=== PATIENT | female | born 1955 ===

== ENCOUNTER → 2020-01-04 13:05 | Outpatient (REF) | payer OTHER, SELFPAY ==
--- NOTE | 2020-01-04 13:08 | CA_ITS ---
Transthoracic Echocardiogram Patient (Last, First, Middle): Lizbeth Bonner A Gender: Female Date of : 1955 Age: 64 Procedure Date: 01/04/2020 Procedure Type: Transthoracic Echocardiogram Location: OP Height: 154.94 cm Weight: 74.84 kg BSA: 1.74 m2 Heart Rate: bpm BP: 126 / 62 mmHg Substance Abuse Nurse: ASHKAN Khoury MD: Elissa Salas MD [place] [facility] [place]: - Normal left ventricular size, thickness, and systolic function. - Diastolic function is indeterminate on the basis of available data. - Normal right ventricular cavity size and systolic function. - No significant valvular or pericardial pathology. Findings Left Ventricle Normal left ventricular size, thickness, and systolic function. The visually estimated ejection fraction is between 60-65%. There is no evidence of regional wall motion abnormalities. Diastolic function is indeterminate on the basis of available data. Spectral Doppler is indicative of an impaired relaxation filling pattern. E/E prime ratio is between 8 and 15 consistent with indeterminate filling pressures. Right Ventricle Normal right ventricular cavity size and systolic function. Atria The left atrium is normal in size. There is no evidence of interatrial shunt by color Doppler. The right atrium is normal in size. Aortic Valve Normal aortic valve structure and function. There is no aortic valve stenosis. There is no aortic valve regurgitation. Mitral Valve Normal mitral valve structure and function. There is no mitral valve regurgitation. There is no mitral valve stenosis. Pulmonic Valve The pulmonic valve was not well visualized. Tricuspid Valve Normal tricuspid valve structure and function. There is trace tricuspid valve regurgitation. Tricuspid regurgitation envelope is inadequate for calculation of right ventricular systolic pressure. Normal right atrial pressure. Great Vessels All visible segments of the aorta are normal in size. The pulmonary artery was not well visualized. Venous The inferior vena cava is normal in size and collapses greater than 50% with inspiration. Pericardium/Pleural There is no evidence of pericardial effusion. Prior Study Comparison No prior study available for comparison. Measurements 2D Linear Measurements RVIDd: 2.80 RVIDd Index: 1.61 IVSd: 0.71 0.6-0.9/0.6-1.0 cm LVIDd: 4.68 3.9-5.3/4.2-5.9 cm LVIDd Index: 2.69 2.4-3.2/2.2-3.1 cm/m2 LVIDs: 3.15 2.0-3.6 cm LVPWd: 0.95 0.7-1.1 cm Ao Root: 3.00 2.1-3.5 cm LA Diam: 2.90 2.7-3.8/3.0-4.0 cm LAIDs Index: 1.67 1.5-2.3 cm/m2 LV Mass: 158.56 67-162/88-224 g LV Mass Index: 91.12 43-95/49-115 g/m2 LVOT Diam: 1.90 3.0+(-)1.3 cm 2D Systolic Function EF 4C: 71.30 >55% EF 2C: 64.50 >55% EF BiP: 68.20 >55% Mitral Valve MV Pk E: 0.76 MV PK A: 0.86 MV Decel Time: 261.00 E/A: 0.90 E'Lateral: 7.07 E'Medial: 6.42 E/E' Med: 11.80 E/E' Lat: 10.70 Aortic Valve AoV Pk Ty: 1.41 AoV Mn Ty: 0.99 AoV VTI: 0.33 AoV Pk Grad: 8.00 Aov Mn Grad: 4.00 ED Cont.VTI: 2.30 LVOT LVOT Pk Ty: 1.24 LVOT Mn Ty: 0.82 LVOT VTI: 0.26 LVOT Pk Grad: 6.00 LVOT Mn Grad: 3.00 LVOT Diam: 1.90 LVOT Area: 2.84 Diastolic Function MV Pk E: 0.76 MV Pk A: 0.86 E/A: 0.90 E'Medial: 6.42 E/E' Med: 11.80 E' Laterial: 7.07 E/E' Lat: 10.70 Tricuspid Valve RA Press: 3.00 Great Vessels Aorta Ao Root-2D: 3.00 2.0-3.7 cm Ao Asc: 3.00 2.1-3.4 cm Ao Arch: 2.60 Updated in Other Vendor System with Status of Final Casey Neal MD electronically signed on 01/05/2020 2:56:02 PM with status of Final
== END ==
LOC: HO.CARD 13:05
PROVIDERS: PCP Internal Medicine; Visit Provider Internal Medicine
DX: R01.1 Cardiac murmur, unspecified (principal)
CPT/HCPCS: 93306

== ENCOUNTER → 2020-01-21 09:29 | Outpatient (BNVA) | payer OTHER, SELFPAY | PROVIDERS: PCP Internal Medicine; Referring Provider Internal Medicine; Visit Provider Obstetrics & Gynecology | DX: Z76.89 Persons encountering health services in other specified circumstances (principal) ==

== ENCOUNTER 2020-01-22 16:25 | Outpatient (REF) | payer OTHER, SELFPAY | END 2020-01-22 16:26 | disposition home or self-care (01) | LOC: HO.LAB 16:25 | PROVIDERS: PCP Internal Medicine; Visit Provider Internal Medicine | DX: Z20.828 Contact with and (suspected) exposure to other viral communicable diseases (principal) | CPT/HCPCS: C9803; U0003 ==

== ENCOUNTER → 2020-02-17 15:35 | Outpatient (BNVA) | payer OTHER, SELFPAY | PROVIDERS: Visit Provider Obstetrics & Gynecology | DX: Z76.89 Persons encountering health services in other specified circumstances (principal) ==

== ENCOUNTER 2020-02-23 10:30 | Outpatient (REF) | payer OTHER, SELFPAY | END 2020-02-23 10:31 | disposition home or self-care (01) | LOC: HO.LAB 10:30 | PROVIDERS: PCP Internal Medicine; Visit Provider Internal Medicine | DX: Z20.828 Contact with and (suspected) exposure to other viral communicable diseases (principal) | CPT/HCPCS: C9803; U0003 ==

== ENCOUNTER 2020-04-08 09:51 | Outpatient (REF) | payer OTHER, SELFPAY | END 2020-04-08 09:52 | disposition home or self-care (01) | LOC: HO.LAB 09:51 | PROVIDERS: Visit Provider Internal Medicine | DX: Z20.822 Contact with and (suspected) exposure to COVID-19 (principal) | CPT/HCPCS: 36415; C9803; U0003 ==

== ENCOUNTER 2020-04-21 07:50 | Outpatient (REF) | payer OTHER, SELFPAY ==
--- NOTE | ~2020-04-21 | MM_ITS ---
EXAMINATION: MM SCREENING DIGITAL BREAST TOMOSYNTHESIS, BILATERAL CLINICAL INFORMATION: Screening. Asymptomatic. The lifetime risk of breast cancer based on the Tyrer-Cuzick Model is 4.2%. COMPARISON: Mammography: 11/07/2018 and studies dating back to 05/21/2012 TECHNIQUE: Digital breast tomosynthesis is performed in both the craniocaudal and mediolateral oblique views along with computer-aided detection (CAD). Synthesized 2D images are generated from the tomosynthesis. FINDINGS: There are scattered areas of fibroglandular density (ACR BI-RADS breast composition Category b). Within the deep superior aspect of the left breast, there is a region of density which appears similar to study of 11/07/2018 but which appears to be more prominent than prior studies. This may be related to superimposition of fibroglandular tissue. Recommend spot compression view in mediolateral oblique projection as well as 90 degree mediolateral view of the left breast. There is a stable parenchymal pattern of the right breast. MM/MM tomosynthesis screening BI IMPRESSION: Region of increased density about the deep superior aspect of the left breast likely related to superimposition of fibroglandular tissue for further evaluation, as described. ASSESSMENT: BI-RADS 0: Incomplete - Need Additional Imaging Evaluation. RECOMMENDATION: 1. Additional views of the left breast 2. Targeted ultrasound if warranted after review of the additional views. 3. Radiology department staff will contact the patient for additional imaging. This patient's information was entered into a reminder system with a target due date for their next mammogram.
--- NOTE | ~2020-04-21 | MM_ITS ---
EXAMINATION: BONE DENSITOMETRY CLINICAL INDICATION: Screening for osteoporosis. COMPARISON: This is the patient's baseline examination. TECHNIQUE: Using a Standing Cloud DXA System (software version: 13.1) manufactured by [employer], dual-energy x-ray absorptiometry was performed of the lumbar spine and left hip. The images are of good technical quality. Summary results are attached. FINDINGS: AP SPINE L1-L3 (excluding L4): The data of L1-L4 has been changed to exclude the L4 vertebral body, because degenerative sclerosis at this level may cause overestimation of lumbar spine density. BMD 0.779 g/cm2, Z-score -1.5, T-score -3.3, osteoporosis. LEFT FEMUR, NECK: BMD 0.831 g/cm2, Z-score 0.1, T-score -1.5, osteopenia. LEFT FEMUR, TOTAL: BMD 0.889 g/cm2, Z-score 0.4, T-score -0.9, normal. IDENTIFIED RISK FACTORS: Menopause, secondary osteoporosis. HISTORY OF FRACTURE: None listed. MEDICATIONS: Calcium, vitamin D. MM/XR DEXA axial skeleton IMPRESSION: 1. DIAGNOSIS: Osteoporosis based on the lowest T-score value of -3.3 in the lumbar spine applying World Health Organization criteria. 2. 10-YEAR FRACTURE RISK PREDICTION, FRAX: Major osteoporotic fracture (clinical spine, forearm, hip or shoulder) 5.0%. Hip fracture 0.5%. 3. Treatment Recommendations: NOF guidelines recommend consideration for treatment in postmenopausal women and men age 50 and older presenting with the following: -A hip or vertebral (clinical or morphometric) fracture. -T-score less than or equal to -2.5 at the femoral neck or spine after appropriate evaluation to exclude secondary causes. -Low bone mass at the hip or spine and a 10-year fracture probability by FRAX of greater than or equal to 3% for hip fracture or greater than or equal to 20% for major osteoporotic fracture based on the [place] adapted WHO algorithm. 4. Other Recommendations: All treatment decisions require clinical judgment and consideration of individual patient factors, including patient preferences, comorbidities, previous drug use, risk factors not captured in the FRAX model (e.g. frailty, falls, vitamin D deficiency, increased bone turnover, interval significant decline in bone density) and possible under or overestimation of fracture risk by FRAX. Additional medical evaluation for secondary cause of low bone mineral density may be appropriate. FUTURE SCAN RECOMMENDATION: People with diagnosed cases of osteoporosis or at high risk for fracture should have regular bone mineral density tests. For patients eligible for Medicare, routine testing is allowed once every 2 years. The testing frequency can be increased to one year for patients who have rapidly progressing disease, those who are receiving or discontinuing medical therapy to restore bone mass, or have additional risk factors.
== END 2020-04-21 07:51 | disposition home or self-care (01) ==
LOC: HO.MAMMO 07:50
PROVIDERS: PCP Internal Medicine; Visit Provider Internal Medicine
DX: Z13.820 Encounter for screening for osteoporosis (principal); Z78.0 Asymptomatic menopausal state; Z79.899 Other long term (current) drug therapy; Z12.31 Encounter for screening mammogram for malignant neoplasm of breast
CPT/HCPCS: 77063; 77067; 77080

== ENCOUNTER → 2020-04-25 11:17 | Outpatient (BNVA) | payer OTHER, SELFPAY | PROVIDERS: PCP Internal Medicine; Visit Provider Obstetrics & Gynecology | DX: Z76.89 Persons encountering health services in other specified circumstances (principal) | CPT/HCPCS: Q3014 ==

== ENCOUNTER 2020-05-05 08:31 | Outpatient (REF) | payer OTHER, SELFPAY ==
--- NOTE | ~2020-05-05 | MM_ITS ---
EXAMINATION: MM DIAGNOSTIC DIGITAL BREAST TOMOSYNTHESIS, LEFT CLINICAL INFORMATION: Recall from screening for question of developing parenchymal asymmetry upper left breast on MLO view. COMPARISON: Mammography: 04/21/2020 and prior exams dating back to 12/08/2009. TECHNIQUE: Digital breast tomosynthesis is performed. 2D images are generated from the tomosynthesis. The following views are obtained: 3-D MLO, 3-D ML, 3-D spot MLO x2. FINDINGS: There are scattered areas of fibroglandular density (ACR BI-RADS breast composition Category b). There are shifting fibroglandular tissue seen on prior studies from year to year. There is no developing parenchymal asymmetry upper left breast on the additional views. No architectural abnormality or mass. No significant changes from prior exams. Results are discussed with the patient at time of visit. MM/MM tomosynthesis added views L IMPRESSION: Additional views show no persistent parenchymal asymmetry or developing density. Findings are similar to previous exams. ASSESSMENT: BI-RADS 1: Negative RECOMMENDATION: Routine annual mammography screening. This patient's information was entered into a reminder system with a target due date for their next mammogram.
== END 2020-05-05 08:32 | disposition home or self-care (01) ==
LOC: HO.MAMMO 08:31
PROVIDERS: Visit Provider Internal Medicine
DX: N64.89 Other specified disorders of breast (principal); T50.901A Poisoning by unspecified drugs, medicaments and biological substances, accidental (unintentional), initial encounter; I12.9 Hypertensive chronic kidney disease with stage 1 through stage 4 chronic kidney disease, or unspecified chronic kidney disease; N18.2 Chronic kidney disease, stage 2 (mild); Z79.82 Long term (current) use of aspirin; Z79.899 Other long term (current) drug therapy; Z79.4 Long term (current) use of insulin
CPT/HCPCS: 77061; 77065; Q3014

== ENCOUNTER 2020-05-05 16:53 | Emergency (ER) | payer OTHER, SELFPAY | END 2020-05-05 19:54 | disposition left against medical advice (07) | PROVIDERS: Emergency Provider Emergency Medicine; PCP Internal Medicine | DX: T50.901A Poisoning by unspecified drugs, medicaments and biological substances, accidental (unintentional), initial encounter (principal) ==

== ENCOUNTER 2020-05-06 13:32 | Emergency (ER) | payer OTHER, SELFPAY ==
[2020-05-06 13:34] VITALS: BP 148/52; PULSE 67; RESP 18; TEMP 36.8; O2SAT 98; BMI 25.9
--- NOTE | 2020-05-06 13:51 | ED.RECABL ---
HPI - Recheck/Abnormal Lab/Rx General Chief Complaint: Recheck/Abnormal Lab/Rx Stated Complaint: MEDICATION CHECK Time Seen by Provider: 05/06/20 13:34 Source: patient, old records reviewed and aerial photograph interpreter Mode of arrival: ambulatory Limitations: no limitations History of Present Illness HPI narrative: seen by OB yesterday who found out she was taking alendronate 70mg daily x 7 days instead of weekly patient c/o body aches and some palpitations, referred to ED for lab testing MD complaint: other (was taking alendronate 70mg 5x/week instead of weekly ) Initial visit (ago): day(s) (1) Initial visit for: other Returns today for: called because of abnormal lab/test Symptoms since prior visit: no new symptoms Context: called for abnormal lab result Associated symptoms: malaise and other (myalgias) Treatments prior to arrival: other (stopped the alendronate) Related Data Home Medications Medication Instructions Recorded Confirmed amlodipine 5 mg tablet 5 mg PO DAILY 01/21/20 05/05/20 aspirin 81 mg tablet,delayed 81 mg PO DAILY 01/21/20 05/05/20 release blood sugar diagnostic #10 ea 01/21/20 05/05/20 citalopram 20 mg tablet 20 mg PO DAILY 01/21/20 05/05/20 hydrochlorothiazide 25 mg tablet 25 mg PO DAILY 01/21/20 05/05/20 losartan 100 mg tablet 100 mg PO DAILY 01/21/20 05/05/20 omeprazole 20 mg capsule,delayed 20 mg PO QAM 01/21/20 05/05/20 release rosuvastatin 10 mg tablet 10 mg PO BEDTIME 01/21/20 05/05/20 Previous Rx's Medication Instructions Recorded insulin glargine 100 unit/mL (3 20 unit SUBCUT QAM 30 Days #6 ml 04/06/20 mL) subcutaneous pen insulin glargine 100 unit/mL (3 55 unit SUBCUT QPM 30 Days #16.5 ml 04/06/20 mL) subcutaneous pen pen needle, diabetic 32 gauge x #100 ea 04/06/20 alendronate 70 mg tablet 70 mg PO QWEEK #12 tab 04/25/20 Allergies Allergy/AdvReac Type Severity Reaction Status Date / Time gabapentin Allergy Unknown pruritus Verified 05/06/20 13:41 metformin Allergy Unknown stomach Verified 05/06/20 13:41 upset metoprolol Allergy Unknown upset Verified 05/06/20 13:41 stomach tizanidine Allergy Unknown leg edema Verified 05/06/20 13:41 Review of Systems Review of Systems: Constitutional : No Weight loss, No Fever, No Chills, No Fatigue, No Malaise ENT/Mouth : No sore throat, No Rhinorrhea Eyes: No Eye Pain, No Swelling, No Redness Cardiovascular : No Chest Pain, No SOB, No Dyspnea on Exertion, No Orthopnea, No Edema, pos Palpitations Respiratory : No Cough, No Sputum, No Wheezing Gastrointestinal : No Nausea, No Vomiting, No Diarrhea, No Constipation, No abdominal Pain, No Hematochezia, No Melena Genitourinary : No Dysuria, No Urinary Frequency, No Hematuria, Musculoskeletal : pos joint pain, pos Myalgias, No Joint Swelling Skin : No Skin Lesions, No rash Neuro : No Weakness, No Numbness, No Dizziness, No Headache Psych : No Anxiety/Panic, No Depression Heme/Lymph: No Bruising, No Bleeding,No Lymphadenopathy Endocrine : No Polyuria, No Polydipsia All other systems reviewed and are negative [facility] Past Medical History Attestation statement: The following information was validated with the patient. Medical History Chronic kidney disease, stage 2 (mild) Depression with anxiety Diabetes mellitus Dyslipidemia Essential hypertension Fibromyalgia GERD (gastroesophageal reflux disease) USP (current) use of insulin Long-term use of aspirin therapy Surgical History History of tubal ligation Family History Family History Father No problems noted. Mother Asthma Hypertension Chronic mental illness Family/Other Chronic mental illness Social History Social History Alcohol intake: never Smoking Status: Never smoker Advance Directives: No Advance Directives Information Provided: No Sexual orientation: Straight/Heterosexual Gender identity: female Physical Exam Vital Signs: Vital Signs: Last Vital Signs Temp 98.2 F 05/06/20 13:34 Pulse 67 05/06/20 13:34 Resp 18 05/06/20 13:34 BP 148/52 H 05/06/20 13:34 Pulse Ox 98 05/06/20 13:34 Body Mass Index 25.9 Appearance: Alert. Oriented X3. No acute distress. Eyes: Pupils equal, round and reactive to light. ENT: Pharynx normal. Neck: Normal inspection. Neck supple. CVS: Normal heart rate and rhythm. Pulses normal. Respiratory: No respiratory distress. Breath sounds normal. Abdomen: Soft and nontender. Skin: Skin warm and dry. Normal skin color. Normal skin turgor. Extremities: No lower extremity edema. No calf ttp Neuro: Oriented X 3. No motor deficit. No sensory deficit. Course Course Course Narrative: labs wnl at this time, EKG normal, can be DC at this time MDM - Recheck/Abnormal Lab/Rx MDM Narrative Medical decision making narrative: 64 yo female with osteoporosis - was prescribed alendronate 70mg has been taking it daily insteady of weekly she notes some increased body aches, joint pain, palpitations - at this time will obtain labs, IVF ordered, EKG, dispo per results and findings, patient has already stopped the medication Lab Data Result diagrams: 05/06/20 14:03 05/06/20 14:02 Labs: Lab Results 05/06/20 05/06/20 05/06/20 Range/Units 14:02 14:02 14:03 WBC 6.4 (4.8-10.8) X10*3/uL RBC 5.12 (4.20-5.50) X10*6/uL Hgb 11.5 L (12.0-16.0) g/dl Hct 37.3 (37-47) % MCV 72.9 L (80-98) fL MCH 22.5 L (27.0-33.0) pg MCHC 30.8 L (31.0-35.0) g/dl RDW 13.8 (11.0-16.0) % Plt Count 249 (160-400) X10*3/uL MPV 10.8 (9.4-12.3) fL Immature Gran % (Auto) 0.2 (0.0-0.4) % Neut % (Auto) 65.0 (45-73) % Lymph % (Auto) 23.4 (20-40) % [place] % (Auto) 8.9 (2-11) % Eos % (Auto) 1.9 (0-4) % Baso % (Auto) 0.6 (0-2) % Lymph # (Auto) 1.5 (1.2-4.9) X10*3/uL [place] # (Auto) 0.6 (0.1-1.2) X10*3/uL Eos # (Auto) 0.1 (0.0-0.4) X10*3/uL Baso # (Auto) 0.0 (0.0-0.2) X10*3/uL Abs Immat Gran (auto) 0.01 (0.00-0.03) X10*3/uL Absolute Neuts (auto) 4.1 (2.0-8.3) X10*3/uL Absolute Nucleated RBC 0.000 (0.0-0.012) X10*3/uL Nucleated RBC % (auto) 0.0 (0.0-0.2) /100WBC Hold Blue Top SEE NOTE Sodium 137 (135-145) mmol/L Potassium 4.1 (3.3-5.1) mmol/L Chloride 103 (96-108) mmol/L Carbon Dioxide 28 (22-29) mmol/L Anion Gap 10 L (12-20) BUN 18 H (9-16) mg/dL Creatinine 0.82 (0.5-1.4) mg/dL Estim Creat Clear Calc 60.3 Estimated GFR > 60 Random Glucose 140 H (60-115) mg/dL Calcium 8.9 (8.4-10.2) mg/dL Phosphorus 2.8 (2.7-4.5) mg/dL Total Bilirubin 0.4 (0.0-1.0) mg/dL Direct Bilirubin 0.2 (0.0-0.5) mg/dL AST 26 (5-31) U/L ALT 32 H (0-31) U/L Alkaline Phosphatase 89 (39-117) U/L Total Creatine Kinase 325 H (26-140) U/L Total Protein 7.6 (6.5-8.0) g/dL Albumin 4.6 (3.5-5.0) g/dL Discharge Plan Discharge Clinical Impression: Overdose Patient Disposition: Home, Self-Care Instructions: Adult Overdose (ED) Additional Instructions: hold alendronate until 06/04/20 repeat calcium, kidney function, phosphorous on Saturday Prescriptions: No Action insulin glargine 100 unit/mL (3 mL) insulin pen 20 unit subcut QAM 30 Days Qty: 6 RF: 6 Lantus Solostar U-100 Insulin 100 unit/mL (3 mL) insulin pen 55 unit subcut QPM 30 Days Qty: 16.5 RF: 6 (DME) pen needle, diabetic 32 gauge x 5/32 needle See Rx Instructions ea subcut .MEDSUPPLY Qty: 100 RF: 11 amlodipine 5 mg tablet 5 mg PO DAILY RF: 0 aspirin 81 mg tablet,delayed release (DR/EC) 81 mg PO DAILY RF: 0 omeprazole 20 mg capsule,delayed release(DR/EC) 20 mg PO QAM RF: 0 (DME) FreeStyle Lite Strips Strip See Rx Instructions ea Not Applicable TID Qty: 10 RF: 0 rosuvastatin 10 mg tablet 10 mg PO BEDTIME RF: 0 hydrochlorothiazide 25 mg tablet 25 mg PO DAILY RF: 0 losartan 100 mg tablet 100 mg PO DAILY RF: 0 citalopram 20 mg tablet 20 mg PO DAILY RF: 0 alendronate [Fosamax] 70 mg tablet 70 mg PO QWEEK Qty: 12 RF: 3 Referrals: Elissa Kolb MD [Primary Care Provider] - 3 days (repeat blood work) Print Language: Mexican
[2020-05-06] MEDS: 0.9 % Sodium Chloride 1,000 ML 999 ML IVCONT (14:07)
[2020-05-06 14:08] LABS: Basophils Percent Auto 0.6 % (0-2); Eosinophils Absolute Auto 0.1 X10*3/uL (0.0-0.4); Eosinophils Percent Auto 1.9 % (0-4); Hematocrit 37.3 % (37-47); Hemoglobin 11.5 g/dl (12.0-16.0); Imm Gran Abs Auto 0.01 X10*3/uL (0.00-0.03); Imm Gran Pct Auto 0.2 % (0.0-0.4); Lymphocytes Absolute Auto 1.5 X10*3/uL (1.2-4.9); Lymphocytes Percent Auto 23.4 % (20-40); MANUAL DIFF FLAG NO; Mean Corpuscular HGB Conc 30.8 g/dl (31.0-35.0); Mean Corpuscular Hemoglobin 22.5 pg (27.0-33.0); Mean Corpuscular Volume 72.9 fL (80-98); Mean Platelet Volume 10.8 fL (9.4-12.3); Monocytes Absolute Auto 0.6 X10*3/uL (0.1-1.2); Monocytes Percent Auto 8.9 % (2-11); Neutrophils Absolute Auto 4.1 X10*3/uL (2.0-8.3); Platelet Count 249 X10*3/uL (160-400); Red Blood Count 5.12 X10*6/uL (4.20-5.50); Red Cell Distribution Width 13.8 % (11.0-16.0); White Blood Count 6.4 X10*3/uL (4.8-10.8)
--- NOTE | 2020-05-06 14:11 | ECG_ITS ---
Test Reason : CHEST PAIN Blood Pressure : / mmHG Vent. Rate : 062 BPM Atrial Rate : 062 BPM P-R Int : 182 ms QRS Dur : 080 ms QT Int : 436 ms P-R-T Axes : 056 -03 008 degrees QTc Int : 442 ms Normal sinus rhythm Nonspecific ST abnormality Abnormal ECG When compared with ECG of 10-NOV-2017 16:05, No significant change was found Referred By: Mariaelena Edwards Electronically Signed By:Casey Neal
[2020-05-06 14:41] LABS: Alanine Aminotransferase 32 U/L (0-31); Albumin Level 4.6 g/dL (3.5-5.0); Alkaline Phosphatase 89 U/L (39-117); Aspartate Amino Transferase 26 U/L (5-31); Bilirubin Direct 0.2 mg/dL (0.0-0.5); Bilirubin Total 0.4 mg/dL (0.0-1.0); Blood Urea Nitrogen 18 mg/dL (9-16); Calcium 8.9 mg/dL (8.4-10.2); Creatinine Clr Calc Pharmacy 60.3; Estimated Glomerular Filt Rate > 60; Glucose Random 140 mg/dL (60-115); Phosphorus 2.8 mg/dL (2.7-4.5); Total Protein 7.6 g/dL (6.5-8.0)
[2020-05-06 14:56] LABS: Anion Gap 10 (12-20); Carbon Dioxide 28 mmol/L (22-29); Chloride 103 mmol/L (96-108); Potassium 4.1 mmol/L (3.3-5.1); Sodium 137 mmol/L (135-145)
[2020-05-06 15:33] LABS: COVID-19 Test Negative (Negative); IDNOW Serial# 9DD0AD1C
== END 2020-05-06 15:52 | disposition home or self-care (01) ==
PROVIDERS: Emergency Provider Emergency Medicine; PCP Internal Medicine
DX: R00.2 Palpitations (principal); T45.8X1A Poisoning by other primarily systemic and hematological agents, accidental (unintentional), initial encounter; R79.89 Other specified abnormal findings of blood chemistry; Y92.009 Unspecified place in unspecified non-institutional (private) residence as the place of occurrence of the external cause; Z79.899 Other long term (current) drug therapy; Z79.82 Long term (current) use of aspirin
CPT/HCPCS: 36415; 80048; 80076; 82550; 84100; 85025; 87635; 93005; 96360; 99283; 99284

== ENCOUNTER → 2020-05-11 08:14 | Outpatient (BNVA) | payer OTHER, SELFPAY | PROVIDERS: PCP Internal Medicine; Visit Provider Nurse Practitioner Gerontology | CPT/HCPCS: Q3014 ==

== ENCOUNTER 2020-05-30 08:38 | Outpatient (REF) | payer OTHER, SELFPAY ==
[2020-05-30 09:38] LABS: Estimated Average Glucose 194 mg/dL; Hemoglobin A1c % 8.4 %
[2020-05-30 09:55] LABS: Alanine Aminotransferase 24 U/L (0-31); Albumin Level 4.4 g/dL (3.5-5.0); Alkaline Phosphatase 85 U/L (39-117); Anion Gap 10 (12-20); Aspartate Amino Transferase 24 U/L (5-31); Bilirubin Total 0.2 mg/dL (0.0-1.0); Blood Urea Nitrogen 21 mg/dL (9-16); Calcium 9.1 mg/dL (8.4-10.2); Carbon Dioxide 34 mmol/L (22-29); Chloride 102 mmol/L (96-108); Cholesterol 99 mg/dL; Estimated Glomerular Filt Rate > 60; Glucose Fasting 81 mg/dL (60-99); HDL Cholesterol 39 mg/dL; LDL Cholesterol Calculated 51 mg/dl; Potassium 3.8 mmol/L (3.3-5.1); Sodium 142 mmol/L (135-145); Total Protein 7.2 g/dL (6.5-8.0); Triglycerides 45 mg/dL
[2020-05-30 10:51] LABS: Creatinine Urine 160.53 mg/dL
== END 2020-05-30 08:39 | disposition home or self-care (01) ==
LOC: HO.LAB 08:38
PROVIDERS: PCP Internal Medicine; Visit Provider Nurse Practitioner Gerontology
DX: E11.65 Type 2 diabetes mellitus with hyperglycemia (principal)
CPT/HCPCS: 36415; 80053; 80061; 82043; 83036

== ENCOUNTER → 2020-06-07 08:10 | Outpatient (BNVA) | payer OTHER, SELFPAY | PROVIDERS: PCP Internal Medicine; Visit Provider Nurse Practitioner Gerontology | DX: E11.65 Type 2 diabetes mellitus with hyperglycemia (principal); Z79.4 Long term (current) use of insulin; E78.5 Hyperlipidemia, unspecified; I10 Essential (primary) hypertension | CPT/HCPCS: 82947; 99212 ==

== ENCOUNTER → 2020-06-22 10:19 | Outpatient (BNVA) | payer OTHER, SELFPAY | PROVIDERS: Visit Provider Nurse Practitioner Gerontology | DX: E11.65 Type 2 diabetes mellitus with hyperglycemia (principal); E78.5 Hyperlipidemia, unspecified; I10 Essential (primary) hypertension; Z79.4 Long term (current) use of insulin; Z71.3 Dietary counseling and surveillance | CPT/HCPCS: Q3014 ==

== ENCOUNTER → 2020-08-09 12:09 | Outpatient (BNVA) | payer OTHER, SELFPAY | PROVIDERS: PCP Internal Medicine; Visit Provider Nurse Practitioner Gerontology | DX: E11.65 Type 2 diabetes mellitus with hyperglycemia (principal); E78.5 Hyperlipidemia, unspecified; I10 Essential (primary) hypertension; Z79.4 Long term (current) use of insulin | CPT/HCPCS: 82947; 99212 ==

== ENCOUNTER → 2020-09-20 11:13 | Outpatient (BNVA) | payer OTHER, SELFPAY | PROVIDERS: PCP Internal Medicine; Visit Provider Surgery Vascular Surgery | DX: I83.11 Varicose veins of right lower extremity with inflammation (principal) | CPT/HCPCS: 99202 ==

== ENCOUNTER 2020-10-13 12:46 | Outpatient (REF) | payer OTHER, SELFPAY ==
--- NOTE | ~2020-10-13 | US_ITS ---
EXAMINATION: BILATERAL LOWER EXTREMITY VENOUS ULTRASOUND (Reflux Exam) CLINICAL INDICATION: This is a 64-year-old female with venous insufficiency. Varicose veins. COMPARISON: None. TECHNIQUE: Color flow triplex imaging and compression Doppler was performed to evaluate both the deep and the superficial systems bilaterally. To evaluate the superficial system, the examination was performed in the upright position. Color-flow Doppler ultrasound and compression ultrasound were utilized. In addition, maneuvers were utilized to demonstrate reflux. FINDINGS: 1. DEEP VENOUS ULTRASOUND OF THE RIGHT LOWER EXTREMITY: Common Femoral Vein: Compressible, normal respiratory variation and augmented flow. Femoral vein: Compressible, normal color flow and augmentation. Popliteal Vein: Compressible, normal augmentation. Deep Reflux: There is no evidence of reflux in the deep system in either the common femoral vein or the popliteal vein. . There is no evidence of a Cortez's cyst. 2. SUPERFICIAL ULTRASOUND WITH DOPPLER OF RIGHT LOWER EXTREMITY GREAT SAPHENOUS VEIN: Saphenofemoral junction: 0.8 cm. There is no reflux at the junction. Mid thigh: 0.2 cm Above knee: 0.2 cm Below knee: 0.2 cm. There is no reflux at this level and above. Mid calf: 0.1 cm. The reflux time is 2000 432 ms. There is no reflux below this level. There is no reflux above this level. Ankle: 0.2 cm. There is no reflux. GSV REFLUX: There is isolated reflux in the mid calf. DUPLICATED GREAT SAPHENOUS VEIN: There is a 0.4 cm medial dedicated right great saphenous vein without evidence of reflux. SMALL SAPHENOUS VEIN: Upper: 0.2 cm Lower: Your 0.1 cm SSV REFLUX: No evidence of reflux. VEIN OF GIACOMINI: None Imaged. 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 VARICOSITIES: There is a 0.4 cm proximal thigh varicose vein without reflux. There is a 0.3 cm posterior calf varicose vein with the reflux time of 2684 ms. 3. DEEP VENOUS ULTRASOUND OF THE LEFT LOWER EXTREMITY: Common Femoral Vein: There is reflux in the left common femoral vein with the reflux time of 848 ms. Femoral vein: Compressible, normal color flow and augmentation. Popliteal Vein: Compressible, normal augmentation. Deep Reflux: There is isolated reflux in the left common femoral vein. 4. SUPERFICIAL ULTRASOUND WITH DOPPLER OF LEFT LOWER EXTREMITY GREAT SAPHENOUS VEIN: Saphenofemoral junction: 0.8 cm Mid thigh: 0.2 cm Above knee: 0.3 cm Below knee: 0.7 cm Mid calf: 0.1 cm Ankle: 0.2 cm GSV REFLUX: No evidence of reflux. DUPLICATED GREAT SAPHENOUS VEIN: There is a 0.4 cm medial duplicated great saphenous vein without evidence of reflux. SMALL SAPHENOUS VEIN: Upper: 0.3 cm Lower: 0.2 cm SSV REFLUX: No evidence of reflux. VEIN OF GIACOMINI: None Imaged. PERFORATORS: There is a 0.2 cm proximal calf functional mental disability teacher with reflux of 524 ms. VARICOSITIES: None Imaged US/US venous duplex LE BI IMPRESSION: 1. There is a patent right great saphenous vein without evidence of reflux at the junction. There is isolated reflux in the mid calf. 2. There is a duplicated medial right great saphenous vein without evidence of reflux. 3. There is a right small saphenous vein without evidence of reflux. 4. There are right-sided varicose veins as described. 5. There is a patent left great saphenous vein without evidence of reflux. 6. There is a patent left medial great duplicated saphenous vein without evidence of reflux. 7. There is a patent left small saphenous vein without evidence of reflux. 8. There is a left proximal calf functional mental disability teacher with reflux as noted. 9. There are right groin lymph nodes. The first node measures 1.1 x 0.9 x 1.2 cm. The second node measures 1.6 x 0.6 x 1.0 cm. Clinical correlation is recommended.
== END 2020-10-13 12:47 | disposition home or self-care (01) ==
LOC: HO.US 12:46
PROVIDERS: Visit Provider Surgery Vascular Surgery
DX: I83.11 Varicose veins of right lower extremity with inflammation (principal); I83.893 Varicose veins of bilateral lower extremities with other complications
CPT/HCPCS: 93970

== ENCOUNTER → 2020-10-20 13:01 | Outpatient (BNVA) | payer MEDICARE, SELFPAY | PROVIDERS: PCP Internal Medicine; Visit Provider Surgery Vascular Surgery | DX: I83.11 Varicose veins of right lower extremity with inflammation (principal) | CPT/HCPCS: 99212 ==

== ENCOUNTER 2020-11-10 12:13 | Outpatient (REF) | payer MEDICARE, SELFPAY ==
[2020-11-10 13:57] LABS: MANUAL DIFF FLAG NO
[2020-11-10 14:00] LABS: Basophils Absolute Auto 0.1 X10*3/uL (0.0-0.2); Basophils Percent Auto 0.6 % (0-2); Eosinophils Absolute Auto 0.2 X10*3/uL (0.0-0.4); Eosinophils Percent Auto 2.3 % (0-4); Hematocrit 39.2 % (37-47); Hemoglobin 12.1 g/dl (12.0-16.0); Imm Gran Abs Auto 0.01 X10*3/uL (0.00-0.03); Imm Gran Pct Auto 0.1 % (0.0-0.4); Lymphocytes Absolute Auto 1.5 X10*3/uL (1.2-4.9); Lymphocytes Percent Auto 18.4 % (20-40); Mean Corpuscular HGB Conc 30.9 g/dl (31.0-35.0); Mean Corpuscular Hemoglobin 22.3 pg (27.0-33.0); Mean Corpuscular Volume 72.2 fL (80-98); Mean Platelet Volume 11.1 fL (9.4-12.3); Monocytes Absolute Auto 0.6 X10*3/uL (0.1-1.2); Monocytes Percent Auto 7.6 % (2-11); Neutrophils Absolute Auto 5.6 X10*3/uL (2.0-8.3); Platelet Count 231 X10*3/uL (160-400); Red Blood Count 5.43 X10*6/uL (4.20-5.50); Red Cell Distribution Width 13.8 % (11.0-16.0); White Blood Count 7.9 X10*3/uL (4.8-10.8)
[2020-11-10 14:21] LABS: Alanine Aminotransferase 28 U/L (0-31); Albumin Level 4.6 g/dL (3.5-5.0); Alkaline Phosphatase 81 U/L (39-117); Anion Gap 13 (12-20); Aspartate Amino Transferase 29 U/L (5-31); Bilirubin Total 0.5 mg/dL (0.0-1.0); Blood Urea Nitrogen 22 mg/dL (9-16); Carbon Dioxide 31 mmol/L (22-29); Chloride 103 mmol/L (96-108); Cholesterol 125 mg/dL; Estimated Glomerular Filt Rate 54; Glucose Fasting 122 mg/dL (60-99); HDL Cholesterol 44 mg/dL; Iron 109 mcg/dL (30-160); LDL Cholesterol Calculated 48 mg/dl; Percent Iron Saturation 30 % (15-50); Potassium 4.4 mmol/L (3.3-5.1); Sodium 143 mmol/L (135-145); Total Iron Binding Capacity 360 mcg/dL (228-428); Total Protein 7.9 g/dL (6.5-8.0); Triglycerides 166 mg/dL; Unsaturated Iron Binding 251 ug/dL
[2020-11-10 14:22] LABS: Alanine Aminotransferase 29 U/L (0-31); Albumin Level 4.6 g/dL (3.5-5.0); Alkaline Phosphatase 80 U/L (39-117); Anion Gap 12 (12-20); Aspartate Amino Transferase 27 U/L (5-31); Bilirubin Total 0.5 mg/dL (0.0-1.0); Blood Urea Nitrogen 22 mg/dL (9-16); Carbon Dioxide 30 mmol/L (22-29); Chloride 104 mmol/L (96-108); Estimated Glomerular Filt Rate 54; Glucose Random 120 mg/dL (60-115); Phosphorus 3.8 mg/dL (2.7-4.5); Potassium 4.3 mmol/L (3.3-5.1); Sodium 142 mmol/L (135-145); Total Protein 7.8 g/dL (6.5-8.0)
[2020-11-10 14:43] LABS: Free T4 (Free Thyroxine) 1.01 ng/dL (0.71-1.85); Vitamin D 25-OH Total 42.8 ng/mL (>30)
[2020-11-10 14:59] LABS: Folate > 20.0 ng/mL (> or = 4.0); Vitamin B12 1014 pg/mL (200-900)
[2020-11-10 15:03] LABS: Creatinine Urine 82.21 mg/dL; Microalbum/Creatinine Ratio Ur 48.6 ug/mg cr
[2020-11-11 19:32] LABS: PTHI 70 pg/mL (14-64)
[2020-11-14 13:36] LABS: Vitamin D 25-OH, D2 <4 ng/mL; Vitamin D 25-OH, D3 35 ng/mL; Vitamin D 25-OH, Total 35 ng/mL (30-100)
[2020-11-15 16:35] LABS: N-Telopeptide 30 (see note); NTXCreaRU 83 mg/dL (20-275)
[2020-11-15 21:31] LABS: Prot Elec - Albumin 4.5 g/dL (3.8-4.8); Prot Elec - Alpha1 0.3 g/dL (0.2-0.3); Prot Elec - Alpha2 0.8 g/dL (0.5-0.9); Prot Elec - Beta 1 0.5 g/dL (0.4-0.6); Prot Elec - Beta 2 0.4 g/dL (0.2-0.5); Prot Elec - Gamma 1.3 g/dL (0.8-1.7); Prot Elec - Total Protein 7.7 g/dL (6.1-8.1)
== END 2020-11-10 12:14 | disposition home or self-care (01) ==
LOC: HO.LAB 12:13
PROVIDERS: PCP Internal Medicine; Visit Provider Internal Medicine
DX: M81.0 Age-related osteoporosis without current pathological fracture (principal); E04.9 Nontoxic goiter, unspecified; E55.9 Vitamin D deficiency, unspecified; E11.65 Type 2 diabetes mellitus with hyperglycemia; D64.9 Anemia, unspecified; E78.5 Hyperlipidemia, unspecified; I10 Essential (primary) hypertension
CPT/HCPCS: 36415; 80053; 80061; 82043; 82306; 82330; 82523; 82607; 82746; 82947; 83036; 83540; 83970; 84100; 84165; 84439; 84443; 85025; 99202

== ENCOUNTER 2020-11-15 09:49 | Outpatient (REF) | payer MEDICARE, SELFPAY ==
[2020-11-15 10:42] LABS: Creatinine, mg/dL 53.44
[2020-11-15 14:52] LABS: Total Volume 24 Hour Urine 1850 mL
[2020-11-17 17:36] LABS: Calcium, 24 Hr Urine 30 mg/24 h; Calcium/Creatinine Ratio 27 mg/g creat (30-275); Creatinine 24Hr Urine 1.09 g/24 h (0.50-2.15)
== END 2020-11-15 09:50 | disposition home or self-care (01) ==
LOC: HO.LNP 09:49
PROVIDERS: Visit Provider Internal Medicine
DX: E11.65 Type 2 diabetes mellitus with hyperglycemia (principal)
CPT/HCPCS: 82340; 82570

== ENCOUNTER 2020-12-14 08:18 | Outpatient (REF) | payer MEDICARE, SELFPAY ==
--- NOTE | ~2020-12-14 | US_ITS ---
EXAMINATION: US THYROID CLINICAL INFORMATION: Vitamin D deficiency, unspecified. COMPARISON: None TECHNIQUE: Linear transducer grayscale and color Doppler examination with attention to the region of the thyroid. FINDINGS: SIZE: Measurements of the thyroid lobes and nodules are given in sagittal, anteroposterior and transverse dimensions respectively. Right Thyroid Lobe: 4.5 x 1.5 x 1.2 cm, volume 4.2 mL. Parenchyma: The gland echotexture is heterogeneous. Thyroid vascularity is normal. Left Thyroid Lobe: 5.0 x 1.2 x 1.2 cm, volume 3.8 mL. Parenchyma: The gland echotexture is heterogeneous. Thyroid vascularity is normal. Isthmus: 0.5 cm in maximum AP dimension. Estimated total number of nodules greater than or equal to 1 cm: 1. Small Equipment Operator nodules are described as follows: 1. Location: Left lower pole. Size: 1.4 x 1.0 x 1.1 cm, volume 0.7 mL. Nodule characteristics: Composition: Mixed cystic and solid (1). Echogenicity: Cannot be determined (1). Shape: Not taller than wide (0). Margins: Smooth (0). Echogenic Foci: None (0). ACR TI-RADS total points: 2 ACR TI-RADS category: 2 2. Location: Right mid pole. Size: 0.7 x 0.5 x 0.4 cm, volume 0.07 mL. Nodule characteristics: Composition: Mixed cystic and solid (1). Echogenicity: Cannot be determined (1). Shape: Taller than wide (3). Margins: Smooth (0). Echogenic Foci: Punctate echogenic foci (3). ACR TI-RADS total points: 8 ACR TI-RADS category: 5 There are multiple additional simple colloid cysts all less than 1 cm. NODES: No lymphadenopathy is seen in the tissue surrounding the thyroid gland. US/US thyroid IMPRESSION: Small slightly heterogeneous thyroid gland. Multiple bilateral small nodules, majority representing simple and colloid cyst. Ultrasound follow-up of the small nodule with calcifications in the mid right lobe every year for 5 years as described below recommended. ACR TI-RADS RECOMMENDATION REFERENCE: Ultrasound-guided fine-needle aspiration, followup ultrasound, no further follow up. * TR1 (0 point) and TR 2 (2 points): No FNA or follow up * TR3 (3 points): FNA if more than or equal to 2.5 cm in maximum dimension, followup ultrasound in 1, 3 and 5 years if 1.5 to 2.4 cm in maximum dimension. * TR4 (4-6 points): FNA if more than or equal to 1.5 cm in maximum dimension, followup ultrasound in 1, 2, 3 and 5 years if 1 to 1.4 cm in maximum dimension. * TR5 (more than or equal to 7 points): FNA if more than or equal to 1 cm in maximum dimension, followup ultrasound every year for 5 years if 0.5 to 0.9 cm in maximum dimension. * TR3, TR4 or TR5 nodules that are below the size threshold for follow up receive no follow up.
== END 2020-12-14 08:19 | disposition home or self-care (01) ==
LOC: HO.US 08:18
PROVIDERS: Visit Provider Internal Medicine
DX: E04.9 Nontoxic goiter, unspecified (principal); E55.9 Vitamin D deficiency, unspecified
CPT/HCPCS: 76536

== ENCOUNTER → 2021-01-09 08:15 | Outpatient (BNVA) | payer MEDICARE, SELFPAY | PROVIDERS: PCP Internal Medicine; Visit Provider Internal Medicine | CPT/HCPCS: Q3014 ==

== ENCOUNTER → 2021-01-23 09:21 | Outpatient (BNVA) | payer MEDICARE, SELFPAY | PROVIDERS: PCP Internal Medicine; Visit Provider Obstetrics & Gynecology ==

== ENCOUNTER 2021-02-13 09:37 | Emergency (ER) | payer MEDICARE, SELFPAY ==
--- NOTE | ~2021-02-13 | XR_ITS ---
EXAMINATION: XR HIP, LEFT CLINICAL INFORMATION: Left hip pain COMPARISON: None TECHNIQUE: Two views of the left hip. AP pelvis FINDINGS: AP PELVIS: There is loss of bilateral hip joint space and SI joint space. No visible fracture or lytic process seen. The soft tissues are normal. AP AND FROG-LEG VIEWS LEFT HIP. There is no visible acute fracture, dislocation or bony abnormality. The soft tissues are normal. XR/XR hip LT w PEL1V IMPRESSION: Unremarkable AP pelvis exam. Unremarkable left hip exam.
[2021-02-13 10:27] VITALS: BP 160/60; PULSE 63; RESP 16; TEMP 36.6; O2SAT 99; BMI 25.2
--- NOTE | 2021-02-13 10:52 | ED_ITS ---
HPI - Extremity Injury (Lower) General Chief Complaint: Extremity Injury, Lower Stated Complaint: lt hip pain Time Seen by Provider: 02/13/21 10:37 Source: patient Mode of arrival: ambulatory Limitations: no limitations History of Present Illness HPI Narrative: 65-year-old female with a history of diabetes on insulin, osteoporosis, varicose veins, anemia, hyperparathyroidism, CKD to, GERD, dyslipidemia presented to the ER with nontraumatic left-sided hip pain for the last 5 days. she states the pain is located in her left lower back and radiates into her left hip and buttock. She denies any falls or trauma. She describes it as and aching and throbbing. It is worse at nighttime. She is able to put weight on her leg and ambulate without any limp. She has not taken any medication for the pain. She denies any numbness, tingling, weakness, incontinence. MD complaint: hip injury and other ( Back pain) Onset (ago): day(s) (5) Injury: Left: hip Type of Injury: unknown Place: home Severity: moderate Severity scale (1-10): 6 Relieving factors: immobilization and rest Exacerbating factors: movement and palpation Associated symptoms: ambulatory Other symptoms: none Related Data Home Medications Medication Instructions Recorded Confirmed citalopram 20 mg tablet 20 mg PO DAILY 01/21/20 01/09/21 amlodipine 5 mg tablet 5 mg PO DAILY 06/22/20 01/09/21 aspirin 81 mg tablet,delayed 81 mg PO DAILY 06/22/20 01/09/21 release alcohol swabs (Alcohol Prep Pads) 1 pad TOPICAL QID ea 11/10/20 01/09/21 Previous Rx's Medication Instructions Recorded losartan 100 mg tablet 100 mg PO DAILY 90 Days #90 tab 06/07/20 omeprazole 20 mg capsule,delayed 20 mg PO QAM 90 Days #90 cap 06/20/20 release insulin glargine 100 unit/mL (3 25 unit (0.25 mL) SUBCUT QPM 30 06/22/20 mL) subcutaneous pen (Lantus #15 ml Solostar U-100 Insulin) pen needle, diabetic 32 gauge x #150 ea 06/22/20 blood sugar diagnostic (OneTouch #125 ea 09/21/20 Verio test strips) blood-glucose meter (OneTouch #1 ea 09/21/20 Verio Flex meter) insulin lispro 100 unit/mL 6 - 12 unit (0.06 - 0.12 mL) 09/21/20 subcutaneous pen (Humalog KwikPen SUBCUT TID 30 Days #15 ml (U-100) Insulin) rosuvastatin 20 mg tablet 20 mg PO DAILY 30 Days #30 tab 11/10/20 lancets 33 gauge (OneTouch Delica #100 ea 11/28/20 Plus Lancet) cyclobenzaprine 10 mg tablet 10 mg PO TID PRN #10 tab 02/13/21 ibuprofen 600 mg tablet 600 mg PO Q8H PRN #14 tab 02/13/21 lidocaine 5 % topical patch 1 patch TOPICAL DAILY #15 ea 02/13/21 Allergies Allergy/AdvReac Type Severity Reaction Status Date / Time gabapentin Allergy Intermediate pruritus Verified 01/23/21 09:26 metformin Allergy Intermediate stomach Verified 01/23/21 09:26 upset metoprolol Allergy Intermediate upset Verified 01/23/21 09:26 stomach tizanidine Allergy Intermediate leg edema Verified 01/23/21 09:26 Review of Systems Review of Systems: Constitutional: No Fever, No Chills Cardiovascular: No Chest Pain, No SOB Gastrointestinal: No Nausea, No Vomiting, , No abdominal Pain Genitourinary: No Dysuria, No Urinary Frequency, No Hematuria Musculoskeletal: + joint pain, + Myalgias Skin: No Skin Lesions, No rash Neuro: No Weakness, No Numbness, No Dizziness, No Headache Heme/Lymph: No Bruising, No Lymphadenopathy PMFSH Past Medical History Medical History Anemia Chronic kidney disease, stage 2 (mild) Depression with anxiety Diabetes mellitus Diabetes type 2, uncontrolled Dyslipidemia Essential hypertension Fibromyalgia GERD (gastroesophageal reflux disease) Goiter Hyperlipidemia LDL goal <100 Hyperparathyroidism senior care (current) use of insulin Long-term use of aspirin therapy Multinodular thyroid Osteoporosis Right hand pain Screening for osteoporosis Vitamin D deficiency Well woman exam Surgical History History of colonoscopy History of tubal ligation Family History Family History Father No problems noted. Mother Asthma Hypertension Chronic mental illness Diabetes Mental health disorder Family/Other Chronic mental illness Mental health disorder Social History Social History Household Members: None Housing: Apartment Alcohol intake: never Patient Tobacco Use Status: Never used Tobacco Advance Directives: No service: No Current occupational status: disabled Sexual orientation: Straight/Heterosexual Gender identity: Female Physical Exam Vital Signs: Vital Signs: Last Vital Signs Temp 97.9 F 02/13/21 10:27 Pulse 63 02/13/21 10:27 Resp 16 02/13/21 10:27 BP 160/60 H 02/13/21 10:27 Pulse Ox 99 02/13/21 10:27 Body Mass Index 25.2 Appearance: Alert. Oriented X3. No acute distress. HEENT: normal inspection CVS: Normal heart rate and rhythm. Pulses normal. Respiratory: No respiratory distress. Skin: Skin warm and dry. Normal skin color. Normal skin turgor. No rashes. Extremities: Atraumatic, normal inspection, normal range of motion. Left hip with normal active and passive range of motion. There is some tenderness to the proximal lateral left hip with tenderness of the SI joint and left low lumbar soft tissue. Neuro: Oriented X 3. No motor deficit. No sensory deficit. Ambulates with steady gait Course Course Course Narrative: 65-year-old female presenting with reports of left hip pain that started when she woke up on . Her history and physical exam were more consistent with left low back pain that radiates to the left hip and buttock. No trauma, no red flag symptoms of low back pain. X-ray of the areas negative. Will treat for musculoskeletal low back pain and have her follow-up with her primary care doctor. Critical Care Time Critical Care Time Critical Care Time: No Discharge Plan Discharge Clinical Impression: Low back pain Qualifiers: Chronicity: acute Back pain laterality: left Sciatica presence: without sciatica Qualified Code(s): M54.50 - Low back pain, unspecified Patient Disposition: Home, Self-Care Instructions: Acute Low Back Pain (ED), Lower Back Exercises (ED) Additional Instructions: Your x-ray today was normal. No bending, lifting or twisting. Use ice several times per day for 20 minutes at a time for the next 48 hours and then change to heat. Take medications as prescribed to help with pain and discomfort. Follow up with your Primary Care Doctor this week. If your pain worsens, if you develop new numbness, tingling, weakness, loss of function or incontinence call 911 or come back to the ER right away for evaluation. Tu radiograf?a de hoy fue normal. Sin agacharse, levantar ni torcer. Use hielo varias veces al d?a bryan 20 minutos a la vez bryan las pr?ximas 48 horas y luego cambie a calor. [place] los medicamentos recetados para aliviar el dolor y la incomodidad. Uri un seguimiento con mayer m?dico de atenci?n primaria esta semana. Si mayer dolor empeora, si presenta entumecimiento, hormigueo, debilidad, p?rdida de funci?n o incontinencia nuevos, llame al 911 o regrese a la emil de emergencias de inmediato para junior evaluaci?n. Prescriptions: New cyclobenzaprine 10 mg tablet 10 mg PO TID PRN (Reason: muscle spasm) Qty: 10 RF: 0 lidocaine 5 % adhesive patch,medicated 1 patch topical DAILY Qty: 15 RF: 0 ibuprofen 600 mg tablet 600 mg PO Q8H PRN (Reason: pain) Qty: 14 RF: 0 No Action losartan 100 mg tablet 100 mg PO DAILY 90 Days Qty: 90 RF: 3 omeprazole 20 mg capsule,delayed release(DR/EC) 20 mg PO QAM 90 Days Qty: 90 RF: 3 (DME) OneTouch Verio test strips Strip See Rx Instructions .ROUTE .MEDSUPPLY Qty: 125 RF: 11 (DME) blood-glucose meter [OneTouch Verio Flex meter] Misc See Rx Instructions .ROUTE .MEDSUPPLY Qty: 1 RF: 0 insulin lispro [Humalog KwikPen Insulin] 100 unit/mL insulin pen 6 - 12 unit subcut TID 30 Days Qty: 15 RF: 2 (DME) lancets [OneTouch Delica Plus Lancet] 33 gauge misc See Rx Instructions .ROUTE .MEDSUPPLY Qty: 100 RF: 6 citalopram 20 mg tablet 20 mg PO DAILY RF: 0 amlodipine 5 mg tablet 5 mg PO DAILY RF: 0 aspirin 81 mg tablet,delayed release (DR/EC) 81 mg PO DAILY RF: 0 alcohol swabs [Alcohol Prep Pads] Pads, Medicated 1 pad topical QID RF: 0 rosuvastatin 20 mg tablet 20 mg PO DAILY 30 Days Qty: 30 RF: 11 Lantus Solostar U-100 Insulin 100 unit/mL (3 mL) insulin pen 25 unit subcut QPM 30 Days Qty: 15 RF: 2 (DME) pen needle, diabetic 32 gauge x 5/32 needle See Rx Instructions ea subcut .MEDSUPPLY Qty: 150 RF: 11 Interventions: ED Discharge Assessment Last Done: 02/13/21 12:22 Discharge Date/Time: 02/13/21 12:24
== END 2021-02-13 12:24 | disposition home or self-care (01) ==
PROVIDERS: Emergency Provider Emergency Medicine; PCP Internal Medicine
DX: M54.50 Low back pain, unspecified (principal); M25.552 Pain in left hip; Z79.899 Other long term (current) drug therapy; Z79.4 Long term (current) use of insulin
CPT/HCPCS: 73502; 99283

== ENCOUNTER 2021-04-24 11:07 | Outpatient (REF) | payer MEDICARE, SELFPAY ==
--- NOTE | ~2021-04-24 | MM_ITS ---
EXAMINATION: MM SCREENING DIGITAL BREAST TOMOSYNTHESIS, BILATERAL CLINICAL INFORMATION: Screening. Asymptomatic. The lifetime risk of breast cancer based on the Tyrer-Cuzick Model is 4%. COMPARISON: Mammography: 05/05/2020, 04/21/2020, 11/07/2018, 01/11/2017 TECHNIQUE: Digital breast tomosynthesis is performed in both the craniocaudal and mediolateral oblique views along with computer-aided detection (CAD). Synthesized 2D images are generated from the tomosynthesis. Additional right MLO view is provided. FINDINGS: There are scattered areas of fibroglandular density (ACR BI-RADS breast composition Category b). There are no significant masses, abnormal calcifications, or other abnormalities. Parenchymal pattern is similar to prior studies. There is no developing density or architectural abnormality. The axilla and skin contours are unremarkable. No significant changes. MM/MM tomosynthesis screening BI IMPRESSION: No mammographic evidence of malignancy. ASSESSMENT: BI-RADS 1: Negative RECOMMENDATION: Routine annual mammography screening. This patient's information was entered into a reminder system with a target due date for their next mammogram.
== END 2021-04-24 11:08 | disposition home or self-care (01) ==
LOC: HO.MAMMO 11:07
PROVIDERS: PCP Internal Medicine; Visit Provider Internal Medicine
DX: Z12.31 Encounter for screening mammogram for malignant neoplasm of breast (principal)
CPT/HCPCS: 77063; 77067

== ENCOUNTER 2021-05-25 07:56 | Outpatient (REF) | payer MEDICARE, SELFPAY ==
--- NOTE | 2021-05-25 08:45 | PM.OP ---
Brief Operative Note Date of Service: 05/25/21 Pre-op diagnosis: Multinodular Thyroid Procedure: This is doctor Lela Cruz. This is an ultrasound-guided fine-needle aspiration report. Date of Examination: Indication: Multinodular Thyroid Porcedure: Procedure was explained to the patient. Alternatives, the risk and benefits were discussed. Written consent was obtained. A time-out was also obtained. After sterile preparation, fine-needle aspiration of a left lower pole 1.4 cm thyroid nodule was performed using direct ultrasound guidance to confirm accurate needle placement. Four aspirations were made using 27 gauge needles. An additional 2 aspirations were made using 25 guage needles. Samples were submitted for cytology. One pass was dedicated for [employer] Gene sequencing insurance special agent testing. The patient tolerated the procedure well. Aftercare instructions were provided. Impression: Uncomplicated fine needle aspiration biopsy of a left lower pole 1.4 cm thyroid nodule under ultrasound guidance. Surgeon: Lela Cruz, DO Was an Aluminum Molding Machine Operator used for this Procedure?: No Estimated blood loss (mL): 0
== END 2021-05-25 07:57 | disposition home or self-care (01) ==
LOC: HO.US 07:56
PROVIDERS: PCP Internal Medicine; Visit Provider Internal Medicine
DX: E04.2 Nontoxic multinodular goiter (principal)
CPT/HCPCS: 10005; 88172; 88173; 88177; 88305

== ENCOUNTER → 2021-06-05 08:13 | Outpatient (BNVA) | payer MEDICARE, SELFPAY | PROVIDERS: PCP Internal Medicine; Visit Provider Internal Medicine | DX: Z13.89 Encounter for screening for other disorder (principal) | CPT/HCPCS: Q3014 ==

== ENCOUNTER 2021-06-12 07:55 | Outpatient (REF) | payer MEDICARE, SELFPAY ==
[2021-06-12 08:28] LABS: MANUAL DIFF FLAG NO
[2021-06-12 08:45] LABS: Basophils Absolute Auto 0.1 X10*3/uL (0.0-0.2); Basophils Percent Auto 0.8 % (0-2); Eosinophils Absolute Auto 0.1 X10*3/uL (0.0-0.4); Eosinophils Percent Auto 1.7 % (0-4); Hematocrit 38.7 % (37.0-47.0); Hemoglobin 11.4 g/dl (12.0-16.0); Imm Gran Abs Auto 0.02 X10*3/uL (0.00-0.03); Imm Gran Pct Auto 0.3 % (0.0-0.4); Lymphocytes Absolute Auto 1.3 X10*3/uL (1.2-4.9); Mean Corpuscular HGB Conc 29.5 g/dl (31.0-35.0); Mean Corpuscular Hemoglobin 22.1 pg (27.0-33.0); Mean Platelet Volume 11.7 fL (9.4-12.3); Monocytes Absolute Auto 0.4 X10*3/uL (0.1-1.2); Monocytes Percent Auto 7.2 % (2-11); Neutrophils Absolute Auto 4.1 x10*3/uL (2.0-8.3); Platelet Count 207 X10*3/uL (160-400); Red Blood Count 5.16 X10*6/uL (4.20-5.50); Red Cell Distribution Width 13.7 % (11.0-16.0)
[2021-06-12 09:22] LABS: Alanine Aminotransferase 27 U/L (0-31); Albumin Level 4.2 g/dL (3.5-5.0); Alkaline Phosphatase 74 U/L (39-117); Anion Gap 13 (12-20); Aspartate Amino Transferase 24 U/L (5-31); Bilirubin Total 0.3 mg/dL (0.0-1.0); Blood Urea Nitrogen 14 mg/dL (9-16); Calcium 9.5 mg/dL (8.4-10.2); Carbon Dioxide 30 mmol/L (22-29); Chloride 102 mmol/L (96-108); Cholesterol 123 mg/dL; Estimated Glomerular Filt Rate > 60; Glucose Fasting 274 mg/dL (60-99); HDL Cholesterol 48 mg/dL; Iron 95 mcg/dL (30-160); LDL Cholesterol Calculated 40 mg/dl; Percent Iron Saturation 30 % (15-50); Phosphorus 3.6 mg/dL (2.7-4.5); Potassium 4.5 mmol/L (3.3-5.1); Sodium 140 mmol/L (135-145); Total Iron Binding Capacity 319 mcg/dL (228-428); Total Protein 7.1 g/dL (6.5-8.0); Triglycerides 176 mg/dL; Unsaturated Iron Binding 224 ug/dL
[2021-06-12 09:32] LABS: Free T4 (Free Thyroxine) 1.04 ng/dL (0.71-1.85); Thyroid Stimulating Hormone 2.84 uIU/mL (0.32-4.0); Vitamin D 25-OH Total 31.2 ng/mL (>30)
[2021-06-12 11:13] LABS: Creatinine Urine 146.98 mg/dL; Microalbum/Creatinine Ratio Ur 72.1 ug/mg cr
[2021-06-13 14:41] LABS: Calcium (PTHI) 9.6 mg/dL (8.6-10.4); PTHI 79 pg/mL (16-77)
[2021-06-14 08:12] LABS: Calcium, Ionized 4.7 mg/dL (4.8-5.6)
== END 2021-06-12 07:56 | disposition home or self-care (01) ==
LOC: HO.LAB 07:55
PROVIDERS: PCP Internal Medicine; Visit Provider Internal Medicine
DX: E04.2 Nontoxic multinodular goiter (principal); E21.3 Hyperparathyroidism, unspecified; E55.9 Vitamin D deficiency, unspecified; E78.5 Hyperlipidemia, unspecified; E11.65 Type 2 diabetes mellitus with hyperglycemia; D64.9 Anemia, unspecified
CPT/HCPCS: 36415; 80053; 80061; 82043; 82306; 82330; 83540; 83970; 84100; 84439; 84443; 85025

== ENCOUNTER → 2021-06-16 09:08 | Outpatient (BNVA) | payer MEDICARE, SELFPAY | PROVIDERS: PCP Internal Medicine; Visit Provider Nurse Practitioner Gerontology | DX: E11.65 Type 2 diabetes mellitus with hyperglycemia (principal); E78.5 Hyperlipidemia, unspecified; I10 Essential (primary) hypertension; Z79.4 Long term (current) use of insulin | CPT/HCPCS: 82947; 83036; 99212 ==

== ENCOUNTER 2021-08-02 08:11 | Outpatient (REF) | payer MEDICARE, SELFPAY ==
[2021-08-02 09:33] LABS: Alanine Aminotransferase 24 U/L (0-31); Albumin Level 4.4 g/dL (3.5-5.0); Alkaline Phosphatase 70 U/L (39-117); Anion Gap 11 (12-20); Aspartate Amino Transferase 23 U/L (5-31); Bilirubin Total 0.5 mg/dL (0.0-1.0); Blood Urea Nitrogen 21 mg/dL (9-16); Calcium 9.9 mg/dL (8.4-10.2); Carbon Dioxide 32 mmol/L (22-29); Chloride 102 mmol/L (96-108); Cholesterol 124 mg/dL; Estimated Glomerular Filt Rate > 60; Glucose Fasting 136 mg/dL (60-99); HDL Cholesterol 46 mg/dL; LDL Cholesterol Calculated 59 mg/dl; Potassium 4.4 mmol/L (3.3-5.1); Sodium 141 mmol/L (135-145); Total Protein 7.4 g/dL (6.5-8.0); Triglycerides 95 mg/dL
[2021-08-02 09:53] LABS: Vitamin D 25-OH Total 32.9 ng/mL (>30)
[2021-08-02 10:48] LABS: Creatinine Urine 109.76 mg/dL; Microalbum/Creatinine Ratio Ur 41.9 ug/mg cr
== END 2021-08-02 08:12 | disposition home or self-care (01) ==
LOC: HO.LAB 08:11
PROVIDERS: PCP Internal Medicine; Visit Provider Internal Medicine
DX: E11.65 Type 2 diabetes mellitus with hyperglycemia (principal); E78.5 Hyperlipidemia, unspecified; E55.9 Vitamin D deficiency, unspecified
CPT/HCPCS: 36415; 80053; 80061; 82043; 82306

== ENCOUNTER → 2021-09-05 09:02 | Outpatient (BNVA) | payer MEDICARE, SELFPAY | PROVIDERS: PCP Internal Medicine; Visit Provider Nurse Practitioner Gerontology | DX: E11.65 Type 2 diabetes mellitus with hyperglycemia (principal); E78.5 Hyperlipidemia, unspecified; I10 Essential (primary) hypertension; Z79.4 Long term (current) use of insulin | CPT/HCPCS: 82947; 99212 ==

== ENCOUNTER 2021-09-21 12:50 | Outpatient (REF) | payer MEDICARE, SELFPAY ==
[2021-09-21 13:41] LABS: IDNOW Serial# 08D9AD1C
[2021-09-21 13:42] LABS: COVID-19 Test Negative (Negative)
== END 2021-09-21 12:51 | disposition home or self-care (01) ==
LOC: HO.LAB 12:50
PROVIDERS: Visit Provider Internal Medicine
DX: Z20.822 Contact with and (suspected) exposure to COVID-19 (principal)
CPT/HCPCS: 87635; C9803

== ENCOUNTER → 2021-12-11 09:37 | Outpatient (BNVA) | payer MEDICARE, SELFPAY | PROVIDERS: PCP Internal Medicine; Visit Provider Internal Medicine | DX: E11.65 Type 2 diabetes mellitus with hyperglycemia (principal); Z79.4 Long term (current) use of insulin | CPT/HCPCS: 82947; 83036; 99212 ==

== ENCOUNTER 2021-12-11 10:33 | Outpatient (REF) | payer MEDICARE, SELFPAY ==
[2021-12-11 13:53] LABS: Alanine Aminotransferase 29 U/L (0-31); Albumin Level 4.5 g/dL (3.5-5.0); Alkaline Phosphatase 84 U/L (39-117); Anion Gap 17 (12-20); Aspartate Amino Transferase 28 U/L (5-31); Bilirubin Total 0.2 mg/dL (0.0-1.0); Blood Urea Nitrogen 20 mg/dL (9-16); Calcium 9.7 mg/dL (8.4-10.2); Carbon Dioxide 28 mmol/L (22-29); Chloride 100 mmol/L (96-108); Estimated Glomerular Filt Rate 57; Glucose Random 241 mg/dL (60-115); Phosphorus 3.4 mg/dL (2.7-4.5); Potassium 4.7 mmol/L (3.3-5.1); Sodium 140 mmol/L (135-145); Total Protein 7.5 g/dL (6.5-8.0)
[2021-12-11 14:14] LABS: Vitamin D 25-OH Total 37.2 ng/mL (>30)
[2021-12-12 11:02] LABS: Calcium (PTHI) 9.6 mg/dL (8.6-10.4); PTHI 76 pg/mL (16-77)
== END 2021-12-11 10:34 | disposition home or self-care (01) ==
LOC: HO.10HDL 10:33
PROVIDERS: Visit Provider Internal Medicine
DX: M81.0 Age-related osteoporosis without current pathological fracture (principal); E55.9 Vitamin D deficiency, unspecified; E11.9 Type 2 diabetes mellitus without complications
CPT/HCPCS: 36415; 80053; 82306; 83970; 84100

== ENCOUNTER 2021-12-15 07:50 | Outpatient (REF) | payer MEDICARE, SELFPAY ==
[2021-12-19 21:37] LABS: N-Telopeptide 37 (see note); NTXCreaRU 51 mg/dL (20-275)
== END 2021-12-15 07:51 | disposition home or self-care (01) ==
LOC: HO.10HDLNP 07:50
PROVIDERS: Visit Provider Internal Medicine
DX: M81.0 Age-related osteoporosis without current pathological fracture (principal)
CPT/HCPCS: 82523

== ENCOUNTER 2021-12-26 09:50 | Outpatient (REF) | payer OTHER, SELFPAY ==
--- NOTE | ~2021-12-26 | XR_ITS ---
EXAMINATION: XR HIP, LEFT CLINICAL INFORMATION: Left hip pain COMPARISON: February 13, 2021 TECHNIQUE: Two views of the left hip. FINDINGS: There is no evidence of acute fracture or dislocation of the left hip. No destructive bony lesions identified. Minimal spurring is present. XR/XR hip LT min 2V IMPRESSION: No significant left hip bony abnormality appreciated.
--- NOTE | 2021-12-26 09:56 | ECG_ITS ---
Test Reason : palpitations Blood Pressure : / mmHG Vent. Rate : 062 BPM Atrial Rate : 062 BPM P-R Int : 180 ms QRS Dur : 088 ms QT Int : 428 ms P-R-T Axes : 059 -06 036 degrees QTc Int : 434 ms Normal sinus rhythm Minimal voltage criteria for LVH, may be normal variant ( R in aVL ) Nonspecific ST and T wave abnormality Abnormal ECG When compared with ECG of 06-MAY-2020 14:27, No significant change was found Referred By: Elissa Salas Electronically Signed By:ANILA BRITO MD
== END 2021-12-26 09:51 | disposition home or self-care (01) ==
LOC: HO.XRAY 09:50
PROVIDERS: PCP Internal Medicine; Visit Provider Internal Medicine
DX: R00.2 Palpitations (principal); M25.552 Pain in left hip
CPT/HCPCS: 73502; 93005

== ENCOUNTER 2021-12-29 07:53 | Outpatient (REF) | payer OTHER, SELFPAY ==
[2021-12-29 08:06] LABS: MANUAL DIFF FLAG NO
[2021-12-29 08:11] LABS: Basophils Absolute Auto 0.1 X10*3/uL (0.0-0.2); Basophils Percent Auto 0.9 % (0-2); Eosinophils Absolute Auto 0.2 X10*3/uL (0.0-0.4); Hematocrit 38.4 % (37.0-47.0); Hemoglobin 11.7 g/dl (12.0-16.0); Imm Gran Abs Auto 0.02 X10*3/uL (0.00-0.03); Imm Gran Pct Auto 0.3 % (0.0-0.4); Lymphocytes Absolute Auto 1.6 X10*3/uL (1.2-4.9); Mean Corpuscular HGB Conc 30.5 g/dl (31.0-35.0); Mean Platelet Volume 10.6 fL (9.4-12.3); Monocytes Absolute Auto 0.7 X10*3/uL (0.1-1.2); Monocytes Percent Auto 9.6 % (2-11); Neutrophils Absolute Auto 4.4 x10*3/uL (2.0-8.3); Neutrophils Percent Auto 63.2 % (45-73); Platelet Count 211 X10*3/uL (160-400); Red Blood Count 5.33 X10*6/uL (4.20-5.50); Red Cell Distribution Width 13.9 % (11.0-16.0)
[2021-12-29 08:58] LABS: Alanine Aminotransferase 29 U/L (0-31); Albumin Level 4.4 g/dL (3.5-5.0); Alkaline Phosphatase 76 U/L (39-117); Anion Gap 15 (12-20); Aspartate Amino Transferase 32 U/L (5-31); Bilirubin Total 0.5 mg/dL (0.0-1.0); Blood Urea Nitrogen 20 mg/dL (9-16); Calcium 9.3 mg/dL (8.4-10.2); Carbon Dioxide 30 mmol/L (22-29); Chloride 102 mmol/L (96-108); Cholesterol 137 mg/dL; Estimated Glomerular Filt Rate > 60; Glucose Fasting 121 mg/dL (60-99); HDL Cholesterol 52 mg/dL; Iron 99 mcg/dL (30-160); LDL Cholesterol Calculated 63 mg/dl; Percent Iron Saturation 29 % (15-50); Potassium 4.2 mmol/L (3.3-5.1); Sodium 143 mmol/L (135-145); Total Iron Binding Capacity 345 mcg/dL (228-428); Total Protein 7.4 g/dL (6.5-8.0); Triglycerides 110 mg/dL; Unsaturated Iron Binding 246 ug/dL
[2021-12-29 09:19] LABS: Vitamin D 25-OH Total 34.9 ng/mL (>30)
[2021-12-29 10:16] LABS: Creatinine Urine 174.04 mg/dL; Microalbum/Creatinine Ratio Ur 111.4 ug/mg cr
== END 2021-12-29 07:54 | disposition home or self-care (01) ==
LOC: HO.LAB 07:53
PROVIDERS: PCP Internal Medicine; Visit Provider Internal Medicine
DX: D64.9 Anemia, unspecified (principal); E78.5 Hyperlipidemia, unspecified; E55.9 Vitamin D deficiency, unspecified; E11.65 Type 2 diabetes mellitus with hyperglycemia; Z79.4 Long term (current) use of insulin
CPT/HCPCS: 36415; 80053; 80061; 82043; 82306; 83540; 85025

== ENCOUNTER 2022-01-05 09:17 | Outpatient (REF) | payer OTHER, SELFPAY ==
[2022-01-05 10:56] LABS: Creatinine, mg/dL 55.48
[2022-01-05 11:09] LABS: Creatinine, 24Hr Urine 0.9 G/Day (1.0-2.0); Total Volume 24 Hour Urine 1600 mL
[2022-01-08 17:51] LABS: Calcium, 24 Hr Urine 110 mg/24 h; Calcium/Creatinine Ratio 123 mg/g creat (30-275)
== END 2022-01-05 09:18 | disposition home or self-care (01) ==
LOC: HO.LNP 09:17
PROVIDERS: Visit Provider Internal Medicine
DX: M81.0 Age-related osteoporosis without current pathological fracture (principal)
CPT/HCPCS: 82340; 82570

== ENCOUNTER 2022-01-22 10:36 | Outpatient (REF) | payer OTHER, SELFPAY ==
--- NOTE | ~2022-01-22 | US_ITS ---
EXAMINATION: US THYROID CLINICAL INFORMATION: Nontoxic multinodular goiter. COMPARISON: Ultrasound thyroid 12/14/2020. US-guided thyroid biopsy 05/25/2021. TECHNIQUE: Linear transducer grayscale and color Doppler examination with attention to the region of the thyroid. FINDINGS: SIZE: Measurements of the thyroid lobes and nodules are given in sagittal, anteroposterior and transverse dimensions respectively. Right Thyroid Lobe: 4.3 x 1.5 x 1.7 cm, volume 5.7 mL. Previously 4.5 x 1.5 x 1.2 cm, volume 4.2 mL. Parenchyma: The gland echotexture is homogeneous. Thyroid vascularity is normal. Left Thyroid Lobe: 4.8 x 1.4 x 1.1 cm, volume 3.9 mL. Previously 5.0 x 1.2 x 1.2 cm, volume 3.8 mL. Parenchyma: The gland echotexture is homogeneous. Thyroid vascularity is normal. Isthmus: 0.4 cm in maximum AP dimension. Previously 0.5 cm. Estimated total number of nodules greater than or equal to 1 cm: 0. Camp Dishwasher nodules are described as follows: 1. Location: Right mid. Size: 0.6 x 0.3 x 0.7 cm, volume 0.08 mL. Previously: 0.7 x 0.5 x 0.4 cm, volume 0.07 mL. Nodule characteristics: Composition: Solid (2). Echogenicity: Hypoechoic (2). Shape: Taller than wide (3). Margins: Smooth (0). Echogenic Foci: Punctate echogenic foci (3). ACR TI-RADS total points: 10 Previous: 8 ACR TI-RADS category: 5 Previous: 5 Significant change in size (>/= 20% in 2 dimensions and minimal increase of 2 mm or 50% or greater increase in volume): No change in volume. Change in features: None Change in ACR TI-RADS risk category: Slight change. However the nodule is subcentimeter. 2. Location: Left inferior. Size: 0.6 x 0.6 x 0.3 cm, volume 0.06 mL. Previously: 1.4 x 1.0 x 1.1 cm, volume 0.7 mL. Nodule characteristics: Composition: Solid (2). Echogenicity: Hypoechoic (2). Shape: Not taller than wide (0). Margins: Smooth (0). Echogenic Foci: None (0). ACR TI-RADS total points: 4 Previous: 2 ACR TI-RADS category: 4 Previous: 2 Significant change in size (>/= 20% in 2 dimensions and minimal increase of 2 mm or 50% or greater increase in volume): Minimal decrease in size. Change in features: None Change in ACR TI-RADS risk category: None 3. Location: Left mid. Size: 0.9 x 0.7 x 0.5 cm, volume 0.60 mL. Previously: Not seen on the previous study. Nodule characteristics: Composition: Solid/almost completely solid (2). Echogenicity: Isoechoic (1). Shape: Not taller than wide (0). Margins: Smooth (0). Echogenic Foci: None (0). ACR TI-RADS total points: 3 ACR TI-RADS category: 3 4. Location: Left mid. Size: 0.5 x 0.4 x 0.3 cm, volume 0.02 mL. Previously: Not seen on the previous study. Nodule characteristics: Composition: Cystic(0). ACR TI-RADS total points: 0 ACR TI-RADS category: 1 5. Location: Right mid. Size: 0.3 x 0.3 x 0.2 cm, volume 0.01 mL. Previously: Not seen on the previous study. Nodule characteristics: Composition: Cystic(0). ACR TI-RADS total points: 0 ACR TI-RADS category: 1 NODES: No lymphadenopathy is seen in the tissue surrounding the thyroid gland. US/US thyroid IMPRESSION: Left lower pole nodule is smaller in size. Minimal increase TI-RAD right midpole and left lower pole nodules but still subcentimeter size. New nodules in the left midpole and right midpole are subcentimeter and nonsuspicious. ACR TI-RADS RECOMMENDATION REFERENCE: Ultrasound-guided fine-needle aspiration, followup ultrasound, no further follow up. * TR1 (0 point) and TR 2 (2 points): No FNA or follow up. * TR3 (3 points): FNA if more than or equal to 2.5 cm in maximum dimension, followup ultrasound in 1, 3 and 5 years if 1.5 to 2.4 cm in maximum dimension. * TR4 (4-6 points): FNA if more than or equal to 1.5 cm in maximum dimension, followup ultrasound in 1, 2, 3 and 5 years if 1 to 1.4 cm in maximum dimension. * TR5 (more than or equal to 7 points): FNA if more than or equal to 1 cm in maximum dimension, followup ultrasound every year for 5 years if 0.5 to 0.9 cm in maximum dimension. * TR3, TR4 or TR5 nodules that are below the size threshold for followup receive no follow up.
== END 2022-01-22 10:37 | disposition home or self-care (01) ==
LOC: HO.US 10:36
PROVIDERS: Visit Provider Internal Medicine
DX: E04.2 Nontoxic multinodular goiter (principal)
CPT/HCPCS: 76536

== ENCOUNTER 2022-03-26 08:10 | Outpatient (REF) | payer OTHER, SELFPAY ==
[2022-03-26 08:21] LABS: MANUAL DIFF FLAG NO
[2022-03-26 08:31] LABS: Basophils Absolute Auto 0.1 X10*3/uL (0.0-0.2); Basophils Percent Auto 1.1 % (0-2); Eosinophils Absolute Auto 0.2 X10*3/uL (0.0-0.4); Eosinophils Percent Auto 2.9 % (0-4); Imm Gran Abs Auto 0.02 X10*3/uL (0.00-0.03); Imm Gran Pct Auto 0.3 % (0.0-0.4); Lymphocytes Absolute Auto 1.8 X10*3/uL (1.2-4.9); Lymphocytes Percent Auto 28.3 % (20-40); Mean Corpuscular Hemoglobin 21.9 pg (27.0-33.0); Mean Corpuscular Volume 73.1 fL (80.0-98.0); Mean Platelet Volume 10.9 fL (9.4-12.3); Monocytes Absolute Auto 0.6 X10*3/uL (0.1-1.2); Monocytes Percent Auto 9.5 % (2-11); Neutrophils Absolute Auto 3.8 x10*3/uL (2.0-8.3); Neutrophils Percent Auto 57.9 % (45-73); Platelet Count 204 X10*3/uL (160-400); Red Blood Count 5.47 X10*6/uL (4.20-5.50); Red Cell Distribution Width 13.9 % (11.0-16.0); White Blood Count 6.5 X10*3/uL (4.8-10.8)
[2022-03-26 09:11] LABS: Anion Gap 13 (12-20); Blood Urea Nitrogen 20 mg/dL (9-16); Calcium 9.7 mg/dL (8.4-10.2); Carbon Dioxide 29 mmol/L (22-29); Chloride 103 mmol/L (96-108); Estimated Glomerular Filt Rate 58; Potassium 4.1 mmol/L (3.3-5.1); Sodium 141 mmol/L (135-145); Uric Acid 6.2 mg/dL (2.4-5.7)
[2022-03-26 09:41] LABS: Appearance Urine Clear; Color Urine Yellow; Glucose Urine UA Negative (Negative); Leukocyte Esterase Urine Negative (Negative); Nitrite Urine Negative (Negative); UMIC TRIGGER UA YES; Urine Blood Negative (Negative); Urine Ketones Negative (Negative); Urine Protein 30 (1+) mg/dL (Neg-Trace)
[2022-03-26 09:46] LABS: Bacteria Urine None Seen (None Seen); Hyaline Casts Urine 0-2 /LPF (0-2); Squamous Epithelial Cell Urine 0-2 /HPF (0-2); WBC Urine 0-5 /HPF (0-5)
[2022-03-26 09:47] LABS: Creatinine Urine 165.59 mg/dL; Protein/Creatinine Ratio, Ur 0.25 (<0.2); Total Protein Urine Random 41 mg/dL (<12)
== END 2022-03-26 08:11 | disposition home or self-care (01) ==
LOC: HO.LAB 08:10
PROVIDERS: PCP Internal Medicine; Visit Provider Physician Assistant
DX: N18.2 Chronic kidney disease, stage 2 (mild) (principal); E55.9 Vitamin D deficiency, unspecified
CPT/HCPCS: 36415; 80051; 81001; 82306; 82310; 82565; 84156; 84520; 84550; 85025

== ENCOUNTER 2022-04-23 08:49 | Outpatient (REF) | payer OTHER, SELFPAY ==
[2022-04-23 09:36] LABS: Estimated Average Glucose 174 mg/dL; Hemoglobin A1c % 7.7 %
[2022-04-23 09:58] LABS: Alanine Aminotransferase 25 U/L (0-31); Albumin Level 4.4 g/dL (3.5-5.0); Alkaline Phosphatase 78 U/L (39-117); Anion Gap 13 (12-20); Aspartate Amino Transferase 27 U/L (5-31); Bilirubin Total 0.5 mg/dL (0.0-1.0); Blood Urea Nitrogen 17 mg/dL (9-16); Calcium 9.9 mg/dL (8.4-10.2); Carbon Dioxide 31 mmol/L (22-29); Chloride 104 mmol/L (96-108); Cholesterol 124 mg/dL; Estimated Glomerular Filt Rate > 60; Glucose Random 92 mg/dL (60-115); HDL Cholesterol 49 mg/dL; LDL Cholesterol Calculated 59 mg/dl; Phosphorus 4.2 mg/dL (2.7-4.5); Potassium 4.2 mmol/L (3.3-5.1); Sodium 144 mmol/L (135-145); Total Protein 7.3 g/dL (6.5-8.0); Triglycerides 84 mg/dL
[2022-04-23 09:58] LABS: Creatinine Urine 220.39 mg/dL; Microalbum/Creatinine Ratio Ur 34.9 ug/mg cr
[2022-04-23 10:23] LABS: Free T4 (Free Thyroxine) 0.99 ng/dL (0.71-1.85); Vitamin D 25-OH Total 35.5 ng/mL (>30)
[2022-04-24 07:14] LABS: LDL Cholesterol Direct 49 mg/dL (<100)
[2022-04-24 15:08] LABS: PTHI 92 pg/mL (16-77)
== END 2022-04-23 08:50 | disposition home or self-care (01) ==
LOC: HO.LAB 08:49
PROVIDERS: PCP Internal Medicine; Visit Provider Internal Medicine
DX: E55.9 Vitamin D deficiency, unspecified (principal); E11.65 Type 2 diabetes mellitus with hyperglycemia; E78.5 Hyperlipidemia, unspecified; E04.2 Nontoxic multinodular goiter; M81.0 Age-related osteoporosis without current pathological fracture; E21.3 Hyperparathyroidism, unspecified; I10 Essential (primary) hypertension; Z79.4 Long term (current) use of insulin
CPT/HCPCS: 36415; 80053; 80061; 82043; 82306; 82947; 83036; 83721; 83970; 84100; 84439; 84443; Q3014

== ENCOUNTER 2022-04-25 11:11 | Outpatient (REF) | payer OTHER, SELFPAY ==
--- NOTE | ~2022-04-25 | MM_ITS ---
EXAMINATION: MM SCREENING DIGITAL BREAST TOMOSYNTHESIS, BILATERAL CLINICAL INFORMATION: Screening. Asymptomatic. The lifetime risk of breast cancer based on the Tyrer-Cuzick Model is 4%. COMPARISON: Mammography: April 24, 2021 and studies dating back to October 21, 2015 TECHNIQUE: Digital breast tomosynthesis is performed in both the craniocaudal and mediolateral oblique views along with computer-aided detection (CAD). Synthesized 2D images are generated from the tomosynthesis. FINDINGS: There are scattered areas of fibroglandular density (ACR BI-RADS breast composition Category b). There are no significant masses, abnormal calcifications, or other abnormalities. MM/MM tomosynthesis screening BI IMPRESSION: No significant changes from prior exam. ASSESSMENT: BI-RADS 1: Negative RECOMMENDATION: Routine annual mammography screening. This patient's information was entered into a reminder system with a target due date for their next mammogram.
== END 2022-04-25 11:12 | disposition home or self-care (01) ==
LOC: HO.MAMMO 11:11
PROVIDERS: PCP Internal Medicine; Visit Provider Internal Medicine
DX: Z12.31 Encounter for screening mammogram for malignant neoplasm of breast (principal)
CPT/HCPCS: 77063; 77067

== ENCOUNTER 2022-05-09 09:42 | Outpatient (REF) | payer OTHER, SELFPAY ==
[2022-05-09 11:55] LABS: Cholesterol 144 mg/dL; HDL Cholesterol 49 mg/dL; LDL Cholesterol Calculated 55 mg/dl; Triglycerides 200 mg/dL
== END 2022-05-09 09:43 | disposition home or self-care (01) ==
LOC: HO.LAB 09:42
PROVIDERS: PCP Internal Medicine; Visit Provider Internal Medicine
DX: E78.5 Hyperlipidemia, unspecified (principal); M81.0 Age-related osteoporosis without current pathological fracture
CPT/HCPCS: 36415; 80061

== ENCOUNTER 2022-05-16 11:18 | Outpatient (REF) | payer OTHER, SELFPAY ==
--- NOTE | ~2022-05-16 | XR_ITS ---
EXAMINATION: XR FOOT, RIGHT CLINICAL INFORMATION: Pain. COMPARISON: None TECHNIQUE: AP, lateral, and oblique views of the right foot. FINDINGS: There is bony demineralization. No fracture, dislocation or right ankle joint effusion is seen. Boehler's angle is normal. There is a trace plantar calcaneal spur. There is no abnormal bony erosive change. There is a small bunion of the first metatarsal head, and there is mild bunionette formation of the fifth metatarsal head. No focal soft tissue swelling, gas or foreign body is seen. XR/XR foot RT 2V IMPRESSION: 1. No fracture, dislocation or right ankle joint effusion is seen. 2. There is mild bunion and bunionette formation. 3. There is bony demineralization.
== END 2022-05-16 11:19 | disposition home or self-care (01) ==
LOC: HO.XRAY 11:18
PROVIDERS: PCP Internal Medicine; Visit Provider Internal Medicine
DX: M79.671 Pain in right foot (principal)
CPT/HCPCS: 73620

== ENCOUNTER 2022-07-27 09:43 | Outpatient (REF) | payer OTHER, SELFPAY ==
[2022-07-27 10:45] LABS: Estimated Average Glucose 166 mg/dL; Hemoglobin A1c % 7.4 %
[2022-07-27 11:03] LABS: Alanine Aminotransferase 23 U/L (0-31); Albumin Level 4.4 g/dL (3.5-5.0); Alkaline Phosphatase 78 U/L (39-117); Anion Gap 11 (12-20); Aspartate Amino Transferase 23 U/L (5-31); Bilirubin Total 0.5 mg/dL (0.0-1.0); Blood Urea Nitrogen 32 mg/dL (9-16); Calcium 9.6 mg/dL (8.4-10.2); Carbon Dioxide 28 mmol/L (22-29); Chloride 103 mmol/L (96-108); Estimated Glomerular Filt Rate 49; Glucose Random 143 mg/dL (60-115); Phosphorus 3.3 mg/dL (2.7-4.5); Potassium 4.7 mmol/L (3.3-5.1); Sodium 137 mmol/L (135-145); Total Protein 7.2 g/dL (6.5-8.0)
[2022-07-27 11:23] LABS: Thyroid Stimulating Hormone 2.22 uIU/mL (0.32-4.0); Vitamin D 25-OH Total 37.5 ng/mL (>30)
[2022-07-30 11:58] LABS: Calcium (PTHI) 9.8 mg/dL (8.6-10.4); PTHI 60 pg/mL (16-77)
== END 2022-07-27 09:44 | disposition home or self-care (01) ==
LOC: HO.LAB 09:43
PROVIDERS: PCP Internal Medicine; Visit Provider Internal Medicine
DX: E04.2 Nontoxic multinodular goiter (principal); E55.9 Vitamin D deficiency, unspecified; E21.3 Hyperparathyroidism, unspecified; E11.65 Type 2 diabetes mellitus with hyperglycemia; Z79.4 Long term (current) use of insulin
CPT/HCPCS: 36415; 80053; 82306; 83036; 83970; 84100; 84439; 84443

== ENCOUNTER → 2022-08-01 12:23 | Outpatient (BNVA) | payer OTHER, SELFPAY | PROVIDERS: PCP Internal Medicine; Visit Provider Internal Medicine | DX: E11.65 Type 2 diabetes mellitus with hyperglycemia (principal); E78.5 Hyperlipidemia, unspecified; E04.2 Nontoxic multinodular goiter; E55.9 Vitamin D deficiency, unspecified; M81.0 Age-related osteoporosis without current pathological fracture; I10 Essential (primary) hypertension; Z79.4 Long term (current) use of insulin | CPT/HCPCS: 82947; 99212 ==

== ENCOUNTER 2022-08-14 12:53 | Outpatient (REF) | payer OTHER, SELFPAY ==
--- NOTE | ~2022-08-14 | MM_ITS ---
EXAMINATION: BONE DENSITOMETRY CLINICAL INDICATION: Age-related osteoporosis without current pathological fracture. COMPARISON: Baseline BD dated 05/11/2020 (lumbar spine and left hip). This is the initial examination of the left forearm radius 33%. TECHNIQUE: Using a [employer] Mail DXA System (software version: 13.1) manufactured by [employer], dual-energy x-ray absorptiometry was performed of the lumbar spine, left hip and left forearm radius 33%. The images are of good technical quality. Summary results are attached. FINDINGS: AP SPINE L1-L4: Current: BMD 0.845 g/cm2, Z-score -1.0, T-score -2.8, osteoporosis, 1.6% increase from baseline (<5% change is not significant). Baseline: BMD 0.832 g/cm2. LEFT FEMUR, NECK: Current: BMD 0.775 g/cm2, Z-score -0.2, T-score -1.9, osteopenia. Baseline: BMD 0.831 g/cm2. LEFT FEMUR, TOTAL: Current: BMD 0.846 g/cm2, Z-score 0.1, T-score -1.3, osteopenia, 4.8% decrease from baseline (<5% change is not significant). Baseline: BMD 0.889 g/cm2. LEFT FOREARM RADIUS 33%: BMD 0.743 g/cm2, Z-score 0.1, T-score -1.5, osteopenia. Prior: Not previously measured. IDENTIFIED RISK FACTORS: Osteoporosis. Secondary osteoporosis (type 1 diabetes). Menopause. HISTORY OF FRACTURE: Leg. MEDICATIONS: Calcium supplement and/or multivitamin. Vitamin D. MM/XR DEXA appendicular skeleton IMPRESSION: 1. DIAGNOSIS: Osteoporosis based on the lowest T-score value of -2.8 in the lumbar spine applying World Health Organization criteria. 2. 10-YEAR FRACTURE RISK PREDICTION, FRAX: According to the guidelines, FRAX calculation should only be performed on patients in the osteopenia bone density category.?Therefore, FRAX was not performed on this patient.? 3. Treatment Recommendations: NOF guidelines recommend consideration for treatment in postmenopausal women and men age 50 and older presenting with the following: -A hip or vertebral (clinical or morphometric) fracture. -T-score less than or equal to -2.5 at the femoral neck or spine after appropriate evaluation to exclude secondary causes. -Low bone mass at the hip or spine and a 10-year fracture probability by FRAX of greater than or equal to 3% for hip fracture or greater than or equal to 20% for major osteoporotic fracture based on the [place] adapted WHO algorithm. 4. Other Recommendations: All treatment decisions require clinical judgment and consideration of individual patient factors, including patient preferences, comorbidities, previous drug use, risk factors not captured in the FRAX model (e.g. frailty, falls, vitamin D deficiency, increased bone turnover, interval significant decline in bone density) and possible under or overestimation of fracture risk by FRAX. Additional medical evaluation for secondary cause of low bone mineral density may be appropriate. FUTURE SCAN RECOMMENDATION: People with diagnosed cases of osteoporosis or at high risk for fracture should have regular bone mineral density tests. For patients eligible for Medicare, routine testing is allowed once every 2 years. The testing frequency can be increased to one year for patients who have rapidly progressing disease, those who are receiving or discontinuing medical therapy to restore bone mass, or have additional risk factors.
== END 2022-08-14 12:54 | disposition home or self-care (01) ==
LOC: HO.MAMMO 12:53
PROVIDERS: Visit Provider Internal Medicine
DX: Z13.820 Encounter for screening for osteoporosis (principal); Z78.0 Asymptomatic menopausal state; M81.0 Age-related osteoporosis without current pathological fracture
CPT/HCPCS: 77081

== ENCOUNTER → 2022-08-30 10:08 | Outpatient (BNVA) | payer OTHER, SELFPAY | PROVIDERS: PCP Internal Medicine; Visit Provider Internal Medicine | DX: M81.0 Age-related osteoporosis without current pathological fracture (principal) | CPT/HCPCS: 96372 ==

== ENCOUNTER 2022-09-13 09:04 | Outpatient (REF) | payer OTHER, SELFPAY ==
[2022-09-13 10:05] LABS: Estimated Glomerular Filt Rate > 60
[2022-09-14 16:24] LABS: Calcium (PTHI) 9.5 mg/dL (8.6-10.4); PTHI 91 pg/mL (16-77)
== END 2022-09-13 09:05 | disposition home or self-care (01) ==
LOC: HO.LAB 09:04
PROVIDERS: PCP Internal Medicine; Visit Provider Internal Medicine
DX: M81.0 Age-related osteoporosis without current pathological fracture (principal)
CPT/HCPCS: 36415; 82565; 83970

== ENCOUNTER 2022-11-23 10:14 | Outpatient (REF) | payer OTHER, SELFPAY ==
[2022-11-23 10:27] LABS: MANUAL DIFF FLAG NO
[2022-11-23 10:49] LABS: Basophils Absolute Auto 0.1 X10*3/uL (0.0-0.2); Basophils Percent Auto 0.7 % (0-2); Eosinophils Absolute Auto 0.2 X10*3/uL (0.0-0.4); Eosinophils Percent Auto 2.6 % (0-4); Hematocrit 38.6 % (37.0-47.0); Imm Gran Abs Auto 0.02 X10*3/uL (0.00-0.03); Imm Gran Pct Auto 0.3 % (0.0-0.4); Lymphocytes Absolute Auto 1.5 X10*3/uL (1.2-4.9); Lymphocytes Percent Auto 22.4 % (20-40); Mean Corpuscular HGB Conc 31.1 g/dl (31.0-35.0); Mean Corpuscular Hemoglobin 22.9 pg (27.0-33.0); Mean Corpuscular Volume 73.5 fL (80.0-98.0); Mean Platelet Volume 11.1 fL (9.4-12.3); Monocytes Absolute Auto 0.7 X10*3/uL (0.1-1.2); Monocytes Percent Auto 9.7 % (2-11); Neutrophils Absolute Auto 4.4 x10*3/uL (2.0-8.3); Neutrophils Percent Auto 64.3 % (45-73); Platelet Count 230 X10*3/uL (160-400); Red Blood Count 5.25 X10*6/uL (4.20-5.50); Red Cell Distribution Width 13.4 % (11.0-16.0); White Blood Count 6.9 X10*3/uL (4.8-10.8)
[2022-11-23 11:29] LABS: Anion Gap 12 (12-20); Blood Urea Nitrogen 26 mg/dL (9-16); Calcium 9.7 mg/dL (8.4-10.2); Carbon Dioxide 30 mmol/L (22-29); Chloride 105 mmol/L (96-108); Estimated Glomerular Filt Rate 46; Potassium 4.6 mmol/L (3.3-5.1); Sodium 142 mmol/L (135-145)
[2022-11-23 11:45] LABS: Vitamin D 25-OH Total 35.6 ng/mL (>30)
[2022-11-23 12:06] LABS: Appearance Urine Clear; Color Urine Yellow; Glucose Urine UA Negative (Negative); Leukocyte Esterase Urine Trace (Negative); Nitrite Urine Negative (Negative); PH 6.5 (5.0-9.0); Specific Gravity - Urine 1.025 (1.005-1.025); UMIC TRIGGER UA YES; Urine Blood Negative (Negative); Urine Ketones Negative (Negative); Urine Protein Negative (Neg-Trace)
[2022-11-23 12:33] LABS: Creatinine Urine 149.68 mg/dL; Protein/Creatinine Ratio, Ur 0.08 (<0.2); Total Protein Urine Random 12 mg/dL (<12)
[2022-11-23 16:03] LABS: Bacteria Urine None Seen (None Seen); Hyaline Casts Urine 0-2 /LPF (0-2); Squamous Epithelial Cell Urine 0-2 /HPF (0-2); WBC Urine 0-5 /HPF (0-5)
== END 2022-11-23 10:15 | disposition home or self-care (01) ==
LOC: HO.LAB 10:14
PROVIDERS: PCP Internal Medicine; Visit Provider Physician Assistant
DX: N18.2 Chronic kidney disease, stage 2 (mild) (principal); E55.9 Vitamin D deficiency, unspecified
CPT/HCPCS: 36415; 80051; 81001; 81003; 82306; 82310; 82565; 82570; 84156; 84520; 84550; 85025

== ENCOUNTER 2022-12-13 10:35 | Outpatient (AMB) | payer MEDICARE, SELFPAY ==
[2022-12-13 10:42] VITALS: BP 146/82; PULSE 55; O2SAT 98; BMI 26.0
--- NOTE | 2022-12-13 10:42 | AM.OFFVISMDC ---
Intake Vital Signs 12/13/22 10:42 Height 5 ft 2 in Weight 142 lb BMI 26.0 BP 146/82 H Blood Pressure Location Lt brachial Position Sitting Pulse 55 Pulse Source Pulse Oximeter Temp Source Skin Pulse Oximetry (%) 98 Oxygen Delivery Method Room Air Intake Visit Reasons: [facility] G0439 Intake Note: Patient is here for an Annual Wellness Visit. Optimization Manager Required: Yes Optimization Manager Language: Serbian Allergies gabapentin Allergy (Intermediate, Verified 12/13/22 11:15) pruritus metformin Allergy (Intermediate, Verified 12/13/22 11:15) stomach upset metoprolol Allergy (Intermediate, Verified 12/13/22 11:15) upset stomach tizanidine Allergy (Intermediate, Verified 12/13/22 11:15) leg edema Medication List - Last Reconciled 12/13/22 by HEIDI Marquez alcohol swabs (Alcohol Prep Pads) 1 pad topical QID 30 days amlodipine 5 mg PO DAILY 90 days aspirin 81 mg PO DAILY 90 days blood sugar diagnostic (The 5th Quarteruch Verio test strips) Use 1 test strip four times a day blood-glucose meter ([employer] Verio Flex Meter) As directed citalopram 20 mg PO DAILY denosumab (Prolia) 60 mg subcut [id number] gabapentin 100 mg PO DAILY insulin glargine (Lantus Solostar U-100 Insulin) 35 units (0.35 mL) subcut QPM 90 days insulin lispro (Humalog KwikPen (U-100) Insulin) 2 - 13 units (0.02 - 0.13 mL) subcut TID 30 days lancets (Huddle[employer]Touch Delica Plus Lancet) As directed lidocaine 5% 1 patch topical DAILY losartan 100 mg PO DAILY 90 days omeprazole 20 mg PO QAM 90 days pen needle, diabetic Use 1 pen needle three times a day rosuvastatin 10 mg PO DAILY HPI SWV G0439 HPI Details Patient is a 67-year-old female who presents today for subsequent wellness visit. Patient of Dr. Dominguez. Patient is up-to-date with her health preventative screenings and immunizations. Colonoscopy up-to-date. Mammogram normal 04/2022. Bone density screen 07/2022 which showed osteoporosis-followed by endocrinology. Fults of care was reviewed with the patient and she was provided with a screening schedule. Patient reports that she has a healthcare proxy in place and she was provided with a MOLST form. 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 [facility] Medical History HLD (hyperlipidemia) HTN (hypertension) T2DM (type 2 diabetes mellitus) Hyperparathyroidism Multinodular thyroid Goiter Vitamin D deficiency Anemia Right hand pain Diabetes type 2, uncontrolled Hyperlipidemia LDL goal <100 Osteoporosis Chronic kidney disease, stage 2 (mild) Long-term use of aspirin therapy GERD (gastroesophageal reflux disease) Dyslipidemia Essential hypertension longterm (current) use of insulin Diabetes mellitus Screening for osteoporosis Well woman exam Depression with anxiety Fibromyalgia Surgical History History of colonoscopy History of tubal ligation Family History Father No problems noted. Mother Asthma Hypertension Chronic mental illness Diabetes Mental health disorder Family/Other Chronic mental illness Mental health disorder Social History Household Members: None Housing: Apartment Alcohol intake: never Patient Tobacco Use Status: Never used Tobacco e-Cigarette/Vaping Use: Never Used Second Hand Smoke Exposure: No service: No Current occupational status: disabled Sexual orientation: Straight/Heterosexual Gender identity: Female Cognitive needs: No Hearing needs: No Vision needs: Yes Female Reproductive History Menstrual Age of Menarche: 12 Questionnaire Medicare Wellness Checkup What is your age?: 65-69 (66) What gender do you identify with?: female During the past 4 weeks, how much have you been bothered by emotional problems such as feeling anxious, depressed, irritable, sad or downhearted, and blue?: quite a bit During the past 4 weeks, has your physical & emotional health limited your social activities with family, friends, neighbors, or groups?: slightly (PT STATES DUE TO LEG PAIN ) During the past 4 weeks, how much bodily pain have you generally had?: moderate pain During the past 4 weeks, was someone available to help you if you needed & wanted help?: no, not at all During the past 4 weeks, what was the hardest physical activity you could do for at least 2 minutes?: light Can you get to places out of walking distance without help? (For eg., can you travel alone on buses, taxis or drive your car?): Yes Can you go shopping for groceries or clothes without someone's help?: Yes Can you prepare your own meals?: Yes Can you do your housework without help?: Yes Because of any health problems, do you need the help of another person with your personal care needs such as eating, bathing, dressing or getting around the house?: No Can you handle your own money without help?: Yes During the past 4 weeks, how would you rate your health in general?: fair (DUE TO LEG PAIN ) During the past 4 weeks how have things been going for you?: pretty bad Are you having difficulties driving your car?: not applicable, I don't use a car Do you always fasten your seat belt when you are in a car?: yes, usually During past 4 weeks, have you been bothered by the following: never: Sexual problems?, Trouble eating well?, Teeth or denture problems?, Problems using the telephone? and Tiredness or fatigue? and seldom: Falling or dizzy when standing up Have you fallen 2 or more times in the past year?: Yes Are you afraid of falling?: No Are you a smoker?: no During the past 4 weeks, how many drinks of wine, beer, or other alcoholic beverages did you have?: no alcohol at all Do you exercise for about 20 minutes 3 or more times a week?: yes, some of the time Have you been given information to help with the following?: yes: Hazards in your house that might hurt you? and yes: Keeping track of your medications? How often do you have trouble taking medicines the way you have been told to take them?: I always take medicine as prescribed How confident are you that you can control & manage most of your health problems?: very confident What is your race?: or origin or descent Mini Mental State Exam (MMSE) Orientation What is the (year) (season) (date) (day) (month)?: year, season, date, day and month Score Score: 5 Activity of Daily Living Bathing - sponge bath, tub bath or shower: receives no assistance (gets in/out by self, if usual bathing means Dressing - getting clothes from closets & drawers, including inner/outer garments & fasteners.: gets clothes & gets completely dressed without help Toileting - going to the 'toilet room' for urine/bowel elimination & cleaning self/arranging clothes: goes to toilet room, cleans self, arranges clothes without help Transfer: moves in & out of bed and chair without help (may use support object) Continence: controls urination/bowel movements completely by self Feeding: feeds self without help Total Score: 0 Information obtained from: patient Using telephone: independent Traveling: dependent Shopping: independent Preparing meals: independent Housework: independent Taking medicine: independent Managing money: independent PHQ-9 Over the last 2 weeks, how often have you been bothered by any of the following problems? 1. Little interest or pleasure in doing things: several days 2. Feeling down, depressed, or hopeless: several days 3. Trouble falling or staying asleep, or sleeping too much: not at all 4. Feeling tired or having little energy: not at all 5. Poor appetite or overeating: not at all 6. Feeling bad about yourself - or that you are a failure or have let yourself or your family down: not at all 7. Trouble concentrating on things, such as reading the newspaper or watching television: not at all 8. Moving or speaking so slowly that other people could have noticed. Or the opposite - being so fidgety or restless that you have been moving around a lot more than usual: not at all 9. Thoughts that you would be better off or of hurting yourself in some way: not at all Total score: 2 Depression Screening Interpretation: Negative [id number] - PHQ-9 Billing: Yes Source: Developed by Drs. Arnulfo Ray, Marjorie Holbrook, Brannon Dallas and colleagues, with an educational lorena from [employer]. Physical Exam Vital Signs: Last Vital Signs Pulse 55 12/13/22 10:42 BP 146/82 H 12/13/22 10:42 Pulse Ox 98 12/13/22 10:42 Oxygen Delivery Method Room Air 12/13/22 10:42 BMI result Body Mass Index 26.0 Const General: cooperative and no acute distress Orientation/consciousness: patient oriented x3 HEENT Other: Whisper test: pass Neuro Other: Balance: Normal Get up and walk: able to Romberg: negative Tandem gait: unable to General: patient oriented x3 Results AMB Hemoglobin A1c AMB Hemoglobin A1c 6.8 % Last Edit by VINCENT Stanton on 12/13/22 11:14 Results Reviewed Results Reviewed: Laboratory Last Values Hgb A1c (Clinic) 6.8 % (4.0-6.0) H 12/13/22 10:44 Assessment & Plan Assessment & Plan (1) Adult general medical exam: Code(s): Z00.00 - Encounter for general adult medical examination without abnormal findings (2) Osteoporosis: Code(s): M81.0 - Age-related osteoporosis without current pathological fracture Plan: Continue to follow-up with endocrinology. On Prolia (3) Diabetes type 2, uncontrolled: Code(s): E11.65 - Type 2 diabetes mellitus with hyperglycemia Qualifiers: Glycemic state: with hyperglycemia Qualified Code(s): E11.65 - Type 2 diabetes mellitus with hyperglycemia Plan: A1c 6.8 today. Continue to follow-up with endocrinology. Continue current treatment. Reinforced low carbohydrate diet. Patient is scheduled for eye exam 12/2022. 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 Continue to follow-up with endocrinology. (5) Essential hypertension: Code(s): I10 - Essential (primary) hypertension Plan: Continue current treatment. Reinforced low-sodium diet. (6) Hyperlipidemia LDL goal <100: Code(s): E78.5 - Hyperlipidemia, unspecified Plan: Continue current treatment. Reinforced low-cholesterol diet. (7) Chronic kidney disease, stage 2 (mild): Code(s): N18.2 - Chronic kidney disease, stage 2 (mild) Plan: Continue to follow-up with nephrology. (8) GERD (gastroesophageal reflux disease): Code(s): K21.9 - Gastro-esophageal reflux disease without esophagitis Qualifiers: Esophagitis presence: esophagitis presence not specified Qualified Code(s): K21.9 - Gastro-esophageal reflux disease without esophagitis Plan: Continue current treatment. Encouraged to avoid GERD trigger foods. (9) Hyperparathyroidism: Code(s): E21.3 - Hyperparathyroidism, unspecified Plan: Continue to follow-up with endocrinology Dr. Crane (10) Multinodular thyroid: Code(s): E04.2 - Nontoxic multinodular goiter Plan: Continue to follow-up with endocrinology Dr. Crane Orders: Orders AMB Hemoglobin A1c Today E11.9 - Type 2 diabetes mellitus without complications Medications: Refilled lidocaine 5% leave on most painful area for up to 12 hrs 1 patch topical DAILY 15 ea 0RF Quality Reporting (2019) Depression/Bipolar (159/160/161/177) PHQ-9: Total score: 2 Coding Level of Care Code Medicare Subsequent (G0439) Diagnoses Adult general medical exam Z00.00 Osteoporosis M81.0 Uncontrolled type 2 diabetes mellitus with hyperglycemia E11.65 Glycemic state: with hyperglycemia longterm (current) use of insulin Z79.4 Essential hypertension I10 Hyperlipidemia LDL goal <100 E78.5 Chronic kidney disease, stage 2 (mild) N18.2 Gastroesophageal reflux disease, unspecified whether esophagitis present K21.9 Esophagitis presence: esophagitis presence not specified Hyperparathyroidism E21.3 Multinodular thyroid E04.2 CPT Codes Advance Care Planning - Time spent: 1-15 minutes, not on file ([id number]) Advance Care Planning Advance Care Planning discussion: Exists, not on file Date of discussion: 12/13/22 Who was present: pt and hospital admissions clerk Forms completed: None Time spent: 1-15 minutes, not on file Actual minutes spent: 3 Did not discuss due to Cultural/Spiritual beliefs: No
== END 2022-12-13 11:41 | disposition home or self-care (01) ==
PROVIDERS: Visit Provider Nurse Practitioner Family
DX: Z00.00 Encounter for general adult medical examination without abnormal findings (principal); I12.9 Hypertensive chronic kidney disease with stage 1 through stage 4 chronic kidney disease, or unspecified chronic kidney disease; E11.65 Type 2 diabetes mellitus with hyperglycemia; N18.2 Chronic kidney disease, stage 2 (mild); Z79.4 Long term (current) use of insulin; M81.0 Age-related osteoporosis without current pathological fracture; E78.5 Hyperlipidemia, unspecified; K21.9 Gastro-esophageal reflux disease without esophagitis; E21.3 Hyperparathyroidism, unspecified; E04.2 Nontoxic multinodular goiter
CPT/HCPCS: 1124F; 83036; G0439

== ENCOUNTER 2022-12-31 10:33 | Outpatient (REF) | payer OTHER, SELFPAY ==
[2022-12-31 12:18] LABS: Appearance Urine Clear; Color Urine Yellow; Glucose Urine UA Negative (Negative); Leukocyte Esterase Urine Small (1+) (Negative); Nitrite Urine Negative (Negative); PH 7.5 (5.0-9.0); Specific Gravity - Urine 1.015 (1.005-1.025); UMIC TRIGGER UACC YES; Urine Blood Negative (Negative); Urine Ketones Negative (Negative); Urine Protein Negative (Neg-Trace)
[2022-12-31 12:21] LABS: Bacteria Urine Trace (None Seen); Hyaline Casts Urine 0-2 /LPF (0-2); Squamous Epithelial Cell Urine 0-2 /HPF (0-2); UACC Culture Trigger YES
== END 2022-12-31 10:34 | disposition home or self-care (01) ==
LOC: HO.LAB 10:33
PROVIDERS: PCP Internal Medicine; Visit Provider Internal Medicine
DX: R39.9 Unspecified symptoms and signs involving the genitourinary system (principal)
CPT/HCPCS: 81001; 87086; 87088; 87186

== ENCOUNTER 2023-03-06 15:07 | Outpatient (AMB) | payer OTHER, SELFPAY ==
[2023-03-06 15:09] VITALS: BP 144/62; PULSE 68; BMI 26.2
--- NOTE | 2023-03-06 15:09 | MHC.OFFVIS ---
Intake Vital Signs 03/06/23 15:09 Height 5 ft 2 in Weight 143 lb 1.28 oz BMI 26.2 BP 144/62 H Blood Pressure Location Lt brachial Position Sitting Pulse 68 Pulse Source Pulse Oximeter Intake Visit Reasons: Osteoporosis and prolia/CONFIRMED Intake Note: Patient present today for Osteoporosis follow up visit and Prolia injection. Child Psychology Teacher Required: Yes Child Psychology Teacher Language: Telephoto Installer Name: [facility] staff Information Interpreted: non-clinical & clinical Accompanied by: Self / Same As Patient Allergies gabapentin Allergy (Intermediate, Verified 03/06/23 15:18) pruritus metformin Allergy (Intermediate, Verified 03/06/23 15:18) stomach upset metoprolol Allergy (Intermediate, Verified 03/06/23 15:18) upset stomach tizanidine Allergy (Intermediate, Verified 03/06/23 15:18) leg edema HPI HPI Comments History of Present Illness Details 67 YO F with PMHx T2DM, Osteoporosis and a MNG who is seen in F/U. Today's visit focus around the osteoporosis 2) Osteoporosis: First diagnosed in 2020. Has never been treated for this. After our initial visit she underwent a full biochemical assessment, which revealed higher than expected Calcium, with PTH mildly elevated to 70.? Labs 11/10/2020 with Calcium 10.0, Albumin 4.6, PTH 70 and Vitamin D 35.? Urinary Calcium was low.? She was on HCTZ at the time. She was asked to stop the HCTZ and repeat labs. Labs are pending at this time. Has 1 servings of dietary calcium per day in the form of milk or yogurt.? Takes Calcium supplement 500 mg daily in divided doses.? Takes 2000 IU of Vitamin D daily. Denies ever using an anticoagulant, antiepileptic or glucocorticoid medication.? She does use a PPI daily. 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 .? She did not breastfeed.? Menopause was age 55.? She did not use HRT after. Denies history of Kidney stones: Denies family history of Osteoporosis or hip fracture. UTD on dental cleanings and sees dentist every 6 months.? No planned upcoming dental work or extractions. 3) Multinodular thyroid: She underwent an US of the thyroid that revealed multiple thyroid nodules.? She underwent FNA biopsy of her LLP 1.4 cm thyroid nodule 05/25/2021, but unfortunately cytology was nondiagnostic.? She refused repeat FNA biopsy. DXA dated 04/21/2020: FINDINGS: AP SPINE L1-L3 (excluding L4): The data of L1-L4 has been changed to exclude the L4 vertebral body, because degenerative sclerosis at this level may cause overestimation of lumbar spine density. BMD 0.779 g/cm2, Z-score -1.5, T-score -3.3, osteoporosis. LEFT FEMUR, NECK: BMD 0.831 g/cm2, Z-score 0.1, T-score -1.5, osteopenia. LEFT FEMUR, TOTAL: BMD 0.889 g/cm2, Z-score 0.4, T-score -0.9, normal. Laboratory Tests 04/23/22 04/23/22 07/27/22 09:00 09:01 10:04 Sodium 137 Potassium 4.7 Creatinine 1.11 Estimated GFR 49 Hemoglobin A1c % LDL Cholesterol Di rect 49 TSH 2.22 Free T4 1.00 PTH Intact Calcium (PTH Intac t) Microalb/Creat Rat io 34.9 07/27/22 07/27/22 10:04 10:04 Sodium Potassium Creatinine Estimated GFR Hemoglobin A1c % 7.4 LDL Cholesterol Di rect TSH Free T4 PTH Intact 60 Calcium (PTH Intac t) 9.8 Microalb/Creat Rat io She was started on Prolia received 1 injection 08/30/2022 . 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 Mother Asthma Hypertension Chronic mental illness Diabetes Mental health disorder Family/Other Chronic mental illness Mental health disorder Social History Household Members: None Housing: Apartment Alcohol intake: never Patient Tobacco Use Status: Never used Tobacco e-Cigarette/Vaping Use: Never Used Second Hand Smoke Exposure: No service: No Current occupational status: disabled Sexual orientation: Straight/Heterosexual Gender identity: Female Cognitive needs: No Hearing needs: No Vision needs: Yes Female Reproductive History Menstrual Age of Menarche: 12 Physical Exam Vital Signs: Last Vital Signs Pulse 68 03/06/23 15:09 BP 144/62 H 03/06/23 15:09 BMI result Body Mass Index 26.2 Assessment & Plan Assessment & Plan (1) Osteoporosis: Code(s): M81.0 - Age-related osteoporosis without current pathological fracture Plan: This 67-year-old female with a history of osteoporosis in the setting of CKD stage IIIB with negative secondary workup except for slightly elevated PTH. She is due for Prolia injection. Recent DEXA shows improvement in the lumbar spine Plan is to check a basic metabolic panel, calcium albumin as well as 25 hydroxy vitamin-D, PTH. Assuming her kidney function is stable and calcium is stable will continue Prolia injections Orders: Orders Parathyroid Hormone Intact Today M81.0 - Age-related osteoporosis without current pathological fracture Albumin Level Today M81.0 - Age-related osteoporosis without current pathological fracture Calcium Today M81.0 - Age-related osteoporosis without current pathological fracture Vitamin D 25-OH Total Today M81.0 - Age-related osteoporosis without current pathological fracture Basic Metabolic Panel Today M81.0 - Age-related osteoporosis without current pathological fracture Coding Level of Care Code Est Pt Level 3 (80710) Diagnoses Osteoporosis M81.0
== END 2023-03-06 16:04 | disposition home or self-care (01) ==
PROVIDERS: PCP Internal Medicine; Visit Provider Internal Medicine Endocrinology, Diabetes & Metabolism
DX: M81.0 Age-related osteoporosis without current pathological fracture (principal)
CPT/HCPCS: 99213

== ENCOUNTER 2023-03-06 15:07 | Outpatient (REF) | payer OTHER, SELFPAY ==
[2023-03-06 18:07] LABS: Albumin Level 4.5 g/dL (3.5-5.0); Anion Gap 13 (12-20); Blood Urea Nitrogen 21 mg/dL (9-16); Carbon Dioxide 30 mmol/L (22-29); Chloride 103 mmol/L (96-108); Estimated Glomerular Filt Rate 58; Glucose Random 139 mg/dL (60-115); Potassium 4.3 mmol/L (3.3-5.1); Sodium 142 mmol/L (135-145)
[2023-03-06 18:23] LABS: Vitamin D 25-OH Total 43.4 ng/mL (>30)
[2023-03-07 07:26] LABS: Parathyroid Hormone Intact 105.1 pg/mL (8.7-77.1)
== END 2023-03-06 15:08 | disposition home or self-care (01) ==
LOC: HO.LAB 15:07
PROVIDERS: PCP Internal Medicine; Visit Provider Internal Medicine Endocrinology, Diabetes & Metabolism
DX: M81.0 Age-related osteoporosis without current pathological fracture (principal); Z79.620 Long term (current) use of immunosuppressive biologic
CPT/HCPCS: 36415; 80048; 82040; 82306; 83970; 99212

== ENCOUNTER 2023-03-13 12:34 | Outpatient (AMB) | payer OTHER, SELFPAY ==
--- OUTSIDE RECORDS SUMMARY | 2023-03-13 12:38 | XMS_ITS | Patient Health Record ---
Author Name Unknown [facility] Nik tsai Von [place] Address [address] [place] [address] Care Team Providers Care Case Specialist Name Role Phone Deena KEVIN, Elissa Primary Care Provider Unavail able Deanna Orourke Unavailable [phone] ALLERGIES Allergen (clinical drug ingredient) Drug/Non Drug Allergy documented on EMR Reaction Allergy Type Onset Date Status metformin Metformin stomach upset Drug Allergy Act rama metoprolol Metoprolol leg edema Drug Allergy Activ e tizanidine Tizanidine stomach upset Drug Allergy A ctive REASON FOR REFERRAL Diagnosis 1 Pain in unspecified foot (M79.673) Referring Provider First Name Elissa Referring Provider Last Name Deena [facility]erred [facility] Referred Provider Deanna Orourke Referred Address [address] [facility],[place], [place],[address], Referred Provider Specialty Podiatry Referral Priority Routine MEDICATIONS Medication SIG (Take, Route, Frequency, Duration) Notes Start Date End Date Status Lidocaine 5 % 1 patch remove after 12 hours Externally Once a day 10/17/2022 Not-Taking Diflorasone Diacetate 0.05 % APPLY 1-2 GRAMS TO BOTH FEET TWICE DAILY AFTER COMPOUND for 30 Active Ibuprofen 600 MG 1 tablet with food o r milk as needed Orally Three times a day 10/17/2022 Not-Taking Gabapentin 100 MG 1 capsule Orally Onc e a day Active Insulin Glargine Solostar 100 UNIT/ML ADMINISTER 35 UNITS UNDER THE SKIN EVERY EVENING Subcutaneous for 24 Days Active Insulin Lispro (1 Unit Dial) 100 UNIT/ML Subcutaneous for 33 Days Active Lancets 33G - as directed 10/17/2022 Act rama Extra Depth Orthopedic Shoes (1 Pair) with Customized Heat Molded Multidensity Innersoles (3 Pair) as directed Dx: IDDM/Polyneuropathy (E10.42), Hammertoe Foot Deformity (M20.41,M20.42), Preulcerative Skin Lesion(s) (L85.1) Active amLODIPine Besylate 5 MG Oral for 90 Days Active Losartan Potassium 100 MG TAKE 1 TABLET BY MOUTH DAILY Oral for 90 Days Active Aspirin Low Dose 81 MG TAKE 1 TABLET BY MOUTH EVERY DAY Oral for 90 Days Active Omeprazole 20 MG Oral for 90 Days Active Alcohol Swabs 70 % as directed 10/17/2022 Active Pen [place] Active Blood Glucose Meter 10/17/2022 Active Rosuvastatin Calcium 10 MG TAKE 1 TABLET BY MOUTH DAILY Oral for 90 Days Active Physical Therapy . . . 2-3x/week for 3- 4 weeks 12/14/2022 Active Citalopram Hydrobromide 20 MG TAKE 1 TABLET BY MOUTH DAILY Oral for 90 Days Active Cyclobenzaprine HCl 10 MG 1 tablet at be dtime as needed Orally Once a day for 30 day(s) 10/17/2022 Active SOCIAL HISTORY Tobacco Use: Social History Observation Description Date Details (start date - stop date) Never Smoker NA - NA Sex Assigned At : Social History Observation Description Sex Assigned At Unknown Tobacco Use/Smoking Question Answer Notes Are you a: nonsmoker Additional Findings: Tobacco Non-User Current no n-smoker Alcohol Screen Question Answer Notes Did you have a drink containing alcohol in the p ast year? No Points 0 Interpretation Negative Tobacco use other than smoking: Question Answer Notes Are you an other tobacco user? No PROBLEMS Problem Type ICD Code Onset Dates Problem Status W/U Status Risk SNOMED Code Notes Problem Other hammer toe(s) (acquired), right foot (M20.41) Active confirmed Acquired hammer toe of right foot (13245904894 ) Problem Other hammer toe(s) (acquired), left foot (M20.42) Active confirmed Acquired hammer toe of left foot (86385823861 ) Problem 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) Active confirmed [id number] VITAL SIGNS Blood pressure diastolic 50 mm Hg 12/14/2022 Height 5ft 2in in 12/14/2022 Blood pressure systolic 118 mm Hg 12/14/2022 Weight 142 lbs 12/14/2022 BMI 25.97 kg/m2 12/14/2022 Encounters Encounter Location Date Provider Diagnosis [address] [address] 10/17/2022 Deanna Orourke [address] [address] 11/07/2022 Deanna Oorurke Plantar fasciitis of right foot M72.2 ; Other hammer toe(s) (acquired), right foot M20.41 ; Other hammer toe(s) (acquired), left foot M20.42 and Type 1 DM with polyneuropathy E10.[address] [address] 11/07/2022 Deanna Orourke [address] [address] 11/07/2022 Deanna Orourke [address] [address] 11/08/2022 Deanna Orourke [address] [address] 11/12/2022 Deanna Crowea [address] [address] 12/14/2022 Deanna Orourke Other hammer toe(s) (acquired), right foot M20.41 ; Plantar fasciitis of right foot M72.2 ; Other hammer toe(s) (acquired), left foot M20.42 and Type 1 DM with polyneuropathy E10.[address] [address] 12/18/2022 Deanna Crowea [address] [address] 02/01/2023 Deanna Orourke ASSESSMENTS Encounter Date Diagnosis Assessment Notes Treatment Notes Treatment Clinical Notes 11/07/2022 Other hammer toe(s) (acquired), right foot (ICD-10 - M20.41) Patient Educated with: DIABETIC FOOT CARE INSTRUCTIONS.pdf (DIABETIC FOOT CARE INSTRUCTIONS.pdf ) 11/07/2022 Plantar fasciitis of right foot (ICD-10 - M72.2) Patient Educated with: HEEL CORD STRETCHES.pdf (HEEL CORD STRETCHES.pdf) Patient Educated with: RICE THERAPY.pdf (RICE THERAPY.pdf) 12/14/2022 Other hammer toe(s) (acquired), right foot (ICD-10 - M20.41) Patient Educated with: DIABETIC FOOT CARE INSTRUCTIONS.pdf (DIABETIC FOOT CARE INSTRUCTIONS.pdf ) Patient Educated with: DIABETIC FOOT CARE INSTRUCTIONS.pdf (DIABETIC FOOT CARE INSTRUCTIONS.pdf ) 12/14/2022 Plantar fasciitis of right foot (ICD-10 - M72.2) Patient Educated with: HEEL CORD STRETCHES.pdf (HEEL CORD STRETCHES.pdf) Patient Educated with: RICE THERAPY.pdf (RICE THERAPY.pdf) Patient Educated with: HEEL CORD STRETCHES.pdf (HEEL CORD STRETCHES.pdf) Patient Educated with: RICE THERAPY.pdf (RICE THERAPY.pdf) 11/07/2022 Other hammer toe(s) (acquired), left foot (ICD-10 - M20.42) 11/07/2022 Type 1 DM with polyneuropathy (ICD-10 - E10.42) 12/14/2022 Other hammer toe(s) (acquired), left foot (ICD-10 - M20.42) 12/14/2022 Type 1 DM with polyneuropathy (ICD-10 - E10.42) PLAN OF TREATMENT Pending Test Test Name Order Date X ray : Foot, right 3V 11/07/2022 Insurance Providers Payer Name Payer Address Payer Phone Subscriber Number Group Number Insured Name Patient Relationship to Insured Coverage Start Date Coverage End Date [facility] [address] [place]AR[place] Mckeon [phone] [id number] Lizbeth Bonner Self - patient is the insured MEDICAL (GENERAL) HISTORY Medical History History ICD Code Arthritis Back,Hip,and Knee pain covid-19 Diabetic High blood pressure Kidney disease Poor circulation ulcer Mumps Chicken pox
--- NOTE | 2023-03-13 13:01 | AM.OFFVISNUR ---
Intake Intake Visit Reasons: Prolia Allergies gabapentin Allergy (Intermediate, Verified 03/06/23 15:18) pruritus metformin Allergy (Intermediate, Verified 03/06/23 15:18) stomach upset metoprolol Allergy (Intermediate, Verified 03/06/23 15:18) upset stomach tizanidine Allergy (Intermediate, Verified 03/06/23 15:18) leg edema Office Meds Prolia 60 mg/mL subcutaneous syringe Performing Provider: Arnulfo Crane MD Performing Location: [facility] [place] Endocrinology Administered by: Karuna Hodge LPN on 03/13/23 13:01 Dose Route Admin Location Dispensed Lot Number Expiration Date NDC Research Quality Assurance Analyst 60 mg subcut Left upper arm 1 mL [id number] 08/15/25 AMGEN Coding Assessment & Plan Assessment & Plan Orders: Orders AMB Denosumab Injection Patient Supplied Today M81.0 - Age-related osteoporosis without current pathological fracture
== END 2023-03-13 12:59 | disposition home or self-care (01) ==
LOC: HO.ENCR 12:34
PROVIDERS: PCP Internal Medicine; Visit Provider Internal Medicine Endocrinology, Diabetes & Metabolism
DX: M81.0 Age-related osteoporosis without current pathological fracture (principal)

== ENCOUNTER → 2023-03-13 12:34 | Outpatient (BNVA) | payer OTHER, SELFPAY | PROVIDERS: PCP Internal Medicine; Visit Provider Internal Medicine Endocrinology, Diabetes & Metabolism | DX: M81.0 Age-related osteoporosis without current pathological fracture (principal) | CPT/HCPCS: 96372; J0897 ==

== ENCOUNTER 2023-04-03 09:33 | Outpatient (REF) | payer OTHER, SELFPAY ==
[2023-04-03 11:18] LABS: Albumin Level 4.4 g/dL (3.5-5.0); Calcium 9.9 mg/dL (8.4-10.2)
[2023-04-03 11:39] LABS: Parathyroid Hormone Intact 105.3 pg/mL (8.7-77.1)
[2023-04-03 11:47] LABS: Vitamin D 25-OH Total 37.3 ng/mL (>30)
== END 2023-04-03 09:34 | disposition home or self-care (01) ==
LOC: HO.LAB 09:33
PROVIDERS: PCP Internal Medicine; Visit Provider Internal Medicine Endocrinology, Diabetes & Metabolism
DX: M81.0 Age-related osteoporosis without current pathological fracture (principal)
CPT/HCPCS: 36415; 82040; 82306; 82310; 83970

== ENCOUNTER 2023-04-04 10:36 | Outpatient (REF) | payer OTHER, SELFPAY ==
[2023-04-04 11:32] LABS: Creatinine, mg/dL 46.13
[2023-04-04 11:45] LABS: Creatinine, 24Hr Urine 0.8 G/Day (1.0-2.0); Total Volume 24 Hour Urine 1725 mL
[2023-04-05 16:57] LABS: Calcium, 24 Hr Urine 36 mg/24 h; Calcium/Creatinine Ratio 45 mg/g creat (30-275); Creatinine 24Hr Urine 0.81 g/24 h (0.50-2.15)
== END 2023-04-04 10:37 | disposition home or self-care (01) ==
LOC: HO.LNP 10:36
PROVIDERS: Visit Provider Internal Medicine Endocrinology, Diabetes & Metabolism
DX: M81.0 Age-related osteoporosis without current pathological fracture (principal)
CPT/HCPCS: 82340; 82570

== ENCOUNTER 2023-04-10 09:40 | Outpatient (AMB) | payer OTHER, SELFPAY ==
--- NOTE | 2023-04-10 09:41 | MHC.OFFVIS ---
Intake Vital Signs 04/10/23 09:45 Height 5 ft 2 in Weight 142 lb 6.698 oz BMI 26.0 BP 138/78 Blood Pressure Location Lt brachial Position Sitting Pulse 68 Pulse Source Pulse Oximeter Intake Visit Reasons: F/U [id number] Intake Note: Patient presents today to follow up on D2MT. Last Diabetic Eye exam: 04/2022 Last Podiatry Visit: 05/2022 Random Glucose: 75 mg/dl HgA1C:7.0% Blueprint Blocker Required: Yes Blueprint Blocker Language: Venture Capital Analyst Name: Elaine Lockwood [id number] Information Interpreted: non-clinical & clinical Accompanied by: Self / Same As Patient Allergies gabapentin Allergy (Intermediate, Verified 04/10/23 09:54) pruritus metformin Allergy (Intermediate, Verified 04/10/23 09:54) stomach upset metoprolol Allergy (Intermediate, Verified 04/10/23 09:54) upset stomach tizanidine Allergy (Intermediate, Verified 04/10/23 09:54) leg edema Medication List - Last Reconciled 04/10/23 by Arnulfo Crane MD alcohol swabs (Alcohol Prep Pads) 1 pad topical QID 30 days amlodipine 5 mg PO DAILY 90 days aspirin 81 mg PO DAILY 90 days blood sugar diagnostic (Amartusuch Verio test strips) Use 1 test strip four times a day blood-glucose meter (ROCKITouch Verio Flex Meter) As directed calcium citrate 500 mg (2 x 250 mg calcium) PO BID citalopram 20 mg PO DAILY denosumab (Prolia) 60 mg subcut [id number] gabapentin 100 mg PO DAILY insulin glargine (Lantus Solostar U-100 Insulin) 35 units (0.35 mL) subcut QPM 90 days insulin lispro (Humalog KwikPen (U-100) Insulin) 2 - 13 units (0.02 - 0.13 mL) subcut TID 30 days lancets (Amartusuch Delica Plus Lancet) As directed lidocaine 5% 1 patch topical DAILY losartan 100 mg PO DAILY 90 days nitrofurantoin macrocrystal 100 mg PO BID 5 days omeprazole 20 mg PO QAM 90 days pen needle, diabetic Use 1 pen needle three times a day rosuvastatin 10 mg PO DAILY HPI HPI Comments History of Present Illness Details 67 YO F with PMHx T2DM, Osteoporosis and a MNG who is seen in F/U. . 1. Current regimen Lantus 36 units daily with Humalog 10 units with a small meal, 11 units with a medium meal and 12 units with a large meal. 2 units with a snack. She is intolerant to trulicity and metformin due to GI distress. She is intolerant to SGLT-2 due to vaginal discomfort. Checks sugars x daily.: Glucometer download shows she is checking her point of cares 4 times a day. Average glucose is 144. 76% in target with 20% hyperglycemia and 4% hypoglycemia. Pattern shows 2 episodes of hypoglycemia occurring after breakfast and after lunch Average sugar Range - Reports low sugars never. Treats lows with juice. Checks sugar after to ensure it is rising. Treats according to rule of 15's. Most recent A1C: Has eyes checked yearly, last eye exam 04/18/2022, denies retinopathy.Needs to make appt Denies neuropathy, last foot exam 06/16/2021. Has nephropathy, on Losartan 100 mg PO daily. UAC 34.9 as measured on 04/23/2022. Has HLD, on Rosuvastatin 10 mg PO daily. Last LDL 49 04/23/2022. Diet: Does not follow a particular diet Weight: Stable Has not had diabetes education. 2) Osteoporosis: 2) Osteoporosis: First diagnosed in 2020. Has never been treated for this. After our initial visit she underwent a full biochemical assessment, which revealed higher than expected Calcium, with PTH mildly elevated to 70.? Labs 11/10/2020 with Calcium 10.0, Albumin 4.6, PTH 70 and Vitamin D 35.? Urinary Calcium was low.? She was on HCTZ at the time. She was asked to stop the HCTZ and repeat labs. Labs are pending at this time. Has 1 servings of dietary calcium per day in the form of milk or yogurt.? Takes Calcium supplement 500 mg daily in divided doses.? Takes 2000 IU of Vitamin D daily. Denies ever using an anticoagulant, antiepileptic or glucocorticoid medication.? She does use a PPI daily. 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 .? She did not breastfeed.? Menopause was age 55.? She did not use HRT after. Denies history of Kidney stones: Denies family history of Osteoporosis or hip fracture. UTD on dental cleanings and sees dentist every 6 months.? No planned upcoming dental work or extractions. 3) Multinodular thyroid: She underwent an US of the thyroid that revealed multiple thyroid nodules.? She underwent FNA biopsy of her LLP 1.4 cm thyroid nodule 05/25/2021, but unfortunately cytology was nondiagnostic.? She refused repeat FNA biopsy. DXA dated 04/21/2020: FINDINGS: AP SPINE L1-L3 (excluding L4): The data of L1-L4 has been changed to exclude the L4 vertebral body, because degenerative sclerosis at this level may cause overestimation of lumbar spine density. BMD 0.779 g/cm2, Z-score -1.5, T-score -3.3, osteoporosis. LEFT FEMUR, NECK: BMD 0.831 g/cm2, Z-score 0.1, T-score -1.5, osteopenia. LEFT FEMUR, TOTAL: BMD 0.889 g/cm2, Z-score 0.4, T-score -0.9, normal. Laboratory Tests 04/23/22 04/23/22 07/27/22 09:00 09:01 10:04 Sodium 137 Potassium 4.7 Creatinine 1.11 Estimated GFR 49 Hemoglobin A1c % LDL Cholesterol Di rect 49 TSH 2.22 Free T4 1.00 PTH Intact Calcium (PTH Intac t) Microalb/Creat Rat io 34.9 07/27/22 07/27/22 10:04 10:04 Sodium Potassium Creatinine Estimated GFR Hemoglobin A1c % 7.4 LDL Cholesterol Di rect TSH Free T4 PTH Intact 60 Calcium (PTH Intac t) 9.8 Microalb/Creat Rat io She was started on Prolia received 2 injection 08/30/2022 in 02/2023 . Her PTH remains persistently elevated in the setting of normal calcium but low 24 hour urinary calcium . 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 Mother Asthma Hypertension Chronic mental illness Diabetes Mental health disorder Family/Other Chronic mental illness Mental health disorder Social History Household Members: None Housing: Apartment Alcohol intake: never Patient Tobacco Use Status: Never used Tobacco e-Cigarette/Vaping Use: Never Used Second Hand Smoke Exposure: No service: No Current occupational status: disabled Sexual orientation: Straight/Heterosexual Gender identity: Female Cognitive needs: No Hearing needs: No Vision needs: Yes Female Reproductive History Menstrual Age of Menarche: 12 Physical Exam Vital Signs: Last Vital Signs Pulse 68 04/10/23 09:45 BP 138/78 04/10/23 09:45 BMI result Body Mass Index 26.0 Absence of Cushingoid features. Absence of acromegalic features. Neck exam reveals nl size thyroid about 15 gms. No thyroid nodules palpable. No carotid bruits present. Lungs CTA. Heart S1 S2, Reg R/R. No M/R/ G. Skin exam reveals absence of vitiligo or acanthosis nigricans. Abdominal exam reveals Soft NT/ND with NA BS. No organomegaly present. Neck Other: . Extrem Other: Visual exam of foot performed. No ulcerations or open lesions. No onchomycosis, no callouses.Pulses 2 + distally Sensation intact to monofilament exam. Vibratory sensation sensed is intact with 128 Hz tuning fork Results Reviewed Results Reviewed: Laboratory Last Values Glucose (Clinic) 75 mg/dL (60-115) 04/10/23 09:51 Assessment & Plan Assessment & Plan (1) Diabetes type 2, uncontrolled: Code(s): E11.65 - Type 2 diabetes mellitus with hyperglycemia Qualifiers: Glycemic state: with hyperglycemia Qualified Code(s): E11.65 - Type 2 diabetes mellitus with hyperglycemia Plan: This is a 67-year-old female with a history of type 2 diabetes being treated with basal-bolus insulin with excellent glycemic control and known microvascular complication namely nephropathy for Plan is to continue the current treatment. At this point, patient returned to the care of her primary care provider regarding her diabetes returned back to endocrinology if her HbA1c deteriorate (2) Osteoporosis: Code(s): M81.0 - Age-related osteoporosis without current pathological fracture Plan: Currently on Prolia. He is had persistently elevated PTH levels with normal 25 hydroxy vitamin-D and calcium. Suspect that calcium intake is insufficient. The other possibility is the patient has normocalcemic primary hyperparathyroidism Would increase calcium citrate supplementation to 600 mg b.i.d. and vitamin D3 to 2000 IU per day. Will recheck 25 hydroxy vitamin-D, calcium, albumin, PTH, 24 hour urine for calcium and creatinine in 3 months' time. (3) Hyperparathyroidism: Code(s): E21.3 - Hyperparathyroidism, unspecified Plan: See above plan Orders: Orders Vitamin D 25-OH Total 4 Months E21.3 - Hyperparathyroidism, unspecified Calcium, 24 Hr Ur 4 Months E21.3 - Hyperparathyroidism, unspecified Creatinine, 24 Hr Group 4 Months E21.3 - Hyperparathyroidism, unspecified Calcium 4 Months E21.3 - Hyperparathyroidism, unspecified Parathyroid Hormone Intact 4 Months E21.3 - Hyperparathyroidism, unspecified Albumin Level 4 Months E21.3 - Hyperparathyroidism, unspecified Medications: New calcium citrate 500 mg (2 x 250 mg calcium) PO BID 120 tabs 5RF cholecalciferol (vitamin D3) 50 mcg PO DAILY 30 caps 4RF Coding Level of Care Code Est Pt Level 4 (30358) Diagnoses Uncontrolled type 2 diabetes mellitus with hyperglycemia E11.65 Glycemic state: with hyperglycemia Osteoporosis M81.0 Hyperparathyroidism E21.3
[2023-04-10 09:45] VITALS: BP 138/78; PULSE 68; BMI 26.0
[2023-04-10 09:56] LABS: Glucose, Whole Blood 75 mg/dL (60-115)
== END 2023-04-10 10:33 | disposition home or self-care (01) ==
PROVIDERS: PCP Internal Medicine; Visit Provider Internal Medicine Endocrinology, Diabetes & Metabolism
DX: E11.65 Type 2 diabetes mellitus with hyperglycemia (principal); M81.0 Age-related osteoporosis without current pathological fracture; E21.3 Hyperparathyroidism, unspecified; E11.9 Type 2 diabetes mellitus without complications
CPT/HCPCS: 99214

== ENCOUNTER → 2023-04-10 09:40 | Outpatient (BNVA) | payer OTHER, SELFPAY | PROVIDERS: PCP Internal Medicine; Visit Provider Internal Medicine Endocrinology, Diabetes & Metabolism | DX: E11.65 Type 2 diabetes mellitus with hyperglycemia (principal); M81.0 Age-related osteoporosis without current pathological fracture; E21.3 Hyperparathyroidism, unspecified | CPT/HCPCS: 82947; 83036; 99212 ==

== ENCOUNTER 2023-05-02 10:58 | Outpatient (REF) | payer OTHER, SELFPAY | END 2023-05-02 10:59 | disposition home or self-care (01) | LOC: HO.MAMMO 10:58 | PROVIDERS: PCP Internal Medicine; Visit Provider Internal Medicine | DX: Z12.31 Encounter for screening mammogram for malignant neoplasm of breast (principal) | CPT/HCPCS: 77063; 77067 ==

== ENCOUNTER → 2023-05-02 11:15 | Outpatient (BNV) | payer OTHER, SELFPAY | PROVIDERS: PCP Internal Medicine; Visit Provider Radiology Diagnostic Radiology | DX: Z12.31 Encounter for screening mammogram for malignant neoplasm of breast (principal) | CPT/HCPCS: 77063; 77067 ==

== ENCOUNTER 2023-06-11 09:26 | Outpatient (AMB) | payer OTHER, SELFPAY ==
[2023-06-11 09:30] VITALS: BP 122/64; BMI 25.6
--- NOTE | 2023-06-11 09:30 | MHC.PC.OV ---
Vital Signs 06/11/23 09:30 Height 5 ft 2 in Weight 140 lb BMI 25.6 BP 122/64 Blood Pressure Location Lt brachial Position Sitting Intake Visit Reasons: 6 Months F/U Intake Note: Patient here for a 6 month follow up Financial Institution Vice President Required: No Accompanied by: Self / Same As Patient Allergies gabapentin Allergy (Intermediate, Verified 06/11/23 09:53) pruritus metformin Allergy (Intermediate, Verified 06/11/23 09:53) stomach upset metoprolol Allergy (Intermediate, Verified 06/11/23 09:53) upset stomach tizanidine Allergy (Intermediate, Verified 06/11/23 09:53) leg edema Medication List - Last Reconciled 06/11/23 by Elissa Salas MD alcohol swabs (Alcohol Prep Pads) 1 pad topical QID 30 days amlodipine 5 mg PO DAILY 90 days aspirin 81 mg PO DAILY 90 days blood sugar diagnostic (Spotieuch Verio test strips) Use 1 test strip four times a day blood-glucose meter (PR SlidesTouch Verio Flex Meter) As directed calcium citrate 500 mg (2 x 250 mg calcium) PO BID cholecalciferol (vitamin D3) 50 mcg PO DAILY citalopram 20 mg PO DAILY denosumab (Prolia) 60 mg subcut [id number] insulin glargine (Lantus Solostar U-100 Insulin) 35 units (0.35 mL) subcut QPM 90 days insulin lispro (Humalog KwikPen (U-100) Insulin) 2 - 13 units (0.02 - 0.13 mL) subcut TID 30 days lancets (PR SlidesTouch Delica Plus Lancet) As directed lidocaine 5% 1 patch topical DAILY losartan 100 mg PO DAILY 90 days omeprazole 20 mg PO QAM 90 days pen needle, diabetic Use 1 pen needle three times a day rosuvastatin 10 mg PO DAILY Tobacco use date assessed: 06/11/23 Fall risk assessment: No Falls in past year Last assessed Fall Risk: 06/11/23 Dental Screening Dental Screen Date: 06/11/23 Did you have a dental visit in the last 12 months?: Yes Did you have a dental problem in the last 6 months where you did not have access to dental care?: No Was dental information given to patient?: Patient has dentist HPI HPI Comments History of Present Illness Details This is a 67-year-old female with diabetes mellitus type 2 on long-term current use of insulin, hypertension, dyslipidemia, GERD and osteoporosis that comes today for follow-up on her conditions. Last A1c was close to goal. Blood pressure stable. Lipid panel will be order and her LDL goal should be less than 70. GERD stable with PPIs as needed. Last bone density showed osteoporosis and is currently on Prolia follow by Endocrinology. She denies any chest pain or shortness of breath. Compliant with medications. [facility] Medical History HLD (hyperlipidemia) HTN (hypertension) T2DM (type 2 diabetes mellitus) Hyperparathyroidism Multinodular thyroid Goiter Vitamin D deficiency Anemia Right hand pain Diabetes type 2, uncontrolled Hyperlipidemia LDL goal <100 Osteoporosis Chronic kidney disease, stage 2 (mild) Long-term use of aspirin therapy GERD (gastroesophageal reflux disease) Dyslipidemia Essential hypertension roasterman (current) use of insulin Diabetes mellitus Screening for osteoporosis Well woman exam Depression with anxiety Fibromyalgia Surgical History History of colonoscopy History of tubal ligation Family History Father No problems noted. Mother Asthma Hypertension Chronic mental illness Diabetes Mental health disorder Family/Other Chronic mental illness Mental health disorder Social History Household Members: None Housing: Apartment Alcohol intake: never Patient Tobacco Use Status: Never used Tobacco e-Cigarette/Vaping Use: Never Used Second Hand Smoke Exposure: No service: No Current occupational status: disabled Sexual orientation: Straight/Heterosexual Gender identity: Female Cognitive needs: No Hearing needs: No Vision needs: Yes Female Reproductive History Menstrual Age of Menarche: 12 Questionnaire PHQ-9 Over the last 2 weeks, how often have you been bothered by any of the following problems? 1. Little interest or pleasure in doing things: not at all 2. Feeling down, depressed, or hopeless: several days 3. Trouble falling or staying asleep, or sleeping too much: not at all 4. Feeling tired or having little energy: several days 5. Poor appetite or overeating: not at all 6. Feeling bad about yourself - or that you are a failure or have let yourself or your family down: not at all 7. Trouble concentrating on things, such as reading the newspaper or watching television: not at all 8. Moving or speaking so slowly that other people could have noticed. Or the opposite - being so fidgety or restless that you have been moving around a lot more than usual: not at all 9. Thoughts that you would be better off or of hurting yourself in some way: not at all Total score: 2 Depression Screening Interpretation: Negative Depression Screening Done: Yes 29056 - PHQ-9 Billing: Yes Source: Developed by Drs. Arnulfo Ray, Marjorie Holbrook, Brannon Dallas and colleagues, with an educational lorena from [employer]. Thrive Questionnaire Date Thrive assessed: 06/11/23 I am a: Patient What is your living situation today?: I have a steady place to live Within the past 12 months, did the food you bought not last and you didn't have the money to get more?: Never true Within the past 12 months, did you worry whether your food would run out before you got money to buy more?: Never true Do you have trouble paying for medicines?: No Do you have trouble getting transportation to medical appointments?: No Do you have trouble paying your heating and electricity bill?: No Do you have trouble taking care of your child, family member or friend?: No Do you have trouble with day-to-day activities such as bathing, preparing meals, shopping, managing finances, etc.?: No Are you currently unemployed and looking for a job?: No Are you interested in more education?: No Please select the resources that you would like help with: None Currently or been in a relationship where the following occur: no concerns reported THRIVE Score: 0 AUDIT C Alcohol Use Questionnaire (AUDIT-C) 1. How often do you have a drink containing alcohol?: Never Total Score: 0 Score Reviewed/Action Taken: No TENISHA-7 AMB Questionnaire TENISHA-7 Date TENISHA - 7 assessed: 06/11/23 Feeling nervous, anxious, or on edge: 1 = Several days Not being able to stop or control worryin = Not at all Worrying too much about different things: 1 = Several days Trouble relaxin = Not at all Being so restless that it is hard to sit still: 0 = Not at all Becoming easily annoyed or irritable: 1 = Several days Feeling afraid as if something awful might happen: 0 = Not at all Total TENISHA-7 score (0-4 normal; 5-9 mild; 10-14 moderate; 15-21 severe): 3 Source: Developed by Drs. Arnulfo Ray, Marjorie Holbrook, Brannon Dallas and colleagues, with an educational lorena from [employer]. TENISHA-7 Assessment Billing TENISHA-7 Assessment Tool: TENISHA-7 Assessment 21162 Review of Systems Const All systems reviewed & are unremarkable except as noted in HPI and below Eyes Reports no additional complaints, Denies change in vision and Denies other visual disturbances Card Denies chest pain at rest, Denies chest pain with activity, Denies edema, Denies irregular heart rhythm, Denies claudication, Denies dyspnea, Denies dyspnea on exertion, Denies orthopnea, Denies paroxysmal nocturnal dyspnea and Denies slow heart rate Resp Denies cough, Denies dyspnea and Denies dyspnea on exertion GI Denies abdominal pain, Denies change in bowel habits, Denies excessive flatus, Denies nausea and Denies vomiting Denies urinary incontinence, Denies urinary hesitancy and Denies urinary urgency Musc Denies abnormal gait, Denies atrophy, Denies deformity and Denies limited range of motion Skin/Breast Denies bleeding lesions, Denies changing lesions and Denies rash Neuro Denies abnormal gait and Denies lack of coordination Physical exam (Primary Care) Vital Signs: Last Vital Signs BP 122/64 06/11/23 09:30 BMI result Body Mass Index 25.6 Tobacco/Smoking Status: Tobacco use Status Tobacco use date assessed 06/11/23 06/11/23 09:36 Patient Tobacco Use Status Never used Tobacco 06/11/23 09:36 e-Cigarette/Vaping Use Never Used 06/11/23 09:36 PHQ-9: PHQ-9 Score PHQ-9: Total score 2 06/11/23 09:56 Depression Screening Interpretation: Negative Thrive Assessment: Date of Thrive Assessment Date Thrive assessed 06/11/23 06/11/23 09:36 Currently or been in a relationship where the following occur: no concerns reported Resp Auscultation: clear to auscultation bilaterally Cardio Jugular venous distension: no JVD Rate: regular rate Rhythm: regular rhythm Heart sounds: S1 normal heart sound present and S2 normal heart sound present Extrem General: Yes full ROM Assessment and Plan Assessment & Plan (1) T2DM (type 2 diabetes mellitus): Code(s): E11.9 - Type 2 diabetes mellitus without complications Qualifiers: Diabetes mellitus detention insulin use: with intermodal customer service use Diabetes mellitus complication status: with hyperglycemia Qualified Code(s): E11.65 - Type 2 diabetes mellitus with hyperglycemia; Z79.4 - intermediate (current) use of insulin Plan: Continue insulin. A1c goal is equal or less than 7%. (2) Essential hypertension: Code(s): I10 - Essential (primary) hypertension Plan: Continue losartan. Blood pressure goal is equal or less than 130/80. Also continue amlodipine. (3) GERD (gastroesophageal reflux disease): Code(s): K21.9 - Gastro-esophageal reflux disease without esophagitis Qualifiers: Esophagitis presence: esophagitis presence not specified Qualified Code(s): K21.9 - Gastro-esophageal reflux disease without esophagitis Plan: Continue PPIs as needed (4) Dyslipidemia: Code(s): E78.5 - Hyperlipidemia, unspecified Plan: Continue statins. LDL goal is less than 70. (5) Osteoporosis: Code(s): M81.0 - Age-related osteoporosis without current pathological fracture Plan: Continue Prolia. Follow-up with endocrinology. Orders: Orders Microalbumin, Random (w Creat) Today E11.9 - Type 2 diabetes mellitus without complications Lipid Panel Today E78.5 - Hyperlipidemia, unspecified Vitamin D 25-OH Total Today E55.9 - Vitamin D deficiency, unspecified Comprehensive [place]. Panel Fast Today E11.9 - Type 2 diabetes mellitus without complications Coding Level of Care Code Est Pt Level 4 (85227) Diagnoses Type 2 diabetes mellitus with hyperglycemia, with long-term current use of insulin E11.65; Z79.4 Diabetes mellitus intermodal customer service insulin use: with intermodal customer service use Diabetes mellitus complication status: with hyperglycemia Essential hypertension I10 Gastroesophageal reflux disease, unspecified whether esophagitis present K21.9 Esophagitis presence: esophagitis presence not specified Dyslipidemia E78.5 Osteoporosis M81.0 Additional Codes TENISHA-7 Assessment Billing - TENISHA-7 Assessment Tool: TENISHA-7 Assessment 07949 ([id number]) Time Spent (min) 24
== END 2023-06-11 10:00 | disposition home or self-care (01) ==
PROVIDERS: PCP Internal Medicine; Visit Provider Internal Medicine
DX: E11.65 Type 2 diabetes mellitus with hyperglycemia (principal); Z79.4 Long term (current) use of insulin; I10 Essential (primary) hypertension; K21.9 Gastro-esophageal reflux disease without esophagitis; E78.5 Hyperlipidemia, unspecified; M81.0 Age-related osteoporosis without current pathological fracture
CPT/HCPCS: 99214

== ENCOUNTER 2023-06-14 09:06 | Outpatient (REF) | payer OTHER, SELFPAY ==
[2023-06-14 11:33] LABS: Alanine Aminotransferase 27 U/L (0-31); Albumin Level 4.3 g/dL (3.5-5.0); Alkaline Phosphatase 51 U/L (39-117); Anion Gap 14 (12-20); Aspartate Amino Transferase 32 U/L (5-31); Bilirubin Total 0.4 mg/dL (0.0-1.0); Blood Urea Nitrogen 21 mg/dL (9-16); Calcium 9.5 mg/dL (8.4-10.2); Carbon Dioxide 26 mmol/L (22-29); Chloride 105 mmol/L (96-108); Cholesterol 133 mg/dL (<200); Estimated Glomerular Filt Rate > 60; Glucose Fasting 156 mg/dL (60-99); HDL Cholesterol 53 mg/dL (>40); LDL Cholesterol Calculated 62 mg/dL (<100); Sodium 141 mmol/L (135-145); Total Protein 7.7 g/dL (6.5-8.0); Triglycerides 91 mg/dL (<150)
[2023-06-14 11:38] LABS: Vitamin D 25-OH Total 49.8 ng/mL (>30)
[2023-06-14 12:51] LABS: Creatinine Urine 162.19 mg/dL; Microalbum/Creatinine Ratio Ur 59.1 ug/mg cr (<30)
== END 2023-06-14 09:07 | disposition home or self-care (01) ==
LOC: HO.LAB 09:06
PROVIDERS: PCP Internal Medicine; Visit Provider Internal Medicine
DX: E11.9 Type 2 diabetes mellitus without complications (principal); E55.9 Vitamin D deficiency, unspecified; E78.5 Hyperlipidemia, unspecified
CPT/HCPCS: 36415; 80053; 80061; 82043; 82306; 82570

== ENCOUNTER 2023-08-01 08:48 | Outpatient (REF) | payer OTHER, SELFPAY ==
[2023-08-01 10:05] LABS: Albumin Level 4.2 g/dL (3.5-5.0); Calcium 9.2 mg/dL (8.4-10.2)
[2023-08-01 10:06] LABS: Parathyroid Hormone Intact 94.3 pg/mL (8.7-77.1)
[2023-08-01 10:22] LABS: Vitamin D 25-OH Total 46.9 ng/mL (>30)
== END 2023-08-01 08:49 | disposition home or self-care (01) ==
LOC: HO.LAB 08:48
PROVIDERS: PCP Internal Medicine; Visit Provider Internal Medicine Endocrinology, Diabetes & Metabolism
DX: E21.3 Hyperparathyroidism, unspecified (principal)
CPT/HCPCS: 36415; 82040; 82306; 82310; 83970

== ENCOUNTER 2023-08-03 12:48 | Outpatient (REF) | payer OTHER, SELFPAY ==
[2023-08-03 13:19] LABS: Creatinine, mg/dL 63.96
[2023-08-03 17:11] LABS: Creatinine, 24Hr Urine 1.3 G/Day (1.0-2.0); Total Volume 24 Hour Urine 1975 mL
[2023-08-06 16:58] LABS: Calcium, 24 Hr Urine 51 mg/24 h; Calcium/Creatinine Ratio 41 mg/g creat (30-275); Creatinine 24Hr Urine 1.26 g/24 h (0.50-2.15)
== END 2023-08-03 12:49 | disposition home or self-care (01) ==
LOC: HO.LNP 12:48
PROVIDERS: Visit Provider Internal Medicine Endocrinology, Diabetes & Metabolism
DX: E21.3 Hyperparathyroidism, unspecified (principal)
CPT/HCPCS: 82340; 82570

== ENCOUNTER 2023-08-09 09:47 | Outpatient (AMB) | payer OTHER, SELFPAY ==
--- NOTE | 2023-08-09 09:48 | A.OFFVIS_ITS ---
Vital Signs 08/09/23 09:54 Height 5 ft 2 in Weight 139 lb 5.314 oz BMI 25.5 BP 138/60 Blood Pressure Location Rt brachial Position Sitting Pulse 57 Pulse Source Pulse Oximeter Intake Visit Reasons: Type 2 DM-confirmed Intake Note: Patient present today to follow up on Type 2 Diabetes Mellitus. Last Diabetic Eye exam: 06/25/23 [facility] Last Podiatry Visit: Patient reports [facility]eeper had placed a referral. Random Glucose: 124 mg/dl HgA1C: 7.1% Assistant Professor Of Forestry Required: Yes Assistant Professor Of Forestry Language: Vehicle Window Tinter Name: Halle, Medical Staff Information Interpreted: non-clinical & clinical Accompanied by: Self / Same As Patient Allergies gabapentin Allergy (Intermediate, Verified 08/09/23 09:56) pruritus metformin Allergy (Intermediate, Verified 08/09/23 09:56) stomach upset metoprolol Allergy (Intermediate, Verified 08/09/23 09:56) upset stomach tizanidine Allergy (Intermediate, Verified 08/09/23 09:56) leg edema Medication List - Last Reconciled 08/09/23 by Dina Scott PA-C alcohol swabs (Alcohol Prep Pads) 1 pad topical QID 30 days amlodipine 5 mg PO DAILY 90 days aspirin 81 mg PO DAILY 90 days blood sugar diagnostic (OneTouch Verio test strips) Use 1 test strip four times a day blood-glucose meter (OneTouch Verio Flex Meter) As directed calcium citrate 500 mg (2 x 250 mg calcium) PO BID cholecalciferol (vitamin D3) 50 mcg PO DAILY citalopram 20 mg PO DAILY denosumab (Prolia) 60 mg subcut [id number] gabapentin 100 mg PO DAILY hydrochlorothiazide 25 mg PO DAILY insulin glargine (Lantus Solostar U-100 Insulin) 35 units (0.35 mL) subcut QPM 90 days insulin lispro (Humalog KwikPen (U-100) Insulin) 2 - 13 units (0.02 - 0.13 mL) subcut TID 30 days lancets (Sonexis TechnologyTouch Delica Plus Lancet) As directed lidocaine 5% 1 patch topical DAILY losartan 100 mg PO DAILY 90 days omeprazole 20 mg PO QAM 90 days pen needle, diabetic Use 1 pen needle three times a day rosuvastatin 10 mg PO DAILY HPI HPI Type 2 DM-confirmed: Details: Patient is a 67-year-old female with a significant past medical history of hypertension, hyperlipidemia, osteoporosis, type 2 diabetes, insulin-dependent, hyperparathyroidism, multinodular thyroid angered presenting today for a diabetic follow-up. Dm 2: Last A1c was 7.1. She is on Lantus 35 units nightly, Humalog 2-13 units 3 times a day. She is intolerant of metformin and Trulicity due to GI distress. Feels overall well with this regimen but would like a CGM. Hypoglycemia:reports no events Hyperglycemia: 222 she reports as her high Eye exam: reports UTD Foot exam: [place] 08/09/23 -on an Arb Endo: follows with Dr. Crane for her multinodular thyroid, osteoporosis, and hyperparathyroidism. CV: Blood pressure today in the office is 138/60. No chest pain, shortness of breath or palpitations. She is currently on amlodipine 5 mg, hydrochlorothiazide 25 mg, losartan 100 mg daily. Cholesterol is managed with Crestor 10 mg. Last LDL at goal. [facility] Medical History HLD (hyperlipidemia) HTN (hypertension) T2DM (type 2 diabetes mellitus) Hyperparathyroidism Multinodular thyroid Goiter Vitamin D deficiency Anemia Right hand pain Diabetes type 2, uncontrolled Hyperlipidemia LDL goal <100 Osteoporosis Chronic kidney disease, stage 2 (mild) Long-term use of aspirin therapy GERD (gastroesophageal reflux disease) Dyslipidemia Essential hypertension USP (current) use of insulin Diabetes mellitus Screening for osteoporosis Well woman exam Depression with anxiety Fibromyalgia Surgical History History of colonoscopy History of tubal ligation Family History Father No problems noted. Mother Asthma Hypertension Chronic mental illness Diabetes Mental health disorder Family/Other Chronic mental illness Mental health disorder Social History Household Members: None Housing: Apartment Alcohol intake: never Patient Tobacco Use Status: Never used Tobacco e-Cigarette/Vaping Use: Never Used Second Hand Smoke Exposure: No service: No Current occupational status: disabled Sexual orientation: Straight/Heterosexual Gender identity: Female Cognitive needs: No Hearing needs: No Vision needs: Yes Female Reproductive History Menstrual Age of Menarche: 12 Physical Exam Vital Signs: BMI result Body Mass Index 25.5 Const Orientation/consciousness: patient oriented x3 HEENT Ears: hearing grossly normal bilaterally Neck Thyroid: Thyroid normal Lymphatic: no lymphadenopathy noted Resp Auscultation: clear to auscultation bilaterally Cardio Rate: regular rate Rhythm: regular rhythm Heart sounds: S1 normal heart sound present and S2 normal heart sound present Skin General skin exam: no rashes or lesions noted Neuro General: patient oriented x3, gait normal and no focal motor deficits Extrem Other: DP pulses 2+ bilaterally. Vibratory and from sensory sensation intact. Skin intact. Results AMB Hemoglobin A1c AMB Hemoglobin A1c 7.1 % Last Edit by VINCENT Schulz on 08/09/23 10:15 Results Reviewed Results Reviewed: Laboratory Tests 06/14/23 06/14/23 09:22 09:26 Sodium 141 Potassium 4.0 Chloride 105 Carbon Dioxide 26 Anion Gap 14 BUN 21 H Creatinine 0.89 Estimated GFR > 60 Fasting Glucose 156 H Calcium 9.5 AST 32 H ALT 27 Alkaline Phosphatase 51 Triglycerides 91 Cholesterol 133 LDL Cholesterol, Calc 62 HDL Cholesterol 53 25-OH Vitamin D Total 49.8 Urine Creatinine 162.19 Urine Microalbumin 96.0 Microalb/Creat Ratio 59.1 H Assessment & Plan Assessment & Plan (1) Diabetes type 2, uncontrolled: Code(s): E11.65 - Type 2 diabetes mellitus with hyperglycemia Category: Medical Qualifiers: Glycemic state: with hyperglycemia Qualified Code(s): E11.65 - Type 2 diabetes mellitus with hyperglycemia Plan: We did discuss that her A1c is close to goal but not quite at goal. [employer]style Pau 3 ordered. She will follow-up with diabetic Education in 1-2 weeks with her sensor and reader. I will follow up with her in 3 months. Labs prior to appointment. Ordered today. (2) supervisor intermediates (current) use of insulin: Code(s): Z79.4 - supervisor intermediates (current) use of insulin Category: Medical Plan: As above (3) Chronic kidney disease, stage 2 (mild): Code(s): N18.2 - Chronic kidney disease, stage 2 (mild) Category: Medical Plan: Stable. Avoid NSAIDs. On an Arb. Will continue to monitor. Plan Patient understands and agrees the plan. Orders: Orders Hemoglobin A1c Today E11.65 - Type 2 diabetes mellitus with hyperglycemia, N18.2 - Chronic kidney disease, stage 2 (mild), Z79.4 - supervisor intermediates (current) use of insulin AMB Hemoglobin A1c Today E11.65 - Type 2 diabetes mellitus with hyperglycemia, Z79.4 - USP (current) use of insulin Comprehensive [place]. Panel Fast Today E11.65 - Type 2 diabetes mellitus with hyperglycemia, N18.2 - Chronic kidney disease, stage 2 (mild), Z79.4 - supervisor intermediates (current) use of insulin Referrals Diabetes Education Referral E11.65 - Type 2 diabetes mellitus with hyperglycemia, Z79.4 - USP (current) use of insulin Medications: New blood-glucose sensor (FreeStyle Pau 3 Sensor device) Apply every 14 days As directed to monitor blood glucose 2 ea 11RF E11.9 - Type 2 diabetes mellitus without complications, Z79.4 - supervisor intermediates (current) use of insulin blood-glucose meter,continuous (FreeStyle Pau 3 [place]) As directed 1 ea 0RF E11.65 - Type 2 diabetes mellitus with hyperglycemia, N18.2 - Chronic kidney disease, stage 2 (mild), Z79.4 - supervisor intermediates (current) use of insulin Coding Level of Care Code Est Pt Level 4 (53451) Complex EM visit Add On G2211 Diagnoses Uncontrolled type 2 diabetes mellitus with hyperglycemia E11.65 Glycemic state: with hyperglycemia USP (current) use of insulin Z79.4 Chronic kidney disease, stage 2 (mild) N18.2
[2023-08-09 09:54] VITALS: BP 138/60; PULSE 57; BMI 25.5
[2023-08-09 10:06] LABS: Glucose, Whole Blood 124 mg/dL (60-115)
== END 2023-08-09 10:23 | disposition home or self-care (01) ==
PROVIDERS: PCP Internal Medicine; Visit Provider Physician Assistant
DX: E11.65 Type 2 diabetes mellitus with hyperglycemia (principal); Z79.4 Long term (current) use of insulin; N18.2 Chronic kidney disease, stage 2 (mild)
CPT/HCPCS: 99214; G2211

== ENCOUNTER → 2023-08-09 09:47 | Outpatient (BNVA) | payer OTHER, SELFPAY | PROVIDERS: PCP Internal Medicine; Visit Provider Physician Assistant | DX: E11.65 Type 2 diabetes mellitus with hyperglycemia (principal); E11.22 Type 2 diabetes mellitus with diabetic chronic kidney disease; N18.2 Chronic kidney disease, stage 2 (mild); Z79.4 Long term (current) use of insulin | CPT/HCPCS: 82947; 83036; 99212 ==

== ENCOUNTER 2023-08-13 10:34 | Outpatient (AMB) | payer OTHER, SELFPAY ==
[2023-08-13 10:41] VITALS: BP 136/64; PULSE 62; BMI 25.4
--- NOTE | 2023-08-13 10:41 | A.OFFVIS_ITS ---
Vital Signs 08/13/23 10:41 Height 5 ft 2 in Weight 139 lb 1.787 oz BMI 25.4 BP 136/64 Blood Pressure Location Lt brachial Position Sitting Pulse 62 Pulse Source Pulse Oximeter Intake Visit Reasons: f/u osteoporosis/secondary hyperparathyroidism Intake Note: Patient presents today for Osteoporosis and secondary Hyperparathyroidism follow up. Spring Assembler Supervisor Required: Yes Spring Assembler Supervisor Language: Refinery Process Engineer Name: Priya Information Interpreted: non-clinical & clinical Accompanied by: Self / Same As Patient Allergies gabapentin Allergy (Intermediate, Verified 08/13/23 10:45) pruritus metformin Allergy (Intermediate, Verified 08/13/23 10:45) stomach upset metoprolol Allergy (Intermediate, Verified 08/13/23 10:45) upset stomach tizanidine Allergy (Intermediate, Verified 08/13/23 10:45) leg edema HPI Comments Details: 67 YO F with PMHx T2DM, Osteoporosis and a MNG who is seen in F/U. . Osteoporosis: Osteoporosis: First diagnosed in 2020. Has never been treated for this. After our initial visit she underwent a full biochemical assessment, which revealed higher than expected Calcium, with PTH mildly elevated to 70.? Labs 11/10/2020 with Calcium 10.0, Albumin 4.6, PTH 70 and Vitamin D 35.? Urinary Calcium was low.? She was on HCTZ at the time. She was asked to stop the HCTZ and repeat labs. Labs are pending at this time. Has 1 servings of dietary calcium per day in the form of milk or yogurt.? Takes Calcium supplement 500 mg daily in divided doses.? Takes 2000 IU of Vitamin D daily. Denies ever using an anticoagulant, antiepileptic or glucocorticoid medication.? She does use a PPI daily. 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 .? She did not breastfeed.? Menopause was age 55.? She did not use HRT after. Denies history of Kidney stones: Denies family history of Osteoporosis or hip fracture. UTD on dental cleanings and sees dentist every 6 months.? No planned upcoming dental work or extractions. 3) Multinodular thyroid: She underwent an US of the thyroid that revealed multiple thyroid nodules.? She underwent FNA biopsy of her LLP 1.4 cm thyroid nodule 05/25/2021, but unfortunately cytology was nondiagnostic.? She refused repeat FNA biopsy. DXA dated 04/21/2020: FINDINGS: AP SPINE L1-L3 (excluding L4): The data of L1-L4 has been changed to exclude the L4 vertebral body, because degenerative sclerosis at this level may cause overestimation of lumbar spine density. BMD 0.779 g/cm2, Z-score -1.5, T-score -3.3, osteoporosis. LEFT FEMUR, NECK: BMD 0.831 g/cm2, Z-score 0.1, T-score -1.5, osteopenia. LEFT FEMUR, TOTAL: BMD 0.889 g/cm2, Z-score 0.4, T-score -0.9, normal. Laboratory Tests 04/23/22 04/23/22 07/27/22 09:00 09:01 10:04 Sodium 137 Potassium 4.7 Creatinine 1.11 Estimated GFR 49 Hemoglobin A1c % LDL Cholesterol Direct 49 TSH 2.22 Free T4 1.00 PTH Intact Calcium (PTH Intact) Microalb/Creat Ratio 34.9 07/27/22 07/27/22 10:04 10:04 Sodium Potassium Creatinine Estimated GFR Hemoglobin A1c % 7.4 LDL Cholesterol Direct TSH Free T4 PTH Intact 60 Calcium (PTH Intact) 9.8 Microalb/Creat Ratio She was started on Prolia received 2 injection 08/30/2022 in 02/2023 . Her PTH remains persistently elevated in the setting of normal calcium but low 24 hour urinary calcium . 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 Mother Asthma Hypertension Chronic mental illness Diabetes Mental health disorder Family/Other Chronic mental illness Mental health disorder Social History Household Members: None Housing: Apartment Alcohol intake: never Patient Tobacco Use Status: Never used Tobacco e-Cigarette/Vaping Use: Never Used Second Hand Smoke Exposure: No service: No Current occupational status: disabled Sexual orientation: Straight/Heterosexual Gender identity: Female Cognitive needs: No Hearing needs: No Vision needs: Yes Female Reproductive History Menstrual Age of Menarche: 12 Physical Exam Vital Signs: Last Vital Signs Pulse 62 08/13/23 10:41 BP 136/64 08/13/23 10:41 BMI result Body Mass Index 25.4 Assessment & Plan Assessment & Plan (1) Osteoporosis: Code(s): M81.0 - Age-related osteoporosis without current pathological fracture Category: Medical Plan: Currently on Prolia. He is had persistently elevated PTH levels with normal 25 hydroxy vitamin-D and calcium. Suspect that calcium intake is insufficient. The other possibility is the patient has normocalcemic primary hyperparathyroidism Would increase calcium citrate supplementation to 1000 mg b.i.d. . Will recheck 25 hydroxy vitamin-D, calcium, albumin, PTH, 24 hour urine for calcium and creatinine in 3 months' time. We will give next dose of Prolia next month and check labs prior (2) Hyperparathyroidism: Code(s): E21.3 - Hyperparathyroidism, unspecified Category: Medical Plan: See above plan Orders: Orders Albumin Level 3 Months E21.3 - Hyperparathyroidism, unspecified Parathyroid Hormone Intact 3 Months E21.3 - Hyperparathyroidism, unspecified Calcium, 24 Hr Ur 3 Months E21.3 - Hyperparathyroidism, unspecified Creatinine, 24 Hr Group 3 Months E21.3 - Hyperparathyroidism, unspecified Basic Metabolic Panel 3 Weeks E21.3 - Hyperparathyroidism, unspecified, M81.0 - Age-related osteoporosis without current pathological fracture Calcium 3 Weeks E21.3 - Hyperparathyroidism, unspecified, M81.0 - Age-related osteoporosis without current pathological fracture Albumin Level 3 Weeks E21.3 - Hyperparathyroidism, unspecified, M81.0 - Age- related osteoporosis without current pathological fracture Calcium 3 Months E21.3 - Hyperparathyroidism, unspecified Vitamin D 25-OH Total 3 Months E21.3 - Hyperparathyroidism, unspecified Medications: Changed From calcium citrate 500 mg (2 x 250 mg calcium) PO BID 120 tabs 5RF To calcium citrate 1,000 mg (4 x 250 mg calcium) PO BID 120 tabs 5RF From calcium citrate 1,000 mg (4 x 250 mg calcium) PO BID 120 tabs 5RF To calcium citrate 500 mg (2 x 250 mg calcium) PO BID 120 tabs 5RF Refilled cholecalciferol (vitamin D3) 50 mcg PO DAILY 30 caps 4RF Coding Level of Care Code Est Pt Level 3 (56628) Diagnoses Osteoporosis M81.0 Hyperparathyroidism E21.3
== END 2023-08-13 11:22 | disposition home or self-care (01) ==
PROVIDERS: PCP Internal Medicine; Visit Provider Internal Medicine Endocrinology, Diabetes & Metabolism
DX: M81.0 Age-related osteoporosis without current pathological fracture (principal); E21.3 Hyperparathyroidism, unspecified
CPT/HCPCS: 99213

== ENCOUNTER → 2023-08-13 10:34 | Outpatient (BNVA) | payer OTHER, SELFPAY | PROVIDERS: PCP Internal Medicine; Visit Provider Internal Medicine Endocrinology, Diabetes & Metabolism | DX: M81.0 Age-related osteoporosis without current pathological fracture (principal); E21.3 Hyperparathyroidism, unspecified | CPT/HCPCS: 99212 ==

== ENCOUNTER 2023-09-04 10:05 | Outpatient (REF) | payer OTHER, SELFPAY ==
[2023-09-04 12:02] LABS: Albumin Level 4.2 g/dL (3.5-5.0); Anion Gap 13 (12-20); Blood Urea Nitrogen 23 mg/dL (9-16); Calcium 9.2 mg/dL (8.4-10.2); Carbon Dioxide 30 mmol/L (22-29); Chloride 102 mmol/L (96-108); Estimated Glomerular Filt Rate 59; Glucose Random 132 mg/dL (60-115); Potassium 3.9 mmol/L (3.3-5.1); Sodium 141 mmol/L (135-145)
== END 2023-09-04 10:06 | disposition home or self-care (01) ==
LOC: HO.LAB 10:05
PROVIDERS: PCP Internal Medicine; Visit Provider Internal Medicine Endocrinology, Diabetes & Metabolism
DX: E21.3 Hyperparathyroidism, unspecified (principal); M81.0 Age-related osteoporosis without current pathological fracture
CPT/HCPCS: 36415; 80048; 82040

== ENCOUNTER 2023-09-09 11:06 | Emergency (ER) | payer OTHER, SELFPAY ==
[2023-09-09 11:47] VITALS: BP 142/63; PULSE 68; RESP 18; TEMP 36.7; O2SAT 98; BMI 24.6
--- NOTE | 2023-09-09 11:49 | ED.URI ---
HPI - URI/Sore Throat General Chief Complaint: Upper Respiratory Symptoms Stated Complaint: Sore throat Time Seen by Provider: 09/09/23 13:10 Source: patient Mode of arrival: ambulatory Limitations: language barrier History of Present Illness HPI Narrative: 67-year-old female with a past medical history of hypertension and diabetes presents to the emergency department with complaints of sore throat and cough for the past week. She reports she has been using [id number] medications with no relief in symptoms. She denies any fevers, chills, shortness of breath, or chest pain Pertinent positives and negatives discussed in HPI Related Data Home Medications ?Medication ?Instructions ?Recorded ?Confirmed citalopram 20 mg tablet 20 mg PO DAILY 01/21/20 08/09/23 rosuvastatin 10 mg tablet 10 mg PO DAILY 12/11/21 08/09/23 gabapentin 100 mg capsule 100 mg PO DAILY 08/09/23 08/09/23 hydrochlorothiazide 25 mg tablet 25 mg PO DAILY 08/09/23 08/09/23 Previous Rx's ?Medication ?Instructions ?Recorded alcohol swabs (Alcohol Prep Pads) 1 pad topical QID 30 days #200 ea 09/05/21 blood sugar diagnostic (OneTouch #125 ea 09/03/22 Verio test strips) lancets 33 gauge (OneTouch Delica #100 ea 11/20/22 Plus Lancet) pen needle, diabetic 32 gauge x #100 ea 11/20/22 lidocaine 5 % topical patch 1 patch topical DAILY #15 ea 12/13/22 omeprazole 20 mg capsule,delayed 20 mg PO QAM 90 days #90 caps 12/27/22 release aspirin 81 mg tablet,delayed 81 mg PO DAILY 90 days #90 tabs 03/13/23 release losartan 100 mg tablet 100 mg PO DAILY 90 days #90 tabs 03/16/23 insulin glargine 100 unit/mL (3 35 unit (0.35 mL) subcut QPM 90 03/20/23 mL) subcutaneous pen (Lantus days #31.5 mL Solostar U-100 Insulin) insulin lispro 100 unit/mL 2 - 13 unit (0.02 - 0.13 mL) 04/07/23 subcutaneous pen (Humalog KwikPen subcut TID 30 days #15 mL (U-100) Insulin) amlodipine 5 mg tablet 5 mg PO DAILY 90 days #90 tabs 05/24/23 blood-glucose meter (OneTouch #1 ea 07/02/23 Verio Flex Meter) blood-glucose meter,continuous #1 ea 08/09/23 (FreeStyle Pau 3 [place]) blood-glucose sensor (FreeStyle #2 ea 08/09/23 Pau 3 Sensor device) calcium citrate 500 mg (2 x 250 mg calcium) PO BID 08/13/23 #120 tabs cholecalciferol (vitamin D3) 50 50 mcg PO DAILY #30 caps 08/13/23 mcg (2,000 unit) capsule denosumab 60 mg/mL subcutaneous 60 mg subcut [id number] #1 mL 08/20/23 syringe (Prolia) penicillin V potassium 500 mg 500 mg PO BID 10 days #20 tabs 09/09/23 tablet Allergies Allergy/AdvReac Type Severity Reaction Status Date / Time gabapentin Allergy Intermediate pruritus Verified 09/09/23 11:51 metformin Allergy Intermediate stomach Verified 09/09/23 11:51 upset metoprolol Allergy Intermediate upset Verified 09/09/23 11:51 stomach tizanidine Allergy Intermediate leg edema Verified 09/09/23 11:51 Review of Systems Review of Systems: Yes all other systems are reviewed and are negative [facility] Past Medical History Medical History HLD (hyperlipidemia) HTN (hypertension) T2DM (type 2 diabetes mellitus) Hyperparathyroidism Multinodular thyroid Goiter Vitamin D deficiency Anemia Right hand pain Diabetes type 2, uncontrolled Hyperlipidemia LDL goal <100 Osteoporosis Chronic kidney disease, stage 2 (mild) Long-term use of aspirin therapy GERD (gastroesophageal reflux disease) Dyslipidemia Essential hypertension residential (current) use of insulin Diabetes mellitus Screening for osteoporosis Well woman exam Depression with anxiety Fibromyalgia Surgical History History of colonoscopy History of tubal ligation Family History Family History Father No problems noted. Mother Asthma Hypertension Chronic mental illness Diabetes Mental health disorder Family/Other Chronic mental illness Mental health disorder Social History Social History Household Members: None Housing: Apartment Alcohol intake: never Patient Tobacco Use Status: Never used Tobacco e-Cigarette/Vaping Use: Never Used Second Hand Smoke Exposure: No Advance Directives: No Advance Directives Information Provided: Yes Do you have a plan to hurt others: No Plan service: No Current occupational status: disabled Sexual orientation: Straight/Heterosexual Gender identity: Female Cognitive needs: No Hearing needs: No Vision needs: Yes Physical Exam Vital Signs: Vital Signs: Last Vital Signs Temp 99.1 F 09/09/23 13:15 Pulse 59 09/09/23 13:15 Resp 17 09/09/23 13:15 BP 144/60 H 09/09/23 13:15 Pulse Ox 98 09/09/23 13:15 O2 Del Method Room Air 09/09/23 13:15 BMI result Body Mass Index 24.6 Nursing notes and vital signs reviewed. GENERAL APPEARANCE: A&0 x 4, generally well appearing, no acute distress HENMT: Normal to inspection, atraumatic, face symmetrical. Normal external ears, nose, and oropharynx clear. EYE: PERRLA, EOM intact, structures appear normal NECK: Supple without stiffness or restricted ROM. HEART: Normal rate and regular rhythm, normal S1/S2, no M/R/G LUNGS: LS CTA, moving air well. Able to speak in complete sentences. No crackles, wheezes, or rhonchi auscultated BACK: No CVAT, no obvious deformity EXTREMITIES: Moving all extremities without difficulty. Normal capillary refill. NEUROLOGICAL: Alert and oriented, moving all 4 extremities with equal strength. CN not formally tested but appearing grossly intact. Observed to ambulate with normal gait. Cognition normal SKIN: Warm and dry without any lesions, rash, or visible sores Course Course Course Narrative: This is a Rapid Medical Exam performed in triage by Christina Lucas PA-C. Full HPI, ROS and PE to be performed by primary ED provider. 67 year-old F w/ PMHx HTN, HLD, DM presenting to the ED c/o sore throat & swollen tonsils x last week. reports fever last week PE: +mild posterior oropharyngeal erythema, uvula midline Plan: viral testing, rapid strep Medical Decision Making Medical Decision Making MDM Narrative: Old records reviewed for previous imaging, lab studies, ECGs, and notes. Patient was assessed the emergency department with no acute distress or toxicity noted. Throat swab positive for strep pharyngitis and 10 day course of pen VK since patient preferred pharmacy for further management. Patient educated to increase fluids, eat soft/cool foods, and use sbqh-isp-sacbytk lozenges for sore throat as needed. Patient is safe for discharge at this time with plan for [id number] Tylenol and/or NSAID such as ibuprofen or naproxen for fever/discomfort with dosing as per packaging. HPI, PE, diagnostics, and plan discussed with patient and family with no unanswered questions at this time. Strict return precautions given to return to the emergency department with new, worsening, or concerning emergent symptoms. Recommended to follow-up with there primary care provider in 24-48 hours for further treatment and management. 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 Labs: Lab Results 09/09/23 Range/Units 13:17 S. pyogenes GrpA KAREN Positive A (Negative) Tests considered The following testing was considered but not selected: Chest x-ray Discharge Plan Discharge Clinical Impression: Strep pharyngitis Patient Disposition: Home, Self-Care Instructions: Pharyngitis (ED), Strep Throat (ED) Additional Instructions: Your seen in the emergency department for concerns of sore throat. Your throat swab was positive for strep and antibiotics were sent over to your pharmacy. Please use 4 courses directed. You are safe for discharge at this time with plan for management of fever or discomfort with [id number] Tylenol and/or NSAID such as ibuprofen or naproxen with dosing as per packaging. Please return to the emergency department with new, worsening, or concerning emergent symptoms. Recommended to follow-up with your primary care provider in 24-48 hours for further treatment and management. Thank you for choosing [facility]. Prescriptions: New penicillin V potassium 500 mg tablet 500 mg PO BID 10 Days Qty: 20 0RF No Action (DME) OneTouch Verio test strips Strip See Rx Instructions .ROUTE .MEDSUPPLY Qty: 125 11RF Rx Instructions: Use 1 test strip four times a day (DME) lancets [OneTouch Delica Plus Lancet] 33 gauge misc See Rx Instructions .ROUTE .MEDSUPPLY Qty: 100 6RF Rx Instructions: As directed (DME) pen needle, diabetic 32 gauge x 5/32 needle See Rx Instructions subcut .MEDSUPPLY Qty: 100 11RF Rx Instructions: Use 1 pen needle three times a day omeprazole 20 mg capsule,delayed release(DR/EC) 20 mg PO QAM 90 Days Qty: 90 3RF aspirin 81 mg tablet,delayed release (DR/EC) 81 mg PO DAILY 90 Days Qty: 90 1RF losartan 100 mg tablet 100 mg PO DAILY 90 Days Qty: 90 3RF insulin glargine [Lantus Solostar U-100 Insulin] 100 unit/mL (3 mL) insulin pen 35 unit subcut QPM 90 Days Qty: 31.5 2RF insulin lispro [Humalog KwikPen Insulin] 100 unit/mL insulin pen 2 - 13 unit subcut TID 30 Days Qty: 15 6RF Rx Instructions: 6u small meals, 10 units for medium meals and 13 units for large meals amlodipine 5 mg tablet 5 mg PO DAILY 90 Days Qty: 90 1RF (DME) blood-glucose meter [OneTouch Verio Flex meter] [facility] See Rx Instructions .ROUTE .MEDSUPPLY Qty: 1 0RF Rx Instructions: As directed Prolia 60 mg/mL syringe 60 mg subcut [id number] Qty: 1 2RF lidocaine 5 % adhesive patch,medicated 1 patch topical DAILY Qty: 15 0RF Rx Instructions: leave on most painful area for up to 12 hrs citalopram 20 mg tablet 20 mg PO DAILY rosuvastatin 10 mg tablet 10 mg PO DAILY alcohol swabs [Alcohol Prep Pads] Pads, Medicated 1 pad topical QID 30 Days Qty: 200 11RF gabapentin 100 mg capsule 100 mg PO DAILY hydrochlorothiazide 25 mg tablet 25 mg PO DAILY (DME) FreeStyle Pau 3 [place] Misc See Rx Instructions .ROUTE .MEDSUPPLY Qty: 1 0RF Rx Instructions: As directed (DME) FreeStyle Pau 3 Sensor Device See Rx Instructions .ROUTE .MEDSUPPLY Qty: 2 11RF Rx Instructions: Apply every 14 days As directed to monitor blood glucose calcium citrate 250 mg calcium tablet 500 mg PO BID Qty: 120 5RF cholecalciferol (vitamin D3) 50 mcg (2,000 unit) capsule 50 mcg PO DAILY Qty: 30 4RF Referrals: Elissa Kolb MD [Primary Care Provider] - Stand Alone Forms: Work/School Release Print Language: Bahraini
[2023-09-09 13:15] VITALS: BP 144/60; PULSE 59; RESP 17; TEMP 37.3; O2SAT 98
[2023-09-09 13:30] LABS: IDNOW Serial# 08D9AD1C; Strep A Nucleic Acid Positive (Negative)
[2023-09-09 14:35] VITALS: BP 155/64; PULSE 63; RESP 17; TEMP 36.9; O2SAT 99
[2023-09-09 14:48] LABS: Influenza A PCR NEGATIVE (Negative); Influenza B PCR NEGATIVE (Negative); Resp Syncy Virus RNA Qual PCR NEGATIVE (Negative); SARS COV2 PCR INHOUSE NEGATIVE (Negative)
--- OUTSIDE RECORDS SUMMARY | 2023-09-12 07:50 | XMS_ITS | Patient Health Record ---
[facility] [place] Address [address] [place] [address] Care Team Providers Care Slot Shift Manager Name Role Phone Deena KEVIN, Elissa Primary Care Provider Unavail able Deanna Orourke Unavailable [phone] ALLERGIES Allergen (clinical drug ingredient) Drug/Non Drug Allergy documented on EMR Reaction Allergy Type Onset Date Status metformin Metformin stomach upset Drug Allergy Act rama metoprolol Metoprolol leg edema Drug Allergy Activ e tizanidine Tizanidine stomach upset Drug Allergy A ctive REASON FOR REFERRAL Diagnosis 1 Pain in unspecified foot (M79.673) Referring Provider First Name Elissa Referring Provider Last Name Deena Referred Organization [facility] Referred Provider Deanna Orourke Referred Address [address],[place], [place],[address], Referred Provider Specialty Podiatry Referral Priority Routine [...] 70 % as directed 10/17/2022 Active Pen [place] Active Blood Glucose Meter 10/17/2022 Active Rosuvastatin [...] confirmed Acquired hammer toe of right foot (31839181465 ) Problem Other hammer toe(s) (acquired), left foot (M20.42) Active confirmed Acquired hammer toe of left foot ([id number] ) Problem 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) Active confirmed [id number] VITAL SIGNS Blood pressure diastolic 50 mm Hg 12/14/2022 Height 5ft 2in in 12/14/2022 Blood pressure systolic 118 mm Hg 12/14/2022 Weight 142 lbs 12/14/2022 BMI 25.97 kg/m2 12/14/2022 Encounters Encounter Location Date Provider Diagnosis [address] [address] 10/17/2022 Deanna Orourke [address] [address] 11/07/2022 Deanna Orourke Plantar fasciitis of right foot M72.2 ; Other hammer toe(s) (acquired), right foot M20.41 ; Other hammer toe(s) (acquired), left foot M20.42 and Type 1 DM with polyneuropathy E10.[address] [address] 11/07/2022 Deanna Orourke [address] [address] 11/07/2022 Deanna Orourke [address] [address] 11/08/2022 Deanna Orourke [address] [address] 11/12/2022 Deanna Crowea [address] [address] 12/14/2022 Deanna Orourke Other hammer toe(s) (acquired), right foot M20.41 ; Plantar fasciitis of right foot M72.2 ; Other hammer toe(s) (acquired), left foot M20.42 and Type 1 DM with polyneuropathy E10.[address] [address] 12/18/2022 Deanna Crowea [address] [address] 02/01/2023 Deanna Orourke ASSESSMENTS Encounter Date Diagnosis [...] Insured Coverage Start Date Coverage End Date [facility] [address] SHARIF Mckeon [phone] [id number] Lizbeth Bonner Self - patient is the insured MEDICAL (GENERAL) HISTORY Medical History History ICD Code Arthritis Back,Hip,and Knee pain covid-19 Diabetic High blood pressure Kidney disease Poor circulation ulcer Mumps Chicken pox
== END 2023-09-09 15:00 | disposition home or self-care (01) ==
PROVIDERS: Emergency Provider Emergency Medicine; PCP Internal Medicine
DX: J02.0 Streptococcal pharyngitis (principal); Z03.818 Encounter for observation for suspected exposure to other biological agents ruled out; Z79.899 Other long term (current) drug therapy
CPT/HCPCS: 0241U; 87651; 99283

== ENCOUNTER 2023-09-12 13:35 | Outpatient (AMB) | payer OTHER, SELFPAY ==
--- NOTE | 2023-09-12 14:17 | A.OFFVIS_ITS ---
Intake Intake Visit Reasons: T2DM/LVM Bait Man Required: Yes Bait Man Language: Luxembourgish Accompanied by: Self / Same As Patient Allergies gabapentin Allergy (Intermediate, Verified 09/09/23 11:51) pruritus metformin Allergy (Intermediate, Verified 09/09/23 11:51) stomach upset metoprolol Allergy (Intermediate, Verified 09/09/23 11:51) upset stomach tizanidine Allergy (Intermediate, Verified 09/09/23 11:51) leg edema HPI Comprehensive Diabetes Asmnt Most Recent Diabetes Results: Microalb/Creat Ratio 59.1 ug/mg cr (<30) H 06/14/23 Cholesterol 133 mg/dL (<200) 06/14/23 HDL Cholesterol 53 mg/dL (>40) 06/14/23 Triglycerides 91 mg/dL (<150) 06/14/23 Creatinine 0.94 mg/dL (0.5-1.4) 09/04/23 Blood Urea Nitrogen 23 mg/dL (9-16) H 09/04/23 Sodium 141 mmol/L (135-145) 09/04/23 Potassium 3.9 mmol/L (3.3-5.1) 09/04/23 Chloride 102 mmol/L (96-108) 09/04/23 Carbon Dioxide 30 mmol/L (22-29) H 09/04/23 Calcium 9.2 mg/dL (8.4-10.2) 09/04/23 AST 32 U/L (5-31) H 06/14/23 ALT 27 U/L (0-31) 06/14/23 Total Protein 7.7 g/dL (6.5-8.0) 06/14/23 Albumin 4.2 g/dL (3.5-5.0) 09/04/23 [facility] Medical History HLD (hyperlipidemia) HTN (hypertension) T2DM (type 2 diabetes mellitus) Hyperparathyroidism Multinodular thyroid Goiter Vitamin D deficiency Anemia Right hand pain Diabetes type 2, uncontrolled Hyperlipidemia LDL goal <100 Osteoporosis Chronic kidney disease, stage 2 (mild) Long-term use of aspirin therapy GERD (gastroesophageal reflux disease) Dyslipidemia Essential hypertension 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 Mother Asthma Hypertension Chronic mental illness Diabetes Mental health disorder Family/Other Chronic mental illness Mental health disorder Social History Household Members: None Housing: Apartment Alcohol intake: never Patient Tobacco Use Status: Never used Tobacco e-Cigarette/Vaping Use: Never Used Second Hand Smoke Exposure: No service: No Current occupational status: disabled Sexual orientation: Straight/Heterosexual Gender identity: Female Cognitive needs: No Hearing needs: No Vision needs: Yes Female Reproductive History Menstrual Age of Menarche: 12 Assessment & Plan Assessment & Plan (1) T2DM (type 2 diabetes mellitus): Code(s): E11.9 - Type 2 diabetes mellitus without complications Qualifiers: Diabetes mellitus long term care pharmacist insulin use: with retirement use Diabetes mellitus complication status: with hyperglycemia Qualified Code(s): E11.65 - Type 2 diabetes mellitus with hyperglycemia; Z79.4 - senior living (current) use of insulin Plan: CGM Info Instructed Pt on what CGM can and can't do CGM Can: Give Pt minute by minute reading of glucose levels Displays glucose trend arrows that represents the direction glucose levels are fluctuating Give insight on decisions about how to dose insulin CGM cannot: Improve glucose control on its own Completely eliminate the need for all finger sticks Make dosing decision for you CGM is the reading of glucose in the interstitial fluid not actual blood glucose, finger sticks are still necessary when Pt's symptom?s do not match sensor reading and if sensors prompts Pt to do a fingerstick Patient?is waiting for PA to be approved for Pau 3 Reviewed Medicare guidelines for obtaining CGM Reviewed delay of CGM from fingersticks Reminded pt that if symptoms do not match sensor still needs to check fingersticks. Portions of this note were created using voice recognition software, please excuse any words or phrases that may have been misinterpreted. Patient Instructions: Instrucciones para el paciente: CGM proporciona informaci?n sobre el control de la glucosa en lenin a lo danyelle del d?a, incluidas la hiperglucemia y la hipoglucemia. Contin?e controlando la glucosa en lenin seg?n las instrucciones. Siga las pautas de nutrici?n proporcionadas. Informe cualquier molestia de inmediato al proveedor de atenci?n m?dica. Mantente wilton hidratado. Puede ba?arse, ducharse, nadar y hacer ejercicio mientras usa el sensor de glucosa. No sumerja el sensor de glucosa en agua bryan m?s de 30 minutos. Retire el sensor para junior resonancia magn?mauro o junior tomograf?a computarizada. Evite la m?quina de jaymie X en los aeropuertos: retire el sensor o solicite la varita Coding Level of Care Code Est Pt Level 1 (15278) Diagnoses Type 2 diabetes mellitus with hyperglycemia, with long-term current use of insulin E11.65; Z79.4 Diabetes mellitus long term care pharmacist insulin use: with retirement use Diabetes mellitus complication status: with hyperglycemia
== END 2023-09-12 14:19 | disposition home or self-care (01) ==
LOC: HO.ENCR 13:35
PROVIDERS: PCP Internal Medicine; Visit Provider Registered Nurse Diabetes Educator
DX: E11.65 Type 2 diabetes mellitus with hyperglycemia (principal); Z79.4 Long term (current) use of insulin

== ENCOUNTER → 2023-09-12 13:35 | Outpatient (BNVA) | payer OTHER, SELFPAY | PROVIDERS: PCP Internal Medicine; Visit Provider Registered Nurse Diabetes Educator | DX: E11.65 Type 2 diabetes mellitus with hyperglycemia (principal); M81.0 Age-related osteoporosis without current pathological fracture; Z79.4 Long term (current) use of insulin | CPT/HCPCS: 96372; 99211; J0897 ==

== ENCOUNTER 2023-09-12 14:33 | Outpatient (AMB) | payer OTHER, SELFPAY ==
--- NOTE | 2023-09-12 14:36 | AM.OFFVISNUR ---
Intake Intake Visit Reasons: Prolia Injection Allergies gabapentin Allergy (Intermediate, Verified 09/09/23 11:51) pruritus metformin Allergy (Intermediate, Verified 09/09/23 11:51) stomach upset metoprolol Allergy (Intermediate, Verified 09/09/23 11:51) upset stomach tizanidine Allergy (Intermediate, Verified 09/09/23 11:51) leg edema Office Meds Prolia 60 mg/mL subcutaneous syringe Performing Provider: Arnulfo Crane MD Performing Location: [facility] Administered by: Karuna Hodge LPN on 09/12/23 14:36 Dose Route Admin Location Dispensed Lot Number Expiration Date [facility] [employer] 60 mg subcut Upper left arm 1 mL [id number] 01/15/26 [facility] Coding Assessment & Plan Assessment & Plan Orders: Orders AMB Denosumab Injection Patient Supplied Today M81.0 - Age-related osteoporosis without current pathological fracture Medications: New Prolia (denosumab) 60 mg subcut ONCE 1 mL 0RF NS M81.0 - Age-related osteoporosis without current pathological fracture Refilled cholecalciferol (vitamin D3) 50 mcg PO DAILY 30 caps 4RF
== END 2023-09-12 14:37 | disposition home or self-care (01) ==
LOC: HO.ENCR 14:33
PROVIDERS: PCP Internal Medicine; Visit Provider Internal Medicine Endocrinology, Diabetes & Metabolism
DX: M81.0 Age-related osteoporosis without current pathological fracture (principal)

== ENCOUNTER 2023-10-07 16:29 | Outpatient (AMB) | payer OTHER, SELFPAY ==
--- NOTE | 2023-10-07 16:46 | A.OFFVIS_ITS ---
Intake Intake Visit Reasons: CGM set up/CONFIRMED Quality Assurance Project Manager Required: Yes Quality Assurance Project Manager Language: [place]ese Accompanied by: Other Relationship Allergies gabapentin Allergy (Intermediate, Verified 09/09/23 11:51) pruritus metformin Allergy (Intermediate, Verified 09/09/23 11:51) stomach upset metoprolol Allergy (Intermediate, Verified 09/09/23 11:51) upset stomach tizanidine Allergy (Intermediate, Verified 09/09/23 11:51) leg edema HPI Comprehensive Diabetes Asmnt Most Recent Diabetes Results: Microalb/Creat Ratio 59.1 ug/mg cr (<30) H 06/14/23 Cholesterol 133 mg/dL (<200) 06/14/23 HDL Cholesterol 53 mg/dL (>40) 06/14/23 Triglycerides 91 mg/dL (<150) 06/14/23 Creatinine 0.94 mg/dL (0.5-1.4) 09/04/23 Blood Urea Nitrogen 23 mg/dL (9-16) H 09/04/23 Sodium 141 mmol/L (135-145) 09/04/23 Potassium 3.9 mmol/L (3.3-5.1) 09/04/23 Chloride 102 mmol/L (96-108) 09/04/23 Carbon Dioxide 30 mmol/L (22-29) H 09/04/23 Calcium 9.2 mg/dL (8.4-10.2) 09/04/23 AST 32 U/L (5-31) H 06/14/23 ALT 27 U/L (0-31) 06/14/23 Total Protein 7.7 g/dL (6.5-8.0) 06/14/23 Albumin 4.2 g/dL (3.5-5.0) 09/04/23 [facility] Medical History HLD (hyperlipidemia) HTN (hypertension) T2DM (type 2 diabetes mellitus) Hyperparathyroidism Multinodular thyroid Goiter Vitamin D deficiency Anemia Right hand pain Diabetes type 2, uncontrolled Hyperlipidemia LDL goal <100 Osteoporosis Chronic kidney disease, stage 2 (mild) Long-term use of aspirin therapy GERD (gastroesophageal reflux disease) Dyslipidemia Essential hypertension 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 Mother Asthma Hypertension Chronic mental illness Diabetes Mental health disorder Family/Other Chronic mental illness Mental health disorder Social History Household Members: None Housing: Apartment Alcohol intake: never Patient Tobacco Use Status: Never used Tobacco e-Cigarette/Vaping Use: Never Used Second Hand Smoke Exposure: No service: No Current occupational status: disabled Sexual orientation: Straight/Heterosexual Gender identity: Female Cognitive needs: No Hearing needs: No Vision needs: Yes Female Reproductive History Menstrual Age of Menarche: 12 Assessment & Plan Assessment & Plan (1) T2DM (type 2 diabetes mellitus): Code(s): E11.9 - Type 2 diabetes mellitus without complications Qualifiers: Diabetes mellitus intermediate teacher insulin use: with fci use Diabetes mellitus complication status: with hyperglycemia Qualified Code(s): E11.65 - Type 2 diabetes mellitus with hyperglycemia; Z79.4 - 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 Discussed lag time between finger stick and sensor data.? Instructed patient she should always keep blood glucometer for backup testing if needed Reviewed delay of CGM from fingersticks Reminded pt that if symptoms do not match sensor still needs to check fingersticks. Portions of this note were created using voice recognition software, please excuse any words or phrases that may have been misinterpreted. Patient Instructions: Instrucciones para el paciente: CGM proporciona informaci?n sobre el control de la glucosa en lenin a lo danyelle del d?a, incluidas la hiperglucemia y la hipoglucemia. Contin?e controlando la glucosa en lenin seg?n las instrucciones. Siga las pautas de nutrici?n proporcionadas. Informe cualquier molestia de inmediato al proveedor de atenci?n m?dica. Mantente wilton hidratado. Puede ba?arse, ducharse, nadar y hacer ejercicio mientras usa el sensor de glucosa. No sumerja el sensor de glucosa en agua bryan m?s de 30 minutos. Retire el sensor para junior resonancia magn?mauro o junior tomograf?a computarizada. Evite la m?quina de jaymie X en los aeropuertos: retire el sensor o solicite la varita Coding Level of Care Code Est Pt Level 1 (48783) Diagnoses Type 2 diabetes mellitus with hyperglycemia, with long-term current use of insulin E11.65; Z79.4 Diabetes mellitus fci insulin use: with fci use Diabetes mellitus complication status: with hyperglycemia
== END 2023-10-07 16:49 | disposition home or self-care (01) ==
PROVIDERS: PCP Internal Medicine; Visit Provider Registered Nurse Diabetes Educator
DX: E11.65 Type 2 diabetes mellitus with hyperglycemia (principal); Z79.4 Long term (current) use of insulin

== ENCOUNTER → 2023-10-07 16:29 | Outpatient (BNVA) | payer OTHER, SELFPAY | PROVIDERS: PCP Internal Medicine; Visit Provider Registered Nurse Diabetes Educator | DX: E11.65 Type 2 diabetes mellitus with hyperglycemia (principal); Z79.4 Long term (current) use of insulin | CPT/HCPCS: 99211 ==

== ENCOUNTER 2023-10-22 10:43 | Outpatient (AMB) | payer OTHER, SELFPAY ==
[2023-10-22 10:54] VITALS: BP 124/62; BMI 24.9
--- NOTE | 2023-10-22 10:54 | MHC.PC.OV ---
Vital Signs 10/22/23 10:54 Height 5 ft 2 in Weight 136 lb BMI 24.9 BP 124/62 Blood Pressure Location Lt brachial Position Sitting Intake Visit Reasons: dm Intake Note: Patient here for a follow up DM Continuous Loft Operator Required: No Accompanied by: Self / Same As Patient Allergies gabapentin Allergy (Intermediate, Verified 10/22/23 11:16) pruritus metformin Allergy (Intermediate, Verified 10/22/23 11:16) stomach upset metoprolol Allergy (Intermediate, Verified 10/22/23 11:16) upset stomach tizanidine Allergy (Intermediate, Verified 10/22/23 11:16) leg edema Medication List - Last Reconciled 10/22/23 by Elissa Salas MD alcohol swabs (Alcohol Prep Pads) 1 pad topical QID 30 days amlodipine 5 mg PO DAILY 90 days aspirin 81 mg PO DAILY 90 days blood sugar diagnostic (AlphaBeta Labsuch Verio test strips) Use 1 test strip four times a day blood-glucose meter (Cramster Verio Flex Meter) As directed blood-glucose meter,continuous (FreeStyle Pau 3 [place]) As directed blood-glucose sensor (FreeStyle Pau 3 Sensor device) Apply every 14 days As directed to monitor blood glucose calcium citrate 500 mg (2 x 250 mg calcium) PO BID cholecalciferol (vitamin D3) 50 mcg PO DAILY citalopram 20 mg PO DAILY denosumab (Prolia) 60 mg subcut [id number] gabapentin 100 mg PO DAILY hydrochlorothiazide 25 mg PO DAILY insulin glargine (Lantus Solostar U-100 Insulin) 35 units (0.35 mL) subcut QPM 90 days insulin lispro (Humalog KwikPen (U-100) Insulin) 2 - 13 units (0.02 - 0.13 mL) subcut TID 30 days lancets ([place] [employer] TravelTouch Delica Plus Lancet) As directed lidocaine 5% 1 patch topical DAILY losartan 100 mg PO DAILY 90 days omeprazole 20 mg PO QAM 90 days pen needle, diabetic Use 1 pen needle three times a day rosuvastatin 10 mg PO DAILY Tobacco use date assessed: 06/11/23 Fall risk assessment: No Falls in past year Last assessed Fall Risk: 10/22/23 Dental Screening Dental Screen Date: 06/11/23 HPI HPI Comments History of Present Illness Details This is a 68-year-old female with diabetes mellitus type 2, hypertension, hyperlipidemia and GERD that comes today for follow-up on her conditions. Last A1c was very close to goal. Blood pressure stable. Lipid panel will be order and her LDL goal should be less than 70. GERD stable with PPIs. Denies any chest pain or shortness on breath. 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 Mother Asthma Hypertension Chronic mental illness Diabetes Mental health disorder Family/Other Chronic mental illness Mental health disorder Social History Household Members: None Housing: Apartment Alcohol intake: never Patient Tobacco Use Status: Never used Tobacco e-Cigarette/Vaping Use: Never Used Second Hand Smoke Exposure: No service: No Current occupational status: disabled Sexual orientation: Straight/Heterosexual Gender identity: Female Cognitive needs: No Hearing needs: No Vision needs: Yes Female Reproductive History Menstrual Age of Menarche: 12 Questionnaire Thrive Questionnaire Date Thrive assessed: 06/11/23 TENIHSA-7 AMB Questionnaire TENISHA-7 Date TENISHA - 7 assessed: 06/11/23 Source: Developed by Drs. Arnulfo Ray, Marjorie Holbrook, Brannon Dallas and colleagues, with an educational lorena from [employer]. Review of Systems Const All systems reviewed & are unremarkable except as noted in HPI and below Card Denies chest pain at rest, Denies chest pain with activity, Denies edema, Denies irregular heart rhythm, Denies claudication, Denies dyspnea, Denies dyspnea on exertion, Denies orthopnea, Denies paroxysmal nocturnal dyspnea and Denies slow heart rate Resp Denies cough, Denies dyspnea and Denies dyspnea on exertion Physical exam (Primary Care) Vital Signs: Last Vital Signs BP 124/62 10/22/23 10:54 BMI result Body Mass Index 24.9 Tobacco/Smoking Status: Tobacco use Status Tobacco use date assessed 06/11/23 10/22/23 10:56 Patient Tobacco Use Status Never used Tobacco 10/22/23 10:56 e-Cigarette/Vaping Use Never Used 10/22/23 10:56 Thrive Assessment: Date of Thrive Assessment Date Thrive assessed 06/11/23 10/22/23 10:56 Resp Effort & Inspection: normal respiratory effort Auscultation: clear to auscultation bilaterally Cardio Jugular venous distension: no JVD Rate: regular rate Rhythm: regular rhythm Heart sounds: S1 normal heart sound present and S2 normal heart sound present Extrem General: Yes full ROM Assessment and Plan Assessment & Plan (1) T2DM (type 2 diabetes mellitus): Code(s): E11.9 - Type 2 diabetes mellitus without complications Qualifiers: Diabetes mellitus [facility] insulin use: with radio sportscaster use Diabetes mellitus complication status: with hyperglycemia Qualified Code(s): E11.65 - Type 2 diabetes mellitus with hyperglycemia; Z79.4 - ceo and president (current) use of insulin Plan: Continue insulin. A1c goal is equal or less than 7%. (2) HTN (hypertension): Code(s): I10 - Essential (primary) hypertension Qualifiers: Hypertension type: primary hypertension Qualified Code(s): I10 - Essential (primary) hypertension Plan: Continue amlodipine, losartan and hydrochlorothiazide. Blood pressure goal is equal or less than 130/80. (3) HLD (hyperlipidemia): Code(s): E78.5 - Hyperlipidemia, unspecified Qualifiers: Hyperlipidemia type: pure hypercholesterolemia Qualified Code(s): E78.00 - Pure hypercholesterolemia, unspecified Plan: Continue statins. LDL goal is less than 70. (4) GERD (gastroesophageal reflux disease): Code(s): K21.9 - Gastro-esophageal reflux disease without esophagitis Qualifiers: Esophagitis presence: esophagitis presence not specified Qualified Code(s): K21.9 - Gastro-esophageal reflux disease without esophagitis Plan: Continue PPIs. Orders: Orders Microalbumin, Random (w Creat) Today E11.9 - Type 2 diabetes mellitus without complications Vitamin D 25-OH Total Today E55.9 - Vitamin D deficiency, unspecified Comprehensive [place]. Panel Fast Today E11.65 - Type 2 diabetes mellitus with hyperglycemia, Z79.4 - ceo and president (current) use of insulin Lipid Panel Today E78.5 - Hyperlipidemia, unspecified Coding Level of Care Code Est Pt Level 4 (96687) Complex EM visit Add On G2211 Diagnoses Type 2 diabetes mellitus with hyperglycemia, with long-term current use of insulin E11.65; Z79.4 Diabetes mellitus [facility] insulin use: with [facility] use Diabetes mellitus complication status: with hyperglycemia Primary hypertension I10 Hypertension type: primary hypertension Pure hypercholesterolemia E78.00 Hyperlipidemia type: pure hypercholesterolemia Gastroesophageal reflux disease, unspecified whether esophagitis present K21.9 Esophagitis presence: esophagitis presence not specified Time Spent (min) 21
== END 2023-10-22 11:24 | disposition home or self-care (01) ==
PROVIDERS: PCP Internal Medicine; Visit Provider Internal Medicine
DX: E11.65 Type 2 diabetes mellitus with hyperglycemia (principal); Z79.4 Long term (current) use of insulin; I10 Essential (primary) hypertension; E78.00 Pure hypercholesterolemia, unspecified; K21.9 Gastro-esophageal reflux disease without esophagitis
CPT/HCPCS: 99214; G2211

== ENCOUNTER 2023-10-24 08:30 | Outpatient (AMB) | payer OTHER, SELFPAY ==
--- NOTE | 2023-10-24 09:33 | MHC.AMDMED ---
Intake Intake Visit Reasons: 60 MIN Allergies gabapentin Allergy (Intermediate, Verified 10/22/23 11:16) pruritus metformin Allergy (Intermediate, Verified 10/22/23 11:16) stomach upset metoprolol Allergy (Intermediate, Verified 10/22/23 11:16) upset stomach tizanidine Allergy (Intermediate, Verified 10/22/23 11:16) leg edema HPI Comprehensive Diabetes Asmnt Most Recent Diabetes Results: Creatinine 0.94 mg/dL (0.5-1.4) 09/04/23 Blood Urea Nitrogen 23 mg/dL (9-16) H 09/04/23 Sodium 141 mmol/L (135-145) 09/04/23 Potassium 3.9 mmol/L (3.3-5.1) 09/04/23 Chloride 102 mmol/L (96-108) 09/04/23 Carbon Dioxide 30 mmol/L (22-29) H 09/04/23 Calcium 9.2 mg/dL (8.4-10.2) 09/04/23 Albumin 4.2 g/dL (3.5-5.0) 09/04/23 [facility] Medical History HLD (hyperlipidemia) HTN (hypertension) T2DM (type 2 diabetes mellitus) Hyperparathyroidism Multinodular thyroid Goiter Vitamin D deficiency Anemia Right hand pain Diabetes type 2, uncontrolled Hyperlipidemia LDL goal <100 Osteoporosis Chronic kidney disease, stage 2 (mild) Long-term use of aspirin therapy GERD (gastroesophageal reflux disease) Dyslipidemia Essential hypertension longterm (current) use of insulin Diabetes mellitus Screening for osteoporosis Well woman exam Depression with anxiety Fibromyalgia Surgical History History of colonoscopy History of tubal ligation Family History Father No problems noted. Mother Asthma Hypertension Chronic mental illness Diabetes Mental health disorder Family/Other Chronic mental illness Mental health disorder Social History Household Members: None Housing: Apartment Alcohol intake: never Patient Tobacco Use Status: Never used Tobacco e-Cigarette/Vaping Use: Never Used Second Hand Smoke Exposure: No service: No Current occupational status: disabled Sexual orientation: Straight/Heterosexual Gender identity: Female Cognitive needs: No Hearing needs: No Vision needs: Yes Female Reproductive History Menstrual Age of Menarche: 12 Assessment & Plan Assessment & Plan (1) T2DM (type 2 diabetes mellitus): Code(s): E11.9 - Type 2 diabetes mellitus without complications Qualifiers: Diabetes mellitus terminal gauger insulin use: with terminal gauger use Diabetes mellitus complication status: with hyperglycemia Qualified Code(s): E11.65 - Type 2 diabetes mellitus with hyperglycemia; Z79.4 - longterm (current) use of insulin Plan: Personal Continuous Glucose Monitor: Patients CGM information reviewed Reviewed patient's sensor data: Hypoglycemia: ? 0% Hyperglycemia:? 22% Time in Range:? 78% Average glucose for 6 [id number] mg/dL Patient has several episodes of significant hypoglycemia on blood glucose meter. In the past 7 days patient has woken up with glucose with 4 days under 70 mg/dL, previous week she had several low post meal blood sugars Patient is currently taking Lantus 35 units daily Humalog 10 units before breakfast, 11 units before lunch, and 12 units for her dinner. Reviewed with patient how to treat hypoglycemia with rule of 15s, instructed patient if glucose is less than 50 mg/dL she needs to treat with 30 g of fast acting carbohydrate Instructed patient that she should carry hypoglycemic treatment with her at all times Patient reports she treats hypoglycemia with fruit juice at home Also discussed with patient if she is not eating meals with low carbohydrate to take half her dose of Humalog, patient did have a glucose of 23 mg/dL post meal in which she reported that she had just had chicken with vegetables Reviewed with patient foods that contain carbohydrates, healthy plate handout and [place] food handout given to patient Reviewed how to interpret trend arrows Reminded patient that to check finger sticks if symptoms do not match sensor reading. Discussed lag time between finger stick and sensor data.? Patient able to insert sensor independently at home without issue.? Portions of this note were created using voice recognition software, please excuse any words or phrases that may have been misinterpreted. Patient Instructions: Use rule of 15 to treat any episode of hypoglycemia, rule of 15 handout given in Citizen Of [place] Follow up with Diabetes Education nurse in 1 month Coding Level of Care Code Est Pt Level 1 (93314) Diagnoses Type 2 diabetes mellitus with hyperglycemia, with long-term current use of insulin E11.65; Z79.4 Diabetes mellitus terminal gauger insulin use: with half-way use Diabetes mellitus complication status: with hyperglycemia
== END 2023-10-24 09:36 | disposition home or self-care (01) ==
PROVIDERS: PCP Internal Medicine; Visit Provider Registered Nurse Diabetes Educator
DX: E11.65 Type 2 diabetes mellitus with hyperglycemia (principal); Z79.4 Long term (current) use of insulin

== ENCOUNTER → 2023-10-24 08:30 | Outpatient (BNVA) | payer OTHER, SELFPAY | PROVIDERS: PCP Internal Medicine; Visit Provider Registered Nurse Diabetes Educator | DX: E11.65 Type 2 diabetes mellitus with hyperglycemia (principal); E11.22 Type 2 diabetes mellitus with diabetic chronic kidney disease; I12.9 Hypertensive chronic kidney disease with stage 1 through stage 4 chronic kidney disease, or unspecified chronic kidney disease; N18.2 Chronic kidney disease, stage 2 (mild); Z79.4 Long term (current) use of insulin | CPT/HCPCS: 99211 ==

== ENCOUNTER 2023-11-04 08:49 | Outpatient (REF) | payer OTHER, SELFPAY ==
[2023-11-04 10:12] LABS: Albumin Level 4.3 g/dL (3.5-5.0); Calcium 9.8 mg/dL (8.4-10.2)
[2023-11-04 10:27] LABS: Parathyroid Hormone Intact 75.3 pg/mL (8.7-77.1)
[2023-11-04 10:38] LABS: Vitamin D 25-OH Total 59.2 ng/mL (>30)
== END 2023-11-04 08:50 | disposition home or self-care (01) ==
LOC: HO.LAB 08:49
PROVIDERS: PCP Internal Medicine; Visit Provider Internal Medicine Endocrinology, Diabetes & Metabolism
DX: E21.3 Hyperparathyroidism, unspecified (principal)
CPT/HCPCS: 36415; 82040; 82306; 82310; 83970

== ENCOUNTER 2023-11-06 09:22 | Outpatient (REF) | payer OTHER, SELFPAY ==
[2023-11-06 13:49] LABS: Total Volume 24 Hour Urine 2200 mL
[2023-11-07 15:42] LABS: Calcium, 24 Hr Urine 29 mg/24 h; Calcium/Creatinine Ratio 27 mg/g creat (30-275); Creatinine 24Hr Urine 1.08 g/24 h (0.50-2.15)
== END 2023-11-06 09:23 | disposition home or self-care (01) ==
LOC: HO.LNP 09:22
PROVIDERS: Visit Provider Internal Medicine Endocrinology, Diabetes & Metabolism
DX: E21.3 Hyperparathyroidism, unspecified (principal)
CPT/HCPCS: 82340; 82570

== ENCOUNTER 2023-11-08 09:15 | Outpatient (AMB) | payer OTHER, SELFPAY ==
[2023-11-08 09:42] VITALS: BP 124/62; PULSE 64; BMI 25.4
--- NOTE | 2023-11-08 09:42 | MHC.OFFVIS ---
Vital Signs 11/08/23 09:42 Height 5 ft 2 in Weight 139 lb 1.787 oz BMI 25.4 BP 124/62 Blood Pressure Location Lt brachial Position Sitting Pulse 64 Pulse Source Pulse Oximeter Intake Visit Reasons: T2DM Intake Note: Patient presents today for D2MT follow up visit. Last Diabetic Eye exam: 04/2023 Last Podiatry Visit: Doesn't have one Random Glucose: 79 mg/dl HgA1c: 8.2% Chip Bin Conveyor Tender Required: Yes Chip Bin Conveyor Tender Language: Wax Ball Molder Services: Chip Bin Conveyor Tender Present Chip Bin Conveyor Tender Name: Yaa [id number] Information Interpreted: non-clinical & clinical Accompanied by: Self / Same As Patient Allergies gabapentin Allergy (Intermediate, Verified 11/08/23 09:48) pruritus metformin Allergy (Intermediate, Verified 11/08/23 09:48) stomach upset metoprolol Allergy (Intermediate, Verified 11/08/23 09:48) upset stomach tizanidine Allergy (Intermediate, Verified 11/08/23 09:48) leg edema Medication List - Last Reconciled 11/08/23 by Dina Scott PA-C alcohol swabs (Alcohol Prep Pads) 1 pad topical QID 30 days amlodipine 5 mg PO DAILY 90 days aspirin 81 mg PO DAILY 90 days blood sugar diagnostic (CanestaTouch Verio test strips) Use 1 test strip four times a day blood-glucose meter (CanestaTouch Verio Flex Meter) As directed blood-glucose meter,continuous (FreeStyle Pau 3 [place]) As directed blood-glucose sensor (FreeStyle Pau 3 Sensor device) Apply every 14 days As directed to monitor blood glucose calcium citrate 500 mg (2 x 250 mg calcium) PO BID cholecalciferol (vitamin D3) 50 mcg PO DAILY citalopram 20 mg PO DAILY denosumab (Prolia) 60 mg subcut [id number] gabapentin 100 mg PO DAILY hydrochlorothiazide 25 mg PO DAILY insulin glargine (Lantus Solostar U-100 Insulin) 30 units subcut QPM insulin lispro (Humalog KwikPen (U-100) Insulin) 5 units subcut TID lancets (CanestaTouch Delica Plus Lancet) As directed lidocaine 5% 1 patch topical DAILY losartan 100 mg PO DAILY 90 days omeprazole 20 mg PO QAM 90 days pen needle, diabetic Use 1 pen needle three times a day rosuvastatin 10 mg PO DAILY HPI HPI T2DM: Details: Patient is a 68-year-old female with a significant past medical history of hyperparathyroidism, multinodular thyroid, hypertension, hyperlipidemia, type 2 diabetes, chronic kidney disease, long-term use of insulin presenting today for a diabetic follow-up. Chip Bin Conveyor Tender Carmen xiao Endo: Last followed with Dr. Crane in March for diabetes. Her last A1c was 7.1 in July. Today is 8.2. She is currently on Lantus 30 units nightly, Humalog 9 units with breakfast, 10 units with lunch, 11 with dinner. -her regimen was just adjusted a couple weeks ago when she was following with the development educator due to having lows. She is still getting some hypoglycemic events in the morning and lunch time. She states it is happening around breakfast and lunch. She states her blood sugars will drop down to 70 and she will have to eat something sweet. -she was initially treated with metformin but discontinued due to GI distress. Intolerant of SGLT2 due to vaginal irritation. She states she tried ozempic but did not tolerate this (cannot remember exact reaction). GMI 7.4%, variability 30. Very hyperglycemic 8%, hyperglycemic 30%, in range of 62%, no hypoglycemia CGM-NextGreatPlaceyle Pau 3 download shows usage 94%, average glucose 169, Hypoglycemia- she states she will feel sweaty. corrects with oj and apple juice Hyperglycemia- sometimes will notice thirst CV: Blood pressure today in the office is 124/62. She is currently on amlodipine 5 mg, HCTZ 25 mg and losartan 100 mg daily. Cholesterol is controlled with Crestor 20 mg. No myalgias. Last LFTs and lipids WNL. Nephro. Follows with [facility] transplant last note in system from 2020 [facility] Medical History HLD (hyperlipidemia) HTN (hypertension) T2DM (type 2 diabetes mellitus) Hyperparathyroidism Multinodular thyroid Goiter Vitamin D deficiency Anemia Right hand pain Diabetes type 2, uncontrolled Hyperlipidemia LDL goal <100 Osteoporosis Chronic kidney disease, stage 2 (mild) Long-term use of aspirin therapy GERD (gastroesophageal reflux disease) Dyslipidemia Essential hypertension long term care administrator (current) use of insulin Diabetes mellitus Screening for osteoporosis Well woman exam Depression with anxiety Fibromyalgia Surgical History History of colonoscopy History of tubal ligation Family History Father No problems noted. Mother Asthma Hypertension Chronic mental illness Diabetes Mental health disorder Family/Other Chronic mental illness Mental health disorder Social History Household Members: None Housing: Apartment Alcohol intake: never Patient Tobacco Use Status: Never used Tobacco e-Cigarette/Vaping Use: Never Used Second Hand Smoke Exposure: No service: No Current occupational status: disabled Sexual orientation: Straight/Heterosexual Gender identity: Female Cognitive needs: No Hearing needs: No Vision needs: Yes Female Reproductive History Menstrual Age of Menarche: 12 Physical Exam Vital Signs: Last Vital Signs Pulse 64 11/08/23 09:42 BP 124/62 11/08/23 09:42 BMI result Body Mass Index 25.4 Const Orientation/consciousness: patient oriented x3 Neck Neck: Yes no lymphadenopathy Thyroid: Thyroid normal Carotids: no bruits Resp Auscultation: clear to auscultation bilaterally Cardio Rate: regular rate Rhythm: regular rhythm Heart sounds: S1 normal heart sound present and S2 normal heart sound present Peripheral pulses: dorsalis pedis present Neuro General: patient oriented x3, gait normal and no focal motor deficits Extrem Other: Monofilament sensation intact bilaterally. Vibratory sensation intact bilaterally. Skin intact. General: Yes normal to inspection Results AMB Hemoglobin A1c AMB Hemoglobin A1c 8.2 % Last Edit by VINCENT Ernst on 11/08/23 10:02 Results Reviewed Results Reviewed: Laboratory Last Values Glucose (Clinic) 79 mg/dL (60-115) 11/08/23 09:50 Laboratory Tests 06/14/23 08/09/23 09/04/23 09:26 10:14 10:16 Sodium 141 Potassium 3.9 Chloride 102 Carbon Dioxide 30 H Anion Gap 13 BUN 23 H Creatinine 0.94 Estimated GFR 59 Random Glucose 132 H Hgb A1c (Clinic) 7.1 H Triglycerides 91 Cholesterol 133 LDL Cholesterol, Calc 62 HDL Cholesterol 53 Assessment & Plan Assessment & Plan (1) Type 2 diabetes mellitus with diabetic nephropathy, with long-term current use of insulin: Code(s): E11.21 - Type 2 diabetes mellitus with diabetic nephropathy; Z79.4 - long term care administrator (current) use of insulin Category: Medical Plan: Will reduce Humalog to 5 units 3 times a day. Will continue with Lantus 30 units. Start Trulicity. Discussed risks and benefits and adverse effects of medication including nausea, vomiting, increased risk of pancreatitis, diarrhea constipation. Will follow up sooner in 1 month to be reassessed. Sooner if she is developing hypoglycemia still. I have ordered glucose tabs. We had reviewed the rule of 15 again. (2) Hyperlipidemia LDL goal <100: Code(s): E78.5 - Hyperlipidemia, unspecified Category: Medical Plan: Last lipids reviewed. Continue Crestor. (3) Essential hypertension: Code(s): I10 - Essential (primary) hypertension Category: Medical Plan: BP WNL today. Continue current regimen (4) Chronic kidney disease, stage 2 (mild): Code(s): N18.2 - Chronic kidney disease, stage 2 (mild) Category: Medical Plan: Stable and unchanged. Has followed with [facility] and transplant. Orders: Orders AMB Hemoglobin A1c Today E11.21 - Type 2 diabetes mellitus with diabetic nephropathy, Z13.9 - Encounter for screening, unspecified, Z79.4 - long term care administrator (current) use of insulin Medications: New insulin lispro (Humalog KwikPen (U-100) Insulin) 5 units (0.05 mL) subcut TID 15 mL 1RF E11.65 - Type 2 diabetes mellitus with hyperglycemia insulin glargine (Lantus Solostar U-100 Insulin) 30 units (0.3 mL) subcut QPM 15 mL 5RF E11.65 - Type 2 diabetes mellitus with hyperglycemia dulaglutide (Trulicity) 0.75 mg (0.5 mL) subcut QWEEK 2 mL 3RF glucose (Dex4 Glucose) until symptoms of low blood sugar are controlled 16 grams (4 x 4 gram) PO Q15M 30 days PRN 100 tabs 2RF hypoglycemia Coding Level of Care Code Est Pt Level 4 (88751) Complex EM visit Add On G2211 Diagnoses Type 2 diabetes mellitus with diabetic nephropathy, with long-term current use of insulin E11.21; Z79.4 Hyperlipidemia LDL goal <100 E78.5 Essential hypertension I10 Chronic kidney disease, stage 2 (mild) N18.2
[2023-11-08 09:54] LABS: Glucose, Whole Blood 79 mg/dL (60-115)
== END 2023-11-08 10:14 | disposition home or self-care (01) ==
PROVIDERS: PCP Internal Medicine; Visit Provider Physician Assistant
DX: E11.21 Type 2 diabetes mellitus with diabetic nephropathy (principal); Z79.4 Long term (current) use of insulin; E78.5 Hyperlipidemia, unspecified; I12.9 Hypertensive chronic kidney disease with stage 1 through stage 4 chronic kidney disease, or unspecified chronic kidney disease; N18.2 Chronic kidney disease, stage 2 (mild); Z13.9 Encounter for screening, unspecified
CPT/HCPCS: 99214; G2211

== ENCOUNTER → 2023-11-08 09:15 | Outpatient (BNVA) | payer OTHER, SELFPAY | PROVIDERS: PCP Internal Medicine; Visit Provider Physician Assistant | DX: I12.9 Hypertensive chronic kidney disease with stage 1 through stage 4 chronic kidney disease, or unspecified chronic kidney disease (principal); E11.22 Type 2 diabetes mellitus with diabetic chronic kidney disease; N18.2 Chronic kidney disease, stage 2 (mild); E78.5 Hyperlipidemia, unspecified; E11.21 Type 2 diabetes mellitus with diabetic nephropathy | CPT/HCPCS: 82947; 83036; 99212 ==

== ENCOUNTER 2023-12-05 08:45 | Outpatient (REF) | payer OTHER, SELFPAY ==
[2023-12-05 10:14] LABS: Estimated Average Glucose 163 mg/dL; Hemoglobin A1c % 7.3 % (<6.0)
[2023-12-05 10:19] LABS: Alanine Aminotransferase 24 U/L (0-31); Albumin Level 4.5 g/dL (3.5-5.0); Alkaline Phosphatase 49 U/L (39-117); Anion Gap 10 (12-20); Aspartate Amino Transferase 25 U/L (5-31); Bilirubin Total 0.3 mg/dL (0.0-1.0); Blood Urea Nitrogen 22 mg/dL (9-16); Calcium 9.5 mg/dL (8.4-10.2); Carbon Dioxide 33 mmol/L (22-29); Chloride 105 mmol/L (96-108); Cholesterol 122 mg/dL (<200); Estimated Glomerular Filt Rate > 60; Glucose Fasting 134 mg/dL (60-99); HDL Cholesterol 47 mg/dL (>40); LDL Cholesterol Calculated 57 mg/dL (<100); Potassium 4.4 mmol/L (3.3-5.1); Sodium 144 mmol/L (135-145); Total Protein 7.7 g/dL (6.5-8.0); Triglycerides 94 mg/dL (<150)
== END 2023-12-05 08:46 | disposition home or self-care (01) ==
LOC: HO.LAB 08:45
PROVIDERS: PCP Internal Medicine; Referring Provider Internal Medicine; Visit Provider Physician Assistant
DX: E11.65 Type 2 diabetes mellitus with hyperglycemia (principal); Z79.4 Long term (current) use of insulin; N18.2 Chronic kidney disease, stage 2 (mild); E78.5 Hyperlipidemia, unspecified; E55.9 Vitamin D deficiency, unspecified
CPT/HCPCS: 36415; 80053; 80061; 82306; 83036

== ENCOUNTER 2023-12-09 08:51 | Outpatient (AMB) | payer OTHER, SELFPAY ==
[2023-12-09 08:54] VITALS: BP 148/60; PULSE 48; BMI 25.1
--- NOTE | 2023-12-09 08:54 | A.OFFVIS_ITS ---
Vital Signs 12/09/23 08:54 Height 5 ft 2 in Weight 137 lb 2.04 oz BMI 25.1 BP 148/60 H Blood Pressure Location Rt brachial Position Sitting Pulse 48 L Pulse Source Pulse Oximeter Intake Visit Reasons: dm/LVM Intake Note: Patient presents today for D2MT follow up visit. Last Diabetic Eye exam: 04/2023 Last Podiatry Visit: Doesn't have one Random Glucose: 259 mg/dl HgA1c: 8.2% 11/08/23 Pole Maker Required: Yes Pole Maker Language: Simulation Developer Services: Pole Maker Present Information Interpreted: non-clinical & clinical Accompanied by: Self / Same As Patient Allergies gabapentin Allergy (Intermediate, Verified 12/09/23 09:04) pruritus metformin Allergy (Intermediate, Verified 12/09/23 09:04) stomach upset metoprolol Allergy (Intermediate, Verified 12/09/23 09:04) upset stomach tizanidine Allergy (Intermediate, Verified 12/09/23 09:04) leg edema Medication List - Last Reconciled 12/09/23 by Dina Scott PA-C alcohol swabs (Alcohol Prep Pads) 1 pad topical QID 30 days amlodipine 5 mg PO DAILY 90 days aspirin 81 mg PO DAILY 90 days blood sugar diagnostic (Konjektuch Verio test strips) Use 1 test strip four times a day blood-glucose meter (Konjektuch Verio Flex Meter) As directed blood-glucose meter,continuous (FreeStyle Pau 3 [place]) As directed blood-glucose sensor (FreeStyle Pau 3 Sensor device) Apply every 14 days As directed to monitor blood glucose calcium citrate 500 mg (2 x 250 mg calcium) PO BID cholecalciferol (vitamin D3) 50 mcg PO DAILY citalopram 20 mg PO DAILY denosumab (Prolia) 60 mg subcut [id number] gabapentin 100 mg PO DAILY glucose (Dex4 Glucose) 16 grams (4 x 4 gram) PO Q15M PRN 30 days hydrochlorothiazide 25 mg PO DAILY insulin glargine (Lantus Solostar U-100 Insulin) 30 units (0.3 mL) subcut QPM insulin lispro (Humalog KwikPen (U-100) Insulin) 5 units (0.05 mL) subcut TID lancets (Konjektuch Delica Plus Lancet) As directed lidocaine 5% 1 patch topical DAILY losartan 100 mg PO DAILY 90 days omeprazole 20 mg PO QAM 90 days pen needle, diabetic Use 1 pen needle three times a day rosuvastatin 10 mg PO DAILY HPI HPI dm/LVM: Details: Patient is a 68-year-old female with a significant past medical history of hyperparathyroidism, multinodular thyroid, hypertension, hyperlipidemia, type 2 diabetes, chronic kidney disease, long-term use of insulin presenting today for a diabetic follow-up. Pole Maker: #[id number] Zen Richardson: Her last A1c was 8.2. Today it is 7.3. She is currently on Lantus 30 units nightly, Humalog 5 units TID and Trulicity 0.75 mg weekly. -she stopped the Trulicity a couple of weeks ago because it was causing nausea, vomiting and heartburn. -She states she is getting some lows while awake around the morning and evening. She states she is trying to eat very carefully with increased protein and vegetables. She corrects lows with juice/sweets. States that nothing lower than 65. -she was initially treated with metformin but discontinued due to GI distress. Intolerant of SGLT2 due to vaginal irritation. She states she tried ozempic but did not tolerate this (cannot remember exact reaction but believes it was GI distress). CGM-Integrated Media Measurement (IMMI) Pau 3 download shows usage 24%, average glucose 162, very hyperglycemic 9%, hyperglycemic 25%, in range 66% -She is getting low blood sugars around the morning time. Hypoglycemia- she states she will feel sweaty. corrects with oj and apple juice Hyperglycemia- sometimes will notice thirst CV: Blood pressure today in the office is 148/60.. She is currently on amlodipine 5 mg, HCTZ 25 mg and losartan 100 mg daily. Cholesterol is controlled with Crestor 10 mg. No myalgias. Last LFTs and lipids WNL. Nephro. 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 Mother Asthma Hypertension Chronic mental illness Diabetes Mental health disorder Family/Other Chronic mental illness Mental health disorder Social History Household Members: None Housing: Apartment Alcohol intake: never Patient Tobacco Use Status: Never used Tobacco e-Cigarette/Vaping Use: Never Used Second Hand Smoke Exposure: No service: No Current occupational status: disabled Sexual orientation: Straight/Heterosexual Gender identity: Female Cognitive needs: No Hearing needs: No Vision needs: Yes Female Reproductive History Menstrual Age of Menarche: 12 Physical Exam Vital Signs: Last Vital Signs Pulse 48 L 12/09/23 08:54 BP 148/60 H 12/09/23 08:54 BMI result Body Mass Index 25.1 Const Orientation/consciousness: patient oriented x3 Neck Neck: Yes no lymphadenopathy Thyroid: Thyroid normal Carotids: no bruits Resp Auscultation: clear to auscultation bilaterally Cardio Rate: regular rate Rhythm: regular rhythm Heart sounds: S1 normal heart sound present and S2 normal heart sound present Peripheral pulses: dorsalis pedis present Neuro General: patient oriented x3, gait normal and no focal motor deficits Extrem Other: Monofilament sensation intact bilaterally. Vibratory sensation intact bilaterally. Skin intact. General: Yes normal to inspection Results Reviewed Results Reviewed: Laboratory Last Values Glucose (Clinic) 259 mg/dL (60-115) H 12/09/23 09:07 Laboratory Tests 12/05/23 12/09/23 08:57 09:07 Creatinine 0.89 Estimated GFR > 60 Glucose (Clinic) 259 H Estimat Average Glucose 163 Hemoglobin A1c % 7.3 H AST 25 ALT 24 Triglycerides 94 Cholesterol 122 LDL Cholesterol, Calc 57 HDL Cholesterol 47 Assessment & Plan Assessment & Plan (1) Type 2 diabetes mellitus with diabetic nephropathy, with long-term current use of insulin: Code(s): E11.21 - Type 2 diabetes mellitus with diabetic nephropathy; Z79.4 - penitentiary (current) use of insulin Category: Medical Plan: will decrease lantus to 25 units, decrease humalog to 3 units. will start mounjaro 2.5 mg. discussed risks and benefits and adverse effects at length. glucose tabs ordered to use as needed. f/u in 3 months or sooner prn. (2) Essential hypertension: Code(s): I10 - Essential (primary) hypertension Category: Medical Plan: a little elevated above goal. states it has been normal otherwise. (3) Hyperlipidemia LDL goal <100: Code(s): E78.5 - Hyperlipidemia, unspecified Category: Medical Plan: Well-controlled. Continue current regimen Orders: Orders B Type Natriuretic Peptide 3 Months E11.21 - Type 2 diabetes mellitus with diabetic nephropathy, E78.5 - Hyperlipidemia, unspecified, I10 - Essential (primary) hypertension, Z79.4 - penitentiary (current) use of insulin Comprehensive [place]. Panel Fast 3 Months E11.21 - Type 2 diabetes mellitus with diabetic nephropathy, E78.5 - Hyperlipidemia, unspecified, I10 - Essential (primary) hypertension, Z79.4 - penitentiary (current) use of insulin Hemoglobin A1c 3 Months E11. - Type 2 diabetes mellitus with diabetic nephropathy, E78.5 - Hyperlipidemia, unspecified, I10 - Essential (primary) hypertension, Z79.4 - penitentiary (current) use of insulin Medications: New tirzepatide (Mounjaro) for 4 weeks 2.5 mg (0.5 mL) subcut QWEEK 2 mL 3RF glucose (Dex4 Glucose) until symptoms of low blood sugar are controlled 16 grams (4 x 4 gram) PO Q15M PRN 100 tabs 2RF hypoglycemia Changed From insulin lispro (Humalog KwikPen (U-100) Insulin) 5 units (0.05 mL) subcut TID 15 mL 1RF E11.65 - Type 2 diabetes mellitus with hyperglycemia To insulin lispro (Humalog KwikPen (U-100) Insulin) 3 units (0.03 mL) subcut TID 15 mL 1RF E11.65 - Type 2 diabetes mellitus with hyperglycemia Discontinued dulaglutide (Trulicity) Discontinued Reason: Doctor's Order 0.75 mg (0.5 mL) subcut QWEEK 2 mL 3RF Coding Level of Care Code Est Pt Level 4 (92399) Complex EM visit Add On G2211 Diagnoses Type 2 diabetes mellitus with diabetic nephropathy, with long-term current use of insulin .; Z79.4 Essential hypertension I10 Hyperlipidemia LDL goal <100 E78.5
[2023-12-09 09:10] LABS: Glucose, Whole Blood 259 mg/dL (60-115)
== END 2023-12-09 09:57 | disposition home or self-care (01) ==
PROVIDERS: PCP Internal Medicine; Visit Provider Physician Assistant
DX: E11.21 Type 2 diabetes mellitus with diabetic nephropathy (principal); Z79.4 Long term (current) use of insulin; I10 Essential (primary) hypertension; E78.5 Hyperlipidemia, unspecified

== ENCOUNTER → 2023-12-09 08:51 | Outpatient (BNVA) | payer OTHER, SELFPAY | PROVIDERS: PCP Internal Medicine; Visit Provider Physician Assistant | DX: E11.21 Type 2 diabetes mellitus with diabetic nephropathy (principal); E78.5 Hyperlipidemia, unspecified; I10 Essential (primary) hypertension; Z79.4 Long term (current) use of insulin | CPT/HCPCS: 82947; 99212 ==

== ENCOUNTER 2023-12-17 13:31 | Outpatient (AMB) | payer OTHER, SELFPAY ==
--- NOTE | 2023-12-17 13:45 | A.OFFVIS_ITS ---
Intake Intake Visit Reasons: 60 min-conf Principal Bioinformatics Specialist Required: Yes Principal Bioinformatics Specialist Language: Bulk Intake Worker Name: Cecy [id number] Accompanied by: Self / Same As Patient Allergies gabapentin Allergy (Intermediate, Verified 12/09/23 09:04) pruritus metformin Allergy (Intermediate, Verified 12/09/23 09:04) stomach upset metoprolol Allergy (Intermediate, Verified 12/09/23 09:04) upset stomach tizanidine Allergy (Intermediate, Verified 12/09/23 09:04) leg edema HPI Comprehensive Diabetes Asmnt Most Recent Diabetes Results: Hemoglobin A1c 8.3 % 04/25/18 Microalb/Creat Ratio 59.1 ug/mg cr (<30) H 06/14/23 Cholesterol 122 mg/dL (<200) 12/05/23 HDL Cholesterol 47 mg/dL (>40) 12/05/23 Triglycerides 94 mg/dL (<150) 12/05/23 Creatinine 0.89 mg/dL (0.5-1.4) 12/05/23 Blood Urea Nitrogen 22 mg/dL (9-16) H 12/05/23 Sodium 144 mmol/L (135-145) 12/05/23 Potassium 4.4 mmol/L (3.3-5.1) 12/05/23 Chloride 105 mmol/L (96-108) 12/05/23 Carbon Dioxide 33 mmol/L (22-29) H 12/05/23 Calcium 9.5 mg/dL (8.4-10.2) 12/05/23 AST 25 U/L (5-31) 12/05/23 ALT 24 U/L (0-31) 12/05/23 Total Protein 7.7 g/dL (6.5-8.0) 12/05/23 Albumin 4.5 g/dL (3.5-5.0) 12/05/23 [facility] Medical History (Updated 12/09/23 @ 09:30 by Dina Scott PA-C) T2DM (type 2 diabetes mellitus) Hyperparathyroidism Multinodular thyroid Goiter Vitamin D deficiency Anemia Right hand pain Diabetes type 2, uncontrolled Hyperlipidemia LDL goal <100 Osteoporosis Chronic kidney disease, stage 2 (mild) Long-term use of aspirin therapy GERD (gastroesophageal reflux disease) Dyslipidemia Essential hypertension long-term (current) use of insulin Screening for osteoporosis Well woman exam Depression with anxiety Fibromyalgia Surgical History History of colonoscopy History of tubal ligation Family History Father No problems noted. Mother Asthma Hypertension Chronic mental illness Diabetes Mental health disorder Family/Other Chronic mental illness Mental health disorder Social History Household Members: None Housing: Apartment Alcohol intake: never Patient Tobacco Use Status: Never used Tobacco e-Cigarette/Vaping Use: Never Used Second Hand Smoke Exposure: No service: No Current occupational status: disabled Sexual orientation: Straight/Heterosexual Gender identity: Female Cognitive needs: No Hearing needs: No Vision needs: Yes Female Reproductive History Menstrual Age of Menarche: 12 Assessment & Plan Assessment & Plan (1) Type 2 diabetes mellitus with diabetic nephropathy, with long-term current use of insulin: Code(s): E11.21 - Type 2 diabetes mellitus with diabetic nephropathy; Z79.4 - ad terminal makeup operator (current) use of insulin Plan: Learning objectives: The patient was provided with verbal and written education on the following topics as outlined below. The patient met all learning objectives and was able to verbalize understanding and provide teach back of education topics discussed . The patient was provided with the opportunity to ask questions and all questions were answered. Patient Assessment Assess patient education level/literacy/barriers Patient questions/concerns, patient's last A1c 7.3% hi 11/08 Patient ask for clarification on Lantus and Humalog doses, gave recommendations based on PA visit in November 2023 Patient reports since reducing Lantus dose from 30 units to 25 units hypoglycemia in the a.m. has resolved Patient reports she is not going to start Mounjaro 2.5 mg due to cost of co-pay Patient uses freestyle Pau 3 Patient's average glucose for the past 2 weeks 157 mg/dL Patient above target 30% At target 70% Below target 0% Exercise Medical clearance Effect of exercise on blood sugar Start slowly and gradually increase pace/duration over time Goal amount of exercise Checking blood glucose/have a source of carbs with you Medications (If applicable) * Name of medication * Dosing/administration instructions * Mechanism of action * Potential side effects * Potential adverse reaction and appropriate treatment * Review onset, peak, duration Assess for concerns re: insurance coverage, cost, barriers to compliance Insulin/Injectables (If applicable) * Storage/care of insulin * Injection sites * Site rotation * Onset, peak, duration * Drawing up insulin * Injecting insulin/other injectables * Sharps disposal Continuous blood glucose monitoring (if applicable) Hypoglycemia and Hyperglycemia * Signs and symptoms * Causes * Treatment * Preventing hypoglycemia * When to seek medical attention Medical alert bracelet Lifestyle * Work * Travel * Stress management * Problem solving Know your goals * A1C * Blood sugar targets * Blood pressure * Cholesterol/LDL Urine microalbumin Smart Goal: Patient will take insulin as prescribed, 25 units of Lantus daily, Humalog 3 units before meals Educational Materials: The patient was provided with the following written educational materials: ADCES 7 Healthy Behaviors Reducing Risks handout Patient Response to instructions: Comprehension of Instructions: Good Readiness to make changes: action How confident they feel about making changes: positvce Portions of this note were created using voice recognition software, please excuse any words or phrases that may have been misinterpreted. Patient Instructions: Incluir actividad diaria regular. ADA recomienda 30 minutos de ejercicio 5 d?as a la semana. P?rdida de peso, hable con el PCP o el cardi?logo antes de comenzar un nuevo plan. Mida el nivel de az?car en la lenin seg?n las indicaciones; Ayuno y comida m?s flakito de 2hpp. Observe las tendencias en los resultados. Utilice los resultados y eval?e c?mo los alimentos, la actividad f?birgit y los medicamentos afectan los resultados de az?car en la lenin. Lleve el gluc?metro o CGM a la pr?xima visita. Conocer los medicamentos para la diabetes, mayer acci?n, los efectos secundarios, la eficacia, la toxicidad, la dosis prescrita, el momento y la frecuencia de administraci?n apropiados, el efecto de las dosis olvidadas y retrasadas y las instrucciones de almacenamiento, viaje y seguridad. T?cnicas de resoluci?n de problemas para el seguimiento de episodios de hipo/hiperglucemia y tratamientos. Reducir los comportamientos de reducci?n de riesgos, dejar de fumar, ex?menes regulares de ojos, pies y dentales. Coding Level of Care Code Est Pt Level 1 (23588) Diagnoses Type 2 diabetes mellitus with diabetic nephropathy, with long-term current use of insulin E11.21; Z79.4
== END 2023-12-17 14:24 | disposition home or self-care (01) ==
PROVIDERS: PCP Internal Medicine; Visit Provider Registered Nurse Diabetes Educator
DX: E11.21 Type 2 diabetes mellitus with diabetic nephropathy (principal); Z79.4 Long term (current) use of insulin

== ENCOUNTER → 2023-12-17 13:31 | Outpatient (BNVA) | payer OTHER, SELFPAY | PROVIDERS: PCP Internal Medicine; Visit Provider Registered Nurse Diabetes Educator | DX: E11.21 Type 2 diabetes mellitus with diabetic nephropathy (principal); Z79.4 Long term (current) use of insulin | CPT/HCPCS: 99211 ==

== ENCOUNTER 2023-12-23 10:36 | Outpatient (AMB) | payer OTHER, SELFPAY ==
[2023-12-23 10:42] VITALS: BP 128/66; PULSE 59; BMI 25.2
--- NOTE | 2023-12-23 10:42 | A.OFFVIS_ITS ---
Vital Signs 12/23/23 10:42 Height 5 ft 2 in Weight 137 lb 9.095 oz BMI 25.2 BP 128/66 Blood Pressure Location Rt brachial Position Sitting Pulse 59 Pulse Source Pulse Oximeter Intake Visit Reasons: f/u osteoporosis/secondary hyperparathyroidism Intake Note: Patient present today for osteoporosis/secondary hyperparathyroidism follow up visit. Bicycle Racer Required: Yes Bicycle Racer Language: Milk Bottler Services: Bicycle Racer Present Bicycle Racer Name: Aroldo Information Interpreted: non-clinical & clinical Accompanied by: Self / Same As Patient Allergies gabapentin Allergy (Intermediate, Verified 12/23/23 10:47) pruritus metformin Allergy (Intermediate, Verified 12/23/23 10:47) stomach upset metoprolol Allergy (Intermediate, Verified 12/23/23 10:47) upset stomach tizanidine Allergy (Intermediate, Verified 12/23/23 10:47) leg edema HPI Comments Details: 67 YO F with PMHx T2DM, Osteoporosis and a MNG who is seen in F/U. . Osteoporosis: Osteoporosis: First diagnosed in 2020. Has never been treated for this. After our initial visit she underwent a full biochemical assessment, which revealed higher than expected Calcium, with PTH mildly elevated to 70.? Labs 11/10/2020 with Calcium 10.0, Albumin 4.6, PTH 70 and Vitamin D 35.? Urinary Calcium was low.? She was on HCTZ at the time. She was asked to stop the HCTZ and repeat labs. Labs are pending at this time. Has 1 servings of dietary calcium per day in the form of milk or yogurt.? Takes Calcium supplement 500 mg daily in divided doses.? Takes 2000 IU of Vitamin D daily. Denies ever using an anticoagulant, antiepileptic or glucocorticoid medication.? She does use a PPI daily. 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 .? She did not breastfeed.? Menopause was age 55.? She did not use HRT after. Denies history of Kidney stones: Denies family history of Osteoporosis or hip fracture. UTD on dental cleanings and sees dentist every 6 months.? No planned upcoming dental work or extractions. 3) Multinodular thyroid: She underwent an US of the thyroid that revealed multiple thyroid nodules.? She underwent FNA biopsy of her LLP 1.4 cm thyroid nodule 05/25/2021, but unfortunately cytology was nondiagnostic.? She refused repeat FNA biopsy. DXA dated 04/21/2020: FINDINGS: AP SPINE L1-L3 (excluding L4): The data of L1-L4 has been changed to exclude the L4 vertebral body, because degenerative sclerosis at this level may cause overestimation of lumbar spine density. BMD 0.779 g/cm2, Z-score -1.5, T-score -3.3, osteoporosis. LEFT FEMUR, NECK: BMD 0.831 g/cm2, Z-score 0.1, T-score -1.5, osteopenia. LEFT FEMUR, TOTAL: BMD 0.889 g/cm2, Z-score 0.4, T-score -0.9, normal. Laboratory Tests 04/23/22 04/23/22 07/27/22 09:00 09:01 10:04 Sodium 137 Potassium 4.7 Creatinine 1.11 Estimated GFR 49 Hemoglobin A1c % LDL Cholesterol Direct 49 TSH 2.22 Free T4 1.00 PTH Intact Calcium (PTH Intact) Microalb/Creat Ratio 34.9 07/27/22 07/27/22 10:04 10:04 Sodium Potassium Creatinine Estimated GFR Hemoglobin A1c % 7.4 LDL Cholesterol Direct TSH Free T4 PTH Intact 60 Calcium (PTH Intact) 9.8 Microalb/Creat Ratio She was started on Prolia received 2 injection 08/30/2022 in 02/2023 . Her PTH normalized. On calcium 1000 mg b.i.d. and vitamin-D replacement . 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 Mother Asthma Hypertension Chronic mental illness Diabetes Mental health disorder Family/Other Chronic mental illness Mental health disorder Social History Household Members: None Housing: Apartment Alcohol intake: never Patient Tobacco Use Status: Never used Tobacco e-Cigarette/Vaping Use: Never Used Second Hand Smoke Exposure: No service: No Current occupational status: disabled Sexual orientation: Straight/Heterosexual Gender identity: Female Cognitive needs: No Hearing needs: No Vision needs: Yes Female Reproductive History Menstrual Age of Menarche: 12 Physical Exam Vital Signs: Last Vital Signs Pulse 59 12/23/23 10:42 BP 128/66 12/23/23 10:42 BMI result Body Mass Index 25.2 Neck Other: . Extrem Other: Visual exam of foot performed. No ulcerations or open lesions. No onchomycosis, no callouses.Pulses 2 + distally Sensation intact to monofilament exam. Vibratory sensation sensed is intact with 128 Hz tuning fork Assessment & Plan Assessment & Plan (1) Osteoporosis: Code(s): M81.0 - Age-related osteoporosis without current pathological fracture Category: Medical Plan: Currently on Prolia. PTH normalized on calcium and vitamin-D repletion. Last Prolia injection was Would continue Prolia next injection 02/2024. Will recheck DEXA 07/2024 and consider transitioning from Prolia if bone density improved (2) Hyperparathyroidism: Code(s): E21.3 - Hyperparathyroidism, unspecified Category: Medical Plan: See above Orders: Orders XR DEXA axial skeleton 7 Months M81.0 - Age-related osteoporosis without current pathological fracture Coding Level of Care Code Est Pt Level 3 (33324) Diagnoses Osteoporosis M81.0 Hyperparathyroidism E21.3
== END 2023-12-23 11:09 | disposition home or self-care (01) ==
PROVIDERS: PCP Internal Medicine; Visit Provider Internal Medicine Endocrinology, Diabetes & Metabolism
DX: M81.0 Age-related osteoporosis without current pathological fracture (principal); E21.3 Hyperparathyroidism, unspecified
CPT/HCPCS: 99213

== ENCOUNTER → 2023-12-23 10:36 | Outpatient (BNVA) | payer OTHER, SELFPAY | PROVIDERS: PCP Internal Medicine; Visit Provider Internal Medicine Endocrinology, Diabetes & Metabolism | DX: M81.0 Age-related osteoporosis without current pathological fracture (principal); E21.3 Hyperparathyroidism, unspecified; E04.2 Nontoxic multinodular goiter | CPT/HCPCS: 99212 ==

== ENCOUNTER 2024-02-28 07:58 | Outpatient (REF) | payer OTHER, SELFPAY ==
--- OUTSIDE RECORDS SUMMARY | 2024-02-28 08:02 | XMS_ITS ---
[facility] Organization [facility] Address [address] [place] [address] Care Team Providers Care Automatic Typewriter Inspector Name Role Phone Elissa Shaffer MD Primary Care Provider Unavail able Deanna Orourke Unavailable [phone] Allergies Allergen (clinical drug ingredient) Drug/Non Drug Allergy documented on EMR Reaction Allergy Type Onset Date Status metformin Metformin stomach upset Drug Allergy Act rama metoprolol Metoprolol leg edema Drug Allergy Activ e tizanidine Tizanidine stomach upset Drug Allergy A ctive REASON FOR VISIT PCP - 06/2022, Heel pain, Toe Irritation Medications Medication SIG (Take, Route, Frequency, Duration) Notes Start Date End Date Status Lancets 33G - as directed 10/17/2022 Act rama Losartan Potassium 100 MG TAKE 1 TABLET BY MOUTH DAILY Oral for 90 Days Active Omeprazole 20 MG Oral for 90 Days Active Pen Grapeview Active Rosuvastatin Calcium 10 MG TAKE 1 TABLET BY MOUTH DAILY Oral for 90 Days Active Cyclobenzaprine HCl 10 MG 1 tablet at be dtime as needed Orally Once a day for 30 day(s) 10/17/2022 Active Diflorasone Diacetate 0.05 % APPLY 1-2 GRAMS TO BOTH FEET TWICE DAILY AFTER COMPOUND for 30 Active Gabapentin 100 MG 1 capsule Orally Onc e a day Active Insulin Glargine Solostar 100 UNIT/ML ADMINISTER 35 UNITS UNDER THE SKIN EVERY EVENING Subcutaneous for 24 Days Active Insulin Lispro (1 Unit Dial) 100 UNIT/ML Subcutaneous for 33 Days Active amLODIPine Besylate 5 MG Oral for 90 Days Active Aspirin Low Dose 81 MG TAKE 1 TABLET BY MOUTH EVERY DAY Oral for 90 Days Active Alcohol Swabs 70 % as directed 10/17/2022 Active Blood Glucose Meter 10/17/2022 Active Citalopram Hydrobromide 20 MG TAKE 1 TABLET BY MOUTH DAILY Oral for 90 Days Active Lidocaine 5 % 1 patch remove after 12 hours Externally Once a day 10/17/2022 Not-Taking Ibuprofen 600 MG 1 tablet with food o r milk as needed Orally Three times a day 10/17/2022 Not-Taking Extra Depth Orthopedic Shoes (1 Pair) with Customized Heat Molded Multidensity Innersoles (3 Pair) as directed Dx: IDDM/Polyneuropathy (E10.42), Hammertoe Foot Deformity (M20.41,M20.42), Preulcerative Skin Lesion(s) (L85.1) Active Physical Therapy . . . 2-3x/week for 3- 4 weeks 12/14/2022 Active Social History Tobacco Use: Social History Observation Description Date Details (start date - stop date) Never Smoker NA - NA Tobacco Use/Smoking Question Answer Notes Are you a: nonsmoker Additional Findings: Tobacco Non-User Current no n-smoker Alcohol Screen Question Answer Notes Did you have a drink containing alcohol in the p ast year? No Points 0 Interpretation Negative Tobacco use other than smoking: Question Answer Notes Are you an other tobacco user? No Vital Signs Height 5ft 2in in 12/14/2022 Weight 142 lbs 12/14/2022 BMI 25.97 kg/m2 12/14/2022 Blood pressure systolic 118 mm Hg 12/15/19 23 Blood pressure diastolic 50 mm Hg 023 Encounters Encounter Location Date Provider Diagnosis [facility] [place] [address] [place] [address] 12/14/2022 Deanna Orourke Other hammer toe(s) (acquired), right foot M20.41 ; Plantar fasciitis of right foot M72.2 ; Other hammer toe(s) (acquired), left foot M20.42 and Type 1 DM with polyneuropathy E10.42 Assessments Encounter Date Diagnosis (ICD Code) Assessment Notes Treatment Notes Treatment Clinical Notes Section Notes 12/14/2022 Other hammer toe(s) (acquired), right foot (ICD-10 - M20.41) Patient Educated with: DIABETIC FOOT CARE INSTRUCTIONS. pdf (DIABETIC FOOT CARE INSTRUCTIONS. pdf) Patient Educated with: DIABETIC FOOT CARE INSTRUCTIONS. pdf (DIABETIC FOOT CARE INSTRUCTIONS. pdf) 12/14/2022 Plantar fasciitis of right foot (ICD-10 - M72.2) Patient Educated with: HEEL CORD STRETCHES.pdf (HEEL CORD STRETCHES.pdf ) Patient Educated with: RICE THERAPY.pdf (RICE THERAPY.pdf) Patient Educated with: HEEL CORD STRETCHES.pdf (HEEL CORD STRETCHES.pdf ) Patient Educated with: RICE THERAPY.pdf (RICE THERAPY.pdf) 12/14/2022 Other hammer toe(s) (acquired), left foot (ICD-10 - M20.42) 12/14/2022 Type 1 DM with polyneuropathy (ICD-10 - E10.42) Plan Of Treatment Medication Medication Name Sig Start Date Stop Date Notes Extra Depth Orthopedic Shoes (1 Pair) with Customized Heat Molded Multidensity Innersoles (3 Pair) as directed Dx: IDDM/Polyneuropathy (E10.42), Hammertoe Foot Deformity (M20.41,M20.42), Preulcerative Skin Lesion(s) (L85.1) Physical Therapy . . . 2-3x/week for 3-4 weeks 12/14/2022 Treatment Notes Assessment Notes Other hammer toe(s) (acquired), right fo ot Patient Educated with: DIABETIC FOOT CARE INSTRUCTIONS.pdf (DIABETIC FOOT CARE INSTRUCTIONS.pdf) Patient Educated with: DIABETIC FOOT CARE INSTRUCTIONS.pdf (DIABETIC FOOT CARE INSTRUCTIONS.pdf) Plantar fasciitis of right foot Patient Educated with: HEEL CORD STRETCHES.pdf (HEEL CORD STRETCHES.pdf) Patient Educated with: RICE THERAPY.pdf (RICE THERAPY.pdf) Patient Educated with: HEEL CORD STRETCHES.pdf (HEEL CORD STRETCHES.pdf) Patient Educated with: RICE THERAPY.pdf (RICE THERAPY.pdf) Next Appt Details Follow Up: 6 Weeks, Reason: Progress Notes * Lizbeth BONNERDOB:1955 (67 yo F)Acc No.[id number]:12/14/2022 Progress Notes Patient:?Lizbeth Bonner Provider:?Deanna Orourke DPM :1955???Age:67 Y???Sex:Female D ate:12/14/2022 Address:[address] [place] [address], [facility] Pcp:Elissa Shaffer MD Subjective: * Chief Complaints: * ???PCP - 06/2022Heel painToe Irritation * HPI: ???Heel pain:?Location:?Proximal plantar aspect of Heel, RIGHT.?Duration:?a year or more.?Onset/Cause:?unknown , denies trauma.?Course:?worse.?Aggrevated:?standing, walking, walking first thing in the morning/after rest.?Treatments:?rest , corticosteriod injection x 3 by another residential therapist relates no improvement with injections, , change in shoes , stretching , Custom compounded topical anti-inflammatory cream.?Misc:?Pt has perforator operator present.?Toe pain:?Location:?B/L feet.?Duration:?several years.?Course:?worse.?Aggrevated by:?shoes, any pressure.?Treatments:?Pt has not gone to get shoes and inserts yet.? * ROS:?General/Constitutional:?Nausea?denies, denies.?Vomiting?denies, denies.?Hunger Thirst?denies, denies.?Loss appetite?denies, denies.?Chills?denies, denies.?Fatigue?denies, denies.?Fever?denies, denies.?Night Sweats denies, denies.?Unexplained weight loss?denies, denies.?Unexplained weight gain?admits, admits.?HEENTM:?Dentures?denies, denies.?Dizziness?denies, denies.?Glasses/contacts?admits, admits.?Retinopathy?denies, denies.?Blurred/double vision?denies, denies.?TMJ?denies, denies.?Discharge/drainage?denies, denies.?Implants?denies, denies.?Sore throat?denies, denies.?Dental implants?denies, denies.?Hard of hearing ?denies, denies.?Difficulty chewing/swallowing/speaking?denies, denies.?Nose bleeds?denies, denies.?Sore mouth?denies, denies.?Respiratory:?On Oxygen?denies, denies.?Pneumonia/pleurisy?denies, denies.?Bronchitis?denies, denies.?Emphysema?denies, denies.?Coughing?denies, denies.?Cough blood?denies, denies.?Shortness of breath?denies, denies.?Wheezing?denies, denies.?Cardiovascular:?Pacemaker?denies, denies.?MVP?denies, denies.?WPW?denies, denies.?CHF?denies, denies.?Heart attack?denies, denies.?Septal defect?denies, denies.?Rapid beat?denies, denies.?Chest pain ?denies, denies.?Atrial Fib.?denies, denies.?Murmur/Palpitations?denies, denies.?Gastrointestinal:?Hemorrhoids?denies, denies.?Stomach/Abdominal pain?denies, denies.?Dark blood stool?denies, denies.?Irritable bowel ?denies, denies.?Constipation?denies, denies.?Diarrhea?denies, denies.?Hematology:?Swelling?denies, denies.?Clots?denies, denies.?Varicose Veins?denies, denies.?Bruising?denies, denies.?Bleeding problem?denies, denies.?Genitourinary:?Blood urine?denies, denies.?Frequent/Painfu/urination/bladder control?denies, denies.?Kidney stones?denies, denies.?Infection (UTI)?denies, denies.?Nephropathy?denies, denies.?sex trans dis (STD)?denies, denies.?Prostate?denies, denies.?Musculoskeletal:?Hammertoes?denies, denies.?Bunions?denies, denies.?Back Pain?denies, denies.?Muscle Cramps/ Resting?denies, denies.?Muscle cramps / walking?admits, admits.?Generalized aches and pains?admits, admits.?Weakness?admits, admits.?Integ.:?Steiner?admits, admits.?Scars?denies, denies.?Corns/calluses?denies, denies.?Ingrown nails?denies, denies.?Painful nails?denies, denies.?Open Sores?denies, denies.?Rashes?denies, denies.?Neurologic:?Difficulty sleeping?denies, denies.?Brain disorder?denies, denies.?Numbness?denies, denies.?Balance trouble?denies, denies.?Confusion?denies, denies.?Fainting/blackouts?denies, denies.?Tingling?denies, denies.?Tremors?denies, denies.? * Medical History:? * Surgical History:?No Surgica l History documented. * Hospitalization/Major Diagno stic Procedure:?Denies Past Hospitalization * Family History:?Mother: dece ased, diagnosed with Diabetic - NIDDM, Unspecified essential hypertension.?Father: .?Siblings: kidney/liver disease.?Maternal Grand Mother: diagnosed with Other malignant neoplasm of unspecified site.? * Social History:?Tobacco Use:?Tobacco Use/Smoking?Are you a:?nonsmoker ?Additional Findings: Tobacco Non-User?Current non-smoker ?Tobacco use other than smoking?Are you an other tobacco user??No ???Drugs/Alcohol:?Drugs?Have you used drugs other than those for medical reasons in the past 12 months??No ?Alcohol Screen?Did you have a drink containing alcohol in the past year??No ?Points?0 ?Interpretation?Negative ???Miscellaneous:?Caffeine: yes, frequency: , 1-decaf. ?Children: yes, 3. ?no Exercise. ?Marital status: single. ?Occupation: weeks/months/years, unemployed,employed. * Medications:?TakingamLODIPin e Besylate 5 MG Tablet Oral Aspirin Low Dose 81 MG Tablet Delayed Release TAKE 1 TABLET BY MOUTH EVERY DAY Oral Alcohol Swabs 70 % Pad as directed Blood Glucose Meter Citalopram Hydrobromide 20 MG Tablet TAKE 1 TABLET BY MOUTH DAILY Oral Cyclobenzaprine HCl 10 MG Tablet 1 tablet at bedtime as needed Orally Once a dayDiflorasone Diacetate 0.05 % Cream APPLY 1-2 GRAMS TO BOTH FEET TWICE DAILY AFTER COMPOUND Gabapentin 100 MG Capsule 1 capsule Orally Once a dayInsulin Glargine Solostar 100 UNIT/ML Solution Pen-injector ADMINISTER 35 UNITS UNDER THE SKIN EVERY EVENING Subcutaneous Insulin Lispro (1 Unit Dial) 100 UNIT/ML Solution Pen-injector Subcutaneous Lancets 33G - Miscellaneous as directed Losartan Potassium 100 MG Tablet TAKE 1 TABLET BY MOUTH DAILY Oral Omeprazole 20 MG Capsule Delayed Release Oral Pen Grapeview Rosuvastatin Calcium 10 MG Tablet TAKE 1 TABLET BY MOUTH DAILY Oral Extra Depth Orthopedic Shoes (1 Pair) with Customized Heat Molded Multidensity Innersoles (3 Pair) as directed Dx: IDDM/Polyneuropathy (E10.42), Hammertoe Foot Deformity (M20.41,M20.42), Preulcerative Skin Lesion(s) (L85.1)Taking amLODIPine Besylate 5 MG Tablet Oral Taking Aspirin Low Dose 81 MG Tablet Delayed Release TAKE 1 TABLET BY MOUTH EVERY DAY Oral Taking Alcohol Swabs 70 % Pad as directed Taking Blood Glucose Meter Taking Citalopram Hydrobromide 20 MG Tablet TAKE 1 TABLET BY MOUTH DAILY Oral Taking Cyclobenzaprine HCl 10 MG Tablet 1 tablet at bedtime as needed Orally Once a dayTaking Diflorasone Diacetate 0.05 % Cream APPLY 1-2 GRAMS TO BOTH FEET TWICE DAILY AFTER COMPOUND Taking Gabapentin 100 MG Capsule 1 capsule Orally Once a dayTaking Insulin Glargine Solostar 100 UNIT/ML Solution Pen-injector ADMINISTER 35 UNITS UNDER THE SKIN EVERY EVENING Subcutaneous Taking Insulin Lispro (1 Unit Dial) 100 UNIT/ML Solution Pen-injector Subcutaneous Taking Lancets 33G - Miscellaneous as directed Taking Losartan Potassium 100 MG Tablet TAKE 1 TABLET BY MOUTH DAILY Oral Taking Omeprazole 20 MG Capsule Delayed Release Oral Taking Pen Grapeview Taking Rosuvastatin Calcium 10 MG Tablet TAKE 1 TABLET BY MOUTH DAILY Oral Taking Extra Depth Orthopedic Shoes (1 Pair) with Customized Heat Molded Multidensity Innersoles (3 Pair) as directed Dx: IDDM/Polyneuropathy (E10.42), Hammertoe Foot Deformity (M20.41,M20.42), Preulcerative Skin Lesion(s) (L85.1)Not-Taking/PRNLidocaine 5 % Patch 1 patch remove after 12 hours Externally Once a dayIbuprofen 600 MG Tablet 1 tablet with food or milk as needed Orally Three times a dayMedication List reviewed and reconciled with the patientNot- Taking/PRN Lidocaine 5 % Patch 1 patch remove after 12 hours Externally Once a dayNot- Taking/PRN Ibuprofen 600 MG Tablet 1 tablet with food or milk as needed Orally Three times a dayMedication List reviewed and reconciled with the patient * Allergies:?Metformin: stomac h upsetTizanidine: stomach upsetMetoprolol: leg edema Objective: * Vitals:?Ht: 5ft 2in, Wt:142, BMI:25.97, Shoe size: 7, BP:118/50 mm Hg, BS: 106, Ht-cm: 157.48 cm, Wt-k.41 kg. * Examination: ???Ophthalmology Referral: ?DIABETES EYE EXAM?Heel Pain: ?INSPECTION:?CONT, Pain on Palpation to Plantar Fascia med. and central bands, intrinsic musc., infra-calcaneal bursa, and med calc tubercle , RIGHT foot, No pain: posterior/superior heel, achilles bursa/tendon, sinus tarsi, peroneals, or with lateral heel compression; no limited STJ ROM, calor, or ecchymosis.?Orthopedic: ?MUSCLE STRENGTH:?5/5 all groups in a symmetrical fashion, B/L.?DIGITAL DEFORMITIES:?Digital contracture, PIPJ, 2-5 B/L, incompl-reducible to push-up test, no over, nor underlapping, Reveals swelling/redness/enlargement of PIPJs, with evidence of shoe producing skin irritation.?FOOTWEAR:?worn, non-supportive, shoe gear properties exacerbate patient's foot/toe deformity .?Neurological: ?SENSORY:?in a stocking fashion, Neurological exam demonstrates , reduced light touch sensation , reduced sharp/dull pin prick discrimination , reduced vibration sensation , reduced proprioception sensation , 5.07 monofilament test performed at plantar aspects of 5 varied sites per foot shows sensation , reduced , B/L.?TINEL'S COMPRESSION:?Negative tarsal tunnel, govind pedis, and medial calcaneal nerves.?General Examination: ?GENERAL APPEARANCE:?Reveals a pleasant, alert, well nourished, well- developed, well hydrated individual, who demonstrates proper attention to hygiene/body habitus, and is in no acute distress, Pt serves as own historian for office visit today.?FOOT EXAM:?Footwear Evaluation? Assessment: * Assessment: 1.?Other hammer toe(s) (acqu ired), right foot - M20.41, Chronic problem, Worse (4),Rx Management (4)?2.?Plantar fasciitis of right foot - M72.2 (Primary), Acute problem, Complicated w/ Multiple Tx Options(4)?3.?Other hammer toe(s) (acquired), left foot - M20.42, Chronic problem, Worse (4),Rx Management (4)?4.?Type 1 DM with polyneuropathy - E10.42? Plan: * Treatment: 2.?Other hammer toe(s) (acqu ired), right foot? Start Extra Depth Orthopedic Shoes (1 Pair) with Customized Heat Molded Multidensity Innersoles (3 Pair), as directed, Dx: IDDM/Polyneuropathy (E10.42), Hammertoe Foot Deformity (M20.41,M20.42), Preulcerative Skin Lesion(s) (L85.1), 1, Refills 0.?? Notes: Patient Educated with: DIABETIC FOOT CARE INSTRUCTIONS.pdf (DIABETIC FOOT CARE INSTRUCTIONS.pdf) Patient Educated with: DIABETIC FOOT CARE INSTRUCTIONS.pdf (DIABETIC FOOT CARE INSTRUCTIONS.pdf)?? * Procedure Codes:? * Preventive Medicine:? ??Counseling:?Discussion:?-14: Office or other outpatient visit for the evaluation and management of an established patient, which required a medically appropriate history and/or examination and MODERATE level of DECISION MAKING for: 1 OR MORE CHRONIC PROBLEM(S) THATS WORSENING, 2 STABLE CHRONIC PROBLEMS, A NEWLY DIAGNOSED PROBLEM WITH UNCERTAIN PROGNOSIS, AN ACUTE COMPLICATED INJURY WITH MULTIPLE TREATMENT OPTIONS, OR AN ACUTE PROBLEM WITH ACCOMPANYING SYSTEMIC SYMPTOMS, THAT POSE(S) A MODERATE RISK OF MORBIDITY. THIS CONDITION MAY ALSO INCLUDE RX DRUG MANAGEMENT, OR A DECISON FOR MINOR SURGERY. The visit on the day of the encounter encompassed interpreting the data and educating the patient as to the nature of their condition, treatment options available according to their individual PMH, meds, allergies, and overall health/living conditions, as well as any potential risks or complications that may occur from a failure to adhere to, and participate in, the recommended course of therapy. The discussion included a complete verbal, and/or written explanation of the examination results, any x-rays taken, the proposed diagnosis, and outline of the treatment plan. A schedule for future care needs was also explained. The patient verbalized an understanding of the instructions at this time and agreed to be an active participant in their treatment. If the patient should think of any questions or concerns after the visit, I have encouraged the patient to call the office.?Digital Treatment:?HT- I explained to the patient the possible etiologies of Hammertoes, including genetics/foot type/shoegear/activity level/exercise routine and the risks/benefits of all the different treatment options for their pain including: No treatment at all, Rest, Ice, New/supportive/wider/deeper Shoegear, Digital Padding/Strapping/Taping/Bracing/Gel protective sleeves, Foot/Ankle AFO Bracing, Stretching exercises, Deep Tissue Massage, Arch support/shoe inserts with splay metatarsal padding, and Custom orthoses. I insisted that any digital devices be removed daily and not worn overnight for safety. The patient is to carefully examine the toes daily for any skin irritation while using any splinting or padding device. The advantages and disadvantages of each option were discussed and the patients questions re: shoegear, padding, custom vs prefabricated inserts, activity level, and consistency in home treatment regimens for optimal success were answered to their verbally confirmed satisfaction.?Heel pain:?FASCIITIS: I explained to the patient the possible etiologies of Plantar Fasciitis including foot type/shoegear/activity level/exercise routine and the risks/benefits of all the different treatment options for heel pain including: No treatment at all, Rest, Ice, NSAIDs(only if well tolerated after meals), New/supportive Shoegear, Strappings and Tapings, Stretching exercises, Deep Tissue Massage, Heel cups/cushions, Arch support/shoe inserts, Custom orthoses, Topical analgesics including Aspercream/Voltaren gel, Night splint AFO for am stiffness, Cortisone injection therapy, Cast boot with crutches/cane/or walker for assisted ambulation, Physical Therapy, EPAT/ESWT, Interfil injection therapy, as well as surgical Lolita/Endoscopic Fasciitomy surgical procedures if needed. Recommendations were made to limit barefoot walking, eliminate wearing nonsupportive shoegear (i.e. flip-flops or sandals, or a shoe with an easily bendable, foldable, or twistable sole) and wear shoegear with a good solid sole, a supportive arch, and plenty of room for an insert/orthotic if necessary. If wearing sandals was required by the patient, we recommended orthopedic sandals such as Orthoheel or Birkenstock even while in the home. If the patient wore heels in the past, we recommended they continue, but eliminate the use of flats. The advantages and disadvantages of each option were discussed and the patients questions re: types of shoegear, custom vs prefabricated inserts, activity level, PO vs Topical medications (and their respective potential complications/drug interactions/side effects), and consistency in home treatment regimens for optimal success were answered to their satisfaction. Literature detailing plantar fasciitis and the various treatment options were dispensed and reviewed.?P.R.I.C.E.:?The patient was counseled on the use of P.R.I.C.E. and NSAIDS (if well tolerated) to aid in the recovery from their painful condition.?Physical Therapy:?Discussed the potential short and joint terminal attack controller benefits of physical therapy including pain relief, improved function for activity of daily life, return to exercise, increased quality of life. We discussed the usual/customary PT treatment schedule of 2-3 times per week for 4 weeks to as much as 12 weeks depending on insurance approval/coverage. We discussed various PT treatment modalities including, but not limited to, gate training, muscular stabilization, stretching, deep tissue therapeutic massage, ultrasound, TENS, iontophoresis, fluidotherapy, laser therapy, hydrotherapy, contrast ice/heat bath, and passive as well as active ROM exercises. Questions re: PT including visit amounts, rates of success, and goals were answered to the patient's satisfaction. The patient verbally confirmed the medical necessity and use of PT therapy treatment for their MSK condition.?Shoe Gear Counseling:?The patient and I reviewed the types of shoes they should be wearing. My recommendation included obtaining a well-fitted shoe with a good supportive, non-foldable nor twistable sole, plenty of toe/room for the forefoot, and proper arch support. Based on todays examination, I recommended the patient look for new shoes, by having their feet professionally measured. We discussed that generally the best time of the day for a shoe fitting is the afternoon. Different shoes types and brands to best match the patients occupation and vocation were discussed. Specific brand selection will be up to the patient, their individual foot condition/deformities, and fit. The patient and I reviewed the standard new shoe break in period by wearing them for a few hours a day while checking for redness or sores as wear time is increased. The patient verbally confirmed to understanding the information discussed, SHOE Rx - The patient was counseled in great detail on their muscoloskeletal foot and toe deformities which coincided with the dermatological presentations visualized on exam. We discussed how their deformities put the integrity of their feet at risk for potential pedal complications which makes the accomidative diabetic shoes and cutomizable inserts medically necessary. We discussed the different shoe and insert treatment types and options, as well as the important advantages for adhering to regularly wearing these accomidative devices daily. The patient was made aware of the fact that a failure to abide by these recommedations may be deleterious to their foot health as they are able to prevent many pedal complications such as skin irritation, skin ulceration, infection, and even loss of toe/foot/leg/or life. Time was also spent with the patient dispensing and discussing proper diabetic footcare techniques including daily skin moisturization, daily foot inspection for any interruption in skin integrity including open lesions, or sign of infection such as redness/malodor/drainage/swelling. Also discussed and recommended were procedures regarding daily shoe inspection for the presence of internal foreign bodies as well as any visualized irregular shoe or insert wear. Patient questions re: shoes, inserts, and self foot inspections were answered to their satisfaction as the patient verbally confirmed a full understanding of the above information. A Rx for Extra Depth Orthopedic Shoes with 3 pair of custom heat-molded inserts was dispensed.?Steriod Injection:?Discussed the potential harm with more cortisone injections, and since pt had no relief I would not advise another injection at this time.?Stretching Exercises:?Stretching and deep tissue massage exercises for the patients injury/diagnosis were discussed and demonstrated, handouts were dispensed.? * Follow Up:?6 Weeks * Images: * Sign off status: Completed true * Provider:?Deanna Orourke DPM Date:? Generated for Tyrese nelson/Taylor/Sharmin on:?02/28/2024 08:02 AM EST History and Physical Notes * HPI (History of Present Illness) Category Sub-Category Detail Notes Category Not es Heel pain Duration: a year or more Location: Proximal plantar asp ect of Heel, RIGHT Onset/Cause: unknown , denies tra josi Aggravated: standing, walking, w alking first thing in the morning/after rest Course: worse Treatments: rest , corticosterio d injection x 3 by another residential therapist relates no improvement with injections, , change in shoes , stretching , Custom compounded topical anti-inflammatory cream Misc: Pt has perforator operator pr esent Toe pain Location: B/L feet Duration: several years Course: worse Aggravated by: shoes, any pressure Treatments: Pt has not gone to g et shoes and inserts yet Examination Category Sub-Category Detail Notes Category Not es Neurological SENSORY: in a stocking fa shion, Neurological exam demonstrates , reduced light touch sensation , reduced sharp/dull pin prick discrimination , reduced vibration sensation , reduced proprioception sensation , 5.07 monofilament test performed at plantar aspects of 5 varied sites per foot shows sensation , reduced , B/L TINEL'S COMPRESSION: Negative tarsal marion leodan, govind pedis, and medial calcaneal nerves Orthopedic FOOTWEAR: worn, non-suppor tive, shoe gear properties exacerbate patient's foot/toe deformity DIGITAL DEFORMITIES: Digital contracture , PIPJ, 2-5 B/L, incompl-reducible to push-up test, no over, nor underlapping, Reveals swelling/redness/enlargement of PIPJs, with evidence of shoe producing skin irritation MUSCLE STRENGTH: 5/5 all groups in a symmetrical fashion, B/L General Examination GENERAL APPEARANCE: Reveals a pleasant, alert, well nourished, well-developed, well hydrated individual, who demonstrates proper attention to hygiene/body habitus, and is in no acute distress, Pt serves as own historian for office visit today FOOT EXAM: Lower Extremity Neurological Exa m performed:: Yes Footwear Evaluation Footwear Evaluation performe d:: Yes Ophthalmology Referral DIABETES EYE EXAM Diabetic Retinopa thy Screening:: Yes Findings of Diabetic Eye Exam:: no retin opathy Heel Pain INSPECTION: CONT, Pain on Pa lpation to Plantar Fascia med. and central bands, intrinsic musc., infra-calcaneal bursa, and med calc tubercle , RIGHT foot, No pain: posterior/superior heel, achilles bursa/tendon, sinus tarsi, peroneals, or with lateral heel compression; no limited STJ ROM, calor, or ecchymosis
--- OUTSIDE RECORDS SUMMARY | 2024-02-28 08:02 | XMS_ITS ---
Author Organization [facility] Address [address] [place] [address] Care Team Providers Care Telephone Sterilizer Name Role Phone Elissa Shaffer MD Primary Care Provider Unavail able Deanna Orourke Unavailable [phone] Encounters Encounter Location Date Provider Diagnosis [address] [address] 02/01/2023 Deanna Orourke Plan Of Treatment No Information Progress Notes * Lizbeth BONNERDOB:1955 (68 yo F)Acc No.[id number]:02/01/2023 Progress Notes Patient:?Lizbeth BONNER Provider:?Deanna Orourke DPM :1955???Age:67 Y???Sex:Female D ate:02/01/2023 Address:[address] [place] [address], [place] [facility] Pcp:Elissa Shaffer MD Subjective: * Chief Complaints: * ??? * Medical History:? Objective: * Vitals:? Assessment: Plan: * Treatment: * Images: * The named appointment provid er may or may not be the originator of this progress note, and it is not deemed complete until electronically signed by the appointment provider. Sign off status: Pending * Provider:?Deanna Orourke DPM Date:? Generated for Nuviai leslie/Taylor/eTransmitting on:?02/28/2024 08:01 AM EST
--- OUTSIDE RECORDS SUMMARY | 2024-02-28 08:02 | XMS_ITS | Continuity of Care Document ---
Author Organization [facility] Address [address] [address] Phone Care Team Providers Care Alumni Coordinator Name Role Phone Ron Banks DO Unavailable Unavailable Advance Directives Directive Yes / No Effective Date File Name No Information Encounters Encounter Description Practice Location Reason(s) For Visit Diagnoses Date Provider Providers Copied on Encounter [facility], [address], [id number], [place] tel:[phone] [place] No Information 6 Darren Velasquez. [address] [place] [address], [id number] , [place]. tel:[phone] Family History Family Member Type Diagnosis Age At Onset No Information Payers Payer name Insurance type Covered republican ID Authoriza tion(s) No Information Social History Type Description Quantity Date Captured Comments Sex Female Smoking Status No Information Chief Complaint And Reason For Visit No Information Reason For Referral Reason For Referral No Information History Of Present Illness Encounter Date Complaint History Of Prese nt Illness No Information Functional Status Date Functional Assessmen t No Information Instructions Date Instruction Additional Infor mation No Information Assessments Type Assessment Date No Information Patient Care Teams Name Effective Dates (start - stop) Status Members No Information
--- OUTSIDE RECORDS SUMMARY | 2024-02-28 08:02 | XMS_ITS ---
Author Organization [facility] Address [address] [place] [address] Care Team Providers Care Contact Manager Name Role Phone Elissa Shaffer MD Primary Care Provider Unavail able Deanna Orourke Unavailable [phone] REASON FOR VISIT Interpretor Encounters Encounter Location Date Provider Diagnosis [facility] [address] [place] [address] 12/18/2022 Deanna Orourke Plan Of Treatment No Information Progress Notes * Lizbeth BONNERDOB:1955 (67 yo F)Acc No.[id number]:12/18/2022 Patient:?Lizbeth Bonner :1955???Age:67 Y???Sex:Female Address:[address] [place] [address] [address], [place], [address] * true * Date:? Generated for Nuviai leslie/Taylor/eTransmitting on:?02/28/2024 08:02 AM EST
--- OUTSIDE RECORDS SUMMARY | 2024-02-28 08:02 | XMS_ITS | Patient Health Record ---
Author Organization [facility] Address [address] [facility] [place] [address] Care Team Providers Care Automobile Tire Builder Name Role Phone Deena KEVIN, Elissa Primary Care Provider Unavail able Deanna Orourke Unavailable [phone] Allergies Allergen (clinical drug ingredient) Drug/Non Drug Allergy documented on EMR Reaction Allergy Type Onset Date Status metformin Metformin stomach upset Drug Allergy Act rama metoprolol Metoprolol leg edema Drug Allergy Activ e tizanidine Tizanidine stomach upset Drug Allergy A ctive Reason For Referral No Information Medications Medication SIG (Take, Route, Frequency, Duration) [...] 70 % as directed 10/17/2022 Active Pen [place] Active Blood Glucose Meter 10/17/2022 Active Rosuvastatin [...] a day for 30 day(s) 10/17/2022 Active Social History Tobacco Use: Social History [...] Are you an other tobacco user? 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
[2024-02-28 08:44] LABS: Estimated Average Glucose 166 mg/dL; Hemoglobin A1C 171.7635 umol/L; Hemoglobin A1c % 7.4 % (<6.0); Total Hemoglobin (HGBA1C) 2997.2431 umol/L
[2024-02-28 08:59] LABS: Alanine Aminotransferase 31 U/L (0-31); Albumin Level 4.3 g/dL (3.5-5.0); Alkaline Phosphatase 52 U/L (39-117); Anion Gap 10 (12-20); Aspartate Amino Transferase 30 U/L (5-31); Bilirubin Total 0.3 mg/dL (0.0-1.0); Blood Urea Nitrogen 26 mg/dL (9-16); Calcium 9.4 mg/dL (8.4-10.2); Carbon Dioxide 31 mmol/L (22-29); Chloride 105 mmol/L (96-108); Estimated Glomerular Filt Rate > 60; Glucose Fasting 151 mg/dL (60-99); Glucose Random 151 mg/dL (60-115); Sodium 142 mmol/L (135-145); Total Protein 7.3 g/dL (6.5-8.0)
[2024-02-28 09:25] LABS: B Type Natriuretic Peptide 44 pg/mL (<100)
[2024-02-28 09:53] LABS: Creatinine Urine 134.29 mg/dL; Microalbum/Creatinine Ratio Ur 88.6 ug/mg cr (<30)
== END 2024-02-28 07:59 | disposition home or self-care (01) ==
LOC: HO.LAB 07:58
PROVIDERS: Internal Medicine Endocrinology, Diabetes & Metabolism; PCP Internal Medicine; Visit Provider Physician Assistant
DX: M81.0 Age-related osteoporosis without current pathological fracture (principal); E11.21 Type 2 diabetes mellitus with diabetic nephropathy; Z79.4 Long term (current) use of insulin; I10 Essential (primary) hypertension; E78.5 Hyperlipidemia, unspecified; E11.9 Type 2 diabetes mellitus without complications
CPT/HCPCS: 36415; 80048; 80053; 82043; 82570; 83036; 83880

== ENCOUNTER 2024-03-13 08:01 | Outpatient (AMB) | payer OTHER, SELFPAY ==
--- OUTSIDE RECORDS SUMMARY | 2024-03-13 08:17 | XMS_ITS | Patient Health Record ---
Author Organization [facility] Address [address] [place] [address] Care Team Providers Care Carpet Tile Layer Name Role Phone Deena KEVIN, Elissa Primary Care Provider Unavail able Deanna Orourke Unavailable [phone] Allergies Allergen (clinical drug ingredient) Drug/Non Drug [...] 70 % as directed 10/17/2022 Active Pen [place] Active Blood Glucose Meter 10/17/2022 Active Rosuvastatin [...] Problem Acquired hammer toe of right foot (396667257006 9105) Other hammer toe(s) (acquired), right foot (M20.41) Active confirmed Problem Acquired hammer toe of left foot (663240515176 9103) Other hammer toe(s) (acquired), left foot (M20.42) Active confirmed Problem 52448038 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 Plan [address] [place] [phone] [id number] Lizbeth Bonner Self - patient is the insured Medical (General) History Medical History History ICD Code Arthritis Back,Hip,and Knee pain covid-19 Diabetic High blood pressure Kidney disease Poor circulation ulcer Mumps Chicken pox
--- OUTSIDE RECORDS SUMMARY | 2024-03-13 08:17 | XMS_ITS ---
Author Organization [facility] Address [address] [place] [address] Care Team Providers Care Teasel Gig Operator Name Role Phone Elissa Shaffer MD Primary Care Provider Unavail able Deanna Orourke Unavailable [phone] REASON FOR VISIT Interpretor Encounters Encounter Location Date Provider Diagnosis [facility] [address] [place] [address] 12/18/2022 Deanna Orourke Plan Of Treatment No Information Progress Notes * Lizbeth BONNERDOB:1955 (67 yo F)Acc No.[id number]:12/18/2022 Patient:?Lizbeth Bonner :1955???Age:67 Y???Sex:Female Address:[address] [place] [address] [address], [place], [address] * true * Date:? Generated for Printi leslie/Taylor/eTransmitting on:?03/13/2024 08:16 AM EST
--- OUTSIDE RECORDS SUMMARY | 2024-03-13 08:17 | XMS_ITS ---
Author Organization [facility] Address [address] [place] [address] Care Team Providers Care Water Aerobics Instructor Name Role Phone Elissa Shaffer MD Primary Care Provider Unavail able Deanna Orourke Unavailable [phone] Encounters Encounter Location Date Provider Diagnosis [address] [address] 02/01/2023 Deanna Orourke Plan Of Treatment No Information Progress Notes * Lizbeth BONNERDOB:1955 (68 yo F)Acc No.[id number]:02/01/2023 Progress Notes Patient:?Lizbeth BONNER Provider:?Deanna Orourke DPM :1955???Age:67 Y???Sex:Female D ate:02/01/2023 Address:[address] [place] [address], [place] [facility] Pcp:Elissa Shaffer MD Subjective: * Chief Complaints: [...] Orourke DPM Date:? Generated for Nuviai leslie/Taylor/eTransmitting on:?03/13/2024 08:16 AM EST
--- OUTSIDE RECORDS SUMMARY | 2024-03-13 08:17 | XMS_ITS | Continuity of Care Document ---
Author Organization [facility] Address [address] [address] Phone Care Team Providers Care Automatic Thread Winder Name Role Phone Ron Banks DO Unavailable Unavailable Advance Directives Directive Yes / No Effective Date File Name No Information Encounters Encounter Description Practice Location Reason(s) For Visit Diagnoses Date Provider Providers Copied on Encounter [facility], [address], [id number], [place] tel:[phone] [place] No Information 6 Darren Velasquez. [address] [place] [address], [id number] , [place]. tel:[phone] Family History Family Member Type Diagnosis Age [...]
--- OUTSIDE RECORDS SUMMARY | 2024-03-13 08:17 | XMS_ITS ---
[facility] Address [address] [facility] [address] Care Team Providers Care Business Services Clerk Name Role Phone Elissa Shaffer MD Primary Care Provider Unavail able Deanna Orourke Unavailable [phone] Allergies Allergen (clinical drug ingredient) Drug/Non Drug [...] MG Oral for 90 Days Active Pen [place] Active Rosuvastatin Calcium 10 MG TAKE 1 [...] 023 Encounters Encounter Location Date Provider Diagnosis [facility] [address] [place] [address] 12/14/2022 Deanna Orourke Other hammer toe(s) (acquired), [...] Notes * Lizbeth BONNERDOB:1955 (67 yo F)Acc No.[id number]:12/14/2022 Progress Notes Patient:?Lizbeth Bonner Provider:?Deanna Orourke DPM :1955???Age:67 Y???Sex:Female D ate:12/14/2022 Address:[address] [place] [address], [facility] Pcp:Elissa Shaffer MD Subjective: * Chief Complaints: * ???PCP - 06/2022Heel painToe Irritation * HPI: ???Heel pain:?Location:?Proximal plantar aspect of Heel, RIGHT.?Duration:?a year or more.?Onset/Cause:?unknown , denies trauma.?Course:?worse.?Aggrevated:?standing, walking, walking first thing in the morning/after rest.?Treatments:?rest , corticosteriod injection x 3 by another flight simulator teacher relates no improvement with injections, , change in shoes , stretching , Custom compounded topical anti-inflammatory cream.?Misc:?Pt has adobe cq developer present.?Toe pain:?Location:?B/L feet.?Duration:?several years.?Course:?worse.?Aggrevated by:?shoes, any pressure.?Treatments:?Pt [...] 20 MG Capsule Delayed Release Oral Pen [place] Rosuvastatin Calcium 10 MG Tablet TAKE 1 [...] MG Capsule Delayed Release Oral Taking Pen [place] Taking Rosuvastatin Calcium 10 MG Tablet TAKE [...] Interfil injection therapy, as well as surgical [place]/Endoscopic Fasciitomy surgical procedures if needed. Recommendations were [...] painful condition.?Physical Therapy:?Discussed the potential short and termite exterminator benefits of physical therapy including pain relief, [...] Orourke DPM Date:? Generated for Tyrese nelson/Taylor/Sharmin on:?03/13/2024 08:16 AM EST History and Physical Notes * HPI (History of Present Illness) Category Sub-Category Detail Notes Category Not es Heel pain Duration: a year or more Location: Proximal plantar asp ect of Heel, RIGHT Onset/Cause: unknown , denies tra josi Aggravated: standing, walking, w alking first thing in the morning/after rest Course: worse Treatments: rest , corticosterio d injection x 3 by another flight simulator teacher relates no improvement with injections, , change in shoes , stretching , Custom compounded topical anti-inflammatory cream Misc: Pt has adobe cq developer pr esent Toe pain Location: B/L feet [...]
--- NOTE | 2024-03-13 08:20 | A.OFFVIS_ITS ---
Vital Signs 03/13/24 08:26 Height 5 ft 2 in Weight 136 lb 10.986 oz BMI 25.0 BP 122/68 Blood Pressure Location Rt brachial Position Sitting Pulse 68 Pulse Source Pulse Oximeter Intake Visit Reasons: DM Intake Note: Patient presents today for a follow-up on Type 2 Diabetes Mellitus: Last Diabetic eye exam was on: 04/18/2023 Last Podiatry exam was on: Does not see a Rabies Inspector Most recent HbA1c: 7.4%, 02/28/2024 Random Glucose- 108 mg/dL, Today Miner Assistant Required: Yes Miner Assistant Language: Pattern And Chain Maker Services: Miner Assistant Present Miner Assistant Name: VINCENT Kenyon/RADHA RODRIGUEZ Accompanied by: Self / Same As Patient Allergies gabapentin Allergy (Intermediate, Verified 03/13/24 08:22) pruritus metformin Allergy (Intermediate, Verified 03/13/24 08:22) stomach upset metoprolol Allergy (Intermediate, Verified 03/13/24 08:22) upset stomach tizanidine Allergy (Intermediate, Verified 03/13/24 08:22) leg edema HPI HPI DM: Details: Patient is a 68-year-old female with a significant past medical history of hyperparathyroidism, multinodular thyroid, hypertension, hyperlipidemia, type 2 diabetes, chronic kidney disease, long-term use of insulin presenting today for a diabetic follow-up. Miner Assistant: Mery Richardson: Her last A1c was 7.4. She is currently on Lantus 25 units nightly, Humalog 11 units TID (dosage was previously lower) and ozempic 0.25 mg. -d/c'd ozempic due to GI distress. She had n/v/d. -She states she is getting some lows around 2-3 AM. She states she is trying to eat very carefully with increased protein and vegetables. She corrects lows with juice/sweets. States that nothing lower than 65. She states that she is high around the whole afternoon. -she was initially treated with metformin but discontinued due to GI distress. Intolerant of SGLT2 due to vaginal irritation. She states she tried trulicity and ozempic but did not tolerate these (cannot remember exact reaction but believes it was GI distress). CGM-freestyle Pau 3 download shows hyperglycemic 40%, in range 59%, hypoglycemia 1% Hypoglycemia- she states she will feel sweaty. corrects with oj and apple juice Hyperglycemia- sometimes will notice thirst CV: Blood pressure today in the office is 122/68. She is currently on amlodipine 5 mg, HCTZ 25 mg and losartan 100 mg daily. Cholesterol is controlled with Crestor 10 mg. No myalgias. Last LFTs and lipids WNL. Nephro. Follows with [facility] last note in system from 2020 [facility] Medical History T2DM (type 2 diabetes mellitus) Hyperparathyroidism Multinodular thyroid Goiter Vitamin D deficiency Anemia Right hand pain Diabetes type 2, uncontrolled Hyperlipidemia LDL goal <100 Osteoporosis Chronic kidney disease, stage 2 (mild) Long-term use of aspirin therapy GERD (gastroesophageal reflux disease) Dyslipidemia Essential hypertension manager terminal (current) use of insulin Screening for osteoporosis Well woman exam Depression with anxiety Fibromyalgia Surgical History History of colonoscopy History of tubal ligation Family History Father No problems noted. Mother Asthma Hypertension Chronic mental illness Diabetes Mental health disorder Family/Other Chronic mental illness Mental health disorder Social History Household Members: None Housing: Apartment Alcohol intake: never Patient Tobacco Use Status: Never used Tobacco e-Cigarette/Vaping Use: Never Used Second Hand Smoke Exposure: No service: No Current occupational status: disabled Sexual orientation: Straight/Heterosexual Gender identity: Female Cognitive needs: No Hearing needs: No Vision needs: Yes Female Reproductive History Menstrual Age of Menarche: 12 Physical Exam Vital Signs: Last Vital Signs Pulse 68 03/13/24 08:26 BP 122/68 03/13/24 08:26 BMI result Body Mass Index 25.0 Const Orientation/consciousness: patient oriented x3 HEENT Ears: hearing grossly normal bilaterally Neck Thyroid: Thyroid normal Lymphatic: no lymphadenopathy noted Resp Auscultation: clear to auscultation bilaterally Cardio Rate: regular rate Rhythm: regular rhythm Heart sounds: S1 normal heart sound present and S2 normal heart sound present Skin General skin exam: no rashes or lesions noted Neuro General: patient oriented x3, gait normal and no focal motor deficits Results Reviewed Results Reviewed: Laboratory Tests 12/05/23 02/28/24 02/28/24 08:57 08:11 08:15 Sodium 142 Potassium 4.0 Chloride 105 Carbon Dioxide 31 H Anion Gap 10 L BUN 26 H Creatinine 0.87 Estimated GFR > 60 Hemoglobin A1c % 7.4 H AST 30 ALT 31 Triglycerides 94 Cholesterol 122 LDL Cholesterol, Calc 57 HDL Cholesterol 47 Urine Microalbumin 119.0 Microalb/Creat Ratio 88.6 H Assessment & Plan Assessment & Plan (1) Type 2 diabetes mellitus with diabetic nephropathy, with long-term current use of insulin: Code(s): E11.21 - Type 2 diabetes mellitus with diabetic nephropathy; Z79.4 - manager terminal (current) use of insulin Category: Medical Plan: I will increase Lantus to 30 units. We will decrease Humalog to 8 units. We will trial Mounjaro. Discussed risks and benefits and adverse effects of this medication. I will have her do a short term follow up in 2-3 weeks to be reassessed. Sooner if needed. Patient understands and agrees with this plan. (2) Essential hypertension: Code(s): I10 - Essential (primary) hypertension Category: Medical Plan: WNL. Continue current regimen (3) Hyperlipidemia LDL goal <100: Code(s): E78.5 - Hyperlipidemia, unspecified Category: Medical Plan: WNL. Continue current regimen Medications: New tirzepatide (Mounjaro) 2.5 mg (0.5 mL) subcut QWEEK 2 mL 2RF Changed From insulin lispro (Humalog KwikPen (U-100) Insulin) 3 units (0.03 mL) subcut TID 15 mL 1RF E11.65 - Type 2 diabetes mellitus with hyperglycemia To insulin lispro (Humalog KwikPen (U-100) Insulin) 8 units (0.08 mL) subcut TID 15 mL 1RF E11.65 - Type 2 diabetes mellitus with hyperglycemia Coding Level of Care Code Est Pt Level 4 (99068) Complex EM visit Add On G2211 Diagnoses Type 2 diabetes mellitus with diabetic nephropathy, with long-term current use of insulin E11.21; Z79.4 Essential hypertension I10 Hyperlipidemia LDL goal <100 E78.5
[2024-03-13 08:26] VITALS: BP 122/68; PULSE 68; BMI 25.0
[2024-03-13 08:30] LABS: Glucose, Whole Blood 108 mg/dL (60-115)
== END 2024-03-13 08:44 | disposition home or self-care (01) ==
PROVIDERS: PCP Internal Medicine; Visit Provider Physician Assistant
DX: E11.21 Type 2 diabetes mellitus with diabetic nephropathy (principal); Z79.4 Long term (current) use of insulin; I10 Essential (primary) hypertension; E78.5 Hyperlipidemia, unspecified

== ENCOUNTER → 2024-03-13 08:01 | Outpatient (BNVA) | payer OTHER, SELFPAY | PROVIDERS: PCP Internal Medicine; Visit Provider Physician Assistant | DX: E11.21 Type 2 diabetes mellitus with diabetic nephropathy (principal); E11.65 Type 2 diabetes mellitus with hyperglycemia; I10 Essential (primary) hypertension; E78.5 Hyperlipidemia, unspecified; Z79.4 Long term (current) use of insulin | CPT/HCPCS: 82947; 99212 ==

== ENCOUNTER 2024-03-16 10:26 | Outpatient (AMB) | payer OTHER, SELFPAY ==
--- OUTSIDE RECORDS SUMMARY | 2024-03-16 10:31 | XMS_ITS ---
Author Organization [facility] Address [address] [place] [address] Care Team Providers Care Building Trades Instructor Name Role Phone Elissa Shaffer MD Primary Care Provider Unavail able Deanna Orourke Unavailable [phone] REASON FOR VISIT Interpretor Encounters Encounter Location Date Provider Diagnosis [facility] [address] [place] [address] 12/18/2022 Deanna Orourke Plan Of Treatment No Information Progress Notes * Lizbeth BONNERDOB:1955 (67 yo F)Acc No.[id number]:12/18/2022 Patient:?Lizbeth Bonner :1955???Age:67 Y???Sex:Female Address:[address] [place] [address] [address], [place], [address] * true * Date:? Generated for Printi ng/Taylor/eTransmitting on:?03/16/2024 10:30 AM EST
--- OUTSIDE RECORDS SUMMARY | 2024-03-16 10:31 | XMS_ITS ---
Author Organization [facility] Address [address] [place] [address] Care Team Providers Care Perl Programmer Name Role Phone Elissa Shaffer MD Primary Care Provider Unavail able Deanna Orourke Unavailable [phone] Encounters Encounter Location Date Provider Diagnosis [address] [address] 02/01/2023 Deanna Orourke Plan Of Treatment No Information Progress Notes * Lizbeth BONNERDOB:1955 (68 yo F)Acc No.[id number]:02/01/2023 Progress Notes Patient:?Lizbeth BONNER Provider:?Deanna Orourke DPM :1955???Age:67 Y???Sex:Female D ate:02/01/2023 Address:[address] [place] [address], [place] [facility] Pcp:Elissa Shaffer MD Subjective: * Chief Complaints: * ??? * Medical History:? Objective: * Vitals:? Assessment: Plan: * Treatment: * Images: * The named appointment provid er may or may not be the originator of this progress note, and it is not deemed complete until electronically signed by the appointment provider. Sign off status: Pending * Provider:?Deanna Orourke DPM Date:? Generated for Nuviai leslie/Fashay/eTransmitting on:?03/16/2024 10:30 AM EST
--- OUTSIDE RECORDS SUMMARY | 2024-03-16 10:31 | XMS_ITS | Continuity of Care Document ---
Author Organization [facility] Address [address] [address] Phone Care Team Providers Care Fence Setter Name Role Phone Ron Banks DO Unavailable Unavailable Advance Directives Directive Yes / No Effective Date File Name No Information Encounters Encounter Description Practice Location Reason(s) For Visit Diagnoses Date Provider Providers Copied on Encounter [facility], [address], [id number], [place] tel:[phone] [place] No Information 6 Darren Velasquez. [address] [place] [address], [id number] , [place]. tel:[phone] Family History Family Member Type Diagnosis Age [...]
--- OUTSIDE RECORDS SUMMARY | 2024-03-16 10:31 | XMS_ITS ---
Author Organization [facility] Address [address] [place] [address] Care Team Providers Care Marble Machine Tender Name Role Phone Elissa Shaffer MD Primary Care Provider Unavail able Deanna Orourke Unavailable [phone] Allergies Allergen (clinical drug ingredient) Drug/Non Drug [...] MG Oral for 90 Days Active Pen Dona Ana Active Rosuvastatin Calcium 10 MG TAKE 1 [...] 023 Encounters Encounter Location Date Provider Diagnosis [facility] [address] [place] [address] 12/14/2022 Deanna Orourke Other hammer toe(s) (acquired), [...] Notes * Lizbeth BONNERDOB:1955 (67 yo F)Acc No.[id number]:12/14/2022 Progress Notes Patient:?Lizbeth Bonner Provider:?Deanna Orourke DPM :1955???Age:67 Y???Sex:Female D ate:12/14/2022 Address:[address] [place] [address], [facility] Pcp:Elissa Shaffer MD Subjective: * Chief Complaints: * ???PCP - 06/2022Heel painToe Irritation * HPI: ???Heel pain:?Location:?Proximal plantar aspect of Heel, RIGHT.?Duration:?a year or more.?Onset/Cause:?unknown , denies trauma.?Course:?worse.?Aggrevated:?standing, walking, walking first thing in the morning/after rest.?Treatments:?rest , corticosteriod injection x 3 by another custom feed mill operator relates no improvement with injections, , change in shoes , stretching , Custom compounded topical anti-inflammatory cream.?Misc:?Pt has comb machine operator present.?Toe pain:?Location:?B/L feet.?Duration:?several years.?Course:?worse.?Aggrevated by:?shoes, any [...] 20 MG Capsule Delayed Release Oral Pen Dona Ana Rosuvastatin Calcium 10 MG Tablet TAKE 1 [...] MG Capsule Delayed Release Oral Taking Pen Dona Ana Taking Rosuvastatin Calcium 10 MG Tablet TAKE [...] Interfil injection therapy, as well as surgical [place]/Endoscopic Fasciitomy surgical procedures if needed. Recommendations were [...] painful condition.?Physical Therapy:?Discussed the potential short and drafter commercial benefits of physical therapy including pain relief, [...] Orourke DPM Date:? Generated for Tyrese nelson/Taylor/Sharmin on:?03/16/2024 10:31 AM EST History and Physical Notes * HPI (History of Present Illness) Category Sub-Category Detail Notes Category Not es Heel pain Duration: a year or more Location: Proximal plantar asp ect of Heel, RIGHT Onset/Cause: unknown , denies tra josi Aggravated: standing, walking, w alking first thing in the morning/after rest Course: worse Treatments: rest , corticosterio d injection x 3 by another custom feed mill operator relates no improvement with injections, , change in shoes , stretching , Custom compounded topical anti-inflammatory cream Misc: Pt has comb machine operator pr esent Toe pain Location: B/L [...]
--- OUTSIDE RECORDS SUMMARY | 2024-03-16 10:31 | XMS_ITS | Patient Health Record ---
Author Organization [facility] Address [address] [place] [address] Care Team Providers Care Flight Crew Scheduler Name Role Phone Deena KEVIN, Elissa Primary Care Provider Unavail able Deanna Orourke Unavailable [phone] Allergies Allergen (clinical drug ingredient) Drug/Non Drug [...] 70 % as directed 10/17/2022 Active Pen Driscoll Active Blood Glucose Meter 10/17/2022 Active Rosuvastatin [...] Problem Acquired hammer toe of right foot (596686863913 9105) Other hammer toe(s) (acquired), right foot (M20.41) Active confirmed Problem Acquired hammer toe of left foot (023269894185 9103) Other hammer toe(s) (acquired), left foot (M20.42) Active confirmed Problem [id number] 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) Active confirmed Plan Of Treatment Pending Test Test Name Order Date X ray : Foot, right 3V 11/07/2022 Insurance Providers Payer Name Payer Address Payer Phone Subscriber Number Group Number Insured Name Patient Relationship to Insured Coverage Start Date Coverage End Date [facility] Plan [address] [place]ke[place] [phone] [id number] Lizbeth Bonner Self - patient is the insured Medical (General) History Medical History History ICD Code Arthritis Back,Hip,and Knee pain covid-19 Diabetic High blood pressure Kidney disease Poor circulation ulcer Mumps Chicken pox
--- NOTE | 2024-03-16 10:59 | AM.OFFVISNUR ---
Intake Visit Reasons: Prolia Injection Allergies gabapentin Allergy (Intermediate, Verified 03/13/24 08:22) pruritus metformin Allergy (Intermediate, Verified 03/13/24 08:22) stomach upset metoprolol Allergy (Intermediate, Verified 03/13/24 08:22) upset stomach tizanidine Allergy (Intermediate, Verified 03/13/24 08:22) leg edema Office Meds Prolia 60 mg/mL subcutaneous syringe Performing Provider: Arnulfo Crane MD Performing Location: [facility] Endocrinology Administered by: Cielo Ross RN on 03/16/24 10:59 Dose Route Admin Location Dispensed Lot Number Expiration Date NDC Roll Forming Machine Set Up Mechanic 60 mg subcut left upper arm 1 mL [id number] 08/15/25 67824-146-44 AMGEN Comments: Consent form signed by patient. Pt tolerated injection well. Pt reporting slight headache after injection that resolves. No further adverse reactions. Assessment & Plan Assessment & Plan Orders: Orders AMB Denosumab Injection Patient Supplied Today M81.0 - Age-related osteoporosis without current pathological fracture Medications: New Prolia (denosumab) 60 mg subcut ONCE 1 mL 0RF NS M81.0 - Age-related osteoporosis without current pathological fracture
== END 2024-03-16 10:58 | disposition home or self-care (01) ==
PROVIDERS: PCP Internal Medicine
DX: M81.0 Age-related osteoporosis without current pathological fracture (principal)

== ENCOUNTER → 2024-03-16 10:26 | Outpatient (BNVA) | payer OTHER, SELFPAY | PROVIDERS: PCP Internal Medicine | DX: M81.0 Age-related osteoporosis without current pathological fracture (principal) | CPT/HCPCS: 96372; J0897 ==

== ENCOUNTER 2024-03-26 10:16 | Outpatient (AMB) | payer OTHER, SELFPAY ==
--- NOTE | 2024-03-26 10:29 | A.OFFPC_ITS ---
Vital Signs 03/26/24 10:32 Height 5 ft 2 in Weight 133 lb BMI 24.3 BP 130/62 Blood Pressure Location Lt brachial Position Sitting Intake Visit Reasons: dm-see comm Intake Note: Patient here for a follow up DM Mailroom Personnel Required: No Accompanied by: Self / Same As Patient Allergies gabapentin Allergy (Intermediate, Verified 03/26/24 11:02) pruritus metformin Allergy (Intermediate, Verified 03/26/24 11:02) stomach upset metoprolol Allergy (Intermediate, Verified 03/26/24 11:02) upset stomach tizanidine Allergy (Intermediate, Verified 03/26/24 11:02) leg edema Medication List - Last Reconciled 03/26/24 by Elissa Salas MD alcohol swabs (Alcohol Prep Pads) 1 pad topical QID 30 days amlodipine 5 mg PO DAILY 90 days aspirin 81 mg PO DAILY 90 days blood sugar diagnostic (Learn with Homeruch Verio test strips) Use 1 test strip four times a day blood-glucose meter (SQMOS Verio Flex Meter) As directed blood-glucose meter,continuous (FreeStyle Pau 3 [place]) As directed blood-glucose sensor (FreeStyle Pau 3 Sensor device) Apply every 14 days As directed to monitor blood glucose calcium citrate 500 mg (2 x 250 mg calcium) PO BID cholecalciferol (vitamin D3) 50 mcg PO DAILY citalopram 20 mg PO DAILY denosumab (Prolia) 60 mg subcut [id number] gabapentin 100 mg PO DAILY glucose (Dex4 Glucose) 16 grams (4 x 4 gram) PO Q15M PRN hydrochlorothiazide 25 mg PO DAILY insulin glargine (Lantus Solostar U-100 Insulin) 30 units (0.3 mL) subcut QPM insulin lispro (Humalog KwikPen (U-100) Insulin) 8 units (0.08 mL) subcut TID lancets (SQMOS Delica Plus Lancet) As directed lidocaine 5% 1 patch topical DAILY losartan 100 mg PO DAILY 90 days omeprazole 20 mg PO QAM 90 days pen needle, diabetic Use 1 pen needle three times a day rosuvastatin 10 mg PO DAILY tirzepatide (Mounjaro) 2.5 mg (0.5 mL) subcut QWEEK Tobacco use date assessed: 03/26/24 Fall risk assessment: No Falls in past year Last assessed Fall Risk: 03/26/24 Dental Screening Dental Screen Date: 03/26/24 Did you have a dental visit in the last 12 months?: Yes Did you have a dental problem in the last 6 months where you did not have access to dental care?: No Was dental information given to patient?: Patient has dentist HPI HPI Comments History of Present Illness Details The patient is a 68-year-old female presenting with diabetes mellitus for follow-up. Her last hemoglobin A1c was 7.4%, conducted last month at this facility. She adheres to a treatment regimen including insulin therapy with Lantus and Humalog. In addition to diabetes, she has a history of hypertension and hyperlipidemia, managed with hydrochlorothiazide, losartan, and rosuvastatin. The patient's gastrointestinal history includes gastroesophageal reflux disease, for which she takes omeprazole. Additionally, she had a colonoscopy in 2017 that revealed internal hemorrhoids but reports no recommendation for repeat evaluation until the typical 10-year interval. Her current diabetes management appears stable, and she continues with endocrinology support. She has not smoked or consumed alcohol. Also has depression with anxiety that has been stable with citalopram. [facility] Medical History (Updated 03/26/24 @ 13:28 by Elissa Salas MD) T2DM (type 2 diabetes mellitus) Hyperparathyroidism Multinodular thyroid Goiter Vitamin D deficiency Anemia Right hand pain Diabetes type 2, uncontrolled Hyperlipidemia LDL goal <100 Osteoporosis Chronic kidney disease, stage 2 (mild) Long-term use of aspirin therapy GERD (gastroesophageal reflux disease) Dyslipidemia Essential hypertension rn long term care (current) use of insulin Screening for osteoporosis Well woman exam Depression with anxiety Fibromyalgia Surgical History History of colonoscopy History of tubal ligation Family History Father No problems noted. Mother Asthma Hypertension Chronic mental illness Diabetes Mental health disorder Family/Other Chronic mental illness Mental health disorder Social History Household Members: None Housing: Apartment Alcohol intake: never Patient Tobacco Use Status: Never used Tobacco e-Cigarette/Vaping Use: Never Used Second Hand Smoke Exposure: No service: No Current occupational status: disabled Sexual orientation: Straight/Heterosexual Gender identity: Female Cognitive needs: No Hearing needs: No Vision needs: Yes Female Reproductive History Menstrual Age of Menarche: 12 Questionnaire PHQ-9 Over the last 2 weeks, how often have you been bothered by any of the following problems? 1. Little interest or pleasure in doing things: not at all 2. Feeling down, depressed, or hopeless: not at all 3. Trouble falling or staying asleep, or sleeping too much: not at all 4. Feeling tired or having little energy: not at all 5. Poor appetite or overeating: not at all 6. Feeling bad about yourself - or that you are a failure or have let yourself or your family down: not at all 7. Trouble concentrating on things, such as reading the newspaper or watching television: not at all 8. Moving or speaking so slowly that other people could have noticed. Or the opposite - being so fidgety or restless that you have been moving around a lot more than usual: not at all 9. Thoughts that you would be better off or of hurting yourself in some way: not at all Total score: 0 Depression Screening Interpretation: Negative Depression Screening Done: Yes 82657 - PHQ-9 Billing: Yes Source: Developed by Drs. Arnulfo Ray, Marjorie Holbrook, Brannon Dallas and colleagues, with an educational lorena from [employer]. Thrive Questionnaire Date Thrive assessed: 03/26/24 I am a: Patient What is your living situation today?: I have a steady place to live Within the past 12 months, did the food you bought not last and you didn't have the money to get more?: Never true Within the past 12 months, did you worry whether your food would run out before you got money to buy more?: Never true Do you have trouble paying for medicines?: No Do you have trouble getting transportation to medical appointments?: No Do you have trouble paying your heating and electricity bill?: No Do you have trouble taking care of your child, family member or friend?: No Do you have trouble with day-to-day activities such as bathing, preparing meals, shopping, managing finances, etc.?: No Are you currently unemployed and looking for a job?: No Are you interested in more education?: No Please select the resources that you would like help with: None Currently or been in a relationship where the following occur: No concerns reported THRIVE Score: 0 AUDIT C Alcohol Use Questionnaire (AUDIT-C) 1. How often do you have a drink containing alcohol?: Never Total Score: 0 Score Reviewed/Action Taken: No TENISHA-7 AMB Questionnaire TENISHA-7 Date TENISHA - 7 assessed: 03/26/24 Feeling nervous, anxious, or on edge: 0 = Not at all Not being able to stop or control worryin = Not at all Worrying too much about different things: 0 = Not at all Trouble relaxin = Not at all Being so restless that it is hard to sit still: 0 = Not at all Becoming easily annoyed or irritable: 0 = Not at all Feeling afraid as if something awful might happen: 0 = Not at all Total TENISHA-7 score (0-4 normal; 5-9 mild; 10-14 moderate; 15-21 severe): 0 Source: Developed by Drs. Arnulfo Ray, Marjorie Holbrook, Brannon Dallas and colleagues, with an educational lorena from [employer]. TENISHA-7 Assessment Billing TENISHA-7 Assessment Tool: TENISHA-7 Assessment 16329 Review of Systems Const All systems reviewed & are unremarkable except as noted in HPI and below Card Denies chest pain at rest, Denies chest pain with activity, Denies edema, Denies irregular heart rhythm, Denies claudication, Denies orthopnea, Denies paroxysmal nocturnal dyspnea and Denies slow heart rate Physical exam (Primary Care) Vital Signs: Last Vital Signs BP 130/62 03/26/24 10:32 BMI result Body Mass Index 24.3 Tobacco/Smoking Status: Tobacco use Status Tobacco use date assessed 03/26/24 03/26/24 10:34 Patient Tobacco Use Status Never used Tobacco 03/26/24 10:34 e-Cigarette/Vaping Use Never Used 03/26/24 10:34 PHQ-9: PHQ-9 Score PHQ-9: Total score 0 03/26/24 11:03 Depression Screening Interpretation: Negative Thrive Assessment: Date of Thrive Assessment Date Thrive assessed 03/26/24 03/26/24 10:34 Currently or been in a relationship where the following occur: No concerns reported Resp Effort & Inspection: normal respiratory effort Auscultation: clear to auscultation bilaterally Cardio Jugular venous distension: no JVD Rate: regular rate Rhythm: regular rhythm Heart sounds: S1 normal heart sound present and S2 normal heart sound present Extrem General: Yes full ROM Office Procedures Flu Questionnaire Does the patient have a severe egg allergy?: No Immunizations Fluarix Triv [id number] (PF) 45 mcg (15 mcg x 3)/0.5 mL IM syringe Performing Provider: Elissa Salas MD [facility] Documented (not given) by: VINCENT Cullen on 03/26/24 10:38 Reason Not Given: Patient Refused Coding Level of Care Code Est Pt Level 4 (56876) Complex EM visit Add On G2211 Diagnoses Type 2 diabetes mellitus with diabetic nephropathy, with long-term current use of insulin E11.21; Z79.4 Essential hypertension I10 Dyslipidemia E78.5 Gastroesophageal reflux disease, unspecified whether esophagitis present K21.9 Esophagitis presence: esophagitis presence not specified Mild major depression F32.0 Additional Codes TENISHA-7 Assessment Billing - TENISHA-7 Assessment Tool: TENISHA-7 Assessment 54469 ([id number]) PHQ-9 - 22382 - PHQ-9 Billing: Yes ([id number]) Time Spent (min) 21 Assessment & Plan Assessment & Plan (1) Type 2 diabetes mellitus with diabetic nephropathy, with long-term current use of insulin: Code(s): E11.21 - Type 2 diabetes mellitus with diabetic nephropathy; Z79.4 - FPC (current) use of insulin Category: Medical (2) Essential hypertension: Code(s): I10 - Essential (primary) hypertension Category: Medical (3) Dyslipidemia: Code(s): E78.5 - Hyperlipidemia, unspecified Category: Medical (4) GERD (gastroesophageal reflux disease): Code(s): K21.9 - Gastro-esophageal reflux disease without esophagitis Category: Medical Qualifiers: Esophagitis presence: esophagitis presence not specified Qualified Code(s): K21.9 - Gastro-esophageal reflux disease without esophagitis (5) Mild major depression: Code(s): F32.0 - Major depressive disorder, single episode, mild Category: Medical Plan - Continue current management with Lantus and Humalog for diabetes mellitus. Coordination with endocrinology will remain in place. - Maintain antihypertensive therapy with hydrochlorothiazide and losartan. Regular monitoring of blood pressure is advised. - Continue treatment with rosuvastatin for hyperlipidemia. Lipid panel to be assessed at follow-up. - Omeprazole should be continued for management of GERD symptoms. - No current indication for follow-up colonoscopy for internal hemorrhoids unless symptoms arise. Patient was informed and verbally consented to the use of an ambient scribe for clinic note documentation during this visit. During this visit, I discussed the ongoing management of diabetes mellitus, emphasizing the importance of insulin adherence and monitoring blood glucose levels. The hemoglobin A1c result demonstrates adequate diabetes control. I advised the patient to continue current antihypertensive and lipid-lowering therapies to manage hypertension and hyperlipidemia, respectively. We reviewed the ongoing management of gastroesophageal reflux disease with omeprazole. Additionally, I confirmed that no immediate follow-up is necessary for her internal hemorrhoid diagnosis unless future symptoms suggest otherwise. The next visit will include an evaluation of cholesterol levels, requiring fasting prior to testing. We discussed lifestyle maintenance and the patient expressed understanding of the ongoing plan. Orders: Orders Comprehensive [place]. Panel Fast 4 Months E11.21 - Type 2 diabetes mellitus with diabetic nephropathy, Z79.4 - FPC (current) use of insulin Vitamin D 25-OH Total 4 Months E55.9 - Vitamin D deficiency, unspecified Influenza 7840-1094 Immunization Today Z23 - Encounter for immunization Lipid Panel 4 Months E78.5 - Hyperlipidemia, unspecified Microalbumin, Random (w Creat) 4 Months R80.9 - Proteinuria, unspecified Patient Instructions: - Continue all current medications as prescribed. - Ensure full fasting prior to the next laboratory appointment for cholesterol testing. - Monitor blood glucose levels regularly and adhere to insulin regimen. - Report any new symptoms of gastrointestinal discomfort or rectal bleeding. - Maintain healthy lifestyle habits to support chronic condition management. - Return for scheduled follow-up appointments as advised.
[2024-03-26 10:32] VITALS: BP 130/62; BMI 24.3
--- OUTSIDE RECORDS SUMMARY | 2024-03-26 10:51 | XMS_ITS | Patient Health Record ---
Author Organization [facility] Address [address] [place] [address] Care Team Providers Care Welder Experimental Name Role Phone Deena KEVIN, Elissa Primary Care Provider Unavail able Deanna Orourke Unavailable [phone] Allergies Allergen (clinical drug ingredient) Drug/Non Drug [...] 70 % as directed 10/17/2022 Active Pen Mcdaniels Active Blood Glucose Meter 10/17/2022 Active Rosuvastatin [...] Problem Acquired hammer toe of right foot (828009767988 9105) Other hammer toe(s) (acquired), right foot (M20.41) Active confirmed Problem Acquired hammer toe of left foot (174306122957 9103) Other hammer toe(s) (acquired), left foot (M20.42) Active confirmed Problem 31429385 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 Plan [address] [place] [phone] [id number] Lizbeth Bonner Self - patient is the insured Medical (General) History Medical History History ICD Code Arthritis Back,Hip,and Knee pain covid-19 Diabetic High blood pressure Kidney disease Poor circulation ulcer Mumps Chicken pox
--- OUTSIDE RECORDS SUMMARY | 2024-03-26 10:51 | XMS_ITS ---
Author Organization [facility] Address [address] [place] [address] Care Team Providers Care Acid Tank Cleaner Name Role Phone Elissa Shaffer MD Primary Care Provider Unavail able Deanna Orourke Unavailable [phone] REASON FOR VISIT Interpretor Encounters Encounter Location Date Provider Diagnosis [facility] [address] [place] [address] 12/18/2022 Deanna Orourke Plan Of Treatment No Information Progress Notes * Lizbeth BONNERDOB:1955 (67 yo F)Acc No.[id number]:12/18/2022 Patient:?Lizbeth Bonner :1955???Age:67 Y???Sex:Female Address:[address] [place] [address] [address], [place], [address] * true * Date:? Generated for Nuviai leslie/Taylor/eTransmitting on:?03/26/2024 10:51 AM EST
--- OUTSIDE RECORDS SUMMARY | 2024-03-26 10:51 | XMS_ITS ---
[facility] Organization [facility] Address [address] [place] [address] Care Team Providers Care Boarding Mother Name Role Phone Elissa Shaffer MD Primary Care Provider Unavail able Deanna Orourke Unavailable [phone] Allergies Allergen (clinical drug ingredient) Drug/Non Drug [...] MG Oral for 90 Days Active Pen Fulton Active Rosuvastatin Calcium 10 MG TAKE 1 [...] 023 Encounters Encounter Location Date Provider Diagnosis [facility] [address] [place] [address] 12/14/2022 Deanna Orourke Other hammer toe(s) (acquired), [...] Notes * Lizbeth BONNERDOB:1955 (67 yo F)Acc No.[id number]:12/14/2022 Progress Notes Patient:?Lizbeth Bonner Provider:?Deanna Orourke DPM :1955???Age:67 Y???Sex:Female D ate:12/14/2022 Address:[address] [place] [address], [facility] Pcp:Elissa Shaffer MD Subjective: * Chief Complaints: * ???PCP - 06/2022Heel painToe Irritation * HPI: ???Heel pain:?Location:?Proximal plantar aspect of Heel, RIGHT.?Duration:?a year or more.?Onset/Cause:?unknown , denies trauma.?Course:?worse.?Aggrevated:?standing, walking, walking first thing in the morning/after rest.?Treatments:?rest , corticosteriod injection x 3 by another control room tender relates no improvement with injections, , change in shoes , stretching , Custom compounded topical anti-inflammatory cream.?Misc:?Pt has braille translator present.?Toe pain:?Location:?B/L feet.?Duration:?several years.?Course:?worse.?Aggrevated by:?shoes, any pressure.?Treatments:?Pt [...] 20 MG Capsule Delayed Release Oral Pen Fulton Rosuvastatin Calcium 10 MG Tablet TAKE 1 [...] MG Capsule Delayed Release Oral Taking Pen Fulton Taking Rosuvastatin Calcium 10 MG Tablet TAKE [...] Interfil injection therapy, as well as surgical [place]/Endoscopic Fasciitomy surgical procedures if needed. Recommendations were [...] painful condition.?Physical Therapy:?Discussed the potential short and long term care pharmacist benefits of physical therapy including pain relief, [...] Orourke DPM Date:? Generated for Tyrese nelson/Taylor/Sharmin on:?03/26/2024 10:51 AM EST History and Physical Notes * HPI (History of Present Illness) Category Sub-Category Detail Notes Category Not es Heel pain Duration: a year or more Location: Proximal plantar asp ect of Heel, RIGHT Onset/Cause: unknown , denies tra josi Aggravated: standing, walking, w alking first thing in the morning/after rest Course: worse Treatments: rest , corticosterio d injection x 3 by another control room tender relates no improvement with injections, , change in shoes , stretching , Custom compounded topical anti-inflammatory cream Misc: Pt has braille translator pr esent Toe pain Location: B/L feet [...]
--- OUTSIDE RECORDS SUMMARY | 2024-03-26 10:52 | XMS_ITS | Continuity of Care Document ---
Author Organization [facility] Address [address] [address] Phone Care Team Providers Care Senior Courtroom Clerk Name Role Phone Ron Banks DO Unavailable Unavailable Advance Directives Directive Yes / No Effective Date File Name No Information Encounters Encounter Description Practice Location Reason(s) For Visit Diagnoses Date Provider Providers Copied on Encounter [facility], [address], [id number], [place] tel:[phone] [place] No Information 6 Darren Velasquez. [address] [place] [address], [id number] , [place]. tel:[phone] Family History Family Member Type Diagnosis Age At Onset No Information Payers Payer name Insurance type Covered constitution party ID Authoriza tion(s) No Information Social [...]
== END 2024-03-26 11:13 | disposition home or self-care (01) ==
PROVIDERS: PCP Internal Medicine; Visit Provider Internal Medicine
DX: E11.21 Type 2 diabetes mellitus with diabetic nephropathy (principal); Z79.4 Long term (current) use of insulin; F32.0 Major depressive disorder, single episode, mild; I10 Essential (primary) hypertension; E78.5 Hyperlipidemia, unspecified; K21.9 Gastro-esophageal reflux disease without esophagitis

== ENCOUNTER → 2024-03-26 10:16 | Outpatient (BNVA) | payer OTHER, SELFPAY | PROVIDERS: PCP Internal Medicine; Visit Provider Internal Medicine | DX: E11.21 Type 2 diabetes mellitus with diabetic nephropathy (principal); I10 Essential (primary) hypertension; E78.5 Hyperlipidemia, unspecified; K21.9 Gastro-esophageal reflux disease without esophagitis; F32.0 Major depressive disorder, single episode, mild; Z79.4 Long term (current) use of insulin | CPT/HCPCS: 96127; 99212 ==

== ENCOUNTER 2024-04-03 07:59 | Outpatient (AMB) | payer OTHER, SELFPAY ==
[2024-04-03 08:02] VITALS: BP 130/60; PULSE 61; BMI 25.0
--- NOTE | 2024-04-03 08:02 | MHC.OFFVIS ---
Vital Signs 04/03/24 08:02 Height 5 ft 2 in Weight 136 lb 10.986 oz BMI 25.0 BP 130/60 Blood Pressure Location Rt brachial Position Sitting Pulse 61 Pulse Source Pulse Oximeter Intake Visit Reasons: DM Intake Note: Patient present today for Type 2 Diabetes Mellitus. Last Diabetic eye exam: 04/2023 Last Podiatry Visit: 04/02/24 Random Glucose: 127 mg/dl HgA1C: 7.4% 02/28/24 Maintenance Foreman Required: Yes Maintenance Foreman Language: Dowel Sander Operator Services: Maintenance Foreman Present Information Interpreted: non-clinical & clinical Accompanied by: Self / Same As Patient Allergies gabapentin Allergy (Intermediate, Verified 04/03/24 08:10) pruritus metformin Allergy (Intermediate, Verified 04/03/24 08:10) stomach upset metoprolol Allergy (Intermediate, Verified 04/03/24 08:10) upset stomach tizanidine Allergy (Intermediate, Verified 04/03/24 08:10) leg edema HPI HPI DM: Details: Patient is a 68-year-old female with a significant past medical history of hyperparathyroidism, multinodular thyroid, hypertension, hyperlipidemia, type 2 diabetes, chronic kidney disease, long-term use of insulin presenting today for a diabetic follow-up. Maintenance Foreman: Yue ID [id number] Endo: Her last A1c was 7.4. She is currently on Lantus 30 units nightly, Humalog 8 units TID (dosage was previously lower). She has stopped the mounjaro due to diarrhea. -She is no longer getting any low blood sugars -she was initially treated with metformin but discontinued due to GI distress. Intolerant of SGLT2 due to vaginal irritation. She states she tried mounjaro, trulicity and ozempic but did not tolerate these (cannot remember exact reaction but believes it was GI distress). CGM-freestyle Pau 3 download shows hyperglycemic 22%, in range 78%, hypoglycemia 0% Hypoglycemia- she states she will feel sweaty. corrects with oj and apple juice Hyperglycemia- sometimes will notice thirst CV: Blood pressure today in the office is 130/60 She is currently on amlodipine 5 mg, HCTZ 25 mg and losartan 100 mg daily. Cholesterol is controlled with Crestor 10 mg. No myalgias. Last LFTs and lipids WNL. Nephro. Follows with [facility] last note in system from [facility] Medical History (Updated 04/03/24 @ 08:57 by Dina Scott PA-C) T2DM (type 2 diabetes mellitus) Hyperparathyroidism Multinodular thyroid Goiter Vitamin D deficiency Anemia Right hand pain Diabetes type 2, uncontrolled Hyperlipidemia LDL goal <100 Osteoporosis Chronic kidney disease, stage 2 (mild) Long-term use of aspirin therapy GERD (gastroesophageal reflux disease) Dyslipidemia Essential hypertension shelter (current) use of insulin Screening for osteoporosis Well woman exam Depression with anxiety Fibromyalgia Surgical History History of colonoscopy History of tubal ligation Family History Father No problems noted. Mother Asthma Hypertension Chronic mental illness Diabetes Mental health disorder Family/Other Chronic mental illness Mental health disorder Social History Household Members: None Housing: Apartment Alcohol intake: never Patient Tobacco Use Status: Never used Tobacco e-Cigarette/Vaping Use: Never Used Second Hand Smoke Exposure: No service: No Current occupational status: disabled Sexual orientation: Straight/Heterosexual Gender identity: Female Cognitive needs: No Hearing needs: No Vision needs: Yes Female Reproductive History Menstrual Age of Menarche: 12 Physical Exam Vital Signs: Last Vital Signs Pulse 61 04/03/24 08:02 BP 130/60 04/03/24 08:02 BMI result Body Mass Index 25.0 Const Orientation/consciousness: patient oriented x3 HEENT Ears: hearing grossly normal bilaterally Neck Thyroid: Thyroid normal Lymphatic: no lymphadenopathy noted Resp Auscultation: clear to auscultation bilaterally Cardio Rate: regular rate Rhythm: regular rhythm Heart sounds: S1 normal heart sound present and S2 normal heart sound present Skin General skin exam: no rashes or lesions noted Neuro General: patient oriented x3, gait normal and no focal motor deficits Results Reviewed Results Reviewed: Laboratory Last Values Glucose (Clinic) 127 mg/dL (60-115) H 04/03/24 08:12 Assessment & Plan Assessment & Plan (1) Type 2 diabetes mellitus with diabetic nephropathy, with long-term current use of insulin: Code(s): E11.21 - Type 2 diabetes mellitus with diabetic nephropathy; Z79.4 - shelter (current) use of insulin Category: Medical Plan: I will increase Lantus to 34 units. Continue with the Humalog 8 units 3 times a day with meals. She will discontinue the Mounjaro due to intolerance. I will check diabetic labs in 3 months. Sooner if needed. Patient understands and agrees with this. (2) Essential hypertension: Code(s): I10 - Essential (primary) hypertension Category: Medical Plan: WNL. We will monitor (3) Hyperlipidemia LDL goal <100: Code(s): E78.5 - Hyperlipidemia, unspecified Category: Medical Plan: Continue Crestor (4) Chronic kidney disease, stage 2 (mild): Code(s): N18.2 - Chronic kidney disease, stage 2 (mild) Category: Medical Plan: We will monitor. Following with Nephrology. Discussed the importance of controlling blood sugars. Orders: Orders Comprehensive Slater. Panel Fast Today E11.21 - Type 2 diabetes mellitus with diabetic nephropathy, E78.5 - Hyperlipidemia, unspecified, I10 - Essential (primary) hypertension, N18.2 - Chronic kidney disease, stage 2 (mild), Z79.4 - termite control service representative (current) use of insulin Hemoglobin A1c Today E11.21 - Type 2 diabetes mellitus with diabetic nephropathy, E78.5 - Hyperlipidemia, unspecified, I10 - Essential (primary) hypertension, N18.2 - Chronic kidney disease, stage 2 (mild), R73.01 - Impaired fasting glucose, Z79.4 - termite control service representative (current) use of insulin B Type Natriuretic Peptide Today E11.21 - Type 2 diabetes mellitus with diabetic nephropathy, E78.5 - Hyperlipidemia, unspecified, I10 - Essential (primary) hypertension, N18.2 - Chronic kidney disease, stage 2 (mild), Z79.4 - termite control service representative (current) use of insulin Microalbumin, Random (w Creat) Today E11.21 - Type 2 diabetes mellitus with diabetic nephropathy, E78.5 - Hyperlipidemia, unspecified, I10 - Essential (primary) hypertension, N18.2 - Chronic kidney disease, stage 2 (mild), Z79.4 - shelter (current) use of insulin Medications: Changed From insulin glargine (Lantus Solostar U-100 Insulin) 30 units (0.3 mL) subcut QPM 15 mL 5RF E11.65 - Type 2 diabetes mellitus with hyperglycemia To insulin glargine (Lantus Solostar U-100 Insulin) 34 units (0.34 mL) subcut QPM 15 mL 5RF E11.65 - Type 2 diabetes mellitus with hyperglycemia Discontinued tirzepatide (Mounjaro) Discontinued Reason: Doctor's Order 2.5 mg (0.5 mL) subcut QWEEK 2 mL 2RF Coding Level of Care Code Est Pt Level 4 (97174) Complex EM visit Add On G2211 Diagnoses Type 2 diabetes mellitus with diabetic nephropathy, with long-term current use of insulin E11.21; Z79.4 Essential hypertension I10 Hyperlipidemia LDL goal <100 E78.5 Chronic kidney disease, stage 2 (mild) N18.2
[2024-04-03 08:15] LABS: Glucose, Whole Blood 127 mg/dL (60-115)
== END 2024-04-03 09:01 | disposition home or self-care (01) ==
PROVIDERS: PCP Internal Medicine; Visit Provider Physician Assistant
DX: E11.21 Type 2 diabetes mellitus with diabetic nephropathy (principal); Z79.4 Long term (current) use of insulin; I12.9 Hypertensive chronic kidney disease with stage 1 through stage 4 chronic kidney disease, or unspecified chronic kidney disease; E78.5 Hyperlipidemia, unspecified; N18.2 Chronic kidney disease, stage 2 (mild)

== ENCOUNTER → 2024-04-03 07:59 | Outpatient (BNVA) | payer OTHER, SELFPAY | PROVIDERS: PCP Internal Medicine; Visit Provider Physician Assistant | DX: E11.21 Type 2 diabetes mellitus with diabetic nephropathy (principal); I12.9 Hypertensive chronic kidney disease with stage 1 through stage 4 chronic kidney disease, or unspecified chronic kidney disease; E11.22 Type 2 diabetes mellitus with diabetic chronic kidney disease; N18.2 Chronic kidney disease, stage 2 (mild); E78.5 Hyperlipidemia, unspecified; Z79.4 Long term (current) use of insulin | CPT/HCPCS: 82947; 99212 ==

== ENCOUNTER 2024-05-07 10:45 | Outpatient (REF) | payer OTHER, SELFPAY ==
--- OUTSIDE RECORDS SUMMARY | 2024-05-07 11:54 | XMS_ITS | Encounter Summary ---
Author Organization [facility] Address [address] [place] [address] Care Team Providers Care Early Learning Teacher Name Role Phone Elissa Salas MD Primary Care Provider [phone] Reason for Visit * Reason Comments Foot Pain Cellulitis of left f ootIngrowing nailControlled type 2 diabetes with neuropathy (CMS/[facility]) Encounter Details Date Type Department Care Team (Late st Contact Info) Description 04/16/2024 8:30 AM EST Office Visit Orthopedic Surgery - [place] [id number] [phone] Dustin Albrecht DPM [address] [address] Open wound of left great toe, initial encounter (Primary Dx) Social History Tobacco Use Types Packs/Day Years Used Date Smoking Tobacco: Never Assessed Comments Unknown Sex and Gender Information Value Date Recorded Sex Assigned at Not on file Legal Sex Female 10:18 AM EDT Gender Identity Not on file Sexual Orientation Not on file documented as of this encounter Last Filed Vital Signs Vital Sign Reading Time Taken Comments Blood Pressure - - Pulse - - Temperature - - Respiratory Rate - - Oxygen Saturation - - Inhaled Oxygen Concentration - - Weight 59 kg (130 lb) 04/16/2024 8:33 AM EST Height 157.5 cm (5' 2.01 ) 04/16/2024 8:33 AM ES T Body Mass Index 23.77 04/16/2024 8:33 AM EST documented in this encounter Progress Notes * Dustin Albrecht DPM - 04/16/2024 8:30 AM EST IDENTIFIER: @TITLE@ Ha is a 68 y.o. year old female who presents for consultation. CC: Bilateral foot pain HPI: Patient is status post matrixectomy of the left hallux. Patient has been doing well keeping the bandages clean dry and intact and using Silvadene cream daily. Patient is now ambulating without issuesand able to go to work without taking any njzf-gij-zxmjjew pain medication or anti-inflammatory. Patient notes that there was some drainage that has subsided over the past couple of days. Patient also notes that the swelling seems to have subsided completely within the last few days. Patient deniesfever nausea vomiting shortness of breath. Patient is anticipating return to full activity. ROS: GENERAL: Pt denies nausea, fever, vomiting, chills, or shortness of breath. Pt in NAD. CARDIOLOGY: pt denies chest pain, palpitations LUNGS: pt denies shortness of breath MUSCULOSKELETAL: See HPI, otherwise no joint pain or swelling, back pain, or muscle pain. SKIN: see HPI, otherwise no lesions, rash or itching NEURO: No persistent headache, weakness or numbness The remainder of the review of systems is noncontributory PAST MEDICAL HISTORY: There is no problem list on file for this patient. SOCIAL HISTORY: Social History Tobacco Use Smoking status: Not on file Smokeless tobacco: Not on file Substance Use Topics Alcohol use: Not on file ACTIVE MEDICATIONS: Outpatient Medications Marked as Taking for the 04/16/24 encounter (Office Visit) with Dustin Albrecht DPM Medication Sig Dispense Refill ciclopirox (PENLAC) 8 % solution Apply topically at bedtime. Apply over nail and surrounding skin. Apply daily over previous coat. After seven (7) days, may remove with alcohol and continue cycle. 6.6 mL 0 silver sulfADIAZINE (Silvadene) 1 % cream Apply topically 1 (one) time each day. 50 g 0 ALLERGIES: @ALL@ PHYSICAL EXAM: Height 1.575 m (62.01 ), weight 59 kg (130 lb). PODIATRIC EXAMINATION: GENERAL: Patient appears well nourished, with NAD. VASCULAR: Dorsalis pedis pulses are 2/4 bilaterally and Posterior tibial pulses are 2/4 bilaterally. Capillary filling time within normal limits the digits. No pallor on elevation or rubor on dependency. Positive hair growth. No varicosities. Denies rest pain or claudication pain. NEUROLOGICAL: Sharp/dull sensation intact, protective sensation diminished on [place]. Multiple peripheral neuropathies bilaterally. ORTHOPEDIC: Good muscle strength 5/5 of all flexors and extensors. Dorsi flexion of ankle ,10 degrees, plantar flexion WNL. No muscle atrophy. Many arthritic changes with dorsal exostoses over the midfoot. DERMATOLOGICAL:.No masses or skin lesions noted. Normal skin temperature, normal skin turgor. Nailsare elongated dystrophic discolored x 10 with similar debris. Open wound to the lateral and medial border of the left great toe with some continued drainage BIOMECHANICS: STJ ROM wnl, MTJ ROM wnl, 1st MPJ ROM wnl. IMPRESSION: 1. Open wound of left great toe, initial encounter PLAN: Pt was seen and examined, history reviewed. Patient is now s/p partial nail avulsion of the left hallux. Patient is going to start epsom salt soaks daily for 15-20 minute duration to help with remaining inflammation and erythema. Patient may start dressing the toe with just a bandaid. If no drainage seen on bandaid, no dressingis needed. Patient understands their instructions. Patient also to try and put toe into closed toe shoegear over the next two weeks. Patient can RTC in 4 weeks, if continued pain and soreness. Dustin Albrecht DPM documented in this encounter Plan of Treatment Not on file documented as of this encounter Visit Diagnoses Diagnosis Open wound of left great toe, initial encounter- Primary documented in this encounter Care Teams Early Learning Teacher Relationship Specialty Start Date End Date Elissa Salas MD [address] [place] [address] , [address] [facility] [place] PCP - General 01/02/24 documented as of this encounter
--- OUTSIDE RECORDS SUMMARY | 2024-05-07 11:54 | XMS_ITS | Encounter Summary ---
Author Organization [facility] Address [address] [place] [address] Phone Care Team Providers Care Light Armored Vehicle Officer Name Role Phone Elissa Kolb MD Primary Care Provider [phone] Encounter Details Date Type Department Care Team (Late st Contact Info) Description 03/26/2022 Documentation Only [facility] [address] [place] [address] Claudia Moon PA Social History Tobacco Use Types Packs/Day Years Used Date Smoking Tobacco: Never Alcohol Use Standard Drinks/Week Comments No 0 (1 standard drink = 0.6 oz pur e alcohol) Comments Unknown Sex and Gender Information Value Date Recorded Sex Assigned at Not on file Legal Sex Female 4:35 PM EST Gender Identity Not on file Sexual Orientation Not on file documented as of this encounter Plan of Treatment Upcoming Encounters Date Type Department Care Team (Late Contact Info) Description 08/04/2024 1:40 PM EDT Office Visit [facility] [address] [place] [address] Emery Moran MD [address] [place] [address] [place] [phone] documented as of this encounter Visit Diagnoses Not on filedocumented in this encounter Care Teams Light Armored Vehicle Officer Relationship Specialty Start Date End Date Elissa Kolb MD [address] [place], [place] PCP - General Internal Medicine 04/02/24 documented as of this encounter
--- OUTSIDE RECORDS SUMMARY | 2024-05-07 11:54 | XMS_ITS ---
Author Organization [facility] Address [address] [place] [address] Care Team Providers Care Administration Internship Name Role Phone Elissa Shaffer MD Primary Care Provider Unavail able Deanna Orourke Unavailable [phone] REASON FOR VISIT Interpretor Encounters Encounter Location Date Provider Diagnosis [facility] [address] [place] [address] 12/18/2022 Deanna Orourke Plan Of Treatment No Information Progress Notes * Lizbeth BONNERDOB:1955 (67 yo F)Acc No.[id number]:12/18/2022 Patient:?Lizbeth Bonner :1955???Age:67 Y???Sex:Female Address:[address] [place] [address] [address], [place], [address] * true * Date:? Generated for Nuviai leslie/Taylor/eTransmitting on:?05/07/2024 11:53 AM EST
--- OUTSIDE RECORDS SUMMARY | 2024-05-07 11:54 | XMS_ITS ---
[facility] Address [address] [facility] [place] [address] Care Team Providers Care Senior Online Marketing Manager Name Role Phone Elissa Shaffer MD Primary Care Provider Unavail able Deanna Orourke Unavailable [phone] Allergies Allergen (clinical drug ingredient) Drug/Non Drug [...] MG Oral for 90 Days Active Pen Roberts Active Rosuvastatin Calcium 10 MG TAKE 1 [...] 023 Encounters Encounter Location Date Provider Diagnosis [facility] [address] [place] [address] 12/14/2022 Deanna Orourke Other hammer toe(s) (acquired), [...] Notes * Lizbeth BONNERDOB:1955 (67 yo F)Acc No.[id number]:12/14/2022 Progress Notes Patient:?Lizbeth Bonner Provider:?Deanna Orourke DPM :1955???Age:67 Y???Sex:Female D ate:12/14/2022 Address:[address] [place] [address], [facility] Pcp:Elissa Shaffer MD Subjective: * Chief Complaints: * ???PCP - 06/2022Heel painToe Irritation * HPI: ???Heel pain:?Location:?Proximal plantar aspect of Heel, RIGHT.?Duration:?a year or more.?Onset/Cause:?unknown , denies trauma.?Course:?worse.?Aggrevated:?standing, walking, walking first thing in the morning/after rest.?Treatments:?rest , corticosteriod injection x 3 by another family practice doctor relates no improvement with injections, , change in shoes , stretching , Custom compounded topical anti-inflammatory cream.?Misc:?Pt has notcher present.?Toe pain:?Location:?B/L feet.?Duration:?several years.?Course:?worse.?Aggrevated by:?shoes, any pressure.?Treatments:?Pt [...] 20 MG Capsule Delayed Release Oral Pen Roberts Rosuvastatin Calcium 10 MG Tablet TAKE 1 [...] MG Capsule Delayed Release Oral Taking Pen Roberts Taking Rosuvastatin Calcium 10 MG Tablet TAKE [...] Interfil injection therapy, as well as surgical [place]/Endoscopic Fasciitomy surgical procedures if needed. Recommendations were [...] painful condition.?Physical Therapy:?Discussed the potential short and exterminator helper benefits of physical therapy including pain relief, [...] Orourke DPM Date:? Generated for Tyrese nelson/Taylor/Sharmin on:?05/07/2024 11:54 AM EST History and Physical Notes * HPI (History of Present Illness) Category Sub-Category Detail Notes Category Not es Heel pain Duration: a year or more Location: Proximal plantar asp ect of Heel, RIGHT Onset/Cause: unknown , denies tra josi Aggravated: standing, walking, w alking first thing in the morning/after rest Course: worse Treatments: rest , corticosterio d injection x 3 by another family practice doctor relates no improvement with injections, , change in shoes , stretching , Custom compounded topical anti-inflammatory cream Misc: Pt has notcher pr esent Toe pain Location: B/L feet [...]
--- OUTSIDE RECORDS SUMMARY | 2024-05-07 11:54 | XMS_ITS | Continuity of Care Document ---
Author Organization [facility] Address [address] [address] Phone Care Team Providers Care Foreman Shipping Department Name Role Phone Ron Banks DO Unavailable Unavailable Advance Directives Directive Yes / No Effective Date File Name No Information Encounters Encounter Description Practice Location Reason(s) For Visit Diagnoses Date Provider Providers Copied on Encounter [facility], [address], [id number], [place] tel:[phone] [place] No Information 6 Darren Velasquez. [address] [place] [address], [id number] , [place]. tel:[phone] Family History Family Member Type Diagnosis Age [...]
--- OUTSIDE RECORDS SUMMARY | 2024-05-07 11:54 | XMS_ITS | Patient Health Record ---
Author Organization [facility] Address [address] [facility] [place] [address] Care Team Providers Care Application Processor Name Role Phone Deena KEVIN, Elissa Primary Care Provider Unavail able Deanna Orourke Unavailable [phone] Allergies Allergen (clinical drug ingredient) Drug/Non Drug [...] 70 % as directed 10/17/2022 Active Pen [place] Active Blood Glucose Meter 10/17/2022 Active Rosuvastatin [...] Problem Acquired hammer toe of right foot (257234532792 9105) Other hammer toe(s) (acquired), right foot (M20.41) Active confirmed Problem Acquired hammer toe of left foot (432450040896 9103) Other hammer toe(s) (acquired), left foot (M20.42) Active confirmed Problem 45300953 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) Active confirmed Plan Of Treatment Pending Test Test Name Order Date X ray : Foot, right 3V 11/07/2022 Insurance Providers Payer Name Payer Address Payer Phone Subscriber Number Group Number Insured Name Patient Relationship to Insured Coverage Start Date Coverage End Date [facility] Plan [address] [place] [phone] [id number] Lizbeth Bonner Self - patient is the insured Medical (General) History Medical History History ICD Code Arthritis Back,Hip,and Knee pain covid-19 Diabetic High blood pressure Kidney disease Poor circulation ulcer Mumps Chicken pox
--- OUTSIDE RECORDS SUMMARY | 2024-05-07 11:54 | XMS_ITS | Encounter Summary ---
Author Organization [facility] Address [address] [place] [address] Phone Care Team Providers Care Clinical Research Specialist Name Role Phone Elissa Kolb MD Primary Care Provider [phone] Encounter Details Date Type Department Care Team (Late Contact Info) Description 01/29/2022 Documentation Only [facility] [address] [place] [address] Claudia Moon PA Social History [...] Visit [facility] [address] [place] [address] Emery Moran MD [address] [place] [address] [place] [id number] documented as of this encounter Visit Diagnoses Not on filedocumented in this encounter Care Teams Clinical Research Specialist Relationship Specialty Start Date End Date Elissa Kolb MD [address] [place], [place] PCP - General Internal Medicine 04/02/24 documented as of this encounter
--- OUTSIDE RECORDS SUMMARY | 2024-05-07 11:54 | XMS_ITS | Encounter Summary ---
Author Organization [facility] Address [address] [place] [address] Phone Care Team Providers Care Weaver Tire Cord Name Role Phone Elissa Kolb MD Primary Care Provider [phone] Encounter Details Date Type Department Care Team (Late st Contact Info) Description 04/08/2024 2:00 PM EST Office [facility] [address] [place] [address] Emery Moran MD [address] [place] [address] [place] [address] Stage 3a chronic kidney disease (HCC) (Primary Dx) Social History Tobacco Use Types [...] on file documented as of this encounter Progress Notes * Emery Moran MD - 04/08/2024 2:00 PM EST Images from the original note were not included. PATIENT: Lizbeth Bonner : 1955 ENCOUNTER: 04/08/2024 PCP: Elissa Kolb MD HPI: Lizbeth Bonner is a 68 y.o. year old female with a history of Diabetes, hypertension and CKD stage IIIa with a baseline serum creatinine of 1.3 mg/dL and now presents for further evaluation. Overall the patient has been quite stable without any new complaints. Her energy levels been excellent. She denies any chest pain or shortness of breath. Her most recent serum creatinine was 1.3 mg deciliter. ROS: Constitutional: No fever. Respiratory: No shortness of breath. Cardiovascular: No chest pain. Gastrointestinal: No abdominal pain, nausea or vomiting. Genitourinary: No hematuria. All other systems reviewed and are negative. PAST MEDICAL HISTORY: Patient Active Problem List Diagnosis Date Noted Stage 3a chronic kidney disease (HCC) 03/29/2022 Type 2 diabetes mellitus without complication (HCC) 03/29/2022 Essential (primary) hypertension 01/16/2021 Chronic kidney disease stage 2 05/01/2019 Hypertensive heart disease without congestive heart failure 05/01/2019 Renal disorder due to type 2 diabetes mellitus (HCC) 05/01/2019 PAST SURGICAL HISTORY: Past Surgical History: Procedure Laterality Date OTHER SURGICAL HISTORY tubal ligation SOCIAL HISTORY: Social History Tobacco Use Smoking status: Never Smokeless tobacco: Not on file Substance Use Topics Alcohol use: No FAMILY HISTORY: Family History Problem Relation Age of Onset Hypertension Mother Kidney disease Sibling Diabetes Sibling Hypertension Sibling MEDICATIONS: Outpatient Encounter Medications as of 04/08/2024 Medication Sig Dispense Refill amLODIPine (NORVASC) 5 MG tablet Take 1 tablet by mouth 1 (one) time each day ASPIRIN LOW DOSE 81 MG EC tablet TK 1 T PO QD Calcium Citrate 250 MG tablet TAKE 2 TABLET BY MOUTH TWICE DAILY EVERY DAY cholecalciferol (VITAMIN D-3) 50 MCG (1999 UT) capsule Take 2,000 Units by mouth 1 (one) time each day citalopram (CeleXA) 20 MG tablet TK 1 T PO QD cyclobenzaprine (FLEXERIL) 10 MG tablet Take 10 mg by mouth 3 (three) times a day if needed for muscle spasms Dulaglutide (TRULICITY) 0.75 MG/0.5ML solution pen-injector Inject as directed FREESTYLE LITE test strip USE TO TEST BLOOD SUGAR TID gabapentin (NEURONTIN) 100 MG capsule Take 1 capsule (100 mg total) by mouth at bed time 90 capsule3 hydroCHLOROthiazide 25 MG tablet TAKE 1 TABLET(25 MG) BY MOUTH 1 TIME EACH DAY 90 tablet 3 Insulin Lispro, 1 Unit Dial, 100 UNIT/ML solution pen-injector LANTUS SOLOSTAR 100 UNIT/ML injection ADM 50 UNI SC 1 TIME HS losartan (COZAAR) 100 MG tablet TK 1 T PO QD omeprazole (PriLOSEC) [address] capsule TK 1 C PO QD rosuvastatin (CRESTOR) 10 MG tablet Take 1 tablet by mouth 1 (one) time each day No facility-administered encounter medications on file as of 04/08/2024. MEDICATION REVIEW: I have reviewed the patient's current medications. ALLERGIES: has No Known Allergies. PHYSICAL EXAM: There were no vitals taken for this visit. Constitutional: No apparent distress Cardiovascular: No friction rub. Pulmonary/Chest: No rales. Abdominal: Soft and non-tender. Extremities: Edema None LABS: No lab exists for component: LABALBU No lab exists for component: PTHINTACT LABORATORY REVIEW: I have reviewed the labs noted above as well as in the chart, in CIS and in Care Everywhere. DOCUMENTATION REVIEW: I have reviewed the applicable outside notes located in the chart, in CIS and in Care Everywhere. ASSESSMENT: 1. Stage 3a chronic kidney disease (HCC) Delightful 68-year-old female with a history of longstanding chronic kidney disease likely in the basis of ischemia and diabetes and hypertension who presents for further evaluation. At this point her current medical issues include 1. CKD-likely on the basis of ischemia hypertension and diabetes. Clinically I do not feel there sixto need for additional intervention although her serum creatinine is slightly elevated compared to her baseline. I would like to follow her and consider the addition of a sodium glucose Co. transport inhibitor and future. 2. Diabetes mellitus-the patient glucose control by report is quite good and at this point she doesnot require any medication dose adjustment. I have asked her to monitor closely for any hypoglycemic symptoms. I appreciate your allowing me to participate in this kind patient's care. I hope all is well. No orders of the defined types were placed in this encounter. documented in this encounter Plan of Treatment Upcoming Encounters Date Type Department Care Team (Late st Contact Info) Description 08/04/2024 1:40 PM EDT Office Visit [facility] [place], [address] [place] [address] Emery Moran MD [address] [facility] [address] [place] [address] documented as of this encounter Visit Diagnoses Diagnosis Stage 3a chronic kidney disease (HCC)- Primary documented in this encounter Care Teams Weaver Tire Cord Relationship Specialty Start Date End Date Elissa Kolb MD [address] [place], [place] PCP - General Internal Medicine 04/02/24 documented as of this encounter
--- OUTSIDE RECORDS SUMMARY | 2024-05-07 11:54 | XMS_ITS | Clinical Summary ---
Author Organization [facility], Address [address] [place] [address] [place] [address] Phone Care Team Providers Care Nurse Coordinator Name Role Phone Elissa Kolb MD Primary Care Provider [phone] Allergies No known active allergies Medications amLODIPine (NORVASC) 5 MG tablet Take 1 tablet by mouth 1 (one) time each day Active Dulaglutide (TRULICITY) 0.75 MG/0.5ML solution pen-injector Inject as directed Active rosuvastatin (CRESTOR) 10 MG tablet Take 1 tablet by mouth 1 (one) time each day Active omeprazole (PriLOSEC) [address] capsule TK 1 C PO QD 04/07/2019 Ac tive losartan (COZAAR) 100 MG tablet TK 1 T PO QD 04/16/2019 Active LANTUS SOLOSTAR 100 UNIT/ML injection ADM 50 UNI SC 1 TIME HS 04/12/2019 Active FREESTYLE LITE test strip USE TO TEST BLOOD SUGAR TID 03/29/2019 Active citalopram (CeleXA) 20 MG tablet TK 1 T PO QD 04/09/2019 Active ASPIRIN LOW DOSE 81 MG EC tablet TK 1 T PO QD 04/05/2019 Active cyclobenzaprine (FLEXERIL) 10 MG tablet Take 10 mg by mouth 3 (three) times a day if needed for muscle spasms Active Insulin Lispro, 1 Unit Dial, 100 UNIT/ML solution pen-injector 11/22/2022 Active hydroCHLOROthia zide 25 MG tablet TAKE 1 TABLET(25 MG) BY MOUTH 1 TIME EACH DAY 90 tablet 3 03/29/2023 Active Calcium Citrate 250 MG tablet TAKE 2 TABLET BY MOUTH TWICE DAILY EVERY DAY 06/13/2023 Active cholecalciferol (VITAMIN D-3) 50 MCG (1999) capsule Take 2,000 Units by mouth 1 (one) time each day 07/11/2023 Active gabapentin (NEURONTIN) 100 MG capsule Take 1 capsule (100 mg total) by mouth at bed time 90 capsule 3 08/13/2023 08/13/19 Active Active Problems Problem Noted Date Diagnosed Date Stage 3a chronic kidney disease 03/29/2022 Type 2 diabetes mellitus without complication Essential (primary) hypertension 01/16/2021 Chronic kidney disease stage 2 05/01/2019 Hypertensive heart disease without congestive he art failure 05/01/2019 Renal disorder due to type 2 diabetes mellitus 0 05/01/2019 Resolved Problems Problem Noted Date Diagnosed Date Resolved Date Cyst of kidney 07/06/2019 01/16/2021 Encounters Date Type Department Care Team Description 04/08/2024 2:00 PM EST Office [facility] [address] [place] [address] Emery Moran MD Stage 3a chronic kidney disease (HCC) (Primary Dx) from Last 3 Months Family History Medical History Relation Comments Hypertension Mother Diabetes Sibling Hypertension Sibling Kidney disease Sibling Relation Status Comments Father Mother Sibling Social History Tobacco Use Types Packs/Day Years Used Date Smoking Tobacco: Never Tobacco Cessation:Counseling Given: Not Answered Alcohol Use Standard Drinks/Week Comments No 0 (1 standard drink = 0.6 oz pur e alcohol) Comments Unknown Sex and Gender Information Value Date Recorded Sex Assigned at Not on file Legal Sex Female 4:35 PM EST Gender Identity Not on file Sexual Orientation Not on file Last Filed Vital Signs Vital Sign Reading Time Taken Comments Blood Pressure 144/66 08/07/2023 1:57 PM EDT Pulse 71 04/01/2018 12:00 PM EST Temperature - - Respiratory Rate 16 04/01/2018 12:00 PM EST Oxygen Saturation - - Inhaled Oxygen Concentration - - Weight 62.8 kg (138 lb 6.4 oz) 08/07/2023 1:57 P M EDT Height 157.5 cm (5' 2 ) 08/07/2023 1:57 PM EDT Body Mass Index 25.31 08/07/2023 1:57 PM EDT Plan of Treatment Upcoming Encounters Date Type Department Care Team (Late st Contact Info) Description 08/04/2024 1:40 PM EDT Office Visit [facility] [place], [address] [place] [phone] Emery Moran MD [address] [place] [phone] Health Maintenance Due Date Last Done Comments Breast Cancer Screening 1955 Pneumococcal Vaccine: 65+ Ye ars (1 of 2 - PCV) 1960 Colorectal Cancer Screening: Annual FOBT 10/15/2003 Colorectal Cancer Screening: Colonoscopy 10/15/2003 Colorectal Cancer Screening: Sigmoidoscopy 10/15/2003 Diabetes: Hemoglobin A1C 05/01/2019 Diabetes: Ophthalmology Exam 05/01/2019 Diabetes: Pedal Pulse Checked 05/01/2019 Diabetes: Sensory Foot Exam 05/01/2019 Diabetes: Visual Foot Exam 05/01/2019 Influenza Vaccine (#1) 2023 Hepatitis B Vaccine Aged Out No longe r eligible based on patient's age to complete this topic Insurance [employer] Care Teams Nurse Coordinator Relationship Specialty Start Date End Date Elissa Kolb MD [address] [place], [place] PCP - General Internal Medicine 04/02/24
--- OUTSIDE RECORDS SUMMARY | 2024-05-07 11:54 | XMS_ITS | Encounter Summary ---
Author Organization [facility] Address [address] [place] [address] Phone Care Team Providers Care Glass Production Machine Operator Name Role Phone Elissa Kolb MD Primary Care Provider [phone] Encounter Details Date Type Department Care Team (Late Contact Info) Description 08/14/2023 Documentation Only [facility] [address] [place] [address] [place], [place] [address] [place] [address] Social History Tobacco Use Types Packs/Day Years [...] Visit [facility] [address] [place] [address] Emery Moran MD [address] [place] [address] [place] [address] documented as of this encounter Visit Diagnoses Not on filedocumented in this encounter Care Teams Glass Production Machine Operator Relationship Specialty Start Date End Date Elissa Kolb MD [address] [place], [place] PCP - General Internal Medicine 04/02/24 documented as of this encounter
--- OUTSIDE RECORDS SUMMARY | 2024-05-07 11:54 | XMS_ITS | Encounter Summary ---
Author Organization [facility] Address [address] [place] [address] Phone Care Team Providers Care Documentation Supervisor Name Role Phone Elissa Kolb MD Primary Care Provider [phone] Encounter Details Date Type Department Care Team (Late Contact Info) Description 06/24/2023 Orders Only [facility] [address] [place] [address] Claudia Moon PA Stage 3a chronic kidney disease (HCC); Essential (primary) hypertension; Type 2 diabetes mellitus without complication (HCC) Social History Tobacco Use Types Packs/Day Years [...] Upcoming Encounters Date Type Department Care Team ([facility] Contact Info) Description 08/04/2024 1:40 PM EDT Office Visit [facility] [address] [place] [address] Emery Moran MD [address] [place] [address] [place] [address] documented as of this encounter Visit Diagnoses Diagnosis Stage 3a chronic kidney disease (HCC) Essential (primary) hypertension Type 2 diabetes mellitus without complication (HCC) documented in this encounter Care Teams Documentation Supervisor Relationship Specialty Start Date End Date Elissa Kolb MD [address] [place], [place] PCP - General Internal Medicine 04/02/24 documented as of this encounter
--- OUTSIDE RECORDS SUMMARY | 2024-05-07 11:54 | XMS_ITS | Encounter Summary ---
Author Organization [facility] [place], Address [address] [place] [address] Phone Care Team Providers Care Cvt Rn Name Role Phone Elissa Kolb MD Primary Care Provider [phone] Encounter Details Date Type Department Care Team (Late Contact Info) Description 11/26/2022 Documentation Only [facility] [place] [address] [place] [phone] Conrado Kaur MD [address] [place] [address] [place] [address] Social History Tobacco Use Types Packs/Day Years [...] Visit [facility] [address] [place] [address] Emery Moran MD [address] [place] [address] [place] [address] documented as of this encounter Visit Diagnoses Not on filedocumented in this encounter Care Teams Cvt Rn Relationship Specialty Start Date End Date Elissa Kolb MD [address] [place], [place] PCP - General Internal Medicine 04/02/24 documented as of this encounter
--- OUTSIDE RECORDS SUMMARY | 2024-05-07 11:55 | XMS_ITS | Clinical Summary ---
Author Organization [address] [place] [address] Dr Franco Address [address] [place] [address] [place] [address] Phone Care Team Providers Care Palliative Care Specialist Name Role Phone Elissa Salas MD Primary Care Provider [phone] Allergies No known active allergies Medications silver sulfADIAZINE (Silvadene) 1 % creamIndications :Ingrowing nail Apply topically 1 (one) time each day. 50 g 5 04/02/19 26 Active ciclopirox (PENLAC) 8 % solution Apply topically at bedtime. Apply over nail and surrounding skin. Apply daily over previous coat. After seven (7) days, may remove with alcohol and continue cycle. 6.6 mL 5 07/02/19 25 Active Encounters Date Type Department Care Team Description 04/16/2024 8:30 AM EST Office Visit Orthopedic Surgery [address] [address] Dustin Albrecht DPM Open wound of left great toe, initial encounter (Primary Dx) 04/02/2024 9:30 AM EST Office Visit Orthopedic Surgery [facility] [address] [address] Dustin Albrecht DPM Cellulitis of left foot (Primary Dx); Ingrowing nail; Controlled type 2 diabetes with neuropathy (CMS/HCC) from Last 3 Months Social History Tobacco Use Types Packs/Day Years [...] Mass Index 23.77 04/16/2024 8:33 AM EST Plan of Treatment Health Maintenance Due Date Last Done Comments Breast Cancer Screening 1955 Diabetes: Annual GFR (Glomerular Filtration Rate) 1955 Diabetes: Annual Foot Exam 1964 Diabetes: Annual Retina Eye Exam 1964 RSV Immunization Patients 60 + Years Old (1 - Risk 60-74 years 1-dose series) 2014 Pneumococcal Vaccine: 50+ Years (2 of 2 - PCV) 03/05/2019 03/05/2018, 01/11/2012, 01/08/2001 COVID-19 Vaccine (4 - 2023-2 5 season) 2023 02/23/2021, 07/27/2020, 06/29/2020 Influenza Vaccine (#1) 2023 01/08/2001 Cholesterol Screening (Lipid Panel) 01/04/2024 Colorectal Cancer Screening: Colonoscopy 01/04/2024 Depression Screening 01/04/2024 Falls Risk Assessment 01/04/2024 Hepatitis C Screening 01/04/2024 Medicare Annual Wellness Visit 01/04/2024 Osteoporosis Screening (Bone Density Screening) 01/04/2024 Social Influencers of Health Screening 01/04/2024 Diabetes: Annual Urine Albumin-Creatinine Ratio (uACR) 04/02/2024 Diabetes: Blood Sugar Contro l Test (HGBA1C) 04/02/2024 Hypertension/CHF/CAD Annual BMP Blood Test 04/02/2024 DTaP,Tdap,and Td Vaccines (4 - Td or Tdap) 12/13/2031 12/12/2021, 01/11/2012, 05/20/2003 Zoster Vaccines Completed 10/21/2023, 08/21/2022 HIB Vaccines Aged Out No longer eligi ble based on patient's age to complete this topic HPV Vaccines Aged Out No longer eligi ble based on patient's age to complete this topic Hepatitis A Vaccines Aged Out No long er eligible based on patient's age to complete this topic Hepatitis B Vaccines Aged Out No long er eligible based on patient's age to complete this topic IPV Vaccines Aged Out No longer eligi ble based on patient's age to complete this topic MMR Vaccines Aged Out No longer eligi ble based on patient's age to complete this topic Meningococcal ACWY Vaccine Aged Out N o longer eligible based on patient's age to complete this topic Meningococcal B Vacine Aged Out No lo nger eligible based on patient's age to complete this topic RSV Immunization Patients Under 20 months Aged Out No longer eligible b ased on patient's age to complete this topic Varicella Vaccines Aged Out No longer eligible based on patient's age to complete this topic Insurance MEDICAID - [place] [facility] MEDIC[employer] Care Teams Palliative Care Specialist Relationship Specialty Start Date End Date Elissa Salas MD [address] [place] [address] , [address] [facility] D/B/A: [facility] [place] PCP - General 01/02/24
--- OUTSIDE RECORDS SUMMARY | 2024-05-07 11:55 | XMS_ITS ---
Author Organization [facility] Address [address] [place] [address] Care Team Providers Care Derrick Boat Operator Name Role Phone Elissa Shaffer MD Primary Care Provider Unavail able Deanna Orourke Unavailable [phone] Encounters Encounter Location Date Provider Diagnosis [address] [address] 02/01/2023 Deanna Orourke Plan Of Treatment No Information Progress Notes * Lizbeth BONNERDOB:1955 (68 yo F)Acc No.[id number]:02/01/2023 Progress Notes Patient:?Lizbeth BONNER Provider:?Deanna Orourke DPM :1955???Age:67 Y???Sex:Female D ate:02/01/2023 Address:[address] [place] [address], [place] [id number] Pcp:Elissa Shaffer MD Subjective: * Chief Complaints: [...] Orourke DPM Date:? Generated for Nuviai leslie/Taylor/eTransmitting on:?05/07/2024 11:54 AM EST
== END 2024-05-07 10:46 | disposition home or self-care (01) ==
LOC: HO.MAMMO 10:45
PROVIDERS: PCP Internal Medicine; Visit Provider Internal Medicine
DX: Z12.31 Encounter for screening mammogram for malignant neoplasm of breast (principal)
CPT/HCPCS: 77063; 77067

== ENCOUNTER → 2024-05-07 11:30 | Outpatient (BNV) | payer OTHER, SELFPAY | PROVIDERS: PCP Internal Medicine; Visit Provider Internal Medicine | DX: Z12.31 Encounter for screening mammogram for malignant neoplasm of breast (principal) | CPT/HCPCS: 77063; 77067 ==

== ENCOUNTER 2024-07-03 08:05 | Outpatient (AMB) | payer OTHER, SELFPAY ==
--- OUTSIDE RECORDS SUMMARY | 2024-07-03 08:12 | XMS_ITS | Encounter Summary ---
Author Organization [facility] Address [address] [place] [address] Phone Care Team Providers Care Weld Engineer Name Role Phone Elissa Kolb MD Primary Care Provider [phone] Encounter Details Date Type Department Care Team (Late Contact Info) Description 01/29/2022 Documentation Only [facility] [address] [place] [address] Claudia Moon PA Social History [...] Visit [facility] [address] [place] [address] Emery Moran MD [address] [place] [address] [place] [phone] documented as of this encounter Visit Diagnoses Not on filedocumented in this encounter Care Teams Weld Engineer Relationship Specialty Start Date End Date Elissa Kolb MD [address] [place], [place] PCP - General Internal Medicine 04/02/24 documented as of this encounter
--- OUTSIDE RECORDS SUMMARY | 2024-07-03 08:12 | XMS_ITS | Encounter Summary ---
Author Organization [facility] [place], Address [address] [place] [address] Phone Care Team Providers Care Manager Contract Name Role Phone Elissa Kolb MD Primary Care Provider [phone] Encounter Details Date Type Department Care Team (Late Contact Info) Description 11/26/2022 Documentation Only [facility] [place] [address] [place] [phone] Conrado Kaur MD [address] [place] [address] [place] [address] Social History Tobacco Use Types [...] Visit [facility] [address] [place] [address] Emery Moran MD [address] [place] [address] [place] [address] documented as of this encounter Visit Diagnoses Not on filedocumented in this encounter Care Teams Manager Contract Relationship Specialty Start Date End Date Elissa Kolb MD [address] [place], [place] PCP - General Internal Medicine 04/02/24 documented as of this encounter
--- OUTSIDE RECORDS SUMMARY | 2024-07-03 08:12 | XMS_ITS | Encounter Summary ---
Author Organization [facility] Address [address] [place] [address] Phone Care Team Providers Care Engineering Manager Name Role Phone Elissa Kolb MD Primary Care Provider [phone] Encounter Details Date Type Department Care Team (Late Contact Info) Description 06/24/2023 Orders Only [facility] [address] [place] [address] Claudia Moon PA Stage 3a [...] Upcoming Encounters Date Type Department Care Team ([facility] Contact Info) Description 08/04/2024 1:40 PM EDT Office Visit [facility] [address] [place] [address] Emery Moran MD [address] [place] [address] [place] [address] documented as of this encounter Visit Diagnoses Diagnosis Stage 3a chronic kidney disease (HCC) Essential (primary) hypertension Type 2 diabetes mellitus without complication (HCC) documented in this encounter Care Teams Engineering Manager Relationship Specialty Start Date End Date Elissa Kolb MD [address] [place], [place] PCP - General Internal Medicine 04/02/24 documented as of this encounter
--- OUTSIDE RECORDS SUMMARY | 2024-07-03 08:12 | XMS_ITS | Encounter Summary ---
Author Organization [facility] Address [address] [place] [address] Phone Care Team Providers Care Traditional Maori Health Practitioner Name Role Phone Elissa Kolb MD Primary Care Provider [phone] Encounter Details Date Type Department Care Team (Late st Contact Info) Description 03/26/2022 Documentation Only [facility] [address] [place] [address] Claudia Moon PA Social History [...] Visit [facility] [address] [place] [address] Emery Moran MD [address] [place] [address] [place] [phone] documented as of this encounter Visit Diagnoses Not on filedocumented in this encounter Care Teams Traditional Maori Health Practitioner Relationship Specialty Start Date End Date Elissa Kolb MD [address] [place], [place] PCP - General Internal Medicine 04/02/24 documented as of this encounter
--- OUTSIDE RECORDS SUMMARY | 2024-07-03 08:13 | XMS_ITS | Clinical Summary ---
Author Organization [address] [place] [address] Dr Franoc Address [address] [place] [address] [place] [address] Phone Care Team Providers Care Lithograph Operator Name Role Phone Elissa Salas MD Primary Care Provider [phone] Allergies No known active allergies Medications silver sulfADIAZINE (Silvadene) 1 % creamIndications :Ingrowing nail Apply topically 1 (one) time each day. 50 g 5 026 Active ciclopirox (PENLAC) 8 % solution Apply topically at bedtime. Apply over nail and surrounding skin. Apply daily over previous coat. After seven (7) days, may remove with alcohol and continue cycle. 6.6 mL 5 025 Encounters Date Type Department Care Team Description 04/16/2024 8:30 AM EST Office Visit Orthopedic Surgery - [address] [address] Dustin Albrecht DPM Open wound of left great toe, initial encounter (Primary Dx) from Last 3 Months Social History Tobacco [...] Annual Retina Eye Exam 1964 RSV Immunization Adult Patients (1 - Risk 60-74 years 1-dose series) 2014 Pneumococcal Vaccine: 50+ Years (2 of 2 - PCV) 03/05/2019 03/05/2018, 01/11/2012, 01/08/2001 COVID-19 Vaccine (4 - 2023-2 5 season) 2023 02/23/2021, 07/27/2020, 06/29/2020 Cholesterol Screening (Lipid Panel) 01/04/2024 Colorectal Cancer Screening: Colonoscopy 01/04/2024 Depression Screening 01/04/2024 Falls Risk Assessment 01/04/2024 Hepatitis C Screening 01/04/2024 Medicare Annual Wellness Visit 01/04/2024 Osteoporosis Screening (Bone Density Screening) 01/04/2024 Social Influencers of Health Screening 01/04/2024 Diabetes: Annual Urine Albumin-Creatinine Ratio (uACR) 04/02/2024 Diabetes: Blood Sugar Contro l Test (HGBA1C) 04/02/2024 Hypertension/CHF/CAD Annual BMP Blood Test 04/02/2024 Influenza Vaccine (Season Ended) 2024 01/08/2001 DTaP,Tdap,and Td Vaccines (4 - Td or [...] age to complete this topic Meningococcal B Vaccine Aged Out No l onger eligible based on patient's age to complete this topic RSV Immunization Patients Under 20 months Aged Out No longer eligible b ased on patient's age to complete this topic Varicella Vaccines Aged Out No longer eligible based on patient's age to complete this topic Insurance MEDICAID - [place] [facility] MEDICARE [facility]AGE Care Teams Lithograph Operator Relationship Specialty Start Date End Date Elissa Salas MD [address] [facility] , [address] [facility] D/B/A: [facility] [place], [place] PCP - General 01/02/24
--- OUTSIDE RECORDS SUMMARY | 2024-07-03 08:13 | XMS_ITS | Clinical Summary ---
Author Organization [facility], Address [address] [place] [address] [place] [address] Phone Care Team Providers Care Farm Machinery Engine Mechanic Name Role Phone Elissa Kolb MD Primary Care Provider [phone] Allergies No known active allergies Medications amLODIPine [...] Office Visit [facility] [address] [place] [address] Emery Moran MD Stage 3a chronic kidney [...] Visit [facility] [place], [address] [place] [address] Emery Moran MD [address] [facility] [place] [phone] Health Maintenance Due Date Last Done Comments Breast Cancer Screening 1955 Pneumococcal Vaccine: 50+ Ye ars (1 of 2 - PCV) 1973 Colorectal Cancer Screening: Annual FOBT 10/15/2003 Colorectal Cancer Screening: Colonoscopy 10/15/2003 Colorectal Cancer Screening: Sigmoidoscopy 10/15/2003 Diabetes: Hemoglobin A1C 05/01/2019 Diabetes: Ophthalmology Exam 05/01/2019 Diabetes: Pedal Pulse Checked 05/01/2019 Diabetes: Sensory Foot Exam 05/01/2019 Diabetes: Visual Foot Exam 05/01/2019 Influenza Vaccine (Season Ended) 2024 Hepatitis B Vaccine Aged Out No longe r eligible based on patient's age to complete this topic Insurance [place] Care Teams Farm Machinery Engine Mechanic Relationship Specialty Start Date End Date Elissa Kolb MD [address] [place], [place] PCP - General Internal Medicine 04/02/24
--- OUTSIDE RECORDS SUMMARY | 2024-07-03 08:13 | XMS_ITS | Continuity of Care Document ---
Author Organization [facility] Address [address] [address] Phone Care Team Providers Care Spa Associate Name Role Phone Unavailable Unavailable Unavailable Advance Directives Directive Yes / No Effective Date File Name No Information Encounters Encounter Description Practice Location Reason(s) For Visit Diagnoses Date Provider [facility], [address] [address], [place], [place], [id number], tel:[phone] [place] No Information 2015 No Information Family History Family Member Type Diagnosis Age [...]
--- OUTSIDE RECORDS SUMMARY | 2024-07-03 08:13 | XMS_ITS | Patient Health Record ---
Author Organization [facility] Address [address] [place] [address] Care Team Providers Care Building Services Engineer Name Role Phone Deena KEVIN, Elissa Primary Care Provider Unavail able Deanna Orourke Unavailable [phone] Allergies Allergen (clinical drug ingredient) Drug/Non Drug [...] 70 % as directed 10/17/2022 Active Pen [place] Active Blood Glucose Meter 10/17/2022 Active Rosuvastatin [...] Problem Acquired hammer toe of right foot (211050472428 9105) Other hammer toe(s) (acquired), right foot (M20.41) Active confirmed Problem Acquired hammer toe of left foot (990899895864 9103) Other hammer toe(s) (acquired), left foot (M20.42) Active confirmed Problem [id number] 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 Plan [id number] [place] [phone] [id number] Lizbeth Bonner Self - patient is the insured Medical (General) History Medical History History ICD Code Arthritis Back,Hip,and Knee pain covid-19 Diabetic High blood pressure Kidney disease Poor circulation ulcer Mumps Chicken pox
--- OUTSIDE RECORDS SUMMARY | 2024-07-03 08:13 | XMS_ITS | Encounter Summary ---
Author Organization [facility] Address [address] [place] [address] Phone Care Team Providers Care Manager Family Name Role Phone Elissa Kolb MD Primary Care Provider [phone] Encounter Details Date Type Department Care Team (Late Contact Info) Description 08/14/2023 Documentation Only [facility] [address] [place] [address] [place] [address] [place] [address] Social History Tobacco Use Types [...] Visit [facility] [address] [place] [address] Emery Moran MD [address] [place] [address] [place] [address] documented as of this encounter Visit Diagnoses Not on filedocumented in this encounter Care Teams Manager Family Relationship Specialty Start Date End Date Elissa Kolb MD [address] [place], [place] PCP - General Internal Medicine 04/02/24 documented as of this encounter
--- OUTSIDE RECORDS SUMMARY | 2024-07-03 08:13 | XMS_ITS ---
Author Organization [facility] Address [address] [place] [address] Care Team Providers Care Outside Sales Professional Name Role Phone Elissa Shaffer MD Primary Care Provider Unavail able Deanna Orourke Unavailable [phone] Encounters Encounter Location Date Provider Diagnosis [address] [address] 02/01/2023 Deanna Orourke Plan Of Treatment No Information Progress Notes * Lizbeth BONNERDOB:1955 (68 yo F)Acc No.[id number]:02/01/2023 Progress Notes Patient:?Lizbeth BONNER Provider:?Deanna Orourke DPM :1955???Age:67 Y???Sex:Female D ate:02/01/2023 Address:[address] [place] [address], [place] [facility] Pcp:Elissa Shaffer MD Subjective: * Chief Complaints: [...] Orourke DPM Date:? Generated for Nuviai leslie/Taylor/eTransmitting on:?07/03/2024 08:13 AM EDT
--- NOTE | 2024-07-03 08:24 | MHC.OFFVIS ---
Vital Signs 07/03/24 08:25 Height 5 ft 2 in Weight 136 lb BMI 24.9 BP 130/54 L Blood Pressure Location Lt brachial Position Sitting Pulse 59 Pulse Source Pulse Oximeter Temp 95 F L Pulse Oximetry (%) 95 Oxygen Delivery Method Room Air Intake Visit Reasons: DM Intake Note: Patient present today for Type 2 Diabetes Mellitus Last Diabetic eye exam: 05/2024 Last Podiatry Visit: 05/2024 Random Glucose:179 mg/dl HgA1C: 6.4% Ict Customer Support Officer Required: Yes Ict Customer Support Officer Language: Carpenter Inspector Services: Ict Customer Support Officer Present Ict Customer Support Officer Name: Marie [id number] Information Interpreted: non-clinical & clinical Accompanied by: Self / Same As Patient Allergies gabapentin Allergy (Intermediate, Verified 07/03/24 08:29) pruritus metformin Allergy (Intermediate, Verified 07/03/24 08:29) stomach upset metoprolol Allergy (Intermediate, Verified 07/03/24 08:29) upset stomach tizanidine Allergy (Intermediate, Verified 07/03/24 08:29) leg edema Medication List - Last Reconciled 07/03/24 by Dina Scott PA-C alcohol swabs (Alcohol Prep Pads) 1 pad topical QID 30 days amlodipine 5 mg PO DAILY 90 days aspirin 81 mg PO DAILY 90 days blood sugar diagnostic (Red Dot Paymentuch Verio test strips) Use 1 test strip four times a day blood-glucose meter (DotstudiozTouch Verio Flex Meter) As directed blood-glucose sensor (FreeStyle Pau 3 Sensor device) Apply every 14 days As directed to monitor blood glucose blood-glucose,registered nurse cardiac telemetry,cont (FreeStyle Pau 3 [place]) As directed calcium citrate 500 mg (2 x 250 mg calcium) PO BID cholecalciferol (vitamin D3) 50 mcg PO DAILY citalopram 20 mg PO DAILY denosumab (Prolia) 60 mg subcut [id number] gabapentin 100 mg PO DAILY glucose (Dex4 Glucose) 16 grams (4 x 4 gram) PO Q15M PRN hydrochlorothiazide 25 mg PO DAILY insulin glargine (Lantus Solostar U-100 Insulin) 34 units (0.34 mL) subcut QPM insulin lispro (Humalog KwikPen (U-100) Insulin) 8 units (0.08 mL) subcut TID lancets (Monscierge Delica Plus Lancet) As directed lidocaine 5% 1 patch topical DAILY losartan 100 mg PO DAILY 90 days omeprazole 20 mg PO QAM 90 days pen needle, diabetic Use 1 pen needle three times a day rosuvastatin 10 mg PO DAILY HPI HPI DM: Details: Patient is a 68-year-old female with a significant past medical history of hyperparathyroidism, multinodular thyroid, hypertension, hyperlipidemia, type 2 diabetes, chronic kidney disease, long-term use of insulin presenting today for a diabetic follow-up. Ict Customer Support Officer: Stacey ID [id number] -never got labs done prior to today's appointment Endo: Her A1c is 6.4. She is currently on Lantus 34 units nightly, Humalog 8 units TID. -She does get some low blood sugars between 03:00 in the morning and 06:00 in the morning. -she was initially treated with metformin but discontinued due to GI distress. Intolerant of SGLT2 due to vaginal irritation. She states she tried mounjaro, trulicity and ozempic but did not tolerate these (cannot remember exact reaction but believes it was GI distress). CGM-Phoodeez Apu 3 download shows average glucose 152, G mi 6.9%, variability 31%. She is using it 95%. Very hyperglycemic 2%, hyperglycemic 27%, in range 70%, hypoglycemic 1%. No severe hypoglycemia. Hypoglycemia- she states she will feel sweaty. corrects with oj and apple juice Hyperglycemia- sometimes will notice thirst CV: Blood pressure today in the office is 130/54. She is currently on amlodipine 5 mg, HCTZ 25 mg and losartan 100 mg daily. Cholesterol is controlled with Crestor 10 mg. No myalgias. Last LFTs and lipids WNL. Nephro. [facility]s with [facility] last note in system from [facility] Medical History (Updated 04/03/24 @ 08:57 by Dina Scott PA-C) T2DM (type 2 diabetes mellitus) Hyperparathyroidism Multinodular thyroid Goiter Vitamin D deficiency Anemia Right hand pain Diabetes type 2, uncontrolled Hyperlipidemia LDL goal <100 Osteoporosis Chronic kidney disease, stage 2 (mild) Long-term use of aspirin therapy GERD (gastroesophageal reflux disease) Dyslipidemia Essential hypertension shelter (current) use of insulin Screening for osteoporosis Well woman exam Depression with anxiety Fibromyalgia Surgical History History of colonoscopy History of tubal ligation Family History Father No problems noted. Mother Asthma Hypertension Chronic mental illness Diabetes Mental health disorder Family/Other Chronic mental illness Mental health disorder Social History Household Members: None Housing: Apartment Alcohol intake: never Patient Tobacco Use Status: Never used Tobacco e-Cigarette/Vaping Use: Never Used Second Hand Smoke Exposure: No service: No Current occupational status: disabled Sexual orientation: Straight/Heterosexual Gender identity: Female Cognitive needs: No Hearing needs: No Vision needs: Yes Female Reproductive History Menstrual Age of Menarche: 12 Physical Exam Vital Signs: Last Vital Signs Temp 95 F L 07/03/24 08:25 Pulse 59 07/03/24 08:25 BP 130/54 L 07/03/24 08:25 Pulse Ox 95 07/03/24 08:25 Oxygen Delivery Method Room Air 07/03/24 08:25 BMI result Body Mass Index 24.9 Const Orientation/consciousness: patient oriented x3 Neck Neck: Yes no lymphadenopathy Thyroid: Thyroid normal Carotids: no bruits Resp Auscultation: clear to auscultation bilaterally Cardio Rate: regular rate Rhythm: regular rhythm Heart sounds: S1 normal heart sound present and S2 normal heart sound present Peripheral pulses: dorsalis pedis present Neuro General: patient oriented x3, gait normal and no focal motor deficits Extrem Other: Monofilament sensation intact bilaterally. Vibratory sensation intact bilaterally. Skin intact. General: Yes normal to inspection Results AMB Hemoglobin A1c AMB Hemoglobin A1c 6.4 % Last Edit by VINCENT Ernst on 07/03/24 08:41 Results Reviewed Results Reviewed: Laboratory Last Values Glucose (Clinic) 179 mg/dL (60-115) H 07/03/24 08:31 Assessment & Plan Assessment & Plan (1) Type 2 diabetes mellitus with diabetic nephropathy, with long-term current use of insulin: Code(s): E11.21 - Type 2 diabetes mellitus with diabetic nephropathy; Z79.4 - shelter (current) use of insulin Category: Medical Plan: We will try switching Lantus to the morning. I have reduced the dose 30 units of Lantus. Continue with Humalog 8 units and lunch 8 increase dinner to 10 units as that is when she is the highs with her blood sugars. Short term follow up in 1 month to be reassessed. Sooner if needed. (2) Essential hypertension: Code(s): I10 - Essential (primary) hypertension Category: Medical Plan: WNL. Continue current regimen. (3) Hyperlipidemia LDL goal <100: Code(s): E78.5 - Hyperlipidemia, unspecified Category: Medical Plan: Lipids and LFTs are ordered. Advised to complete prior to her next appointment. Orders: Orders AMB Hemoglobin A1c Today E11.21 - Type 2 diabetes mellitus with diabetic nephropathy, Z13.9 - Encounter for screening, unspecified, Z79.4 - superintendent marine oil terminal (current) use of insulin Medications: Changed From insulin lispro (Humalog KwikPen (U-100) Insulin) 8 units (0.08 mL) subcut TID 15 mL 1RF E11.65 - Type 2 diabetes mellitus with hyperglycemia To insulin lispro (Humalog KwikPen (U-100) Insulin) inject 8 units with breakfast and lunch, inject 10 units with supper. 15 mL 1RF E11.65 - Type 2 diabetes mellitus with hyperglycemia From insulin glargine (Lantus Solostar U-100 Insulin) 34 units (0.34 mL) subcut QPM 15 mL 5RF E11.65 - Type 2 diabetes mellitus with hyperglycemia To insulin glargine (Lantus Solostar U-100 Insulin) 30 units (0.3 mL) subcut QAM 15 mL 5RF E11.65 - Type 2 diabetes mellitus with hyperglycemia Patient Instructions: switch lantus to morning dosing increase humalog at dinner time to 10 units Coding Level of Care Code Est Pt Level 4 (02964) Complex EM visit Add On G2211 Diagnoses Type 2 diabetes mellitus with diabetic nephropathy, with long-term current use of insulin E11.21; Z79.4 Essential hypertension I10 Hyperlipidemia LDL goal <100 E78.5
[2024-07-03 08:25] VITALS: BP 130/54; PULSE 59; TEMP 35; O2SAT 95; BMI 24.9
[2024-07-03 08:36] LABS: Glucose, Whole Blood 179 mg/dL (60-115)
== END 2024-07-03 08:54 | disposition home or self-care (01) ==
LOC: HO.ENCR 08:06
PROVIDERS: PCP Internal Medicine; Visit Provider Physician Assistant
DX: E11.21 Type 2 diabetes mellitus with diabetic nephropathy (principal); Z79.4 Long term (current) use of insulin; I10 Essential (primary) hypertension; E78.5 Hyperlipidemia, unspecified

== ENCOUNTER → 2024-07-03 08:05 | Outpatient (BNVA) | payer OTHER, SELFPAY | PROVIDERS: PCP Internal Medicine; Visit Provider Physician Assistant | DX: E11.21 Type 2 diabetes mellitus with diabetic nephropathy (principal); E11.65 Type 2 diabetes mellitus with hyperglycemia; E11.22 Type 2 diabetes mellitus with diabetic chronic kidney disease; E21.3 Hyperparathyroidism, unspecified; E04.2 Nontoxic multinodular goiter; I12.9 Hypertensive chronic kidney disease with stage 1 through stage 4 chronic kidney disease, or unspecified chronic kidney disease; N18.9 Chronic kidney disease, unspecified; E78.5 Hyperlipidemia, unspecified; Z79.4 Long term (current) use of insulin | CPT/HCPCS: 82947; 83036; 99212 ==

== ENCOUNTER 2024-07-27 10:43 | Outpatient (REF) | payer OTHER, SELFPAY ==
[2024-07-27 10:56] LABS: MANUAL DIFF FLAG NO
[2024-07-27 11:23] LABS: Basophils Percent Auto 0.6 % (0-2); Eosinophils Absolute Auto 0.1 X10*3/uL (0.0-0.4); Eosinophils Percent Auto 1.5 % (0-4); Hematocrit 37.5 % (37.0-47.0); Hemoglobin 11.6 g/dl (12.0-16.0); Imm Gran Abs Auto 0.02 X10*3/uL (0.00-0.03); Imm Gran Pct Auto 0.3 % (0.0-0.4); Lymphocytes Absolute Auto 1.4 X10*3/uL (1.2-4.9); Lymphocytes Percent Auto 21.1 % (20-40); Mean Corpuscular HGB Conc 30.9 g/dl (31.0-35.0); Mean Corpuscular Hemoglobin 22.6 pg (27.0-33.0); Monocytes Absolute Auto 0.6 X10*3/uL (0.1-1.2); Monocytes Percent Auto 8.3 % (2-11); Neutrophils Absolute Auto 4.5 x10*3/uL (2.0-8.3); Neutrophils Percent Auto 68.2 % (45-73); Platelet Count 221 X10*3/uL (160-400); Red Blood Count 5.14 X10*6/uL (4.20-5.50); Red Cell Distribution Width 13.8 % (11.0-16.0); White Blood Count 6.6 X10*3/uL (4.8-10.8)
--- OUTSIDE RECORDS SUMMARY | 2024-07-27 11:30 | XMS_ITS | Encounter Summary ---
Author Organization [facility], Address [address] [place] [address] Phone Care Team Providers Care Dynamics Ax Consultant Name Role Phone Elissa Kolb MD Primary Care Provider [phone] Encounter Details Date Type Department Care Team (Late Contact Info) Description 11/26/2022 Documentation Only [facility] [address] [place] [phone] Conrado Kaur MD [address] [place] [address] [place] [address] Social History Tobacco Use Types [...] Visit [facility] [address] [place] [address] Emery Moran MD [address] [place] [address] [place] [address] documented as of this encounter Visit Diagnoses Not on filedocumented in this encounter Care Teams Dynamics Ax Consultant Relationship Specialty Start Date End Date Elissa Kolb MD [address] [place], [place] PCP - General Internal Medicine 04/02/24 documented as of this encounter
--- OUTSIDE RECORDS SUMMARY | 2024-07-27 11:30 | XMS_ITS | Clinical Summary ---
Author Organization [address] [place] [address] Dr Franco Address [address] [place] [address] [place] [address] Phone Care Team Providers Care Hull Grinder Name Role Phone Elissa Salas MD Primary Care Provider [phone] Allergies No known active allergies Medications silver sulfADIAZINE (Silvadene) 1 % creamIndications :Ingrowing nail Apply topically 1 (one) time each day. 50 g 5 026 Active ciclopirox (PENLAC) 8 % solution Apply topically at bedtime. Apply over nail and surrounding skin. Apply daily over previous coat. After seven (7) days, may remove with alcohol and continue cycle. 6.6 mL 5 025 Social History Tobacco Use Types Packs/Day Years [...] PCV) 03/05/2019 03/05/2018, 01/11/2012, 01/08/2001 COVID-19 Vaccine ( - 2023-2 5 season) 2023 02/23/2021, 07/27/2020, [...] [place] [facility] Care Teams Hull Grinder Relationship Specialty Start Date End Date Elissa Salas MD [address] [facility] , [facility] [address] [facility] D/B/A: [facility] [place] PCP - General 01/02/24
--- OUTSIDE RECORDS SUMMARY | 2024-07-27 11:30 | XMS_ITS | Encounter Summary ---
Author Organization [facility] Address [address] [place] [address] Phone Care Team Providers Care Coverer Name Role Phone Elissa Kolb MD Primary Care Provider [phone] Encounter Details Date Type Department Care Team (Late Contact Info) Description 08/14/2023 Documentation Only [facility] [address] [place] [address] [place] [address] [place] [address] Social History Tobacco Use [...] Visit [facility] [address] [place] [address] Emery Moran MD [address] [place] [address] [place] [address] documented as of this encounter Visit Diagnoses Not on filedocumented in this encounter Care Teams Coverer Relationship Specialty Start Date End Date Elissa Kolb MD [address] [place], [place] PCP - General Internal Medicine 04/02/24 documented as of this encounter
--- OUTSIDE RECORDS SUMMARY | 2024-07-27 11:30 | XMS_ITS | Continuity of Care Document ---
Author Organization [facility] Address [address] [address] Phone Care Team Providers Care Auto Body Repairer Fiberglass Name Role Phone Unavailable Unavailable Unavailable Advance Directives Directive Yes / No Effective Date File Name No Information Encounters Encounter Description Practice Location Reason(s) For Visit Diagnoses Date Provider [facility], [address] [address], [place], [place], [id number], tel:[phone] [place] No Information 2015 No Information Family History Family Member Type Diagnosis Age At Onset No Information Payers Payer name Insurance type Covered alliance party ID Authoriza tion(s) No Information Social History Type Description Quantity Date Captured Comments Sex Female Smoking Status No Information Chief Complaint And Reason For Visit No Information History Of Present Illness Encounter Date Complaint History Of Prese nt Illness No Information Instructions Date Instruction Additional Infor mation No Information Assessments Type Assessment Date No Information
--- OUTSIDE RECORDS SUMMARY | 2024-07-27 11:30 | XMS_ITS | Encounter Summary ---
Author Organization [facility] Address [address] [place] [address] Phone Care Team Providers Care Sales Account Associate Name Role Phone Elissa Kolb MD Primary Care Provider Encounter Details Date Type Department Care Team ([facility] Contact Info) Description 07/24/2024 Orders Only [facility] [address] [place] [address] [place] [address] [place] [address] Stage 3a chronic kidney disease (HCC) (Primary Dx); Type 2 diabetes mellitus without complication (HCC); Essential (primary) hypertension; Neuropathy, not otherwise specified Social History Tobacco Use Types Packs/Day Years [...] Upcoming Encounters Date Type Department Care Team ([facility] Contact Info) Description 08/04/2024 1:40 PM EDT Office Visit [facility] [address] [place] [address] Emery Moran MD [address] [place] [address] Scheduled Orders Name Type Priority Associated Diagnoses Orde r Schedule CBC and differential Lab Routine Stage 3a chronic kidney disease (HCC) Type 2 diabetes mellitus without complication (HCC) Essential (primary) hypertension Neuropathy, not otherwise specified Expected: 07/24/2024, Expires: 08/24/2025 Vitamin D 25 hydroxy Lab Routine Stage 3a chronic kidney disease (HCC) Type 2 diabetes mellitus without complication (HCC) Essential (primary) hypertension Neuropathy, not otherwise specified Expected: 07/24/2024, Expires: 08/24/2025 Iron Panel (Fe, TIBC, TSAT) Lab Routine Stage 3a chronic kidney disease (HCC) Type 2 diabetes mellitus without complication (HCC) Essential (primary) hypertension Neuropathy, not otherwise specified Expected: 07/24/2024, Expires: 08/24/2025 Hemoglobin A1c Lab Routine Stage 3a chronic kidney disease (HCC) Type 2 diabetes mellitus without complication (HCC) Essential (primary) hypertension Neuropathy, not otherwise specified Expected: 07/24/2024, Expires: 08/24/2025 Ferritin Lab Routine Stage 3a chronic kidney disease (HCC) Type 2 diabetes mellitus without complication (HCC) Essential (primary) hypertension Neuropathy, not otherwise specified Expected: 07/24/2024, Expires: 08/24/2025 Renal function panel Lab Routine Stage 3a chronic kidney disease (HCC) Type 2 diabetes mellitus without complication (HCC) Essential (primary) hypertension Neuropathy, not otherwise specified Expected: 07/24/2024, Expires: 08/24/2025 Urinalysis with microscopic Lab Routine Stage 3a chronic kidney disease (HCC) Type 2 diabetes mellitus without complication (HCC) Essential (primary) hypertension Neuropathy, not otherwise specified Expected: 07/24/2024, Expires: 08/24/2025 Urine Albumin / Creatinine Ratio Lab Routine Stage 3a chronic kidney disease (HCC) Type 2 diabetes mellitus without complication (HCC) Essential (primary) hypertension Neuropathy, not otherwise specified Expected: 07/24/2024, Expires: 08/24/2025 Lipid panel Lab Routine Stage 3a chronic kidney disease (HCC) Type 2 diabetes mellitus without complication (HCC) Essential (primary) hypertension Neuropathy, not otherwise specified Expected: 07/24/2024, Expires: 08/24/2025 Magnesium Lab Routine Stage 3a chronic kidney disease (HCC) Type 2 diabetes mellitus without complication (HCC) Essential (primary) hypertension Neuropathy, not otherwise specified Expected: 07/24/2024, Expires: 08/24/2025 documented as of this encounter Visit Diagnoses Diagnosis Stage 3a chronic kidney disease (HCC)- Primary Type 2 diabetes mellitus without complication (HCC) Essential (primary) hypertension Neuropathy, not otherwise specified documented in this encounter Care Teams Sales Account Associate Relationship Specialty Start Date End Date Elissa Kolb MD [address] [place], [place] PCP - General Internal Medicine 04/02/24 documented as of this encounter
--- OUTSIDE RECORDS SUMMARY | 2024-07-27 11:30 | XMS_ITS | Clinical Summary ---
Author Organization [facility], Address [address] [place] [address] [place] [address] Phone Care Team Providers Care Resin Coater Name Role Phone Elissa Kolb MD Primary Care Provider Allergies No known active allergies Medications amLODIPine [...] Encounters Date Type Department Care Team Description 07/24/2024 Orders Only [facility], [address] [place] [address] Beatriz Hodge [place] Stage 3a chronic kidney disease (HCC) (Primary Dx); Type 2 diabetes mellitus without complication (HCC); Essential (primary) hypertension; Neuropathy, not otherwise specified from Last 3 Months Family History Medical [...] Visit [facility], [address] [place] [address] Emery Moran MD [address] [place] [address] Health Maintenance Due Date Last Done Comments [...] patient's age to complete this topic Insurance [place] Care Teams Resin Coater Relationship Specialty Start Date End Date Elissa Kolb MD [address] [place], [place] PCP - General Internal Medicine 04/02/24
--- OUTSIDE RECORDS SUMMARY | 2024-07-27 11:30 | XMS_ITS | Patient Health Record ---
Author Organization [facility] Address [address] [facility] [place] [address] Care Team Providers Care Dba Developer Name Role Phone Deena KEVIN, Elissa Primary Care Provider Unavail able Deanna Orourke Unavailable [phone] Allergies Allergen (clinical drug ingredient) Drug/Non Drug [...] 70 % as directed 10/17/2022 Active Pen [place] Active Blood Glucose Meter 10/17/2022 Active Rosuvastatin [...] Problem Acquired hammer toe of right foot (147486623306 9105) Other hammer toe(s) (acquired), right foot (M20.41) Active confirmed Problem Acquired hammer toe of left foot (187255567280 9103) Other hammer toe(s) (acquired), left foot (M20.42) Active confirmed Problem 90760334 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) Active confirmed Plan Of Treatment Pending Test Test Name Order Date X ray : Foot, right 3V 11/07/2022 Insurance Providers Payer Name Payer Address Payer Phone Subscriber Number Group Number Insured Name Patient Relationship to Insured Coverage Start Date Coverage End Date [facility][1] Plan [address] [place] [id number] [id number] Lizbeth Bonner Self - patient is the insured Medical (General) History Medical History History ICD Code Arthritis Back,Hip,and Knee pain covid-19 Diabetic High blood pressure Kidney disease Poor circulation ulcer Mumps Chicken pox
--- OUTSIDE RECORDS SUMMARY | 2024-07-27 11:30 | XMS_ITS | Encounter Summary ---
Author Organization [facility] Address [address] [place] [address] Phone Care Team Providers Care Plasma Center Technician Name Role Phone Elissa Kolb MD Primary Care Provider [phone] Encounter Details Date Type Department Care Team (Late Contact Info) Description 06/24/2023 Orders Only [facility] [address] [place] [address] Claudia Moon PA Stage 3a [...] Upcoming Encounters Date Type Department Care Team ([facility] Contact Info) Description 08/04/2024 1:40 PM EDT Office Visit [facility] [address] [place] [address] Emery Moran MD [address] [place] [address] [place] [address] documented as of this encounter Visit Diagnoses Diagnosis Stage 3a chronic kidney disease (HCC) Essential (primary) hypertension Type 2 diabetes mellitus without complication (HCC) documented in this encounter Care Teams Plasma Center Technician Relationship Specialty Start Date End Date Elissa Kolb MD [address] [place], [place] PCP - General Internal Medicine 04/02/24 documented as of this encounter
--- OUTSIDE RECORDS SUMMARY | 2024-07-27 11:30 | XMS_ITS | Encounter Summary ---
Author Organization [facility] Address [address] [place] [address] Phone Care Team Providers Care Manager Engagement Name Role Phone Elissa Kolb MD Primary Care Provider Encounter Details Date Type Department Care Team (Late st Contact Info) Description 03/26/2022 Documentation Only [facility] [address] [place] [address] Claudia Moon PA Social History [...] Visit [facility] [address] [place] [address] Emery Moran MD [address] [place] [address] [place] [address] documented as of this encounter Visit Diagnoses Not on filedocumented in this encounter Care Teams Manager Engagement Relationship Specialty Start Date End Date Elissa Kolb MD [address] [place], [place] PCP - General Internal Medicine 04/02/24 documented as of this encounter
--- OUTSIDE RECORDS SUMMARY | 2024-07-27 11:30 | XMS_ITS | Encounter Summary ---
Author Organization [facility] Address [address] [place] [address] Phone Care Team Providers Care Systems Software Specialist Name Role Phone Elissa Kolb MD Primary Care Provider [phone] Encounter Details Date Type Department Care Team (Late Contact Info) Description 01/29/2022 Documentation Only [facility] [address] [place] [address] Claudia Moon PA Social History [...] Visit [facility] [address] [place] [address] Emery Moran MD [address] [place] [address] [place] [address] documented as of this encounter Visit Diagnoses Not on filedocumented in this encounter Care Teams Systems Software Specialist Relationship Specialty Start Date End Date Elissa Kolb MD [address] [place], [place] PCP - General Internal Medicine 04/02/24 documented as of this encounter
--- OUTSIDE RECORDS SUMMARY | 2024-07-27 11:31 | XMS_ITS ---
Author Organization [facility] Address [address] [place] [address] Care Team Providers Care Machine Woodworking Sander Name Role Phone Elissa Shaffer MD Primary Care Provider Unavail able Deanna Orourke Unavailable [phone] Encounters Encounter Location Date Provider Diagnosis [address] [address] 02/01/2023 Deanna Orourke Plan Of Treatment No Information Progress Notes * Lizbeth BONNERDOB:1955 (68 yo F)Acc No.[id number]:02/01/2023 Progress Notes Patient:?Lizbeth BONNER Provider:?Deanna Orourke DPM :1955???Age:67 Y???Sex:Female D ate:02/01/2023 Address:[address] [place] [address], [place] [facility] Pcp:Elissa Shaffer MD Subjective: * Chief Complaints: [...] Orourke DPM Date:? Generated for Nuviai leslie/Fashay/eTransmitting on:?07/27/2024 11:30 AM EDT
[2024-07-27 11:43] LABS: Anion Gap 13 (12-20); Blood Urea Nitrogen 24 mg/dL (9-16); Calcium 9.8 mg/dL (8.4-10.2); Carbon Dioxide 30 mmol/L (22-29); Chloride 103 mmol/L (96-108); Cholesterol 128 mg/dL (<200); Estimated Glomerular Filt Rate > 60; HDL Cholesterol 55 mg/dL (>40); Iron 122 mcg/dL (30-160); LDL Cholesterol Calculated 49 mg/dL (<100); Magnesium 1.9 mg/dL (1.6-2.6); Percent Iron Saturation 41 % (15-50); Potassium 4.1 mmol/L (3.3-5.1); Sodium 142 mmol/L (135-145); Total Iron Binding Capacity 297 mcg/dL (228-428); Triglycerides 124 mg/dL (<150); Unsaturated Iron Binding 175 ug/dL
[2024-07-27 11:48] LABS: Estimated Average Glucose 151 mg/dL; Hemoglobin A1C 156.8791 umol/L; Hemoglobin A1c % 6.9 % (<6.0); Total Hemoglobin (HGBA1C) 3039.9946 umol/L
[2024-07-27 11:55] LABS: Appearance Urine Clear; Color Urine Yellow; Glucose Urine UA Negative (Negative); Leukocyte Esterase Urine Moderate (2+) (Negative); Nitrite Urine Negative (Negative); Specific Gravity - Urine <= 1.005 (1.005-1.025); UMIC TRIGGER UA YES; Urine Blood Negative (Negative); Urine Ketones Negative (Negative); Urine Protein Negative (Neg-Trace)
[2024-07-27 12:01] LABS: Bacteria Urine None Seen (None Seen); Hyaline Casts Urine 0-2 /LPF (0-2); RBC Urine 0-2 /HPF (0-2); Squamous Epithelial Cell Urine 0-2 /HPF (0-2)
[2024-07-27 12:04] LABS: Ferritin 44 ng/mL (10-250); Vitamin D 25-OH Total 49.3 ng/mL (>30)
[2024-07-27 13:40] LABS: Creatinine Urine 23.92 mg/dL; Microalbum/Creatinine Ratio Ur 142.1 ug/mg cr (<30)
== END 2024-07-27 10:44 | disposition home or self-care (01) ==
LOC: HO.LAB 10:43
PROVIDERS: PCP Internal Medicine; Visit Provider Internal Medicine Nephrology
DX: N18.31 Chronic kidney disease, stage 3a (principal); E11.9 Type 2 diabetes mellitus without complications; I10 Essential (primary) hypertension; G62.9 Polyneuropathy, unspecified
CPT/HCPCS: 36415; 80051; 80061; 81001; 82043; 82306; 82310; 82565; 82570; 82728; 83036; 83540; 83735; 84520; 85025

== ENCOUNTER 2024-07-31 08:31 | Outpatient (AMB) | payer OTHER, SELFPAY ==
[2024-07-31 08:43] VITALS: BP 130/54; PULSE 53; O2SAT 97; BMI 24.9
--- NOTE | 2024-07-31 08:43 | A.OFFVIS_ITS ---
Vital Signs 07/31/24 08:43 Height 5 ft 2 in Weight 136 lb 3.931 oz BMI 24.9 BP 130/54 L Blood Pressure Location Lt brachial Position Sitting Pulse 53 Pulse Source Pulse Oximeter Pulse Oximetry (%) 97 Oxygen Delivery Method Room Air Intake Visit Reasons: DM Intake Note: Patient present today for Type 2 Diabetes Mellitus Last Diabetic eye exam: 05/2024 Last Podiatry Visit: Doesn't have one Random Glucose: 149 mg/dl HgA1C: 6.9% 07/27/24 Respiratory Support Technician Required: Yes Respiratory Support Technician Language: Print Color Operator Services: Respiratory Support Technician Present Respiratory Support Technician Name: Tana Information Interpreted: non-clinical & clinical Accompanied by: Self / Same As Patient Allergies gabapentin Allergy (Intermediate, Verified 07/31/24 08:48) pruritus metformin Allergy (Intermediate, Verified 07/31/24 08:48) stomach upset metoprolol Allergy (Intermediate, Verified 07/31/24 08:48) upset stomach tizanidine Allergy (Intermediate, Verified 07/31/24 08:48) leg edema HPI HPI DM: Details: Patient is a 68-year-old female with a significant past medical history of hyperparathyroidism, multinodular thyroid, hypertension, hyperlipidemia, type 2 diabetes, chronic kidney disease, long-term use of insulin presenting today for a diabetic follow-up. Respiratory Support Technician: Dalila -never got labs done prior to today's appointment Endo: Her A1c is 6.9. She is currently on Lantus 30 units nightly, Humalog 8 units TID. -she was initially treated with metformin but discontinued due to GI distress. Intolerant of SGLT2 due to vaginal irritation. She states she tried mounjaro, trulicity and ozempic but did not tolerate these (cannot remember exact reaction but believes it was GI distress). CGM-freestyle Pau 3 download shows average glucose 132, G mi 6.5%, variability 21%. She is using it 96%. Very hyperglycemic 1%, hyperglycemic 12%, in range 86%, hypoglycemic 1%. No severe hypoglycemia. -Lows in afternoon. She states it's a couple hours after eating lunch. She is eating more protein and veggies and cutting back on carbs. Hypoglycemia- she states she will feel sweaty. corrects with oj and apple juice Hyperglycemia- sometimes will notice thirst CV: Blood pressure today in the office is 130/54. She is currently on amlodipine 5 mg, HCTZ 25 mg and losartan 100 mg daily. Cholesterol is controlled with Crestor 10 mg. No myalgias. Last LFTs and lipids WNL. Nephro. [facility] with [facility] in system [facility] Medical History (Updated 04/03/24 @ 08:57 by Dina Scott PA-C) T2DM (type 2 diabetes mellitus) Hyperparathyroidism Multinodular thyroid Goiter Vitamin D deficiency Anemia Right hand pain Diabetes type 2, uncontrolled Hyperlipidemia LDL goal <100 Osteoporosis Chronic kidney disease, stage 2 (mild) Long-term use of aspirin therapy GERD (gastroesophageal reflux disease) Dyslipidemia Essential hypertension jail (current) use of insulin Screening for osteoporosis Well woman exam Depression with anxiety Fibromyalgia Surgical History History of colonoscopy History of tubal ligation Family History Father No problems noted. Mother Asthma Hypertension Chronic mental illness Diabetes Mental health disorder Family/Other Chronic mental illness Mental health disorder Social History Household Members: None Housing: Apartment Alcohol intake: never Patient Tobacco Use Status: Never used Tobacco e-Cigarette/Vaping Use: Never Used Second Hand Smoke Exposure: No service: No Current occupational status: disabled Sexual orientation: Straight/Heterosexual Gender identity: Female Cognitive needs: No Hearing needs: No Vision needs: Yes Female Reproductive History Menstrual Age of Menarche: 12 Physical Exam Vital Signs: Last Vital Signs Pulse 53 07/31/24 08:43 BP 130/54 L 07/31/24 08:43 Pulse Ox 97 07/31/24 08:43 Oxygen Delivery Method Room Air 07/31/24 08:43 BMI result Body Mass Index 24.9 Const Orientation/consciousness: patient oriented x3 HEENT Ears: hearing grossly normal bilaterally Neck Thyroid: Thyroid normal Lymphatic: no lymphadenopathy noted Resp Auscultation: clear to auscultation bilaterally Cardio Rate: regular rate Rhythm: regular rhythm Heart sounds: S1 normal heart sound present and S2 normal heart sound present Skin General skin exam: no rashes or lesions noted Neuro General: patient oriented x3, gait normal and no focal motor deficits Results Reviewed Results Reviewed: Laboratory Last Values Glucose (Clinic) 149 mg/dL (60-115) H 07/31/24 08:50 Laboratory Tests 07/27/24 10:54 Sodium 142 Potassium 4.1 Chloride 103 Carbon Dioxide 30 H Anion Gap 13 BUN 24 H Creatinine 0.77 Estimated GFR > 60 Hemoglobin A1c % 6.9 H Calcium 9.8 Triglycerides 124 Cholesterol 128 LDL Cholesterol, Calc 49 HDL Cholesterol 55 25-OH Vitamin D Total 49.3 Assessment & Plan Assessment & Plan (1) Type 2 diabetes mellitus with diabetic nephropathy, with long-term current use of insulin: Code(s): E11.21 - Type 2 diabetes mellitus with diabetic nephropathy; Z79.4 - termite control representative (current) use of insulin Category: Medical Plan: reduce humalog to 5 units continue lantus 30 units (2) Essential hypertension: Code(s): I10 - Essential (primary) hypertension Category: Medical Plan: continue current plan (3) Hyperlipidemia LDL goal <100: Code(s): E78.5 - Hyperlipidemia, unspecified Category: Medical Plan: continue current plan reviewed labs w/pt Coding Level of Care Code Est Pt Level 4 (85858) Complex EM visit Add On G2211 Diagnoses Type 2 diabetes mellitus with diabetic nephropathy, with long-term current use of insulin E11.21; Z79.4 Essential hypertension I10 Hyperlipidemia LDL goal <100 E78.5
--- OUTSIDE RECORDS SUMMARY | 2024-07-31 08:44 | XMS_ITS | Clinical Summary ---
Author Organization [address] [place] [address] Dr Franco Address [address] [place] [address] [place] [address] Phone Care Team Providers Care Devops Consultant Name Role Phone Elissa Salas MD Primary Care Provider [phone] Allergies No known active allergies Medications silver [...] [place] [facility] Care Teams Devops Consultant Relationship Specialty Start Date End Date Elissa Salas MD [address] [facility] , [facility] [address] [facility] D[facility]: [facility] [place] PCP - General 01/02/24
--- OUTSIDE RECORDS SUMMARY | 2024-07-31 08:44 | XMS_ITS | Encounter Summary ---
Author Organization [facility] Address [address] [place] [address] Phone Care Team Providers Care Molded Goods Embossing Press Operator Name Role Phone Elissa Kolb MD Primary Care Provider [phone] Encounter Details Date Type Department Care Team (Late Contact Info) Description 08/14/2023 Documentation Only [facility] [address] [place] [address] [place], [place] [address] [place] [address] Social History Tobacco Use Types [...] Visit [facility] [address] [place] [address] Emery Moran MD [address] [place] [address] [place] [address] documented as of this encounter Visit Diagnoses Not on filedocumented in this encounter Care Teams Molded Goods Embossing Press Operator Relationship Specialty Start Date End Date Elissa Kolb MD [address] [place], [place] PCP - General Internal Medicine 04/02/24 documented as of this encounter
--- OUTSIDE RECORDS SUMMARY | 2024-07-31 08:44 | XMS_ITS | Encounter Summary ---
Author Organization [facility] Address [address] [place] [address] Phone Care Team Providers Care Business Services Clerk Name Role Phone Elissa Kolb MD Primary Care Provider [phone] Encounter Details Date Type Department Care Team (Late st Contact Info) Description 03/26/2022 Documentation Only [facility] [address] [place] [address] Claudia Moon PA Social History [...] Visit [facility] [address] [place] [address] Emery Moran MD [address] [place] [address] [place] [address] documented as of this encounter Visit Diagnoses Not on filedocumented in this encounter Care Teams Business Services Clerk Relationship Specialty Start Date End Date Elissa Kolb MD [address] [place], [place] PCP - General Internal Medicine 04/02/24 documented as of this encounter
--- OUTSIDE RECORDS SUMMARY | 2024-07-31 08:44 | XMS_ITS | Encounter Summary ---
Author Organization [facility] Address [address] [place] [address] Phone Care Team Providers Care Database Modeler Name Role Phone Elissa Kolb MD Primary Care Provider [phone] Encounter Details Date Type Department Care Team (Late Contact Info) Description 06/24/2023 Orders Only [facility] [address] [place] [address] Claudia Moon PA Stage 3a [...] Upcoming Encounters Date Type Department Care Team ([facility] Contact Info) Description 08/04/2024 1:40 PM EDT Office Visit [facility] [address] [place] [address] Emery Moran MD [address] [place] [address] [place] [address] documented as of this encounter Visit Diagnoses Diagnosis Stage 3a chronic kidney disease (HCC) Essential (primary) hypertension Type 2 diabetes mellitus without complication (HCC) documented in this encounter Care Teams Database Modeler Relationship Specialty Start Date End Date Elissa Kolb MD [address] [place], [place] PCP - General Internal Medicine 04/02/24 documented as of this encounter
--- OUTSIDE RECORDS SUMMARY | 2024-07-31 08:44 | XMS_ITS | Patient Health Record ---
Author Organization [facility] Address [address] [place] [address] Care Team Providers Care Metal Numerical Tool Programmer Name Role Phone Deena KEVIN, Elissa Primary Care Provider Unavail able Deanna Orourke Unavailable [phone] Allergies Allergen (clinical drug ingredient) Drug/Non Drug [...] 70 % as directed 10/17/2022 Active Pen [place] Active Blood Glucose Meter 10/17/2022 Active Rosuvastatin [...] Problem Acquired hammer toe of right foot (961188416610 9105) Other hammer toe(s) (acquired), right foot (M20.41) Active confirmed Problem Acquired hammer toe of left foot (665072411989 9103) Other hammer toe(s) (acquired), left foot (M20.42) Active confirmed Problem 67262026 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 Plan [address] [place] [phone] [id number] Lizbeth Bonner Self - patient is the insured Medical (General) History Medical History History ICD Code Arthritis Back,Hip,and Knee pain covid-19 Diabetic High blood pressure Kidney disease Poor circulation ulcer Mumps Chicken pox
--- OUTSIDE RECORDS SUMMARY | 2024-07-31 08:44 | XMS_ITS | Continuity of Care Document ---
Author Organization [facility] Address [address] [address] Phone Care Team Providers Care Money Examiner Name Role Phone Unavailable Unavailable Unavailable Advance Directives Directive Yes / No Effective Date File Name No Information Encounters Encounter Description Practice Location Reason(s) For Visit Diagnoses Date [facility], [address] [address], [place], [place], [id number], tel:[phone] [place] No Information 2015 No Information Family History [...]
--- OUTSIDE RECORDS SUMMARY | 2024-07-31 08:44 | XMS_ITS | Clinical Summary ---
Author Organization [facility], Address [address] [place] [address] [place] [address] Phone Care Team Providers Care Malt Roaster Name Role Phone Elissa Kolb MD Primary Care Provider [phone] Allergies No known active allergies Medications amLODIPine [...] Encounters Date Type Department Care Team Description 07/28/2024 Documentation Only [facility] [address] [place] [address] Beatriz Hodge MA 07/24/2024 Orders Only [facility] [address] [place] [address] Beatriz Hodge MA Stage 3a chronic kidney [...] [facility] [address] [place] [address] Emery Moran MD [address] [place] [address] [place] [phone] Health Maintenance Due Date Last Done Comments [...] patient's age to complete this topic Insurance [place] Care Teams Malt Roaster Relationship Specialty Start Date End Date Elissa Kolb MD [address] [place], [place] PCP - General Internal Medicine 04/02/24
--- OUTSIDE RECORDS SUMMARY | 2024-07-31 08:44 | XMS_ITS | Encounter Summary ---
Author Organization [facility] Address [address] [place] [address] Phone Care Team Providers Care Pharmacy Salesperson Name Role Phone Elissa Kolb MD Primary Care Provider [phone] Encounter Details Date Type Department Care Team (Late Contact Info) Description 01/29/2022 Documentation Only [facility] [address] [place] [address] Claudia Moon PA Social History [...] Visit [facility] [address] [place] [address] Emery Moran MD [address] [place] [address] [place] [phone] documented as of this encounter Visit Diagnoses Not on filedocumented in this encounter Care Teams Pharmacy Salesperson Relationship Specialty Start Date End Date Elissa Kolb MD [address] [place], [place] PCP - General Internal Medicine 04/02/24 documented as of this encounter
--- OUTSIDE RECORDS SUMMARY | 2024-07-31 08:44 | XMS_ITS | Encounter Summary ---
Author Organization [facility], Address [address] [place] [address] Phone Care Team Providers Care Dried Yeast Supervisor Name Role Phone Elissa Kolb MD Primary Care Provider [phone] Encounter Details Date Type Department Care Team (Late Contact Info) Description 11/26/2022 Documentation Only [facility] [address] [place] [phone] Conrado Kaur MD [address] [place] [address] [place] [address] Social History Tobacco Use Types [...] Visit [facility] [address] [place] [address] Emery Moran MD [address] [place] [address] [place] [address] documented as of this encounter Visit Diagnoses Not on filedocumented in this encounter Care Teams Dried Yeast Supervisor Relationship Specialty Start Date End Date Elissa Kolb MD [address] [place], [place] PCP - General Internal Medicine 04/02/24 documented as of this encounter
--- OUTSIDE RECORDS SUMMARY | 2024-07-31 08:44 | XMS_ITS | Encounter Summary ---
Author Organization [facility] Address [address] [place] [address] Phone Care Team Providers Care Carbonating Stone Cleaner Name Role Phone Elissa Kolb MD Primary Care Provider [phone] Encounter Details Date Type Department Care Team (Late Contact Info) Description 07/28/2024 Documentation Only [facility] [address] [place] [address] Beatriz Hodge [place] [address] [place] [address] Social History Tobacco Use [...] Visit [facility] [address] [place] [address] Emery Moran MD [address] [address] [place] [address] documented as of this encounter Visit Diagnoses Not on filedocumented in this encounter Care Teams Carbonating Stone Cleaner Relationship Specialty Start Date End Date Elissa Kolb MD [address] [place], [place] PCP - General Internal Medicine 04/02/24 documented as of this encounter
--- OUTSIDE RECORDS SUMMARY | 2024-07-31 08:45 | XMS_ITS ---
Author Organization [facility] Address [address] [place] [address] Care Team Providers Care Electron Tube Assembler Name Role Phone Elissa Shaffer MD Primary Care Provider Unavail able Deanna Orourke Unavailable [phone] Encounters Encounter Location Date Provider Diagnosis [address] [address] 02/01/2023 Deanna Orourke Plan Of Treatment No Information Progress Notes * Lizbeth BONNERDOB:1955 (68 yo F)Acc No.[id number]:02/01/2023 Progress Notes Patient:?Lizbeth BONNER Provider:?Deanna Orourke DPM :1955???Age:67 Y???Sex:Female D ate:02/01/2023 Address:[address] [place] [address], [place] [facility] Pcp:Elissa Shaffer MD Subjective: * Chief Complaints: [...] Orourke DPM Date:? Generated for Nuviai leslie/Fashay/eTransmitting on:?07/31/2024 08:44 AM EDT
[2024-07-31 08:54] LABS: Glucose, Whole Blood 149 mg/dL (60-115)
== END 2024-07-31 09:05 | disposition home or self-care (01) ==
PROVIDERS: PCP Internal Medicine; Visit Provider Physician Assistant
DX: E11.21 Type 2 diabetes mellitus with diabetic nephropathy (principal); Z79.4 Long term (current) use of insulin; I10 Essential (primary) hypertension; E78.5 Hyperlipidemia, unspecified

== ENCOUNTER → 2024-07-31 08:31 | Outpatient (BNVA) | payer OTHER, SELFPAY | PROVIDERS: PCP Internal Medicine; Visit Provider Physician Assistant | DX: E11.22 Type 2 diabetes mellitus with diabetic chronic kidney disease (principal); E11.21 Type 2 diabetes mellitus with diabetic nephropathy; I12.9 Hypertensive chronic kidney disease with stage 1 through stage 4 chronic kidney disease, or unspecified chronic kidney disease; N18.9 Chronic kidney disease, unspecified; E21.3 Hyperparathyroidism, unspecified; E04.2 Nontoxic multinodular goiter; I10 Essential (primary) hypertension; E78.5 Hyperlipidemia, unspecified; Z79.4 Long term (current) use of insulin | CPT/HCPCS: 82947; 99212 ==

== ENCOUNTER 2024-08-17 10:40 | Outpatient (AMB) | payer OTHER, SELFPAY ==
--- NOTE | 2024-08-17 10:46 | A.OFFPC_ITS ---
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 Required: No Accompanied by: Self / Same As Patient Allergies gabapentin Allergy (Intermediate, Verified 08/17/24 10:54) pruritus metformin Allergy (Intermediate, Verified 08/17/24 10:54) stomach upset metoprolol Allergy (Intermediate, Verified 08/17/24 10:54) upset stomach tizanidine Allergy (Intermediate, Verified 08/17/24 10:54) leg edema Medication List - Last Reconciled 08/17/24 by Elissa Salas MD alcohol swabs (Alcohol Prep Pads) 1 pad topical QID 30 days amlodipine 5 mg PO DAILY 90 days aspirin 81 mg PO DAILY 90 days blood sugar diagnostic (RoomActually Verio test strips) Use 1 test strip four times a day blood-glucose meter (RoomActually Verio Flex Meter) As directed blood-glucose sensor (NutrisystemStyle Pau 3 Sensor device) Apply every 14 days As directed to monitor blood glucose 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 lancets (RoomActually Delica Plus Lancet) As directed lidocaine 5% 1 patch topical DAILY losartan 100 mg PO DAILY 90 days omeprazole 20 mg PO QAM 90 days pen needle, diabetic Use 1 pen needle three times a day rosuvastatin 10 mg PO DAILY Tobacco use date assessed: 03/26/24 Fall risk assessment: No Falls in past year Last assessed Fall Risk: 08/17/24 Dental Screening Dental Screen Date: 08/17/24 Did you have a dental visit in the last 12 months?: Yes Did you have a dental problem in the last 6 months where you did not have access to dental care?: No Was dental information given to patient?: Patient has dentist HPI HPI Comments History of Present Illness Details The patient is a 68-year-old female presenting with follow-up care for Type 2 Diabetes Mellitus and issues related to blood pressure medication. Her diabetes is managed with metformin, though it causes discomfort, with the latest HbA1c at 6.9%. Her osteoporosis treatment includes Prolia injections, managed by endocrinology. Active Essential Hypertension management includes losartan and amlodipine, as metoprolol is not well tolerated. Recent blood pressure readings show variability, raising concerns with episodes of hypotension. Gastroesophageal reflux disease and hyperlipidemia are managed with omeprazole and rosuvastatin, respectively. There is also mention of mild anemia recently recorded but improving. The patient's history includes depression with anxiety, controlled with citalopram. An annual eye exam and mammography were completed in April, consistent with age-appropriate screening. [facility] Medical History (Updated 08/17/24 @ 11:04 by Elissa Salas MD) T2DM (type 2 diabetes mellitus) Hyperparathyroidism Multinodular thyroid Goiter Vitamin D deficiency Anemia Right hand pain Diabetes type 2, uncontrolled Hyperlipidemia LDL goal <100 Osteoporosis Chronic kidney disease, stage 2 (mild) Long-term use of aspirin therapy GERD (gastroesophageal reflux disease) Dyslipidemia Essential hypertension intermediate designer (current) use of insulin Screening for osteoporosis Well woman exam Depression with anxiety Fibromyalgia Surgical History History of colonoscopy History of tubal ligation Family History Father No problems noted. Mother Asthma Hypertension Chronic mental illness Diabetes Mental health disorder Family/Other Chronic mental illness Mental health disorder Social History Household Members: None Housing: Apartment Alcohol intake: never Patient Tobacco Use Status: Never used Tobacco e-Cigarette/Vaping Use: Never Used Second Hand Smoke Exposure: No service: No Current occupational status: disabled Sexual orientation: Straight/Heterosexual Gender identity: Female Cognitive needs: No Hearing needs: No Vision needs: Yes Female Reproductive History Menstrual Age of Menarche: 12 Questionnaire PHQ-9 Over the last 2 weeks, how often have you been bothered by any of the following problems? 1. Little interest or pleasure in doing things: not at all 2. Feeling down, depressed, or hopeless: not at all 3. Trouble falling or staying asleep, or sleeping too much: not at all 4. Feeling tired or having little energy: not at all 5. Poor appetite or overeating: not at all 6. Feeling bad about yourself - or that you are a failure or have let yourself or your family down: not at all 7. Trouble concentrating on things, such as reading the newspaper or watching television: not at all 8. Moving or speaking so slowly that other people could have noticed. Or the opposite - being so fidgety or restless that you have been moving around a lot more than usual: not at all 9. Thoughts that you would be better off or of hurting yourself in some way: not at all Total score: 0 Depression Screening Interpretation: Negative Depression Screening Done: Yes 00017 - PHQ-9 Billing: Yes Source: Developed by Drs. Arnulfo Ray, Marjorie Holbrook, Brannon Dallas and colleagues, with an educational lorena from [employer]. Thrive Questionnaire Date Thrive assessed: 08/17/24 I am a: Patient What is your living situation today?: I have a steady place to live Within the past 12 months, did the food you bought not last and you didn't have the money to get more?: Never true Within the past 12 months, did you worry whether your food would run out before you got money to buy more?: Never true Do you have trouble paying for medicines?: No Do you have trouble getting transportation to medical appointments?: No Do you have trouble paying your heating and electricity bill?: No Do you have trouble taking care of your child, family member or friend?: No Do you have trouble with day-to-day activities such as bathing, preparing meals, shopping, managing finances, etc.?: No Are you currently unemployed and looking for a job?: No Are you interested in more education?: No Please select the resources that you would like help with: None Currently or been in a relationship where the following occur: I choose not to answer THRIVE Score: 0 AUDIT C Alcohol Use Questionnaire (AUDIT-C) 1. How often do you have a drink containing alcohol?: Never Total Score: 0 Score Reviewed/Action Taken: No TENISHA-7 AMB Questionnaire TENISHA-7 Date TENISHA - 7 assessed: 08/17/24 Feeling nervous, anxious, or on edge: 1 = Several days Not being able to stop or control worryin = Not at all Worrying too much about different things: 0 = Not at all Trouble relaxin = Not at all Being so restless that it is hard to sit still: 0 = Not at all Becoming easily annoyed or irritable: 1 = Several days Feeling afraid as if something awful might happen: 0 = Not at all Total TENISHA-7 score (0-4 normal; 5-9 mild; 10-14 moderate; 15-21 severe): 2 Source: Developed by Drs. Arnulfo Ray, Marjorie Holbrook, Brannon Dallas and colleagues, with an educational lorena from [employer]. TENISHA-7 Assessment Billing TENISHA-7 Assessment Tool: TENISHA-7 Assessment 91078 Review of Systems Const All systems reviewed & are unremarkable except as noted in HPI and below Card Denies chest pain at rest, Denies chest pain with activity, Denies edema, Denies irregular heart rhythm, Denies claudication, Denies dyspnea, Denies dyspnea on exertion, Denies orthopnea, Denies paroxysmal nocturnal dyspnea and Denies slow heart rate Resp Denies cough, Denies dyspnea and Denies dyspnea on exertion GI Denies abdominal pain, Denies change in bowel habits, Denies excessive flatus, Denies nausea and Denies vomiting Denies urinary incontinence, Denies urinary hesitancy and Denies urinary urgency Neuro Denies lack of coordination Physical exam (Primary Care) Vital Signs: Last Vital Signs BP 120/72 08/17/24 10:47 BMI result Body Mass Index 24.7 Tobacco/Smoking Status: Tobacco use Status Tobacco use date assessed 03/26/24 08/17/24 10:52 Patient Tobacco Use Status Never used Tobacco 08/17/24 10:52 e-Cigarette/Vaping Use Never Used 08/17/24 10:52 PHQ-9: PHQ-9 Score PHQ-9: Total score 0 08/17/24 10:58 Depression Screening Interpretation: Negative Thrive Assessment: Date of Thrive Assessment Date Thrive assessed 08/17/24 08/17/24 10:52 Currently or been in a relationship where the following occur: I choose not to answer Resp Effort & Inspection: normal respiratory effort Auscultation: clear to auscultation bilaterally Cardio Jugular venous distension: no JVD Rate: regular rate Rhythm: regular rhythm Heart sounds: S1 normal heart sound present and S2 normal heart sound present Extrem General: Yes full ROM Coding Level of Care Code Est Pt Level 4 (28681) Complex EM visit Add On G2211 Diagnoses Mild major depression 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, with long-term current use of insulin E11.21; Z79.4 Headache R51.9 Osteoporosis M81.0 Anemia D64.9 Essential hypertension I10 Dyslipidemia E78.5 Gastroesophageal reflux disease, unspecified whether esophagitis present K21.9 Esophagitis presence: esophagitis presence not specified Additional Codes TENISHA-7 Assessment Billing - TENISHA-7 Assessment Tool: TENISHA-7 Assessment 57578 ([id number]) PHQ-9 - 26528 - PHQ-9 Billing: Yes ([id number]) Time Spent (min) 24 Assessment & Plan Assessment & Plan (1) Mild major depression: Code(s): F32.0 - Major depressive disorder, single episode, mild Category: Medical (2) Type 2 diabetes mellitus with diabetic nephropathy, with long-term current use of insulin: Code(s): E11.21 - Type 2 diabetes mellitus with diabetic nephropathy; Z79.4 - intermediate designer (current) use of insulin Category: Medical (3) Headache: Code(s): R51.9 - Headache, unspecified Category: Medical (4) Osteoporosis: Code(s): M81.0 - Age-related osteoporosis without current pathological fracture Category: Medical (5) Anemia: Code(s): D64.9 - Anemia, unspecified Category: Medical (6) Essential hypertension: Code(s): I10 - Essential (primary) hypertension Category: Medical (7) Dyslipidemia: Code(s): E78.5 - Hyperlipidemia, unspecified Category: Medical (8) GERD (gastroesophageal reflux disease): Code(s): K21.9 - Gastro-esophageal reflux disease without esophagitis Category: Medical Qualifiers: Esophagitis presence: esophagitis presence not specified Qualified Code(s): K21.9 - Gastro-esophageal reflux disease without esophagitis Plan The patient will continue with currently effective diabetic management and osteoporosis treatment. Adjustments in hypertension management involve discontinuing hydrochlorothiazide while maintaining losartan and amlodipine to avoid hypotension episodes. The patient will undergo further assessment by neurology for headaches potentially related to blood pressure variations. Current mental health treatment with citalopram is effective. Preventative screenings remain current, with future bone density evaluation scheduled. Patient was informed and verbally consented to the use of an ambient scribe for clinic note documentation during this visit. I discussed the management of the patient's diabetes and osteoporosis with the current medication regimen. We reviewed the recent change in hypertension management, outlining the reasons for discontinuing a diuretic to prevent hypotension. I emphasized the importance of further evaluation for headaches through neurology. Risks and benefits of ongoing treatments for depression and hyperlipidemia were discussed, confirming the importance of medication adherence. She is encouraged to monitor any new or worsening symptoms and follow up as needed. Orders: Orders Microalbumin, Random (w Creat) 4 Months R80.9 - Proteinuria, unspecified Vitamin D 25-OH Total 4 Months E55.9 - Vitamin D deficiency, unspecified Comprehensive [place]. Panel Fast 4 Months E11.21 - Type 2 diabetes mellitus with diabetic nephropathy, Z79.4 - intermediate designer (current) use of insulin Lipid Panel 4 Months E78.5 - Hyperlipidemia, unspecified Referrals Neurology Referral R51.9 - Headache, unspecified Patient Instructions: - Continue current medications as prescribed for diabetes, osteoporosis, and depression. - Monitor blood pressure regularly and report any significant changes. - Schedule a neurology appointment for further headache evaluation. - Maintain scheduled follow-ups for bone density and other health screenings. - Contact healthcare provider if symptoms worsen or new symptoms develop.
[2024-08-17 10:47] VITALS: BP 120/72; BMI 24.7
--- OUTSIDE RECORDS SUMMARY | 2024-08-17 11:45 | XMS_ITS | Encounter Summary ---
Author Organization [facility] Address [address] [place] [address] Phone Care Team Providers Care Marketing Director Name Role Phone Elissa Kolb MD Primary Care Provider [phone] Encounter Details Date Type Department Care Team (Late Contact Info) Description 01/29/2022 Documentation Only [facility] [address] [place] [address] Claudia Moon PA Social History [...] Department Care Team (Late Contact Info) Description 12/01/2024 1:30 PM EDT Office Visit [facility] [address] [place] [address] Emery Moran MD [address] [place] [address] [place] [address] documented as of this encounter Visit Diagnoses Not on filedocumented in this encounter Care Teams Marketing Director Relationship Specialty Start Date End Date Elissa Kolb MD [address] [place], [place] PCP - General Internal Medicine 04/02/24 documented as of this encounter
== END 2024-08-17 11:09 | disposition home or self-care (01) ==
LOC: HO.HMCH 10:40
PROVIDERS: PCP Internal Medicine; Visit Provider Internal Medicine
DX: F32.0 Major depressive disorder, single episode, mild (principal); E11.21 Type 2 diabetes mellitus with diabetic nephropathy; Z79.4 Long term (current) use of insulin; R51.9 Headache, unspecified; M81.0 Age-related osteoporosis without current pathological fracture; D64.9 Anemia, unspecified; I10 Essential (primary) hypertension; E78.5 Hyperlipidemia, unspecified; K21.9 Gastro-esophageal reflux disease without esophagitis

== ENCOUNTER → 2024-08-17 10:40 | Outpatient (BNVA) | payer OTHER, SELFPAY | PROVIDERS: PCP Internal Medicine; Visit Provider Internal Medicine | DX: E11.21 Type 2 diabetes mellitus with diabetic nephropathy (principal); I10 Essential (primary) hypertension; K21.9 Gastro-esophageal reflux disease without esophagitis; E78.5 Hyperlipidemia, unspecified; F32.0 Major depressive disorder, single episode, mild; R51.9 Headache, unspecified; M81.0 Age-related osteoporosis without current pathological fracture; D64.9 Anemia, unspecified; R80.9 Proteinuria, unspecified; E55.9 Vitamin D deficiency, unspecified; Z79.4 Long term (current) use of insulin; Z79.84 Long term (current) use of oral hypoglycemic drugs | CPT/HCPCS: 96127; 99212 ==

== ENCOUNTER 2024-08-21 08:44 | Outpatient (REF) | payer OTHER, SELFPAY ==
--- NOTE | ~2024-08-21 | MM_ITS ---
EXAMINATION: DXA BONE DENSITY AXIAL HISTORY: M81.0 - Age-related osteoporosis without current pathological fracture TECHNIQUE: [employer] Dual energy absorptiometry (DEXA) of the lumbar spine, total left hip, and femoral neck was performed. COMPARISON: Comparison is made with the prior examination dated 08/14/2022. FINDINGS: The bone mineral density of the lumbar spine is 0.947, corresponding to a T-score of -1.9, and a Z-score of -0.2. This is indicative of osteopenia. This represents a BMD change of 12.1% compared to the prior exam. This is statistically significant. The bone mineral density of the left total hip is 0.887, corresponding to a T-score of -1.0, and a Z-score of 0.6. This is indicative of normal bone mineral density. This represents a BMD change of 4.8% compared to the prior exam. This is statistically significant. The bone mineral density of the left femoral neck is 0.825, corresponding to a T-score of -1.5, and a Z-score of 0.2. This is indicative of osteopenia. This represents a BMD change of 6.5% compared to the prior exam. FRACTURE RISK: The FRAX index suggests a ten year probability of major osteoporotic fracture of 5.7%, and of hip fracture 0.8%. MM/XR DEXA axial skeleton IMPRESSION: Based on bone mineral density, and according to World Health Organization (WHO) criteria, the diagnosis is consistent with osteopenia. All bone density values are in grams per centimeter squared (g/cm2). Statistically, 68% of repeat scans fall within 1 SD (+/- 0.010 g/cm2 for AP spine L1-L4) and 1 SD (+/- 0.012 g/cm2 for femur total) FRAX is a trademark of the [employer]'s [employer] Metabolic Bone Disease, a World Health Organization (WHO) Collaborating Center. Electronically signed by: Arnulfo Keenan MD 08/21/2024 10:06 AM EDT
--- OUTSIDE RECORDS SUMMARY | 2024-08-21 08:59 | XMS_ITS | Encounter Summary ---
Author Organization [facility] Address [address] [place] [address] Phone Care Team Providers Care Motorized Squad Captain Name Role Phone Elissa Kolb MD Primary Care Provider [phone] Encounter Details Date Type Department Care Team (Late Contact Info) Description 01/29/2022 Documentation Only [facility] [address] [place] [address] Claudia Moon PA Social History [...] Visit [facility] [address] [place] [address] Emery Moran MD [address] [place] [address] [place] [address] documented as of this encounter Visit Diagnoses Not on filedocumented in this encounter Care Teams Motorized Squad Captain Relationship Specialty Start Date End Date Elissa Kolb MD [address] [place], [place] PCP - General Internal Medicine 04/02/24 documented as of this encounter
== END 2024-08-21 08:45 | disposition home or self-care (01) ==
LOC: HO.MAMMO 08:44
PROVIDERS: PCP Internal Medicine; Visit Provider Internal Medicine Endocrinology, Diabetes & Metabolism
DX: M81.0 Age-related osteoporosis without current pathological fracture (principal)
CPT/HCPCS: 77080

== ENCOUNTER → 2024-08-21 09:15 | Outpatient (BNV) | payer OTHER, SELFPAY | PROVIDERS: PCP Internal Medicine; Visit Provider Radiology Diagnostic Radiology | DX: E28.39 Other primary ovarian failure (principal) | CPT/HCPCS: 77080 ==

== ENCOUNTER 2024-09-14 09:34 | Outpatient (AMB) | payer OTHER, SELFPAY ==
--- NOTE | 2024-09-14 09:40 | MHC.OFFVIS ---
Vital Signs 09/14/24 09:43 Height 5 ft 1.06 in Weight 135 lb 12.876 oz BMI 25.6 BP 152/72 H Blood Pressure Location Lt brachial Position Sitting Pulse 64 Pulse Source Pulse Oximeter Pulse Oximetry (%) 96 Oxygen Delivery Method Room Air Intake Visit Reasons: osteoporosis/prolia injection Intake Note: Patient present today for Osteoporosis & Prolia Injection. Last DEXA done at [facility] on 08/21/2024. Merchant Miller Required: Yes Merchant Miller Language: Dry Heat Cabinet Attendant Services: Merchant Miller Present Merchant Miller Name: [facility] Luanne Information Interpreted: non-clinical & clinical Accompanied by: Self / Same As Patient Allergies gabapentin Allergy (Intermediate, Verified 09/14/24 09:43) pruritus metformin Allergy (Intermediate, Verified 09/14/24 09:43) stomach upset metoprolol Allergy (Intermediate, Verified 09/14/24 09:43) upset stomach tizanidine Allergy (Intermediate, Verified 09/14/24 09:43) leg edema Medication List - Last Reconciled 09/14/24 by Arnulfo Crane MD alcohol swabs (Alcohol Prep Pads) 1 pad topical QID 30 days amlodipine 5 mg PO DAILY 90 days aspirin 81 mg PO DAILY 90 days blood sugar diagnostic (SimpleReachuch Verio test strips) Use 1 test strip four times a day blood-glucose meter (Iqua Verio Flex Meter) As directed blood-glucose sensor (FreeStyle Pau 3 Sensor device) Apply every 14 days As directed to monitor blood glucose blood-glucose,conditioning yard supervisor,cont (FreeStyle Pau 3 [place]) As directed calcium citrate 500 mg (2 x 250 mg calcium) PO BID cholecalciferol (vitamin D3) 50 mcg PO DAILY citalopram 20 mg PO DAILY denosumab (Prolia) 60 mg subcut [id number] gabapentin 100 mg PO DAILY glucose (Dex4 Glucose) 16 grams (4 x 4 gram) PO Q15M PRN insulin glargine (Lantus Solostar U-100 Insulin) 30 units (0.3 mL) subcut QAM insulin lispro (Humalog KwikPen (U-100) Insulin) inject 8 units with breakfast and lunch, inject 10 units with supper. lancets (Pinnacle BiologicsTouch Delica Plus Lancet) As directed lidocaine 5% 1 patch topical DAILY losartan 100 mg PO DAILY 90 days omeprazole 20 mg PO QAM 90 days pen needle, diabetic Use 1 pen needle three times a day rosuvastatin 10 mg PO DAILY HPI Comments Details: 68 YO F with PMHx T2DM, Osteoporosis and a MNG who is seen in F/U. . Osteoporosis: Osteoporosis: First diagnosed in 2020. Has never been treated for this. After our initial visit she underwent a full biochemical assessment, which revealed higher than expected Calcium, with PTH mildly elevated to 70.? Labs 11/10/2020 with Calcium 10.0, Albumin 4.6, PTH 70 and Vitamin D 35.? Urinary Calcium was low.? She was on HCTZ at the time. She was asked to stop the HCTZ and repeat labs. Labs are pending at this time. Has 1 servings of dietary calcium per day in the form of milk or yogurt.? Takes Calcium supplement 500 mg daily in divided doses.? Takes 2000 IU of Vitamin D daily. Denies ever using an anticoagulant, antiepileptic or glucocorticoid medication.? She does use a PPI daily. 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 .? She did not breastfeed.? Menopause was age 55.? She did not use HRT after. Denies history of Kidney stones: Denies family history of Osteoporosis or hip fracture. UTD on dental cleanings and sees dentist every 6 months.? No planned upcoming dental work or extractions. 3) Multinodular thyroid: She underwent an US of the thyroid that revealed multiple thyroid nodules.? She underwent FNA biopsy of her LLP 1.4 cm thyroid nodule 05/25/2021, but unfortunately cytology was nondiagnostic.? She refused repeat FNA biopsy. DXA dated 04/21/2020: FINDINGS: AP SPINE L1-L3 (excluding L4): The data of L1-L4 has been changed to exclude the L4 vertebral body, because degenerative sclerosis at this level may cause overestimation of lumbar spine density. BMD 0.779 g/cm2, Z-score -1.5, T-score -3.3, osteoporosis. LEFT FEMUR, NECK: BMD 0.831 g/cm2, Z-score 0.1, T-score -1.5, osteopenia. LEFT FEMUR, TOTAL: BMD 0.889 g/cm2, Z-score 0.4, T-score -0.9, normal. Laboratory Tests 04/23/22 04/23/22 07/27/22 09:00 09:01 10:04 Sodium 137 Potassium 4.7 Creatinine 1.11 Estimated GFR 49 Hemoglobin A1c % LDL Cholesterol Direct 49 TSH 2.22 Free T4 1.00 PTH Intact Calcium (PTH Intact) Microalb/Creat Ratio 34.9 07/27/22 07/27/22 10:04 10:04 Sodium Potassium Creatinine Estimated GFR Hemoglobin A1c % 7.4 LDL Cholesterol Direct TSH Free T4 PTH Intact 60 Calcium (PTH Intact) 9.8 Microalb/Creat Ratio She was started on Prolia received 2 injection 08/30/2022 in 02/2023 . Her PTH normalized. On calcium 1000 mg b.i.d. and vitamin-D replacement . Nofx since last visit . DEXA bone density shows improvement into the osteopenic range The patient is a 68-year-old female presenting with osteoporosis management and preventative care measures. She has been receiving Prolia injections, which have improved her bone density. The discussion included potential discontinuation of Prolia with alternative treatments to prevent rebound effects. The patient has a history of gastroesophageal reflux disease (GERD) and takes omeprazole for prevention. She denies current significant reflux symptoms, and her past ulcers have healed. 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 Mother Asthma Hypertension Chronic mental illness Diabetes Mental health disorder Family/Other Chronic mental illness Mental health disorder Social History Household Members: None Housing: Apartment Alcohol intake: never Patient Tobacco Use Status: Never used Tobacco e-Cigarette/Vaping Use: Never Used Second Hand Smoke Exposure: No service: No Current occupational status: disabled Sexual orientation: Straight/Heterosexual Gender identity: Female Cognitive needs: No Hearing needs: No Vision needs: Yes Female Reproductive History Menstrual Age of Menarche: 12 Assessment & Plan Assessment & Plan (1) Osteoporosis: Code(s): M81.0 - Age-related osteoporosis without current pathological fracture Category: Medical Plan: Currently on Prolia. PTH normalized on calcium and vitamin-D repletion. Last Prolia injection was Will talk to the patient about transitioning from Prolia to give a dose of Reclast in the next week or so 1. Osteoporosis The patient's bone density has improved with Prolia. Plan to discontinue Prolia and start alendronate to prevent rebound effects. Instructions include taking alendronate weekly with water, staying upright, and fasting post-ingestion. Follow-up urine test in three months and return visit in four months. 2. Gastroesophageal reflux disease GERD) Asymptomatic currently, continues omeprazole. Monitor for reflux symptoms with alendronate and report any issues. I discussed with the patient the improvement in bone density with Prolia and the plan to transition to alendronate to prevent rebound effects. We reviewed the administration instructions for alendronate, including the need to remain upright and fast post-ingestion. I also advised her to monitor for any reflux symptoms and report them. We agreed on a follow-up urine test in three months and a return visit in four months. - Start alendronate next week, take once a week with a full glass of water. - Stay upright for at least 30 minutes after taking alendronate and avoid eating for an hour. - Monitor for any increase in reflux symptoms and report them. - Complete a urine NTX test in three months and return for a follow-up visit in four months. The patient had an opportunity to ask questions regarding treatment plan. The patient expressed understanding and agreement with the above treatment plan. Patient was informed and verbally consented to the use of an ambient scribe for clinic note documentation during this visit. Orders: Orders Collagen Crosslinks NTX 3 Months M81.0 - Age-related osteoporosis without current pathological fracture Medications: New alendronate 70 mg PO QWEEK 5 tabs 4RF Discontinued denosumab (Prolia) Discontinued Reason: Duplicate 60 mg subcut [id number] 1 mL 2RF Coding Level of Care Code Est Pt Level 3 (95286) Diagnoses Osteoporosis M81.0
[2024-09-14 09:43] VITALS: BP 152/72; PULSE 64; O2SAT 96; BMI 25.6
--- OUTSIDE RECORDS SUMMARY | 2024-09-14 09:57 | XMS_ITS | Encounter Summary ---
Author Organization [facility] Address [address] [place] [address] Phone Care Team Providers Care Foot Piece Assembler Name Role Phone Elissa Kolb MD Primary Care Provider [phone] Encounter Details Date Type Department Care Team (Late Contact Info) Description 01/29/2022 Documentation Only [facility] [address] [place] [address] Claudia Moon PA Social History [...] [facility] [address] [place] [address] Emery Moran MD [address] [place] [address] [place] [address] documented as of this encounter Visit Diagnoses Not on filedocumented in this encounter Care Teams Foot Piece Assembler Relationship Specialty Start Date End Date Elissa Kolb MD [address] [place], [place] PCP - General Internal Medicine 04/02/24 documented as of this encounter
== END 2024-09-14 10:00 | disposition home or self-care (01) ==
LOC: HO.ENCR 09:35
PROVIDERS: PCP Internal Medicine; Visit Provider Internal Medicine Endocrinology, Diabetes & Metabolism
DX: M81.0 Age-related osteoporosis without current pathological fracture (principal)
CPT/HCPCS: 99213

== ENCOUNTER → 2024-09-14 09:34 | Outpatient (BNVA) | payer OTHER, SELFPAY | PROVIDERS: PCP Internal Medicine; Visit Provider Internal Medicine Endocrinology, Diabetes & Metabolism | DX: M81.0 Age-related osteoporosis without current pathological fracture (principal) | CPT/HCPCS: 99212 ==

== ENCOUNTER 2024-09-23 09:21 | Outpatient (REF) | payer OTHER, SELFPAY ==
--- OUTSIDE RECORDS SUMMARY | 2015-10-31 08:46 | XMS_ITS | Continuity of Care Document ---
Author Organization [facility] Address [address] [address] Phone Care Team Providers Care Tinsmith Apprentice Name Role Phone Ron Banks DO Unavailable Unavailable Advance Directives Directive Yes / No Effective Date File Name No Information Encounters Encounter Description Practice Location Reason(s) For Visit Diagnoses Date Provider [facility], [address], [id number], [place] tel:[phone] [address] [place] [address] No Information 2015 Darren Velasquez. [address] [place] [address], [id number], [place]. tel:[phone] Family History Family Member Type Diagnosis Age [...]
--- OUTSIDE RECORDS SUMMARY | 2024-09-23 09:39 | XMS_ITS | Encounter Summary ---
Author Organization [facility] [place], Address [address] [place] [address] Phone Care Team Providers Care Broadloom Weaver Name Role Phone Elissa Kolb MD Primary Care Provider [phone] Encounter Details Date Type Department Care Team (Late Contact Info) Description 01/29/2022 Documentation Only [facility] [address] [place] [address] Claudia Moon PA [address] [place] [address] Social History Tobacco Use Types Packs/Day Years [...] Visit [facility] [address] [place] [address] Emery Moran MD [address] [place] [address] [place] [address] documented as of this encounter Visit Diagnoses Not on filedocumented in this encounter Care Teams Broadloom Weaver Relationship Specialty Start Date End Date Elissa Kolb MD [address] [place] PCP - General Internal Medicine 04/02/24 documented as of this encounter
--- OUTSIDE RECORDS SUMMARY | 2024-09-23 09:39 | XMS_ITS | Patient Health Record ---
Author Organization [facility] Address [address] [place] [address] Care Team Providers Care Operator Catalyst Concentration Name Role Phone Deena KEVIN, Elissa Primary Care Provider Unavail able Deanna Orourke Unavailable [phone] Allergies Allergen (clinical drug ingredient) Drug/Non Drug [...] GRAMS TO BOTH FEET TWICE DAILY AFTER COMPOUND; Duration: 30 Active Ibuprofen 600 MG 1 tablet with food o r milk as needed Orally Three times a day 10/17/2022 Not-Taking Gabapentin 100 MG 1 capsule Orally Onc e a day Active Insulin Glargine Solostar 100 UNIT/ML ADMINISTER 35 UNITS UNDER THE SKIN EVERY EVENING Subcutaneous; Duration: 24 Days Active Insulin Lispro (1 Unit Dial) 100 UNIT/ML Subcutaneous; Duration: 33 Days Active Lancets 33G - as directed 10/17/2022 Act rama Extra Depth Orthopedic Shoes (1 Pair) with Customized Heat Molded Multidensity Innersoles (3 Pair) as directed Dx: IDDM/Polyneuropathy (E10.42), Hammertoe Foot Deformity (M20.41,M20.42), Preulcerative Skin Lesion(s) (L85.1) Active amLODIPine Besylate 5 MG Oral; Duration: 90 Days Active Losartan Potassium 100 MG TAKE 1 TABLET BY MOUTH DAILY Oral; Duration: 90 Days Active Aspirin Low Dose 81 MG TAKE 1 TABLET BY MOUTH EVERY DAY Oral; Duration: 90 Days Active Omeprazole 20 MG Oral; Duration: 90 Days Active Alcohol Swabs 70 % as directed 10/17/2022 Active Pen [place] Active Blood Glucose Meter 10/17/2022 Active Rosuvastatin Calcium 10 MG TAKE 1 TABLET BY MOUTH DAILY Oral; Duration: 90 Days Active Physical Therapy . . . 2-3x/week; Duration: 3-4 weeks 12/14/2022 Active Citalopram Hydrobromide 20 MG TAKE 1 TABLET BY MOUTH DAILY Oral; Duration: 90 Days Active Cyclobenzaprine HCl 10 MG 1 tablet at be dtime as needed Orally Once a day; Duration: 30 day(s) 10/17/2022 Active Social History Tobacco [...] Problem Acquired hammer toe of right foot ([id number] 9105) Other hammer toe(s) (acquired), right foot (M20.41) Active confirmed Problem Acquired hammer toe of left foot ([id number] 9103) Other hammer toe(s) (acquired), left foot (M20.42) Active confirmed Problem 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) Active confirmed Plan Of Treatment Pending Test Test Name Order Date X ray : Foot, right 3V 11/07/2022 Insurance Providers Payer Name Payer Address Payer Phone Subscriber Number Group Number Insured Name Patient Relationship to Insured Coverage Start Date Coverage End Date [facility] [address] [place]ke[place] [phone] [id number] Lizbeth Bonner Self - patient is the insured Medical (General) History Medical History History ICD Code Arthritis Back,Hip,and Knee pain covid-19 Diabetic High blood pressure Kidney disease Poor circulation ulcer Mumps Chicken pox
--- OUTSIDE RECORDS SUMMARY | 2024-09-23 09:39 | XMS_ITS | Clinical Summary ---
Author Organization [address] [facility] Address [address] [place] [address] [place] [address] Phone Care Team Providers Care Screen Cutter And Trimmer Name Role Phone Elissa Salas MD Primary Care Provider [phone] Allergies No known active allergies Medications silver sulfADIAZINE (Silvadene) 1 % creamIndications: Ingrowing nail Apply topically 1 (one) time each day. 50 g 04/02/19 26 Active Social History Tobacco Use Types Packs/Day Years [...] PCV) 03/05/2019 03/05/2018, 01/11/2012, 01/08/2001 COVID-19 Vaccine (2023-2 5 season) 2023 02/23/2021, 07/27/2020, 06/29/2020 Cholesterol [...] Annual BMP Blood Test 04/02/2024 Influenza Vaccine (#1) 2024 01/08/2001 DTaP,Tdap,and Td Vaccines (4 - [...] [place] [facility] Care Teams Screen Cutter And Trimmer Relationship Specialty Start Date End Date Elissa Salas MD [address] , [address] [facility] D/B/A: [facility] SUSIE Arboleda PCP - General 01/02/24
[2024-09-23 10:58] LABS: Albumin Level 4.6 g/dL (3.5-5.0); Anion Gap 11 (12-20); Blood Urea Nitrogen 23 mg/dL (9-16); Calcium 9.2 mg/dL (8.4-10.2); Carbon Dioxide 30 mmol/L (22-29); Chloride 103 mmol/L (96-108); Estimated Glomerular Filt Rate 58; Potassium 4.1 mmol/L (3.3-5.1); Sodium 140 mmol/L (135-145)
== END 2024-09-23 09:22 | disposition home or self-care (01) ==
LOC: HO.LAB 09:21
PROVIDERS: PCP Internal Medicine; Visit Provider Internal Medicine Endocrinology, Diabetes & Metabolism
DX: M81.0 Age-related osteoporosis without current pathological fracture (principal); E21.3 Hyperparathyroidism, unspecified
CPT/HCPCS: 36415; 80048; 82040

== ENCOUNTER 2024-10-07 09:48 | Outpatient (RCR) | payer OTHER, SELFPAY ==
[2024-10-07 10:11] VITALS: BP 165/59; PULSE 65; RESP 16; TEMP 36.9; O2SAT 99
== END 2024-10-07 10:57 | disposition home or self-care (01) ==
LOC: HO.INF 09:48
PROVIDERS: Visit Provider Internal Medicine Endocrinology, Diabetes & Metabolism
DX: M81.0 Age-related osteoporosis without current pathological fracture (principal)
CPT/HCPCS: 96374; J3489

== ENCOUNTER 2024-10-30 09:06 | Outpatient (AMB) | payer OTHER, SELFPAY ==
--- OUTSIDE RECORDS SUMMARY | 2015-10-31 08:46 | XMS_ITS | Continuity of Care Document ---
Author Organization [facility] Address [address] [address] Phone Care Team Providers Care Probate Judge Name Role Phone Ron Banks DO Unavailable Unavailable Advance Directives Directive Yes / No Effective Date File Name No Information Encounters Encounter Description Practice Location Reason(s) For Visit Diagnoses Date Provider [facility], [address], [id number], [place] tel:[phone] [address] [place] [address] No Information 2015 Darren Velasquez. [address] [place] [address], [id number], [place]. tel:[phone] Family History Family Member Type Diagnosis Age At Onset No Information Payers Payer name Insurance type Covered democrat ID Authoriza tion(s) No Information Social History Type Description Quantity Date Captured Comments Sex Female Smoking Status No Information Chief Complaint And Reason For Visit No Information History Of Present Illness Encounter Date Complaint History Of Prese nt Illness No Information Instructions Date Instruction Additional Infor mation No Information Assessments Type Assessment Date No Information
--- NOTE | 2024-10-30 09:08 | A.OFFVIS_ITS ---
Vital Signs 10/30/24 09:09 Height 5 ft 1.06 in Weight 134 lb 7.712 oz BMI 25.4 BP 124/70 Blood Pressure Location Rt brachial Position Sitting Pulse 62 Pulse Source Pulse Oximeter Pulse Oximetry (%) 99 Oxygen Delivery Method Room Air Intake Visit Reasons: T2DM Intake Note: Patient presents today for a follow-up on Type 2 Diabetes Mellitus: Last Diabetic eye exam was on: 05/2024 Last Podiatry exam was on: Patient does not see a Roofing Technician Most recent HbA1c: 7.1%, 10/30/2024 Random Glucose- 82 mg/dL, Today Engineering Geologist Required: Yes Engineering Geologist Language: Shift Nurse Manager Services: Engineering Geologist Present Engineering Geologist Name: VINCENT Kenyon Information Interpreted: non-clinical & clinical Accompanied by: Self / Same As Patient Allergies gabapentin Allergy (Intermediate, Verified 10/30/24 09:12) pruritus metformin Allergy (Intermediate, Verified 10/30/24 09:12) stomach upset metoprolol Allergy (Intermediate, Verified 10/30/24 09:12) upset stomach tizanidine Allergy (Intermediate, Verified 10/30/24 09:12) leg edema Medication List - Last Reconciled 10/30/24 by Dina Scott PA-C alcohol swabs (Alcohol Prep Pads) 1 pad topical QID 30 days alendronate 70 mg PO QWEEK amlodipine 5 mg PO DAILY 90 days aspirin 81 mg PO DAILY 90 days blood sugar diagnostic (OneTouch Verio test strips) Use 1 test strip four times a day blood-glucose meter (AnswerGo.comTouch Verio Flex Meter) As directed blood-glucose sensor (FreeStyle Pau 3 Sensor device) Apply every 14 days As directed to monitor blood glucose blood-glucose,medical education specialist,cont (FreeStyle Pau 3 [place]) As directed calcium citrate 500 mg (2 x 250 mg calcium) PO BID cholecalciferol (vitamin D3) 50 mcg PO DAILY citalopram 20 mg PO DAILY gabapentin 100 mg PO DAILY glucose (Dex4 Glucose) 16 grams (4 x 4 gram) PO Q15M PRN insulin glargine (Lantus Solostar U-100 Insulin) 25 units subcut QPM insulin lispro (Humalog KwikPen (U-100) Insulin) Sliding scale inject 6 units for bs 80-150, 8 units for bs 151-200, 10 units for bs 201-250, 12 units for bs 251-300, 14 units for bs >300 lancets (OneTouch Delica Plus Lancet) As directed lidocaine 5% 1 patch topical DAILY losartan 100 mg PO DAILY 90 days omeprazole 20 mg PO QAM 90 days pen needle, diabetic Use 1 pen needle three times a day rosuvastatin 10 mg PO DAILY HPI HPI T2DM: Details: Patient is a 68-year-old female with a significant past medical history of hyperparathyroidism, multinodular thyroid, hypertension, hyperlipidemia, type 2 diabetes, chronic kidney disease, long-term use of insulin presenting today for a diabetic follow-up. Engineering Geologist: Dalila -never got labs done prior to today's appointment Endo: Her A1c is 7.1. She is currently on Lantus 25 units nightly, Humalog 8 units TID. -she was initially treated with metformin but discontinued due to GI distress. Intolerant of SGLT2 due to vaginal irritation. She states she tried mounjaro, trulicity and ozempic but did not tolerate these (cannot remember exact reaction but believes it was GI distress). CGM-Scout Analyticsyle Pau 3 download-. Very hyperglycemic 0%, hyperglycemic 17%, in range 81%, hypoglycemic 2%. No severe hypoglycemia. -lows are around mealtimes if she injects herself and then forgets to eat for some time. She states that she is usually really good about this sometimes does not eat when she should after she uses the Humalog -most of the highs are also around meals. Hypoglycemia- she states she will feel sweaty. corrects with oj and apple juice Hyperglycemia- sometimes will notice thirst CV: Blood pressure today in the office is 124/70. She is currently on amlodipine 5 mg, HCTZ 25 mg and losartan 100 mg daily. Cholesterol is controlled with Crestor 10 mg. No myalgias. Last LFTs and lipids WNL. Nephro. 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 Mother Asthma Hypertension Chronic mental illness Diabetes Mental health disorder Family/Other Chronic mental illness Mental health disorder Social History Household Members: None Housing: Apartment Alcohol intake: never Patient Tobacco Use Status: Never used Tobacco e-Cigarette/Vaping Use: Never Used Second Hand Smoke Exposure: No service: No Current occupational status: disabled Sexual orientation: Straight/Heterosexual Gender identity: Female Cognitive needs: No Hearing needs: No Vision needs: Yes Female Reproductive History Menstrual Age of Menarche: 12 Physical Exam Vital Signs: Last Vital Signs Pulse 62 10/30/24 09:09 BP 124/70 10/30/24 09:09 Pulse Ox 99 10/30/24 09:09 Oxygen Delivery Method Room Air 10/30/24 09:09 BMI result Body Mass Index 25.4 Const Orientation/consciousness: patient oriented x3 HEENT Ears: hearing grossly normal bilaterally Neck Thyroid: Thyroid normal Lymphatic: no lymphadenopathy noted Resp Auscultation: clear to auscultation bilaterally Cardio Rate: regular rate Rhythm: regular rhythm Heart sounds: S1 normal heart sound present and S2 normal heart sound present Skin General skin exam: no rashes or lesions noted Neuro General: patient oriented x3, gait normal and no focal motor deficits Results AMB Hemoglobin A1c AMB Hemoglobin A1c 7.1 % Last Edit by VINCENT Kenyon on 10/30/24 09:45 Results Reviewed Results Reviewed: Laboratory Tests 07/27/24 09/23/24 10:54 09:32 Creatinine 0.95 Estimated GFR 58 Random Glucose 190 H Hemoglobin A1c % 6.9 H Triglycerides 124 Cholesterol 128 LDL Cholesterol, Calc 49 HDL Cholesterol 55 Assessment & Plan Assessment & Plan (1) Type 2 diabetes mellitus with diabetic nephropathy, with long-term current use of insulin: Code(s): E11.21 - Type 2 diabetes mellitus with diabetic nephropathy; Z79.4 - prison (current) use of insulin Category: Medical Plan: Humalog sliding scale provided today. We hand write this for her as well. Continue Lantus 25 units She has testing supplies at home. Glucose tabs at home if needed (2) Essential hypertension: Code(s): I10 - Essential (primary) hypertension Category: Medical Plan: WNL. Continue current regimen (3) Dyslipidemia: Code(s): E78.5 - Hyperlipidemia, unspecified Category: Medical Plan: As above Orders: Orders AMB Hemoglobin A1c Today E11.21 - Type 2 diabetes mellitus with diabetic nephropathy, Z79.4 - computer terminal operator (current) use of insulin Medications: Changed From insulin lispro (Humalog KwikPen (U-100) Insulin) inject 8 units with breakfast and lunch, inject 10 units with supper. 15 mL 1RF E11.65 - Type 2 diabetes mellitus with hyperglycemia To insulin lispro (Humalog KwikPen (U-100) Insulin) Sliding scale inject 6 units for bs 80-150, 8 units for bs 151-200, 10 units for bs 201-250, 12 units for bs 251-300, 14 units for bs >300 15 mL 1RF E11.65 - Type 2 diabetes mellitus with hyperglycemia From insulin glargine (Lantus Solostar U-100 Insulin) 30 units (0.3 mL) subcut QAM 15 mL 5RF E11.65 - Type 2 diabetes mellitus with hyperglycemia To insulin glargine (Lantus Solostar U-100 Insulin) 25 units subcut QPM E11.65 - Type 2 diabetes mellitus with hyperglycemia Coding Level of Care Code Est Pt Level 4 (48267) Complex EM visit Add On G2211 Diagnoses Type 2 diabetes mellitus with diabetic nephropathy, with long-term current use of insulin E11.21; Z79.4 Essential hypertension I10 Dyslipidemia E78.5
[2024-10-30 09:09] VITALS: BP 124/70; PULSE 62; O2SAT 99; BMI 25.4
--- OUTSIDE RECORDS SUMMARY | 2024-10-30 09:21 | XMS_ITS | Encounter Summary ---
Author Organization [facility], Address [address] [place] [address] Phone Care Team Providers Care Multimedia Artist Name Role Phone Elissa Kolb MD Primary Care Provider [phone] Encounter Details Date Type Department Care Team (Late Contact Info) Description 01/29/2022 Documentation Only [facility] [address] [place] [address] Claudia Moon PA [address] [place] [address] Social History Tobacco Use Types [...] Visit [facility] [address] [place] [address] Emery Moran MD [address] [place] [address] [place] [address] documented as of this encounter Visit Diagnoses Not on filedocumented in this encounter Care Teams Multimedia Artist Relationship Specialty Start Date End Date Elissa Kolb MD [address] [place] PCP - General Internal Medicine 04/02/24 documented as of this encounter
--- OUTSIDE RECORDS SUMMARY | 2024-10-30 09:23 | XMS_ITS | Clinical Summary ---
Author Organization [address] [facility] [address] Franco Address [address] [place] [address] [place] [address] Phone Care Team Providers Care Turbine Subassembler Name Role Phone Elissa Salas MD Primary Care Provider Allergies No known active allergies Medications silver [...] Panel) 01/04/2024 Colorectal Cancer Screening: Colonoscopy 01/04/2024 Falls Risk Assessment 01/04/2024 Hepatitis C Screening 01/04/2024 Medicare Annual Wellness Visit 01/04/2024 Osteoporosis Screening (Bone Density Screening) 01/04/2024 Social Influencers of Health Screening 01/04/2024 Depression Screening 03/18/2024 Diabetes: Annual Urine Albumin-Creatinine Ratio (uACR) 04/02/2024 [...] to complete this topic Insurance [place] - [place] [facility] [employer] [employer] Care Teams Turbine Subassembler Relationship Specialty Start Date End Date Elissa Salas MD [address] [facility] , [address] [facility]ician Associ D/B/A: [facility] SUSIE Arboleda PCP - General 01/02/24
--- OUTSIDE RECORDS SUMMARY | 2024-10-30 09:23 | XMS_ITS | Patient Health Record ---
Author Organization [facility] Address [address] [place] [address] Care Team Providers Care Sock Boarder Name Role Phone Deena KEVIN, Elissa Primary Care Provider Unavail able Deanna Orourke Unavailable [phone] Allergies Allergen (clinical drug ingredient) Drug/Non Drug [...] 70 % as directed 10/17/2022 Active Pen [place] Active Blood Glucose Meter 10/17/2022 Active Rosuvastatin [...] Problem Acquired hammer toe of right foot (2934726482070224 ) Other hammer toe(s) (acquired), right foot (M20.41) Active confirmed Problem Acquired hammer toe of left foot (9964787607431675 ) Other hammer toe(s) (acquired), left foot (M20.42) Active confirmed Problem Polyneuropathy due to diabetes mellitus type I (536344211) 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) Active confirmed Plan Of Treatment Pending Test Test Name Order Date X ray : Foot, right 3V 11/07/2022 Insurance Providers Payer Name Payer Address Payer Phone Subscriber Number Group Number Insured Name Patient Relationship to Insured Coverage Start Date Coverage End Date [facility] [address] SHAR[place] Mcke[place] [phone] [id number] Lizbeth Bonner Self - patient is the insured Medical (General) History Medical History History ICD Code Arthritis Back,Hip,and Knee pain covid-19 Diabetic High blood pressure Kidney disease Poor circulation ulcer Mumps Chicken pox
[2024-10-30 09:25] LABS: Glucose, Whole Blood 82 mg/dL (60-115)
== END 2024-10-30 09:59 | disposition home or self-care (01) ==
LOC: HO.ENCR 09:07
PROVIDERS: PCP Internal Medicine; Visit Provider Physician Assistant
DX: E11.21 Type 2 diabetes mellitus with diabetic nephropathy (principal); Z79.4 Long term (current) use of insulin; I10 Essential (primary) hypertension; E78.5 Hyperlipidemia, unspecified

== ENCOUNTER → 2024-10-30 09:06 | Outpatient (BNVA) | payer OTHER, SELFPAY | PROVIDERS: PCP Internal Medicine; Visit Provider Physician Assistant | DX: E11.21 Type 2 diabetes mellitus with diabetic nephropathy (principal); E11.22 Type 2 diabetes mellitus with diabetic chronic kidney disease; E21.3 Hyperparathyroidism, unspecified; I12.9 Hypertensive chronic kidney disease with stage 1 through stage 4 chronic kidney disease, or unspecified chronic kidney disease; E78.5 Hyperlipidemia, unspecified; N18.9 Chronic kidney disease, unspecified | CPT/HCPCS: 82947; 83036; 99212 ==

== ENCOUNTER 2024-12-22 07:46 | Outpatient (REF) | payer OTHER, SELFPAY ==
--- OUTSIDE RECORDS SUMMARY | 2015-10-31 08:46 | XMS_ITS | Continuity of Care Document ---
Author Organization [facility] Address [address] [address] Phone Care Team Providers Care Laborer Marine Terminal Name Role Phone Ron Banks DO Unavailable Unavailable Advance Directives Directive Yes / No Effective Date File Name No Information Encounters Encounter Description Practice Location Reason(s) For Visit Diagnoses Date Provider [facility], [address], [id number], [place] tel:[phone] [address] [place] [address] No Information 2015 Darren Velasquez. [address] [place] [address], [id number], [place]. tel:[phone] Family History Family Member Type Diagnosis Age At Onset No Information Payers Payer name Insurance type Covered libertarian ID Authoriza tion(s) No Information Social History Type Description Quantity Date Captured Comments Sex Female Smoking Status No Information Chief Complaint And Reason For Visit No Information History Of Present Illness Encounter Date Complaint History Of Prese nt Illness No Information Instructions Date Instruction Additional Infor mation No Information Assessments Type Assessment Date No Information
--- OUTSIDE RECORDS SUMMARY | 2024-12-22 07:49 | XMS_ITS | Clinical Summary ---
Author Organization [address] [place] [address] Dr Franco Address [address] [place] [address] [place] [address] Phone Care Team Providers Care Service Cleaner Name Role Phone Elissa Salas MD Primary Care Provider [phone] Allergies No known active allergies Medications silver [...] Last Done Comments Breast Cancer Screening 1954 Colorectal Cancer Screening: Colonoscopy 1954 Diabetes: Annual GFR (Glomerular Filtration Rate) 1954 Diabetes: Annual Foot Exam 1964 Diabetes: Annual Retina Eye Exam 1964 RSV Immunization Adult Patients (1 - Risk 60-74 years 1-dose series) 2014 Pneumococcal Vaccine: 50+ Years (2 of 2 - PCV) 03/05/2019 03/05/2018, 01/11/2012, 01/08/2001 Cholesterol Screening (Lipid Panel) 01/04/2024 Falls Risk Assessment 01/04/2024 Hepatitis C Screening 01/04/2024 Medicare Annual Wellness Visit 01/04/2024 Osteoporosis Screening (Bone Density Screening) 01/04/2024 Social Influencers of Health Screening 01/04/2024 Depression Screening 03/18/2024 Diabetes: Annual Urine Albumin-Creatinine Ratio (uACR) 04/02/2024 Diabetes: Blood Sugar Contro l Test (HGBA1C) 04/02/2024 Hypertension/CHF/CAD Annual BMP Blood Test 04/02/2024 COVID-19 Vaccine (4 - 2024-2 6 season) 2024 02/23/2021, 07/27/2020, 06/29/2020 Influenza Vaccine (#1) 2024 01/08/2001 DTaP,Tdap,and Td [...] to complete this topic Insurance [place] - [place] [facility] [employer] Care Teams Service Cleaner Relationship Specialty Start Date End Date Elissa Salas MD [address] [facility] , [address] [facility]ician [facility] D/B/A: [facility] SUSIE Arboleda PCP - General 01/02/24
--- OUTSIDE RECORDS SUMMARY | 2024-12-22 07:49 | XMS_ITS | Encounter Summary ---
Author Organization [facility], Address [address] [place] [address] Phone Care Team Providers Care Blow Molding Machine Operator Name Role Phone Elissa Kolb MD Primary Care Provider [phone] Encounter Details Date Type Department Care Team (Late Contact Info) Description 03/26/2022 Documentation Only [facility] [address] [place] [address] Claudia Moon PA [address] [place] [address] Social History Tobacco Use Types [...] Department Care Team (Late Contact Info) Description 02/02/2025 1:20 PM EST Office Visit [facility] [address] [place] [address] Emery Moran MD [address] [facility] [place] [address] documented as of this encounter Visit Diagnoses Not on filedocumented in this encounter Care Teams Blow Molding Machine Operator Relationship Specialty Start Date End Date Elissa Kolb MD [address] [place] [address], [place] PCP - General Internal Medicine 04/02/24 documented as of this encounter
--- OUTSIDE RECORDS SUMMARY | 2024-12-22 07:49 | XMS_ITS | Encounter Summary ---
Author Organization [facility], Address [address] [place] [address] Phone Care Team Providers Care House Builder Name Role Phone Elissa Kolb MD Primary Care Provider [phone] Encounter Details Date Type Department Care Team ([facility] Contact Info) Description 08/14/2023 Documentation Only [facility] [address] [place] [address] [place] [address] [place] [address] Social History Tobacco Use Types Packs/Day [...] Visit [facility] [address] [place] [address] Emery Moran MD [address] [place] [address] [place] [address] documented as of this encounter Visit Diagnoses Not on filedocumented in this encounter Care Teams House Builder Relationship Specialty Start Date End Date Elissa Kolb MD [address] [place], [place] PCP - General Internal Medicine 04/02/24 documented as of this encounter
--- OUTSIDE RECORDS SUMMARY | 2024-12-22 07:49 | XMS_ITS | Encounter Summary ---
Author Organization [facility], Address [address] [place] [address] Phone Care Team Providers Care Band Aid Machine Operator Name Role Phone Elissa Kolb MD Primary Care Provider [phone] Encounter Details Date Type Department Care Team (Late Contact Info) Description 11/26/2022 Documentation Only [facility] [address] [place] [address] Conrado Kaur MD [address] [facility] [place] [address] Social History Tobacco Use Types [...] Visit [facility] [address] [place] [address] Emery Moran MD [address] [facility] [place] [address] documented as of this encounter Visit Diagnoses Not on filedocumented in this encounter Care Teams Band Aid Machine Operator Relationship Specialty Start Date End Date Elissa Kolb MD [address] [place], [place] PCP - General Internal Medicine 04/02/24 documented as of this encounter
--- OUTSIDE RECORDS SUMMARY | 2024-12-22 07:49 | XMS_ITS | Encounter Summary ---
Author Organization [facility] [place], Address [address] [place] [address] Phone Care Team Providers Care Puff Ironer Name Role Phone Elissa Kolb MD Primary Care Provider [phone] Encounter Details Date Type Department Care Team (Late Contact Info) Description 01/29/2022 Documentation Only [facility] [address] [facility] [address] [address] [place] [address] Claudia Moon PA [address] [facility] [place] [address] Social History Tobacco Use Types [...] Visit [facility] [address] [facility] [place] [address] Emery Moran MD [address] [facility] [place] [address] documented as of this encounter Visit Diagnoses Not on filedocumented in this encounter Care Teams Puff Ironer Relationship Specialty Start Date End Date Elissa Kolb MD [address] [place], [place] PCP - General Internal Medicine 04/02/24 documented as of this encounter
--- OUTSIDE RECORDS SUMMARY | 2024-12-22 07:49 | XMS_ITS | Encounter Summary ---
Author Organization [facility] [place], Address [address] [place] [address] Phone Care Team Providers Care Loom Operator Name Role Phone Elissa Kolb MD Primary Care Provider [phone] Encounter Details Date Type Department Care Team (Late Contact Info) Description 06/24/2023 Orders Only [facility] [address] [place] [address] Claudia Moon PA [address] [place] [address] [place] [address] Stage 3a chronic kidney disease (HCC); Essential [...] Visit [facility] [address] [place] [address] Emery Moran MD [address] [place] [address] [place] [address] documented as of this encounter Visit Diagnoses Diagnosis Stage 3a chronic kidney disease (HCC) Essential (primary) hypertension Type 2 diabetes mellitus without complication (HCC) documented in this encounter Care Teams Loom Operator Relationship Specialty Start Date End Date Elissa Kolb MD [address] [place], [place] PCP - General Internal Medicine 04/02/24 documented as of this encounter
--- OUTSIDE RECORDS SUMMARY | 2024-12-22 07:49 | XMS_ITS | Clinical Summary ---
Author Organization [facility], Address [address] [place] [address] [place] [address] Phone Care Team Providers Care Pocket Maker Name Role Phone Elissa Kolb MD Primary Care Provider [phone] Allergies No known active allergies Medications amLODIPine [...] 06/13/2023 Active cholecalciferol (VITAMIN D-3) 50 MCG (2000 UT) capsule Take 2,000 Units by mouth 1 (one) time each day 07/11/2023 Active gabapentin (NEURONTIN) 100 MG capsule Take 1 capsule (100 mg total) by mouth at bed time 90 capsule 3 08/05/2024 08/06/19 26 Active Active Problems Problem Noted Date Diagnosed [...] Encounters Date Type Department Care Team Description 12/01/2024 1:30 PM EDT Office Visit [facility] [address] [place] [address] Emery Moran MD Stage 3a chronic kidney disease (HCC) (Primary Dx); Renal disorder due to type 2 diabetes mellitus <Other diabetic kidney complication> (HCC) from Last 3 Months Family History Medical [...] Care Team (Late st Contact Info) Description 02/02/2025 1:20 PM EST Office Visit [facility] [place], [address] [place] [address] Emery Moran MD [address] [place] [address] Health Maintenance Due Date Last Done Comments [...] Visual Foot Exam 05/01/2019 Influenza Vaccine (#1) 2024 Hepatitis B Vaccine Aged Out No longe r eligible based on patient's age to complete this topic Insurance [place] Care Teams Pocket Maker Relationship Specialty Start Date End Date Elissa Kolb MD [address] [place], [place] PCP - General Internal Medicine 04/02/24
--- OUTSIDE RECORDS SUMMARY | 2024-12-22 07:49 | XMS_ITS | Patient Health Record ---
Author Organization [facility] Address [address] [place] [address] Care Team Providers Care Rack Pusher Name Role Phone Deena KEVIN, Elissa Primary Care Provider Unavail able Deanna Orourke Unavailable [phone] Allergies Allergen (clinical drug ingredient) Drug/Non Drug [...] 70 % as directed 10/17/2022 Active Pen [place] Active Blood Glucose Meter 10/17/2022 Active Rosuvastatin [...] Problem Acquired hammer toe of right foot ([id number] ) Other hammer toe(s) (acquired), right foot (M20.41) Active confirmed Problem Acquired hammer toe of left foot (6926758332971924 ) Other hammer toe(s) (acquired), left foot (M20.42) Active confirmed Problem Polyneuropathy due to diabetes mellitus type I (292206795) 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) Active confirmed Plan Of Treatment Pending Test Test Name Order Date X ray : Foot, right 3V 11/07/2022 Insurance Providers Payer Name Payer Address Payer Phone Subscriber Number Group Number Insured Name Patient Relationship to Insured Coverage Start Date Coverage End Date [facility] [address] [place]ke[place] [phone] [id number] Lizbeth Bonner Self - patient is the insured Medical (General) History Medical History History ICD Code Arthritis Back,Hip,and Knee pain covid-19 Diabetic High blood pressure Kidney disease Poor circulation ulcer Mumps Chicken pox
--- OUTSIDE RECORDS SUMMARY | 2024-12-22 07:49 | XMS_ITS | Encounter Summary ---
Author Organization [facility] [place], Address [address] [place] [address] Phone Care Team Providers Care Helmet Binder Name Role Phone Elissa Kolb MD Primary Care Provider Encounter Details Date Type Department Care Team ([facility] Contact Info) Description 07/28/2024 Documentation Only [facility] [address] [place] [address] [place] [address] [place] [address] Social History Tobacco Use Types Packs/Day [...] [facility] [address] [place] [address] Emery Moran MD [address] [place] [address] [place] [address] documented as of this encounter Visit Diagnoses Not on filedocumented in this encounter Care Teams Helmet Binder Relationship Specialty Start Date End Date Elissa Kolb MD [address] [place], [place] PCP - General Internal Medicine 04/02/24 documented as of this encounter
[2024-12-22 09:15] LABS: Alanine Aminotransferase 29 U/L (0-31); Albumin Level 4.6 g/dL (3.5-5.0); Alkaline Phosphatase 52 U/L (39-117); Anion Gap 13 (12-20); Aspartate Amino Transferase 28 U/L (5-31); Blood Urea Nitrogen 23 mg/dL (9-16); Calcium 9.3 mg/dL (8.4-10.2); Carbon Dioxide 29 mmol/L (22-29); Chloride 106 mmol/L (96-108); Cholesterol 122 mg/dL (<200); Estimated Glomerular Filt Rate > 60; HDL Cholesterol 49 mg/dL (>40); Potassium 4.3 mmol/L (3.3-5.1); Sodium 144 mmol/L (135-145); Total Protein 7.5 g/dL (6.5-8.0); Triglycerides 63 mg/dL (<150)
[2024-12-22 09:59] LABS: Microalbum/Creatinine Ratio Ur 41.3 ug/mg cr (<30)
== END 2024-12-22 07:47 | disposition home or self-care (01) ==
LOC: HO.LAB 07:46
PROVIDERS: PCP Internal Medicine; Visit Provider Internal Medicine
DX: E11.21 Type 2 diabetes mellitus with diabetic nephropathy (principal); Z79.4 Long term (current) use of insulin; E55.9 Vitamin D deficiency, unspecified; E78.5 Hyperlipidemia, unspecified; R80.9 Proteinuria, unspecified
CPT/HCPCS: 36415; 80053; 80061; 82043; 82306; 82570

== ENCOUNTER 2024-12-23 08:05 | Outpatient (AMB) | payer OTHER, SELFPAY ==
[2024-12-23 08:47] VITALS: BP 160/70; PULSE 62; O2SAT 96
--- NOTE | 2024-12-23 08:47 | MHC.OFFVIS ---
Vital Signs 12/23/24 08:47 Weight 130 lb BP 160/70 H Blood Pressure Location Rt brachial Position Sitting Pulse 62 Pulse Source Pulse Oximeter Pulse Oximetry (%) 96 Oxygen Delivery Method Room Air Intake Visit Reasons: INP-Headache Working Manager Required: Yes Working Manager Services: Working Manager Present Working Manager Name: Working Manager from [facility] Information Interpreted: non-clinical & clinical Allergies gabapentin Allergy (Intermediate, Verified 12/23/24 08:48) pruritus metformin Allergy (Intermediate, Verified 12/23/24 08:48) stomach upset metoprolol Allergy (Intermediate, Verified 12/23/24 08:48) upset stomach tizanidine Allergy (Intermediate, Verified 12/23/24 08:48) leg edema Medication List - Last Reconciled 12/23/24 by HEIDI Sanchez alcohol swabs (Alcohol Prep Pads) 1 pad topical QID 30 days alendronate 70 mg PO QWEEK amlodipine 5 mg PO DAILY 90 days aspirin 81 mg PO DAILY 90 days blood sugar diagnostic (Alter-G Verio test strips) Use 1 test strip four times a day blood-glucose meter (Alter-G Verio Flex Meter) As directed blood-glucose sensor (TheShoppingProStyle Pau 3 Sensor device) Apply every 14 days As directed to monitor blood glucose blood-glucose,production quality analyst,cont (FreeStyle Pau 3 [place]) As directed calcium citrate 500 mg (2 x 250 mg calcium) PO BID cholecalciferol (vitamin D3) 50 mcg PO DAILY citalopram 20 mg PO DAILY citalopram 20 mg PO DAILY gabapentin 100 mg PO DAILY glucose (Dex4 Glucose) 16 grams (4 x 4 gram) PO Q15M PRN insulin glargine (Lantus Solostar U-100 Insulin) 25 units subcut QPM insulin lispro (Humalog KwikPen (U-100) Insulin) Inject per sliding scale TID with breakfast, lunch and supper. inject 6 units for bs 80-150, 8 units for bs 151-200, 10 units for bs 201-250, 12 units for bs 251-300, 14 units for bs >300 lancets (Mediclinic InternationalTouch Delica Plus Lancet) As directed lidocaine 5% 1 patch topical DAILY losartan 100 mg PO DAILY 90 days omeprazole 20 mg PO QAM 90 days pen needle, diabetic Use 1 pen needle three times a day rosuvastatin 10 mg PO DAILY HPI Comments Details: 69-ear-old female presents for new patient evaluation of headache disorder. PMH is notable for: Diabetes, mild CKD, HTN, HLD, depression, left hip pain, hyperparathyroidism, vitamin-D deficiency, anemia. Patient is accompanied by a hand booked folder and stitcher, provided by her health insurance, [employer]. Patient reports in August, she had a sudden onset severe headache. She states she was in her kitchen, doing routine household tasks, when all of a sudden she developed this headache. She describes the headache as a sudden onset severe, 10/10, pounding holocranial headache a/w bilateral blurry vision, bilateral neck pain and warmth, and a need to pace. This lasted no more than 15 minutes. She denies any precipitating or associated illness, accidents, or travel. She states she has never had a similar headache prior or since. She denies any history of usual headaches or migraine attacks. PMH and ROS are also notable for:? General tiredness Occasional bilateral neck tightness without radicular symptoms. Left hip pain Family history of migraine or other headache disorder: Her son has chronic migraine. Pertinent denials include: Headaches, migraines, dizziness, lightheadedness, shortness of breath, chest pain, palpitations, swelling, leg cramps, difficulty sleeping. PFSH Medical History T2DM (type 2 diabetes mellitus) Hyperparathyroidism Multinodular thyroid Goiter Vitamin D deficiency Anemia Right hand pain Diabetes type 2, uncontrolled Hyperlipidemia LDL goal <100 Osteoporosis Chronic kidney disease, stage 2 (mild) Long-term use of aspirin therapy GERD (gastroesophageal reflux disease) Dyslipidemia Essential hypertension terminal carman (current) use of insulin Screening for osteoporosis Well woman exam Depression with anxiety Fibromyalgia Surgical History History of colonoscopy History of tubal ligation Family History Father No problems noted. Mother Asthma Hypertension Chronic mental illness Diabetes Mental health disorder Family/Other Chronic mental illness Mental health disorder Social History Household Members: None Housing: Apartment Alcohol intake: never Patient Tobacco Use Status: Never used Tobacco e-Cigarette/Vaping Use: Never Used Second Hand Smoke Exposure: No service: No Current occupational status: disabled Sexual orientation: Straight/Heterosexual Gender identity: Female Cognitive needs: No Hearing needs: No Vision needs: Yes Female Reproductive History Menstrual Age of Menarche: 12 Physical Exam Vital Signs: Last Vital Signs Pulse 62 12/23/24 08:47 BP 160/70 H 12/23/24 08:47 Pulse Ox 96 12/23/24 08:47 Oxygen Delivery Method Room Air 12/23/24 08:47 Const Orientation/consciousness: patient oriented x3 Resp Effort & Inspection: normal respiratory effort and able to speak in complete sentences Neuro Other: No palpable scalp tenderness. Bilateral posterior cervical tightness-mild Cervical ROM: Limited Left Spurling: normal Right Spurling: normal. General: patient oriented x3 Cranial nerves: Yes CN's II-XII intact bilaterally Cognition (Neuro): normal cognition Gait exam (Neuro): Normal gait present Motor exam (neuro): 5/5 motor strength present throughout Deep tendon reflexes (DTR's): Right triceps reflex intensity grade: 2+, Left triceps reflex intensity grade: 2+, Rt Biceps (C5, C6): 2+, Left biceps reflex intensity grade: 2+, Right brachioradialis reflex intensity grade: 2+, Left brachioradialis reflex intensity grade: 2+, Right patellar reflex intensity grade: 2+ and Left patellar reflex intensity grade: 2+ Coordination: [id number]-wf-asgr test normal, tandem gait normal and Romberg test negative Pupils: Normal pupillary reactivity/response: bilateral Psych Appearance: grossly normal Mental Status: mental status grossly normal Speech and movement: Normal speech and movement present Affect: normal affect Attitude: cooperative Thought process: Normal thought process present Assessment & Plan Assessment & Plan (1) Sudden onset of severe headache: Code(s): R51.9 - Headache, unspecified Category: Medical (2) Essential hypertension: Code(s): I10 - Essential (primary) hypertension Category: Medical (3) Dyslipidemia: Code(s): E78.5 - Hyperlipidemia, unspecified Category: Medical (4) Type 2 diabetes mellitus with diabetic nephropathy, with long-term current use of insulin: Code(s): E11.21 - Type 2 diabetes mellitus with diabetic nephropathy; Z79.4 - [facility] (current) use of insulin Category: Medical Plan Discussion notes Discussed that as the patient has had a sudden-onset severe headache associated with restlessness and bilateral blurry vision, in the setting of a 69-year-old patient with a known history of HTN, HLD, CKD, diabetes, it is prudent to assess for secondary central and cardiovascular etiologies through brain MRI with and without contrast and CTA head and neck. Instructed that if she has a recurrence of a sudden-onset severe headache, consistent with a thunderclap headache, she should call 911 immediately to seek immediate medical attention. You are advised to undergo the following: MRI brain with and without contrast CT angio head and neck Case discussed with Dr Valerie Champagne. We will follow-up upon review of above and with a follow-up clinic visit in 6 months or sooner as needed. Orders: Orders MR head/brain wo/w con Today E11.21 - Type 2 diabetes mellitus with diabetic nephropathy, E78.5 - Hyperlipidemia, unspecified, I10 - Essential (primary) hypertension, R51.9 - Headache, unspecified, Z79.4 - [facility] (current) use of insulin CT angio head neck Today E11.21 - Type 2 diabetes mellitus with diabetic nephropathy, E78.5 - Hyperlipidemia, unspecified, I10 - Essential (primary) hypertension, R51.9 - Headache, unspecified, Z79.4 - [facility] (current) use of insulin Coding Level of Care Code New Pt Level 4 (99424) Diagnoses Sudden onset of severe headache R51.9 Essential hypertension I10 Dyslipidemia E78.5 Type 2 diabetes mellitus with diabetic nephropathy, with long-term current use of insulin E11.21; Z79.4
== END 2024-12-23 09:35 | disposition home or self-care (01) ==
LOC: HO.HSMS 08:06
PROVIDERS: PCP Internal Medicine; Visit Provider Nurse Practitioner Family
DX: R51.9 Headache, unspecified (principal); I10 Essential (primary) hypertension; E78.5 Hyperlipidemia, unspecified; E11.21 Type 2 diabetes mellitus with diabetic nephropathy; Z79.4 Long term (current) use of insulin
CPT/HCPCS: 99204

== ENCOUNTER → 2024-12-23 08:05 | Outpatient (BNVA) | payer OTHER, SELFPAY | PROVIDERS: PCP Internal Medicine; Visit Provider Nurse Practitioner Family | DX: E11.21 Type 2 diabetes mellitus with diabetic nephropathy (principal); Z79.4 Long term (current) use of insulin; E78.5 Hyperlipidemia, unspecified; I10 Essential (primary) hypertension; R51.9 Headache, unspecified | CPT/HCPCS: 99202 ==

== ENCOUNTER 2024-12-24 10:50 | Outpatient (AMB) | payer OTHER, SELFPAY ==
[2024-12-24 10:54] VITALS: BP 150/62; PULSE 61; RESP 18; TEMP 36.3; O2SAT 95; BMI 25.6
--- NOTE | 2024-12-24 10:54 | MHC.PC.OV ---
Vital Signs 12/24/24 10:54 Height 5 ft 1 in Weight 135 lb 6 oz BMI 25.6 BP 150/62 H Blood Pressure Location Lt brachial Position Sitting Respiration 18 Pulse 61 Pulse Source Pulse Oximeter Temp 97.3 F Temp Source Temporal Artery Scan Pulse Oximetry (%) 95 Oxygen Delivery Method Room Air Intake Visit Reasons: dm Air Filler Required: No Accompanied by: Self / Same As Patient Allergies gabapentin Allergy (Intermediate, Verified 12/24/24 11:18) pruritus metformin Allergy (Intermediate, Verified 12/24/24 11:18) stomach upset metoprolol Allergy (Intermediate, Verified 12/24/24 11:18) upset stomach tizanidine Allergy (Intermediate, Verified 12/24/24 11:18) leg edema Medication List - Last Reconciled 12/24/24 by Elissa Salas MD alcohol swabs (Alcohol Prep Pads) 1 pad topical QID 30 days amlodipine 5 mg PO DAILY 90 days aspirin 81 mg PO DAILY 90 days blood sugar diagnostic ([employer] Verio test strips) Use 1 test strip four times a day blood-glucose meter ([employer] Verio Flex Meter) As directed blood-glucose sensor (WebcrunchStyle Pau 3 Sensor device) Apply every 14 days As directed to monitor blood glucose blood-glucose,physician recruiter,cont (FreeStyle Pau 3 [place]) As directed calcium citrate 500 mg (2 x 250 mg calcium) PO BID cholecalciferol (vitamin D3) 50 mcg PO DAILY citalopram 20 mg PO DAILY citalopram 20 mg PO DAILY gabapentin 100 mg PO DAILY insulin glargine (Lantus Solostar U-100 Insulin) 25 units subcut QPM insulin lispro (Humalog KwikPen (U-100) Insulin) Inject per sliding scale TID with breakfast, lunch and supper. inject 6 units for bs 80-150, 8 units for bs 151-200, 10 units for bs 201-250, 12 units for bs 251-300, 14 units for bs >300 lancets ([employer] Delica Plus Lancet) As directed losartan 100 mg PO DAILY 90 days omeprazole 20 mg PO QAM 90 days pen needle, diabetic Use 1 pen needle three times a day rosuvastatin 10 mg PO DAILY Tobacco use date assessed: 12/24/24 Fall risk assessment: No Falls in past year Last assessed Fall Risk: 12/24/24 Dental Screening Dental Screen Date: 12/24/24 Did you have a dental visit in the last 12 months?: Yes Did you have a dental problem in the last 6 months where you did not have access to dental care?: No Was dental information given to patient?: Patient has dentist HPI HPI Comments History of Present Illness Details The patient is a 69-year-old female presenting with diabetes mellitus, hypertension, hyperlipidemia, and microalbuminuria. Her diabetes management includes Lantus at 25 units and Humalog three times a day, with the last A1c recorded at 7.1% on October 30, which is close to the target of 7%. The patient reports adherence issues with rosuvastatin due to pharmacy-related complications, resulting in periods without medication. Hypertension management includes amlodipine, which is being increased from 5 mg to 10 mg due to elevated blood pressure readings, with recent measurements at 150/62 mmHg and previously at 160/70 mmHg. The patient also takes hydrochlorothiazide and losartan as part of her antihypertensive regimen. The patient has a history of osteopenia, diagnosed with a T-score of -1.9 in the lumbar spine from a bone densitometry conducted in August. She is on calcium and vitamin D supplementation as part of her management plan. The patient experiences depression with anxiety, for which she is prescribed citalopram 20 mg daily. 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 Mother Asthma Hypertension Chronic mental illness Diabetes Mental health disorder Family/Other Chronic mental illness Mental health disorder Social History Household Members: None Housing: Apartment Alcohol intake: never Patient Tobacco Use Status: Never used Tobacco e-Cigarette/Vaping Use: Never Used Second Hand Smoke Exposure: No service: No Current occupational status: disabled Sexual orientation: Straight/Heterosexual Gender identity: Female Cognitive needs: No Hearing needs: No Vision needs: Yes Female Reproductive History Menstrual Age of Menarche: 12 Questionnaire Thrive Questionnaire Date Thrive assessed: 08/17/24 I am a: Patient What is your living situation today?: I have a steady place to live Within the past 12 months, did the food you bought not last and you didn't have the money to get more?: Never true Within the past 12 months, did you worry whether your food would run out before you got money to buy more?: Never true Do you have trouble paying for medicines?: No Do you have trouble getting transportation to medical appointments?: No Do you have trouble paying your heating and electricity bill?: No Do you have trouble taking care of your child, family member or friend?: No Do you have trouble with day-to-day activities such as bathing, preparing meals, shopping, managing finances, etc.?: No Are you currently unemployed and looking for a job?: No Are you interested in more education?: No Please select the resources that you would like help with: None Currently or been in a relationship where the following occur: I choose not to answer THRIVE Score: 0 TENISHA-7 AMB Questionnaire TENISHA-7 Date TENISHA - 7 assessed: 08/17/24 Source: Developed by Drs. Arnulfo Ray, Marjorie Holbrook, Brannon Dallas and colleagues, with an educational lorena from [employer]. Review of Systems Const All systems reviewed & are unremarkable except as noted in HPI and below Card Denies chest pain at rest, Denies chest pain with activity, Denies edema, Denies irregular heart rhythm, Denies claudication, Denies dyspnea, Denies dyspnea on exertion, Denies orthopnea, Denies paroxysmal nocturnal dyspnea and Denies slow heart rate Resp Denies cough, Denies dyspnea and Denies dyspnea on exertion Physical exam (Primary Care) Vital Signs: Last Vital Signs Temp 97.3 F 12/24/24 10:54 Pulse 61 12/24/24 10:54 Resp 18 12/24/24 10:54 BP 150/62 H 12/24/24 10:54 Pulse Ox 95 12/24/24 10:54 Oxygen Delivery Method Room Air 12/24/24 10:54 BMI result Body Mass Index 25.6 Tobacco/Smoking Status: Tobacco use Status Tobacco use date assessed 12/24/24 12/24/24 10:57 Patient Tobacco Use Status Never used Tobacco 12/24/24 10:57 e-Cigarette/Vaping Use Never Used 12/24/24 10:57 Thrive Assessment: Date of Thrive Assessment Date Thrive assessed 08/17/24 12/24/24 10:57 Currently or been in a relationship where the following occur: I choose not to answer Resp Effort & Inspection: normal respiratory effort Auscultation: clear to auscultation bilaterally Cardio Jugular venous distension: no JVD Rate: regular rate Rhythm: regular rhythm Heart sounds: S1 normal heart sound present and S2 normal heart sound present Extrem General: Yes full ROM Coding Level of Care Code Est Pt Level 4 (27232) Complex EM visit Add On G2211 Diagnoses Mild major depression F32.0 Essential hypertension I10 Dyslipidemia E78.5 Type 2 diabetes mellitus with diabetic nephropathy, with long-term current use of insulin E11.21; Z79.4 Time Spent (min) 22 Assessment & Plan Assessment & Plan (1) Mild major depression: Code(s): F32.0 - Major depressive disorder, single episode, mild Category: Medical (2) Essential hypertension: Code(s): I10 - Essential (primary) hypertension Category: Medical (3) Dyslipidemia: Code(s): E78.5 - Hyperlipidemia, unspecified Category: Medical (4) Type 2 diabetes mellitus with diabetic nephropathy, with long-term current use of insulin: Code(s): E11.21 - Type 2 diabetes mellitus with diabetic nephropathy; Z79.4 - penitentiary (current) use of insulin Category: Medical Plan Plan Patient was informed and verbally consented to the use of an ambient scribe for clinic note documentation during this visit. 1. Diabetes Mellitus The patient's diabetes management includes Lantus at 25 units and Humalog three times a day, with a recent A1c of 7.1%, close to the target of 7%. Continued monitoring of blood glucose levels and adherence to insulin therapy is advised. 2. Hypertension The patient's blood pressure management involves increasing amlodipine from 5 mg to 10 mg due to elevated readings of 150/62 mmHg. Hydrochlorothiazide and losartan are also part of her regimen, and follow-up blood pressure checks are planned in three weeks. 3. Hyperlipidemia The patient is prescribed rosuvastatin 10 mg, although adherence issues were noted due to pharmacy complications. LDL cholesterol is at 61 mg/dL, within the target range. 4. Osteopenia The patient has osteopenia with a T-score of -1.9 in the lumbar spine, diagnosed in August. She is on calcium and vitamin D supplementation to manage this condition. 5. Depression With Anxiety The patient is treated with citalopram 20 mg daily for depression with anxiety. Orders: Orders Microalbumin, Random (w Creat) 4 Months R80.9 - Proteinuria, unspecified Vitamin D 25-OH Total 4 Months E55.9 - Vitamin D deficiency, unspecified Comprehensive [place]. Panel Fast 4 Months I10 - Essential (primary) hypertension Lipid Panel 4 Months E78.5 - Hyperlipidemia, unspecified Medications: New amlodipine 10 mg PO DAILY 90 tabs 1RF 90 days hydrochlorothiazide 25 mg PO DAILY 90 tabs 1RF 90 days Changed From rosuvastatin 10 mg PO DAILY 90 tabs 0RF To rosuvastatin 10 mg PO DAILY 90 tabs 3RF 90 days Discontinued amlodipine Discontinued Reason: Patient Completed Course 5 mg PO DAILY 90 days 90 tabs 1RF
== END 2024-12-24 11:33 | disposition home or self-care (01) ==
LOC: HO.HMCH 10:50
PROVIDERS: PCP Internal Medicine; Visit Provider Internal Medicine
DX: I10 Essential (primary) hypertension (principal); E11.21 Type 2 diabetes mellitus with diabetic nephropathy; Z79.4 Long term (current) use of insulin; F32.0 Major depressive disorder, single episode, mild; E78.5 Hyperlipidemia, unspecified

== ENCOUNTER → 2024-12-24 10:50 | Outpatient (BNVA) | payer OTHER, SELFPAY | PROVIDERS: PCP Internal Medicine; Visit Provider Internal Medicine | DX: F32.0 Major depressive disorder, single episode, mild (principal); I10 Essential (primary) hypertension; E78.5 Hyperlipidemia, unspecified; E11.21 Type 2 diabetes mellitus with diabetic nephropathy; F32.A Depression, unspecified; F41.9 Anxiety disorder, unspecified; Z79.4 Long term (current) use of insulin; Z79.899 Other long term (current) drug therapy | CPT/HCPCS: 99212 ==

== ENCOUNTER 2025-01-12 13:37 | Outpatient (REF) | payer OTHER, SELFPAY ==
--- OUTSIDE RECORDS SUMMARY | 2015-10-31 08:46 | XMS_ITS | Continuity of Care Document ---
Author Organization [facility] Address [address] [address] Phone Care Team Providers Care Diesel Powerplant Mechanic Name Role Phone Ron Banks DO Unavailable Unavailable Advance Directives Directive Yes / No Effective Date File Name No Information Encounters Encounter Description Practice Location Reason(s) For Visit Diagnoses Date Provider [facility], [address], [id number], [place] tel:[phone] [address] [place] [address] No Information 2015 Darren Velasquez. [address] [place] [address], [id number], [place]. tel:[phone] Family History Family Member Type Diagnosis Age At Onset No Information Payers Payer name Insurance type Covered green party ID Authoriza tion(s) No Information Social History Type Description Quantity Date Captured Comments Sex Female Smoking Status No Information Chief Complaint And Reason For Visit No Information History Of Present Illness Encounter Date Complaint History Of Prese nt Illness No Information Instructions Date Instruction Additional Infor mation No Information Assessments Type Assessment Date No Information
[2025-01-12 15:09] LABS: Alanine Aminotransferase 25 U/L (0-31); Albumin Level 4.6 g/dL (3.5-5.0); Alkaline Phosphatase 53 U/L (39-117); Anion Gap 12 (12-20); Aspartate Amino Transferase 58 U/L (5-31); Blood Urea Nitrogen 24 mg/dL (9-16); Calcium 9.5 mg/dL (8.4-10.2); Carbon Dioxide 30 mmol/L (22-29); Chloride 105 mmol/L (96-108); Cholesterol 120 mg/dL (<200); Estimated Glomerular Filt Rate 55; HDL Cholesterol 46 mg/dL (>40); Potassium 4.2 mmol/L (3.3-5.1); Sodium 143 mmol/L (135-145); Total Protein 7.6 g/dL (6.5-8.0); Triglycerides 192 mg/dL (<150)
[2025-01-12 15:58] LABS: Microalbum/Creatinine Ratio Ur 19.1 ug/mg cr (<30)
--- OUTSIDE RECORDS SUMMARY | 2025-01-12 17:40 | XMS_ITS | Encounter Summary ---
Author Organization [facility], Address [address] [place] [address] Phone Care Team Providers Care Traffic Maintenance Officer Name Role Phone Elissa Kolb MD Primary Care Provider [phone] Encounter Details Date Type Department Care Team ([facility] Contact Info) Description 08/14/2023 Documentation Only [facility] [address] [place] [address] [place] [address] [place] [address] Social History Tobacco Use Types Packs/Day [...] Visit [facility] [address] [place] [address] Emery Moran MD [address] [place] [address] [place] [address] documented as of this encounter Visit Diagnoses Not on filedocumented in this encounter Care Teams Traffic Maintenance Officer Relationship Specialty Start Date End Date Elissa Kolb MD [address] [place], [place] PCP - General Internal Medicine 04/02/24 documented as of this encounter
--- OUTSIDE RECORDS SUMMARY | 2025-01-12 17:40 | XMS_ITS | Encounter Summary ---
Author Organization [facility] [place], Address [address] [place] [address] Phone Care Team Providers Care Optical Instruments Supervisor Name Role Phone Elissa Kolb MD Primary Care Provider [phone] Encounter Details Date Type Department Care Team ([facility] Contact Info) Description 07/28/2024 Documentation Only [facility] [address] [place] [address] [place] [address] [place] [phone] Social History Tobacco Use Types Packs/Day [...] Visit [facility] [address] [place] [address] Emery Moran MD [address] [place] [address] [place] [address] documented as of this encounter Visit Diagnoses Not on filedocumented in this encounter Care Teams Optical Instruments Supervisor Relationship Specialty Start Date End Date Elissa Kolb MD [address] [place], [place] PCP - General Internal Medicine 04/02/24 documented as of this encounter
--- OUTSIDE RECORDS SUMMARY | 2025-01-12 17:40 | XMS_ITS | Encounter Summary ---
Author Organization [facility] [place], Address [address] [place] [address] Phone Care Team Providers Care Core Winder Name Role Phone Elissa Kolb MD Primary Care Provider [phone] Encounter Details Date Type Department Care Team (Late Contact Info) Description 01/29/2022 Documentation Only [facility] [address] [place] [address] Claudia Moon PA [address] [place] [address] Social History Tobacco Use Types [...] [facility] [address] [place] [address] Emery Moran MD [address] [place] [address] documented as of this encounter Visit Diagnoses Not on filedocumented in this encounter Care Teams Core Winder Relationship Specialty Start Date End Date Elissa Kolb MD [address] [place], [place] PCP - General Internal Medicine 04/02/24 documented as of this encounter
--- OUTSIDE RECORDS SUMMARY | 2025-01-12 17:40 | XMS_ITS | Clinical Summary ---
Author Organization [address] [place] [address] Dr Franco Address [address] [place] [address] [place] [address] Phone Care Team Providers Care Locker Room Manager Name Role Phone Elissa Salas MD Primary Care Provider [phone] Allergies No known active allergies Medications silver [...] RSV Immunization Adult Patients (1 - Risk 50-74 years 1-dose series) 2004 Pneumococcal Vaccine: 50+ Years (2 of 2 [...] to complete this topic Insurance [place]ICA[place] - [place] [facility] [employer] Care Teams Locker Room Manager Relationship Specialty Start Date End Date Elissa Salas MD [address] [facility] , [address] [facility] D[facility]A: [facility] SUSIE Arboleda PCP - General 01/02/24
--- OUTSIDE RECORDS SUMMARY | 2025-01-12 17:40 | XMS_ITS | Clinical Summary ---
Author Organization [facility] [place], Address [address] [place] [address] [place] [address] Phone Care Team Providers Care Sales Representative [employer] Name Role Phone Elissa Kolb MD Primary Care Provider [phone] Allergies No known active allergies Medications amLODIPine [...] Visit [facility] [address] [place] [address] Emery Moran MD Stage 3a chronic kidney [...] Visit [facility] [place], [address] [address] Emery Moran MD [address] [place] [address] Health Maintenance Due Date Last [...] patient's age to complete this topic Insurance [place] Care Teams Sales Representative M[employer] Liqu[employer] Relationship Specialty Start Date End Date Elissa Kolb MD [address] [place], [place] PCP - General Internal Medicine 04/02/24
--- OUTSIDE RECORDS SUMMARY | 2025-01-12 17:40 | XMS_ITS | Encounter Summary ---
Author Organization [facility] [place], Address [address] [place] [address] Phone Care Team Providers Care Roll Cleaner Name Role Phone Elissa Kolb MD Primary Care Provider [phone] Encounter Details Date Type Department Care Team (Late Contact Info) Description 11/26/2022 Documentation Only [facility] [employer] [address] [place] [address] Conrado Kaur MD [address] [place] [address] Social History Tobacco Use Types [...] Visit [facility] [address] [place] [address] Emery Moran MD [address] [place] [address] documented as of this encounter Visit Diagnoses Not on filedocumented in this encounter Care Teams Roll Cleaner Relationship Specialty Start Date End Date Elissa Kolb MD [address] [place], [place] PCP - General Internal Medicine 04/02/24 documented as of this encounter
--- OUTSIDE RECORDS SUMMARY | 2025-01-12 17:40 | XMS_ITS | Encounter Summary ---
Author Organization [facility] [place], Address [address] [place] [address] Phone Care Team Providers Care Radio Control Crane Operator Name Role Phone Elissa Kolb MD Primary Care Provider [phone] Encounter Details Date Type Department Care Team (Late Contact Info) Description 03/26/2022 Documentation Only [facility] [address] [place] [address] Claudia Moon PA [address] [place] [address] Social History Tobacco Use Types [...] Visit [facility] [address] [place] [address] Emery Moran MD [address] [facility] [address] [place] [address] documented as of this encounter Visit Diagnoses Not on filedocumented in this encounter Care Teams Radio Control Crane Operator Relationship Specialty Start Date End Date Elissa Kolb MD [address] [place] [address], [place] PCP - General Internal Medicine 04/02/24 documented as of this encounter
--- OUTSIDE RECORDS SUMMARY | 2025-01-12 17:40 | XMS_ITS | Patient Health Record ---
Author Organization [facility] Address [address] [facility] [place] [address] Care Team Providers Care Finance Advisor Name Role Phone Deena KEVIN, Elissa Primary Care Provider Unavail able Deanna Orourke Unavailable [phone] Allergies Allergen (clinical drug ingredient) Drug/Non Drug [...] 70 % as directed 10/17/2022 Active Pen [place] Active Blood Glucose Meter 10/17/2022 Active Rosuvastatin [...] Problem Acquired hammer toe of right foot ([id number] ) Other hammer toe(s) (acquired), right foot (M20.41) Active confirmed Problem Acquired hammer toe of left foot ([id number] ) Other hammer toe(s) (acquired), left foot (M20.42) Active confirmed Problem Polyneuropathy due to diabetes mellitus type I (438421514) 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) Active confirmed Plan Of Treatment Pending Test Test Name Order Date X ray : Foot, right 3V 11/07/2022 Insurance Providers Payer Name Payer Address Payer Phone Subscriber Number Group Number Insured Name Patient Relationship to Insured Coverage Start Date Coverage End Date [facility] [address] [place] [phone] [id number] Lizbeth Bonner Self - patient is the insured Medical (General) History Medical History History ICD Code Arthritis Back,Hip,and Knee pain covid-19 Diabetic High blood pressure Kidney disease Poor circulation ulcer Mumps Chicken pox
--- OUTSIDE RECORDS SUMMARY | 2025-01-12 17:40 | XMS_ITS | Encounter Summary ---
Author Organization [facility] [place], Address [address] [place] [address] Phone Care Team Providers Care Material Cutter Name Role Phone Elissa Kolb MD Primary Care Provider Encounter Details Date Type Department Care Team (Late Contact Info) Description 06/24/2023 Orders Only [facility] [address] [place] [address] Claudia Moon PA [address] [place] [address] [place] [address] Stage 3a chronic kidney disease [...] Visit [facility] [address] [place] [address] Emery Moran MD [address] [place] [address] [place] [address] documented as of this encounter Visit Diagnoses Diagnosis Stage 3a chronic kidney disease (HCC) Essential (primary) hypertension Type 2 diabetes mellitus without complication (HCC) documented in this encounter Care Teams Material Cutter Relationship Specialty Start Date End Date Elissa Kolb MD [address] [place], [place] PCP - General Internal Medicine 04/02/24 documented as of this encounter
== END 2025-01-12 13:38 | disposition home or self-care (01) ==
LOC: HO.LAB 13:37
PROVIDERS: PCP Internal Medicine; Visit Provider Internal Medicine Endocrinology, Diabetes & Metabolism
DX: E11.21 Type 2 diabetes mellitus with diabetic nephropathy (principal); R80.9 Proteinuria, unspecified; E78.5 Hyperlipidemia, unspecified; E55.9 Vitamin D deficiency, unspecified; Z79.4 Long term (current) use of insulin
CPT/HCPCS: 36415; 80053; 80061; 82043; 82306; 82570

== ENCOUNTER 2025-01-18 10:05 | Outpatient (AMB) | payer OTHER, SELFPAY ==
--- NOTE | 2025-01-18 10:09 | MHC.OFFVIS ---
Vital Signs 01/18/25 10:18 Height 5 ft 1.48 in Weight 135 lb 2.294 oz BMI 25.1 BP 132/64 Blood Pressure Location Rt brachial Position Sitting Pulse 56 Pulse Source Pulse Oximeter Pulse Oximetry (%) 95 Oxygen Delivery Method Room Air Intake Visit Reasons: osteoporosis Intake Note: Patient present today for Osteoporosis follow up. Superintendent Drivers Required: Yes Superintendent Drivers Language: Defence Intelligence Analyst Services: Superintendent Drivers Present Superintendent Drivers Name: [facility] Information Interpreted: non-clinical & clinical Accompanied by: Self / Same As Patient Allergies gabapentin Allergy (Intermediate, Verified 01/18/25 10:23) pruritus metformin Allergy (Intermediate, Verified 01/18/25 10:23) stomach upset metoprolol Allergy (Intermediate, Verified 01/18/25 10:23) upset stomach tizanidine Allergy (Intermediate, Verified 01/18/25 10:23) leg edema Medication List - Last Reconciled 01/18/25 by Arnulfo Crane MD alcohol swabs (Alcohol Prep Pads) 1 pad topical QID 30 days amlodipine 10 mg PO DAILY 90 days aspirin 81 mg PO DAILY 90 days blood sugar diagnostic ([employer] Verio test strips) Use 1 test strip four times a day blood-glucose meter ([employer] Verio Flex Meter) As directed blood-glucose sensor (FreeStyle Pau 3 Sensor device) Apply every 14 days As directed to monitor blood glucose blood-glucose,documentation spec,cont (FreeStyle Pau 3 Delta) As directed calcium citrate 500 mg (2 x 250 mg calcium) PO BID cholecalciferol (vitamin D3) 50 mcg PO DAILY citalopram 20 mg PO DAILY citalopram 20 mg PO DAILY gabapentin 100 mg PO DAILY hydrochlorothiazide 25 mg PO DAILY 90 days insulin glargine (Lantus Solostar U-100 Insulin) 25 units subcut QPM insulin lispro (Humalog KwikPen (U-100) Insulin) Inject per sliding scale TID with breakfast, lunch and supper. inject 6 units for bs 80-150, 8 units for bs 151-200, 10 units for bs 201-250, 12 units for bs 251-300, 14 units for bs >300 lancets (WellogixTouch Delica Plus Lancet) As directed losartan 100 mg PO DAILY 90 days omeprazole 20 mg PO QAM 90 days pen needle, diabetic Use 1 pen needle three times a day rosuvastatin 10 mg PO DAILY 90 days HPI Comments Details: 69 YO F with PMHx T2DM, Osteoporosis and a MNG who is seen in F/U. For osteoporosis . First diagnosed in 2020. Has never been treated for this. After our initial visit she underwent a full biochemical assessment, which revealed higher than expected Calcium, with PTH mildly elevated to 70.? Labs 11/10/2020 with Calcium 10.0, Albumin 4.6, PTH 70 and Vitamin D 35.? Urinary Calcium was low.? She was on HCTZ at the time. She was asked to stop the HCTZ and repeat labs. Labs are pending at this time. Has 1 servings of dietary calcium per day in the form of milk or yogurt.? Takes Calcium supplement 500 mg daily in divided doses.? Takes 2000 IU of Vitamin D daily. Denies ever using an anticoagulant, antiepileptic or glucocorticoid medication.? She does use a PPI daily. 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 .? She did not breastfeed.? Menopause was age 55.? She did not use HRT after. Denies history of Kidney stones: Denies family history of Osteoporosis or hip fracture. UTD on dental cleanings and sees dentist every 6 months.? No planned upcoming dental work or extractions. 3) Multinodular thyroid: She underwent an US of the thyroid that revealed multiple thyroid nodules.? She underwent FNA biopsy of her LLP 1.4 cm thyroid nodule 05/25/2021, but unfortunately cytology was nondiagnostic.? She refused repeat FNA biopsy. DXA dated 04/21/2020: FINDINGS: AP SPINE L1-L3 (excluding L4): The data of L1-L4 has been changed to exclude the L4 vertebral body, because degenerative sclerosis at this level may cause overestimation of lumbar spine density. BMD 0.779 g/cm2, Z-score -1.5, T-score -3.3, osteoporosis. LEFT FEMUR, NECK: BMD 0.831 g/cm2, Z-score 0.1, T-score -1.5, osteopenia. LEFT FEMUR, TOTAL: BMD 0.889 g/cm2, Z-score 0.4, T-score -0.9, normal. Laboratory Tests 04/23/22 04/23/22 07/27/22 09:00 09:01 10:04 Sodium 137 Potassium 4.7 Creatinine 1.11 Estimated GFR 49 Hemoglobin A1c % LDL Cholesterol Direct 49 TSH 2.22 Free T4 1.00 PTH Intact Calcium (PTH Intact) Microalb/Creat Ratio 34.9 07/27/22 07/27/22 10:04 10:04 Sodium Potassium Creatinine Estimated GFR Hemoglobin A1c % 7.4 LDL Cholesterol Direct TSH Free T4 PTH Intact 60 Calcium (PTH Intact) 9.8 Microalb/Creat Ratio She was started on Prolia received 2 injection 08/30/2022 in 02/2023 . Her PTH normalized. On calcium 1000 mg b.i.d. and vitamin-D replacement . Nofx since last visit . DEXA bone density shows improvement into the osteopenic range Received dose of Reclast in 09/2024. No fx since last visit [facility] Medical History T2DM (type 2 diabetes mellitus) Hyperparathyroidism Multinodular thyroid Goiter Vitamin D deficiency Anemia Right hand pain Diabetes type 2, uncontrolled Hyperlipidemia LDL goal <100 Osteoporosis Chronic kidney disease, stage 2 (mild) Long-term use of aspirin therapy GERD (gastroesophageal reflux disease) Dyslipidemia Essential hypertension manager terminal (current) use of insulin Screening for osteoporosis Well woman exam Depression with anxiety Fibromyalgia Surgical History History of colonoscopy History of tubal ligation Family History Father No problems noted. Mother Asthma Hypertension Chronic mental illness Diabetes Mental health disorder Family/Other Chronic mental illness Mental health disorder Social History Household Members: None Housing: Apartment Alcohol intake: never Patient Tobacco Use Status: Never used Tobacco e-Cigarette/Vaping Use: Never Used Second Hand Smoke Exposure: No service: No Current occupational status: disabled Sexual orientation: Straight/Heterosexual Gender identity: Female Cognitive needs: No Hearing needs: No Vision needs: Yes Female Reproductive History Menstrual Age of Menarche: 12 Physical Exam Vital Signs: BMI result Body Mass Index 25.1 Assessment & Plan Assessment & Plan (1) Osteoporosis: Code(s): M81.0 - Age-related osteoporosis without current pathological fracture Category: Medical Plan: Currently on Prolia. PTH normalized on calcium and vitamin-D repletion. Last Prolia injection was . Received a dose of Reclast after discontinuation of Prolia in 09/2024. Urine NTX is pending Will have patient go for urine NTX. Assuming NTX is suppressed we will continue calcium and vitamin-D. Coding Level of Care Code Est Pt Level 3 (21040) Diagnoses Osteoporosis M81.0
[2025-01-18 10:18] VITALS: BP 132/64; PULSE 56; O2SAT 95; BMI 25.1
--- OUTSIDE RECORDS SUMMARY | 2025-01-18 12:03 | XMS_ITS | Clinical Summary ---
Author Organization [address] [place] [address] Dr Franco Address [address] [place] [address] [place] [address] Phone Care Team Providers Care Sugar Drier Name Role Phone Elissa Salas MD Primary Care Provider [phone] Allergies No known active allergies Medications silver [...] to complete this topic Insurance MEDICAID - [place] [facility] [employer] Care Teams Sugar Drier Relationship Specialty Start Date End Date Elissa Salas MD [address] [facility] , [address] [facility] Physician Associ D/B/A: [facility] SUSIE Arboleda PCP - General 01/02/24
--- OUTSIDE RECORDS SUMMARY | 2025-01-18 12:03 | XMS_ITS | Patient Health Record ---
Author Organization [facility] Address [address] [place] [address] Care Team Providers Care Reconciliation Accountant Name Role Phone Deena KEVIN, Elissa Primary Care Provider Unavail able Deanna Orourke Unavailable [phone] Allergies Allergen (clinical drug ingredient) Drug/Non Drug [...] 70 % as directed 10/17/2022 Active Pen Rosepine Active Blood Glucose Meter 10/17/2022 Active Rosuvastatin [...] Problem Acquired hammer toe of right foot (7502030207061029 ) Other hammer toe(s) (acquired), right foot (M20.41) Active confirmed Problem Acquired hammer toe of left foot ([id number] ) Other hammer toe(s) (acquired), left foot (M20.42) Active confirmed Problem Polyneuropathy due to diabetes mellitus type I (396417928) 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) Active confirmed Plan Of Treatment Pending Test Test Name Order Date X ray : Foot, right 3V 11/07/2022 Insurance Providers Payer Name Payer Address Payer Phone Subscriber Number Group Number Insured Name Patient Relationship to Insured Coverage Start Date Coverage End Date [facility] [address] SHARIF Mckeon [phone] [id number] Lizbeth Bonner Self - patient is the insured Medical (General) History Medical History History ICD Code Arthritis Back,Hip,and Knee pain covid-19 Diabetic High blood pressure Kidney disease Poor circulation ulcer Mumps Chicken pox
== END 2025-01-18 10:28 | disposition home or self-care (01) ==
LOC: HO.ENCR 10:06
PROVIDERS: PCP Internal Medicine; Visit Provider Internal Medicine Endocrinology, Diabetes & Metabolism
DX: M81.0 Age-related osteoporosis without current pathological fracture (principal)
CPT/HCPCS: 99213

== ENCOUNTER → 2025-01-18 10:05 | Outpatient (BNVA) | payer OTHER, SELFPAY | PROVIDERS: PCP Internal Medicine; Visit Provider Internal Medicine Endocrinology, Diabetes & Metabolism | DX: M81.0 Age-related osteoporosis without current pathological fracture (principal) | CPT/HCPCS: 99212 ==

== ENCOUNTER 2025-01-29 08:56 | Outpatient (AMB) | payer OTHER, SELFPAY ==
[2025-01-29 09:19] VITALS: BP 144/62; PULSE 61; O2SAT 96; BMI 25.8
--- NOTE | 2025-01-29 09:19 | A.OFFVIS_ITS ---
Vital Signs 01/29/25 09:19 Height 5 ft 1 in Weight 136 lb 10.986 oz BMI 25.8 BP 144/62 H Blood Pressure Location Rt brachial Position Sitting Pulse 61 Pulse Source Pulse Oximeter Pulse Oximetry (%) 96 Oxygen Delivery Method Room Air Intake Visit Reasons: T2DM Intake Note: Patient presents today for a follow-up on Type 2 Diabetes Mellitus: Last Diabetic eye exam was on: 05/2024 Last Podiatry exam was on: Patient does not see a Technical Service Specialist Most recent HbA1c: 7.1%, 01/29/2025 Random Glucose- 97 mg/dL, Today News Videotape Editor Required: Yes News Videotape Editor Language: Sound Assistant Services: News Videotape Editor Present News Videotape Editor Name: Yifan Ruffin #[id number] Information Interpreted: non-clinical & clinical Accompanied by: Self / Same As Patient Allergies gabapentin Allergy (Intermediate, Verified 01/18/25 10:23) pruritus metformin Allergy (Intermediate, Verified 01/18/25 10:23) stomach upset metoprolol Allergy (Intermediate, Verified 01/18/25 10:23) upset stomach tizanidine Allergy (Intermediate, Verified 01/18/25 10:23) leg edema Medication List - Last Reconciled 01/29/25 by Dina Scott PA-C alcohol swabs (Alcohol Prep Pads) 1 pad topical QID 30 days amlodipine 10 mg PO DAILY 90 days aspirin 81 mg PO DAILY 90 days blood sugar diagnostic (OneTouch Verio test strips) Use 1 test strip four times a day blood-glucose meter (OneTouch Verio Flex Meter) As directed blood-glucose sensor (FreeStyle Pau 3 Sensor device) Apply every 14 days As directed to monitor blood glucose blood-glucose,diversified crops farmer,cont (FreeStyle Pau 3 [place]) As directed calcium citrate 500 mg (2 x 250 mg calcium) PO BID cholecalciferol (vitamin D3) 50 mcg PO DAILY citalopram 20 mg PO DAILY citalopram 20 mg PO DAILY gabapentin 100 mg PO DAILY hydrochlorothiazide 25 mg PO DAILY 90 days insulin glargine (Lantus Solostar U-100 Insulin) 25 units subcut QPM insulin lispro (Humalog KwikPen (U-100) Insulin) Inject per sliding scale TID with breakfast, lunch and supper. inject 6 units for bs 80-150, 8 units for bs 151-200, 10 units for bs 201-250, 12 units for bs 251-300, 14 units for bs >300 lancets (OneTouch Delica Plus Lancet) As directed losartan 100 mg PO DAILY 90 days omeprazole 20 mg PO QAM 90 days pen needle, diabetic Use 1 pen needle three times a day rosuvastatin 10 mg PO DAILY 90 days HPI HPI T2DM: Details: Patient is a 69-year-old female with a significant past medical history of hyperparathyroidism, multinodular thyroid, hypertension, hyperlipidemia, type 2 diabetes, chronic kidney disease, long-term use of insulin presenting today for a diabetic follow-up. News Videotape Editor: Yifan Richardson: Her A1c is 7.1. She is currently on Lantus 25 units nightly, Humalog sliding scale. -she was initially treated with metformin but discontinued due to GI distress. Intolerant of SGLT2 due to vaginal irritation. She states she tried mounjaro, trulicity and ozempic but did not tolerate these (cannot remember exact reaction but believes it was GI distress). CGM-[employer] Pau 3 download-. Very hyperglycemic 0%, hyperglycemic 15%, in range 84%, hypoglycemic 1%. No severe hypoglycemia. -lows are around the morning/early afternoon. States that she has been trying to eat healthier and smaller meals Hypoglycemia- she states she will feel sweaty. corrects with oj and apple juice Hyperglycemia- sometimes will notice thirst CV: Blood pressure today in the office is 144/62. She is currently on amlodipine 5 mg, HCTZ 25 mg and losartan 100 mg daily. Cholesterol is controlled with Crestor 10 mg. No myalgias. Last lipids WNL. Nephro. Follows with [facility] Medical History T2DM (type 2 diabetes mellitus) Hyperparathyroidism Multinodular thyroid Goiter Vitamin D deficiency Anemia Right hand pain Diabetes type 2, uncontrolled Hyperlipidemia LDL goal <100 Osteoporosis Chronic kidney disease, stage 2 (mild) Long-term use of aspirin therapy GERD (gastroesophageal reflux disease) Dyslipidemia Essential hypertension intermediate (current) use of insulin Screening for osteoporosis Well woman exam Depression with anxiety Fibromyalgia Surgical History History of colonoscopy History of tubal ligation Family History Father No problems noted. Mother Asthma Hypertension Chronic mental illness Diabetes Mental health disorder Family/Other Chronic mental illness Mental health disorder Social History Household Members: None Housing: Apartment Alcohol intake: never Patient Tobacco Use Status: Never used Tobacco e-Cigarette/Vaping Use: Never Used Second Hand Smoke Exposure: No service: No Current occupational status: disabled Sexual orientation: Straight/Heterosexual Gender identity: Female Cognitive needs: No Hearing needs: No Vision needs: Yes Female Reproductive History Menstrual Age of Menarche: 12 Physical Exam Vital Signs: Last Vital Signs Pulse 61 01/29/25 09:19 BP 144/62 H 01/29/25 09:19 Pulse Ox 96 01/29/25 09:19 Oxygen Delivery Method Room Air 01/29/25 09:19 BMI result Body Mass Index 25.8 Const Orientation/consciousness: patient oriented x3 HEENT Ears: hearing grossly normal bilaterally Neck Neck: Yes no lymphadenopathy Thyroid: Thyroid normal Carotids: no bruits Lymphatic: no lymphadenopathy noted Resp Auscultation: clear to auscultation bilaterally Cardio Rate: regular rate Rhythm: regular rhythm Heart sounds: S1 normal heart sound present and S2 normal heart sound present Peripheral pulses: dorsalis pedis present Skin General skin exam: no rashes or lesions noted Neuro General: patient oriented x3, gait normal and no focal motor deficits Extrem Other: Monofilament sensation intact bilaterally. Vibratory sensation intact bilaterally. Skin intact. General: Yes normal to inspection Results AMB Hemoglobin A1c AMB Hemoglobin A1c 7.1 % Last Edit by VINCENT Kenyon on 01/29/25 09:33 Results Reviewed Results Reviewed: Laboratory Last Values Glucose (Clinic) 97 mg/dL (60-115) 01/29/25 09:24 Laboratory Tests 12/22/24 01/12/25 01/12/25 07:57 13:52 13:58 Creatinine 0.82 0.99 Estimated GFR > 60 55 Hgb A1c (Clinic) Triglycerides 63 192 H Cholesterol 122 120 LDL Cholesterol, Calc 61 36 HDL Cholesterol 49 46 Urine Creatinine 172.37 Urine Microalbumin 33.0 Microalb/Creat Ratio 19.1 01/29/25 09:33 Creatinine Estimated GFR Hgb A1c (Clinic) 7.1 H Triglycerides Cholesterol LDL Cholesterol, Calc HDL Cholesterol Urine Creatinine Urine Microalbumin Microalb/Creat Ratio Assessment & Plan Assessment & Plan (1) Type 2 diabetes mellitus with diabetic nephropathy, with long-term current use of insulin: Code(s): E11.21 - Type 2 diabetes mellitus with diabetic nephropathy; Z79.4 - predatory animal exterminator (current) use of insulin Category: Medical Plan: reduced Humalog sliding scale provided today. Inject per sliding scale TID with breakfast, lunch and supper. inject 4 units for bs 80-150, 6vunits for bs 151-200, 8 units for bs 201-250, 12 units for bs 251-300, 10 units for bs >300 Continue Lantus 25 units She has testing supplies at home. Glucose tabs at home if needed (2) Essential hypertension: Code(s): I10 - Essential (primary) hypertension Category: Medical Plan: WNL. Continue current regimen (3) Dyslipidemia: Code(s): E78.5 - Hyperlipidemia, unspecified Category: Medical Plan: As above Orders: Orders AMB Hemoglobin A1c Today E11.21 - Type 2 diabetes mellitus with diabetic nephropathy, Z79.4 - predatory animal exterminator (current) use of insulin Medications: Changed From insulin lispro (Humalog KwikPen (U-100) Insulin) Inject per sliding scale TID with breakfast, lunch and supper. inject 6 units for bs 80-150, 8 units for bs 151-200, 10 units for bs 201-250, 12 units for bs 251-300, 14 units for bs >300 15 mL 1RF E11.65 - Type 2 diabetes mellitus with hyperglycemia To insulin lispro (Humalog KwikPen (U-100) Insulin) Inject per sliding scale TID with breakfast, lunch and supper. inject 4 units for bs 80-150, 6vunits for bs 151-200, 8 units for bs 201-250, 12 units for bs 251-300, 10 units for bs >300 15 mL 1RF E11.65 - Type 2 diabetes mellitus with hyperglycemia Patient Instructions: Inject per sliding scale TID with breakfast, lunch and supper. inject 4 units for bs 80-150, 6vunits for bs 151-200, 8 units for bs 201-250, 12 units for bs 251-300, 10 units for bs >300 Coding Level of Care Code Est Pt Level 4 (18542) Complex EM visit Add On G2211 Diagnoses Type 2 diabetes mellitus with diabetic nephropathy, with long-term current use of insulin E11.21; Z79.4 Essential hypertension I10 Dyslipidemia E78.5
[2025-01-29 09:28] LABS: Glucose, Whole Blood 97 mg/dL (60-115)
--- OUTSIDE RECORDS SUMMARY | 2025-01-29 09:28 | XMS_ITS | Clinical Summary ---
Author Organization [address] [place] [address] Dr Franco Address [address] [place] [address] [place] [address] Phone Care Team Providers Care Tv Host Name Role Phone Elissa Salas MD Primary Care Provider [phone] Allergies No known active allergies Medications silver [...] to complete this topic Insurance MEDICAID - [place] [facility] MEDICARE ADV[employer] Care Teams Tv Host Relationship Specialty Start Date End Date Elissa Salas MD [address] [facility] , [address] [facility] Physician Associ D/B/A: [facility] SUSIE Arboleda PCP - General 01/02/24
== END 2025-01-29 09:49 | disposition home or self-care (01) ==
LOC: HO.ENCR 08:57
PROVIDERS: PCP Internal Medicine; Visit Provider Physician Assistant
DX: E11.21 Type 2 diabetes mellitus with diabetic nephropathy (principal); Z79.4 Long term (current) use of insulin; I10 Essential (primary) hypertension; E78.5 Hyperlipidemia, unspecified

== ENCOUNTER → 2025-01-29 08:56 | Outpatient (BNVA) | payer OTHER, SELFPAY | PROVIDERS: PCP Internal Medicine; Visit Provider Physician Assistant | DX: E11.22 Type 2 diabetes mellitus with diabetic chronic kidney disease (principal); E11.21 Type 2 diabetes mellitus with diabetic nephropathy; I12.9 Hypertensive chronic kidney disease with stage 1 through stage 4 chronic kidney disease, or unspecified chronic kidney disease; E21.3 Hyperparathyroidism, unspecified; N18.9 Chronic kidney disease, unspecified; Z79.4 Long term (current) use of insulin | CPT/HCPCS: 82947; 83036; 99212 ==

== ENCOUNTER → 2025-02-05 11:03 | Outpatient (BNV) | payer OTHER, SELFPAY | PROVIDERS: Visit Provider Radiology Diagnostic Radiology | DX: R07.9 Chest pain, unspecified (principal); R51.9 Headache, unspecified | CPT/HCPCS: 70496; 70551; 71045 ==

== ENCOUNTER 2025-02-05 11:12 | Outpatient (REF) | payer OTHER, SELFPAY ==
--- OUTSIDE RECORDS SUMMARY | 2025-02-02 13:20 | XMS_ITS | Encounter Summary ---
Author Organization [facility], Address [address] [place] [address] Phone Care Team Providers Care Wrinkle Chaser Name Role Phone Elissa Kolb MD Primary Care Provider [phone] Encounter Details Date Type Department Care Team (Late st Contact Info) Description 02/02/2025 1:20 PM EST Office Visit [facility], [address] [place] [phone] Emery Moran MD [address] [place] [address] [place] [phone] Renal disorder due to type 2 diabetes mellitus <Unspecified DM Medication; Other diabetic kidney complication> (HCC) (Primary Dx) Social History Tobacco Use [...] Progress Notes * Emery Moran MD - 02/02/2025 1:20 PM EST Images from the original note were not included. PATIENT: Lzibeth Bonner : 1955 ENCOUNTER: 02/02/2025 PCP: Elissa Kolb MD HPI: Lizbeth Bonner is a 69 y.o. year old female with a history of Diabetes, hypertension and CKD stage IIIa with a baseline serum creatinine of 1.3 mg/dL and now presents for further evaluation. Since the last visit the patient has been doing extremely well with no new complaints. Her diabetes control is excellent, and she has had no further hypoglycemia since her last visit. She is tolerating the decreased dose of Lantus at 20 units well. The patient reports that her appetite has been great and her energy is fantastic. She denies any concerns or worries about her current condition. Medical/Surgical History Diabetes mellitus with history of hypoglycemia Medications and Supplements Lantus 20 units - Decreased dose. Tolerating well. No further hypoglycemia. Hydrochlorothiazide Social History Lives with daughter. 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 Review of Systems General: Positive for fatigue, cold sensation after dinner. Endocrine: Positive for low blood sugar symptoms, feeling unwell with low blood sugar. Psychiatric: Positive for sleep disturbance. ROS: Constitutional: No fever. Respiratory: No shortness [...] Sibling MEDICATIONS: Outpatient Encounter Medications as of 02/02/2025 Medication Sig Dispense Refill amLODIPine (NORVASC) 5 MG tablet Take 1 tablet by mouth 1 (one) time each day ASPIRIN LOW DOSE 81 MG EC tablet TK 1 T PO QD Calcium Citrate 250 MG tablet TAKE 2 TABLET BY MOUTH TWICE DAILY EVERY DAY cholecalciferol (VITAMIN D-3) 50 MCG (1999) capsule [...] facility-administered encounter medications on file as of 02/02/2025. MEDICATION REVIEW: I have reviewed the patient's current medications. ALLERGIES: has no known allergies. PHYSICAL EXAM: There were no vitals taken for this visit. Constitutional: No apparent distress Cardiovascular: No friction rub. Pulmonary/Chest: No rales. Abdominal: Soft and non-tender. Extremities: Edema None Physical Examination Blood Pressure: 129/85 mmHg Laboratory, Imaging, and Diagnostic Test Results - Serum creatinine: 0.9 - GFR: >60 - Urine microalbumin: 140 LABS: No lab exists for component: LABALBU No lab exists for component: PTHINTACT LABORATORY REVIEW: I have reviewed the labs noted above as well as in the chart, in [facility] and in Care Everywhere. DOCUMENTATION REVIEW: I have reviewed the applicable outside notes located in the chart, in [facility]IS and in Care Everywhere. ASSESSMENT: No diagnosis found. Delightful 69-year-old female with a history of longstanding chronic kidney disease likely in the basis of ischemia and diabetes and hypertension who presents for further evaluation. The visit focused on chronic kidney disease with associated proteinuria, diabetes mellitus, and hypertension. Kidney-related concerns were addressed first, followed by metabolic and cardiovascular issues. Chronic Kidney Disease with Proteinuria Laboratory review and interpretation Urine microalbumin: 140 mg/g - consistent with persistent microalbuminuria. Serum creatinine: 0.9 mg/dL; estimated GFR > 60 mL/min/1.73 m - corresponding to Stage 1-2 CKDwith preserved filtration. At the current level of protein excretion (in the low hundreds), the short-term risk of progressionto end-stage renal disease is very low; published data suggest a < 1 % five-year risk for similar profiles. Assessment The patient has stable early-stage diabetic kidney disease with microalbuminuria despite maximized renin-angiotensin system blockade. Plan Initiate an SGLT-2 inhibitor in April to provide additional renoprotective benefit and further lower albuminuria. Continue current maximum-dose SAL inhibition. Recheck urine albumin, serum creatinine, and eGFR at the April follow-up. Follow up in April, sooner if there is any sudden rise in creatinine, marked increase in proteinuria, or edema. Diabetes Mellitus, Type 2 Laboratory review and interpretation Glycemic control remains within individualized targets; no recent hypoglycemia reported. Assessment Glycemia is well controlled on the current insulin regimen. Plan Continue insulin glargine (Lantus) 20 units nightly. Reinforce home glucose monitoring and report readings at the next visit. Hypertension Vital-sign review and interpretation Office blood pressure: 129/85 mm Hg - at goal for a patient with CKD. Assessment Blood pressure is at target on the current regimen, which includes hydrochlorothiazide. Plan Continue present antihypertensive regimen. Consider a small dose reduction of hydrochlorothiazide if blood pressures trend below 120/80 mm Hg on home logs. Time spent I spent 25 minutes actively listening to the patient???s concerns and answering questions. The patient verbally consented to the use of a HIPAA compliant third democrat vendor to record and transcribe the patient-provider conversation during this visit. I appreciate your allowing me to participate in this kind patient's care. I hope all is well. No orders of the defined types were placed in this encounter. documented in this encounter Plan of Treatment Upcoming Encounters Date Type Department Care Team (Late st Contact Info) Description 05/05/2025 9:50 AM EST Office Visit [facility], [address] [place] [phone] Emery Moran MD [address] [facility] [place] [phone] Scheduled Orders Name Type Priority Associated Diagnoses Orde r Schedule Urine Albumin / Creatinine Ratio Lab Routine Renal disorder due to type 2 diabetes mellitus <Unspecified DM Medication; Other diabetic kidney complication> (HCC) Expected: 02/02/2025, Expires: 03/04/2026 Basic Metabolic Panel Lab Routine Renal disorder due to type 2 diabetes mellitus <Unspecified DM Medication; Other diabetic kidney complication> (HCC) Expected: 02/02/2025, Expires: 03/04/2026 documented as of this encounter Visit Diagnoses Diagnosis Renal disorder due to type 2 diabetes mellitus <Unspecified DM Medication; Other diabetic kidney complication> (HCC)- Primary documented in this encounter Care Teams Wrinkle Chaser Relationship Specialty Start Date End Date Elissa Kolb MD [address] [place] [address] PCP - General Internal Medicine 04/02/24 documented as of this encounter
--- NOTE | ~2025-02-05 | MR_ITS ---
EXAMINATION: MR BRAIN WITHOUT CONTRAST CLINICAL INFORMATION: R 51.9. COMPARISON: June 20, 2010 is not available on PACS. TECHNIQUE: MRI of the brain was obtained using routine sequences without contrast. FINDINGS: There is a focal subtle restricted diffusion the right cerebellar tonsil without susceptibility. There is a 3 mm descensus of the cerebellar tonsils below foramen magnum. No acute intracranial hemorrhage, mass effect, midline shift hydrocephalus or herniation. Bilateral diffuse scattered subcortical and deep white matter hyperintense T2 FLAIR signal foci. Flow-void signal within the main cerebral vessels is normal. Murrell-white matter differentiation is normal. Prominence of the extra-axial CSF spaces cerebral sulci and ventricles likely central volume loss. Sellar/suprasellar region is normal. Polypoid mucosal thickening, maxillary sinuses. MR/MR head/brain wo con IMPRESSION: Concerning subacute nonhemorrhagic ischemia/infarct, right cerebellar tonsil. Low-lying cerebellar tonsils. Discussed with nurse practitioner, Kathy Walton at 12:56 PM on February 05, 2025 via telephone. Electronically signed by: Deandre Barclay MD 02/05/2025 01:18 PM [facility]
--- OUTSIDE RECORDS SUMMARY | 2025-02-05 12:04 | XMS_ITS | Encounter Summary ---
Author Organization [facility], Address [address] [place] [address] Phone Care Team Providers Care Toe Former Stitchdowns Name Role Phone Elissa Kolb MD Primary Care Provider [phone] Encounter Details Date Type Department Care Team ([facility] Contact Info) Description 08/14/2023 Documentation Only [facility] [address] [place] [address] [place] [address] [place] [phone] Social History Tobacco Use Types Packs/Day [...] Department Care Team (Late Contact Info) Description 05/05/2025 9:50 AM EST Office Visit [facility] [address] [place] [address] Emery Moran MD [address] [place] [address] [place] [address] documented as of this encounter Visit Diagnoses Not on filedocumented in this encounter Care Teams Toe Former Stitchdowns Relationship Specialty Start Date End Date Elissa Kolb MD [address] [place], [place] PCP - General Internal Medicine 04/02/24 documented as of this encounter
--- OUTSIDE RECORDS SUMMARY | 2025-02-05 12:04 | XMS_ITS | Patient Health Record ---
Author Organization [facility] Address [address] [facility] [place] [address] Care Team Providers Care Vessel Operator Name Role Phone Deena KEVIN, Elissa Primary Care Provider Unavail able Deanna Orourke Unavailable [phone] Allergies Allergen (clinical drug ingredient) Drug/Non Drug [...] 70 % as directed 10/17/2022 Active Pen [place] Active Blood Glucose Meter 10/17/2022 Active Rosuvastatin [...] Problem Acquired hammer toe of right foot (6694484234538443 ) Other hammer toe(s) (acquired), right foot (M20.41) Active confirmed Problem Acquired hammer toe of left foot (1256861512685012 ) Other hammer toe(s) (acquired), left foot (M20.42) Active confirmed Problem Polyneuropathy due to diabetes mellitus type I (566894099) 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) Active confirmed Plan Of Treatment Pending Test Test Name Order Date X ray : Foot, right 3V 11/07/2022 Insurance Providers Payer Name Payer Address Payer Phone Subscriber Number Group Number Insured Name Patient Relationship to Insured Coverage Start Date Coverage End Date [facility] [address] [place] [phone] [id number] Lizbeth Bonner Self - patient is the insured Medical (General) History Medical History History ICD Code Arthritis Back,Hip,and Knee pain covid-19 Diabetic High blood pressure Kidney disease Poor circulation ulcer Mumps Chicken pox
--- OUTSIDE RECORDS SUMMARY | 2025-02-05 12:04 | XMS_ITS | Encounter Summary ---
Author Organization [facility], Address [address] [place] [address] Phone Care Team Providers Care Cartography Professor Name Role Phone Elissa Kolb MD Primary Care Provider [phone] Encounter Details Date Type Department Care Team (Late st Contact Info) Description 03/26/2022 Documentation Only [facility], [address] [place] [address] Claudia Moon PA [address] [place] [address] Social History Tobacco Use Types [...] on file documented as of this encounter Functional Status * Question Answer Date of Assessment Author BP 142/66 03/27/2022 3:37 PM Claudia Sanchez PA Height 62 03/27/2022 3:37 PM Claudia Sanchez PA Weight 2262.4 03/27/2022 3:37 PM Claudia Sanchez PA * BMI (Calculated) Answer Date of Assessment Author 25.9 03/27/2022 3:37 PM Claudia Stone PA * BP Location Answer Date of Assessment Author Right upper arm 03/27/2022 3:37 PM Claudia Stone PA * Question Answer Date of Assessment Author BP 142/66 03/27/2022 3:37 PM Claudia Sanchez PA Height 62 03/27/2022 3:37 PM Claudia Sanchez PA Weight 2262.4 03/27/2022 3:37 PM Claudia Sanchez PA * BMI (Calculated) Answer Date of Assessment Author 25.9 03/27/2022 3:37 PM Claudia Stone PA * BP Location Answer Date of Assessment Author Right upper arm 03/27/2022 3:37 PM Claudia Stone PA documented as of this encounter Plan of Treatment Upcoming Encounters Date Type Department Care Team (Late st Contact Info) Description 05/05/2025 9:50 AM EST Office Visit [facility] [address] [place] [phone] Emery Moran MD [address] [place] [address] [place] [phone] documented as of this encounter Visit Diagnoses Not on filedocumented in this encounter Care Teams Cartography Professor Relationship Specialty Start Date End Date Elissa Kolb MD [address] PCP - General Internal Medicine 04/02/24 documented as of this encounter
--- OUTSIDE RECORDS SUMMARY | 2025-02-05 12:04 | XMS_ITS | Encounter Summary ---
Author Organization [facility], Address [address] [place] [address] Phone Care Team Providers Care Car Body Inspector Name Role Phone Elissa Kolb MD Primary Care Provider [phone] Encounter Details Date Type Department Care Team (Late Contact Info) Description 01/29/2022 Documentation Only [facility] [address] [place] [address] Claudia Moon PA [address] [place] [address] Social History Tobacco Use Types [...] Visit [facility] [address] [place] [address] Emery Moran MD [address] [facility] [place] [address] documented as of this encounter Visit Diagnoses Not on filedocumented in this encounter Care Teams Car Body Inspector Relationship Specialty Start Date End Date Elissa Kolb MD [address] [place], [place] PCP - General Internal Medicine 04/02/24 documented as of this encounter
--- OUTSIDE RECORDS SUMMARY | 2025-02-05 12:04 | XMS_ITS | Encounter Summary ---
Author Organization [facility], Address [address] [place] [address] Phone Care Team Providers Care Welding Machine Operator Helper Arc Name Role Phone Elissa Kolb MD Primary Care Provider [phone] Encounter Details Date Type Department Care Team (Late st Contact Info) Description 11/26/2022 Documentation Only [facility], [facility] [address] [place] [address] Conrado Kaur MD [address] [place] [address] [facility] [place] [phone] Social History Tobacco Use Types Packs/Day Years [...] Question Answer Date of Assessment Author BP 128/62 11/27/2022 1:12 PM EDT Claudia Pickering PA Height 62 11/27/2022 1:12 PM Claudia Parks PA Weight 2291.2 11/27/2022 1:12 PM Claudia Parks PA * BMI (Calculated) Answer Date of Assessment Author 26.2 11/27/2022 1:12 PM Claudia Dougherty PA * BP Location Answer Date of Assessment Author Right upper arm 11/27/2022 1:12 PM Claudia Dougherty PA * Question Answer Date of Assessment Author BP 128/62 11/27/2022 1:12 PM EDT Claudia Pickering PA Height 62 11/27/2022 1:12 PM EDT Claudia Pickering PA Weight 2291.2 11/27/2022 1:12 PM EDT Claudia Pickering PA * BMI (Calculated) Answer Date of Assessment Author 26.2 11/27/2022 1:12 PM EDT Claudia Moon PA * BP Location Answer Date of Assessment Author Right upper arm 11/27/2022 1:12 PM EDT Claudia Moon PA documented as of this encounter Plan of Treatment Upcoming Encounters Date Type Department Care Team (Late st Contact Info) Description 05/05/2025 9:50 AM EST Office Visit [facility], [address] [place] [address] Emery Moran MD [address] [place] [address] [place] [address] documented as of this encounter Visit Diagnoses Not on filedocumented in this encounter Care Teams Welding Machine Operator Helper Arc Relationship Specialty Start Date End Date Elissa Kolb MD [address] [place], [place] PCP - General Internal Medicine 04/02/24 documented as of this encounter
--- OUTSIDE RECORDS SUMMARY | 2025-02-05 12:04 | XMS_ITS | Clinical Summary ---
Author Organization [facility], Address [address] [place] [address] [place] [address] Phone Care Team Providers Care Resident Services Coordinator Name Role Phone Elissa Kolb MD Primary Care Provider [phone] Allergies No known active allergies Medications amLODIPine [...] 06/13/2023 Active cholecalciferol (VITAMIN D-3) 50 MCG (1999 [place]) [...] Encounters Date Type Department Care Team Description 02/02/2025 1:20 PM EST Office Visit [facility] [address] [place] [address] Emery Moran MD Renal disorder due to type 2 diabetes mellitus <Unspecified DM Medication; Other diabetic kidney complication> (HCC) (Primary Dx) 12/01/2024 1:30 PM EDT Office Visit [facility] [address] [place] [address] Emery Moran MD Stage 3a chronic kidney [...] Visit [facility] [place], [address] [place] [address] Emery Moran MD [address] [place] [address] [place] [phone] Health Maintenance Due Date Last Done Comments [...] patient's age to complete this topic Insurance [place] Care Teams Resident Services Coordinator Relationship Specialty Start Date End Date [place] Maritza, Elissa, MD [address] [place], [place] PCP - General Internal Medicine 04/02/24
--- OUTSIDE RECORDS SUMMARY | 2025-02-05 12:05 | XMS_ITS | Clinical Summary ---
Author Organization [address] [place] [address] Dr Franco Address [address] [place] [address] [place] [address] Phone Care Team Providers Care Flake Miller Wheat And Oats Name Role Phone Elissa [place] MD Primary Care Provider [phone] Allergies No known active allergies Medications silver [...] to complete this topic Insurance MEDICAID - [place] [facility] [employer] Care Teams Flake [employer] Oats Relationship Specialty Start Date End Date Elissa Salas MD [address] [facility] , [address] [facility] D[facility]A: [facility] SUSIE Arboleda PCP - General 01/02/24
--- OUTSIDE RECORDS SUMMARY | 2025-02-05 12:05 | XMS_ITS | Encounter Summary ---
Author Organization [facility], Address [address] [place] [address] Phone Care Team Providers Care Entry Level Buyer Name Role Phone Elissa Kolb MD Primary Care Provider [phone] Encounter Details Date Type Department Care Team (Late Contact Info) Description 06/24/2023 Orders Only [facility] [address] [place] [address] Claudia Moon PA [address] [place] [address] [place] [address] Stage 3a chronic kidney disease [...] Visit [facility] [address] [place] [address] Emery Moran MD [address] [place] [address] [place] [address] documented as of this encounter Visit Diagnoses Diagnosis Stage 3a chronic kidney disease (HCC) Essential (primary) hypertension Type 2 diabetes mellitus without complication (HCC) documented in this encounter Care Teams Entry Level Buyer Relationship Specialty Start Date End Date Elissa Kolb MD [address] [place], [place] PCP - General Internal Medicine 04/02/24 documented as of this encounter
--- OUTSIDE RECORDS SUMMARY | 2025-02-05 12:05 | XMS_ITS | Encounter Summary ---
Author Organization [facility], Address [address] [place] [address] Phone Care Team Providers Care Lens Mounter Name Role Phone Elissa Kolb MD Primary Care Provider [phone] Encounter Details Date Type Department Care Team ([facility] Contact Info) Description 07/28/2024 Documentation Only [facility] [address] [place] [address] [place] [address] [place] [address] Social History Tobacco Use Types Packs/Day [...] Visit [facility] [address] [place] [address] Emery Moran MD [address] [place] [address] [place] [address] documented as of this encounter Visit Diagnoses Not on filedocumented in this encounter Care Teams Lens Mounter Relationship Specialty Start Date End Date Elissa Kolb MD [address] [place], [place] PCP - General Internal Medicine 04/02/24 documented as of this encounter
== END 2025-02-05 11:13 | disposition home or self-care (01) ==
LOC: HO.MRI 11:12
PROVIDERS: Visit Provider Nurse Practitioner Family
DX: Z13.89 Encounter for screening for other disorder (principal)
CPT/HCPCS: 70551

== ENCOUNTER 2025-02-05 15:28 | Inpatient (IN) | payer OTHER, SELFPAY ==
--- NOTE | ~2025-02-05 | MR_ITS ---
CLINICAL HISTORY: rule out an infiltrating or inflammatory lesion Pt had MRI brain without contrast 02/05/25. MR Brain with gadolinium Comparison: MR/REG/SR - MR BRAIN WITHOUT IV CONTRAST - 02/05/25 11:17 EST Findings: Examination performed to supplement prior MRI brain 02/05/2025. Postcontrast sequences are obtained. No enhancing mass or lesion. IMPRESSION: No abnormal enhancing mass or lesion. This document has been electronically signed by: Loretta Crespo MD on 02/06/2025 19:19:50
--- NOTE | ~2025-02-05 | XR_ITS ---
EXAMINATION: XR CHEST CLINICAL INFORMATION: CP COMPARISON: November 10, 2017 TECHNIQUE: Frontal view of the chest was obtained. FINDINGS: No acute abnormality is noted involving the heart, lungs, mediastinum, bony thorax or soft tissues. XR/XR chest 1V IMPRESSION: No acute disease. Electronically signed by: Sudhir Batres MD 02/05/2025 04:35 PM [facility] [place]
--- NOTE | ~2025-02-05 | CT_ITS ---
CLINICAL HISTORY: stroke protocol CT head without contrast CT angiography head and neck with contrast. 3D Postprocessing. COMPARISON: None provided. FINDINGS: HEAD CT: No intra-axial mass, midline shift, hydrocephalus, or acute hemorrhage. No significant atrophy-like change or white matter disease. The visualized paranasal sinuses and mastoid air cells are normal. The orbits are unremarkable. There is no acute fracture. HEAD AND NECK CTA: Aortic arch and cervical great vessels are patent. Minimal calcified plaque present at the carotid bulbs bilaterally without significant stenosis. Dominant left vertebral artery. Intracranial arteries are patent. Small amount of calcified plaque present along the intracranial vertebral arteries bilaterally without significant stenosis. Calcified plaque present along the cavernous portions of the intracranial internal carotid arteries bilaterally without significant stenosis. No aneurysm, dissection, hemodynamically significant stenoses, or occlusion. No abnormal intracranial enhancement. The visualized thyroid gland is unremarkable. No cervical mass or fluid collection. Visualized lung apices are clear. Mild mucosal thickening present within the maxillary sinuses. No acute fracture. Mild spondylosis. No acute fracture. IMPRESSION: 1. No acute intracranial findings. 2. Patent head and neck CTA. This document has been electronically signed by: Sumanth Hammond MD on 02/05/2025 18:48:00
[2025-02-05 15:37] VITALS: BP 156/67; PULSE 67; RESP 18; TEMP 36.3; O2SAT 92; BMI 22.9
--- NOTE | 2025-02-05 15:40 | ECG_ITS ---
Test Reason : CONFIRMD STROKE Blood Pressure : */* mmHG Vent. Rate : 67 BPM Atrial Rate : 67 BPM P-R Int : 184 ms QRS Dur : 126 ms QT Int : 426 ms P-R-T Axes : 63 -30 90 degrees QTcB Int : 450 ms Normal sinus rhythm Left axis deviation Left ventricular hypertrophy with QRS widening and repolarization abnormality ( R in aVL , Jesus product ) Abnormal ECG When compared with ECG of 26-Dec-2021 09:59, QRS duration has increased T wave inversion less evident in Lateral leads Referred By: Jose Alfredo Cardenas Electronically Signed By: NOEMI BARRAZA
--- NOTE | 2025-02-05 15:47 | ED.NEUROSD ---
HPI - Neuro Symptoms/Deficit General Chief Complaint: Neuro Symptoms/Deficit Stated Complaint: neurologist sent her in had small stroke Time Seen by Provider: 02/05/25 16:00 History of Present Illness ED Provider: Josefina Jewell HPI Narrative: 69-year-old female with medical history significant for diabetes, hypertension, depression, hyperparathyroidism, osteoporosis, anemia, hyperlipidemia, CKD, GERD, history of a sudden severe headache, with outpatient neurology visit scheduled for today presents to the ED for evaluation of an abnormal brain MRI. The patient reports that she is unsure what the MRI showed, but she was contacted by the Neurology Department that she has had this morning, and was instructed to come to the ED. Three months ago she reports that she had a sudden onset of acute severe headache localized to the back of the head, nonradiating. There was no association to numbness or tingling of the fingertips or any of the extremities, no aphasia or speech abnormalities, and no weakness or gait alteration. She has not had symptoms over the past 3 months, denies any recent headaches. No trauma to the head. No visual disturbances, dizziness or lightheadedness. No chest pain, shortness of breath or abdominal pain. A recent illnesses, no fever no chills. Related Data Home Medications ?Medication ?Instructions ?Recorded ?Confirmed gabapentin 100 mg capsule 100 mg PO DAILY 08/09/23 02/08/25 insulin glargine 100 unit/mL (3 20 unit subcut BEDTIME 10/30/24 02/08/25 mL) subcutaneous pen (Lantus Solostar U-100 Insulin) citalopram 20 mg tablet 20 mg PO DAILY 12/23/24 02/08/25 insulin lispro 100 unit/mL 1 sliding scale dose subcut TIDWM 02/05/25 02/08/25 subcutaneous pen (Humalog KwikPen (U-100) Insulin) Previous Rx's ?Medication ?Instructions ?Recorded blood-glucose,manager bilingual,cont #1 ea 08/09/23 (FreeStyle Pau 3 [place]) blood sugar diagnostic (OneTouch #125 ea 02/10/24 Verio test strips) blood-glucose meter (OneTouch #1 ea 02/10/24 Verio Flex Meter) lancets 33 gauge (OneTouch Delica #100 ea 02/10/24 Plus Lancet) omeprazole 20 mg capsule,delayed 20 mg PO QAM 90 days #90 caps 02/10/24 release pen needle, diabetic 32 gauge x #100 ea 02/10/24 cholecalciferol (vitamin D3) 50 50 mcg PO DAILY #30 caps 02/12/24 mcg (2,000 unit) capsule losartan 100 mg tablet 100 mg PO DAILY 90 days #90 tabs 03/07/24 aspirin 81 mg tablet,delayed 81 mg PO DAILY 90 days #90 tabs 08/17/24 release blood-glucose sensor (FreeStyle #2 ea 10/09/24 Pau 3 Sensor device) calcium citrate 500 mg (2 x 250 mg calcium) PO BID 10/19/24 #120 tabs amlodipine 10 mg tablet 10 mg PO DAILY 90 days #90 tabs 12/24/24 hydrochlorothiazide 25 mg tablet 25 mg PO DAILY 90 days #90 tabs 12/24/24 rosuvastatin 10 mg tablet 20 mg (2 x 10 mg) PO DAILY 90 days 02/07/25 #90 tabs Allergies Allergy/AdvReac Type Severity Reaction Status Date / Time gabapentin Allergy Intermediate pruritus Verified 02/05/25 15:41 metformin Allergy Intermediate stomach Verified 02/05/25 15:41 upset metoprolol Allergy Intermediate upset Verified 02/05/25 15:41 stomach tizanidine Allergy Intermediate leg edema Verified 02/05/25 15:41 Review of Systems Review of Systems: ROS is otherwise negative unless mentioned in HPI. 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 Mother Asthma Hypertension Chronic mental illness Diabetes Mental health disorder Family/Other Chronic mental illness Mental health disorder Social History Social History Household Members: None Housing: House Do you presently have visiting nurse or other home services: No Alcohol intake: never Patient Tobacco Use Status: Never used Tobacco Smoked in Last 30 Days: No e-Cigarette/Vaping Use: Never Used Second Hand Smoke Exposure: No Use of substances other than those prescribed or required for medical reasons: No Currently Displaying Signs/Symptoms of Drug Intoxication Withdrawal: No Have you been hit, kicked, punched, or otherwise hurt by someone within the past year? If so, by whom?: No Do you feel safe in your current relationship?: No Current Relationship Is there a partner from a previous relationship who is making you feel unsafe now?: No Are you made to feel afraid or neglected: No Advance Directives: No Advance Directives Information Provided: Yes Recently lost weight without trying: No Eating poorly because of decreased appetite: No Nutrition Risks: No Nutritional Risk Patient : No : No Poor oral hygiene: No service: No Current occupational status: disabled Sexual orientation: Straight/Heterosexual Gender identity: Female Cognitive needs: No Hearing needs: No Vision needs: Yes Physical Exam Exam: Exam: Nursing notes and vital signs reviewed. Constitutional: Well-appearing, NAD. Alert. Oriented X3. Eyes: Pupils equal, round and reactive to light. EOMI. ENT: Pharynx normal. Neck: Normal inspection. Neck supple. CVS: Normal heart rate and rhythm. Pulses normal. Respiratory: No respiratory distress. Breath sounds normal. Abdomen: Soft and nontender. Nondistended. +BSx4. No CVA tenderness bilaterally. Skin: Skin warm and dry. Normal skin color. Extremities: No lower extremity edema. Neuro: Oriented X 3. Cranial nerves intact. No dysmetria, [id number] intact. No motor deficit. Vital Signs: Vital Signs: Last Vital Signs Temp 97.2 F 02/07/25 11:53 Pulse 59 02/07/25 11:53 Resp 16 02/07/25 11:53 BP 154/67 H 02/07/25 11:53 Pulse Ox 99 02/07/25 11:53 O2 Del Method Room Air 02/07/25 11:53 BMI result Body Mass Index 22.9 Course Course Course Narrative: RME; 6-year-old female sent to the ED after MRI showed subacute nonhemorrhagic infarct. Patient has had headache 3 months ago. Patient is asymptomatic. Patient was sent to the ED for precautions. Labs ordered Medications Administered Discontinued Medications Generic Name Dose Route Start Last Admin Trade Name Kelsi PRN Reason Stop Dose Admin Amlodipine Besylate 10 mg 02/06/25 12:18 02/06/25 12:45 Amlodipine Besylate 10 Mg Tablet PO 02/06/25 12:19 10 mg ONCE ONE Administration Protocol Amlodipine Besylate 10 mg 02/07/25 09:00 02/07/25 08:13 Amlodipine Besylate 10 Mg Tablet PO 10 mg DAILY [facility] Administration Protocol Aspirin 81 mg 02/06/25 09:00 02/07/25 08:13 Aspirin Enteric Coated 81 Mg Tablet. PO 81 mg DAILY STEFANIE Administration Atorvastatin Calcium 80 mg 02/05/25 21:00 02/06/25 19:49 Atorvastatin Calcium 80 Mg Tablet PO 80 mg BEDTIME STEFANIE Administration Enoxaparin Sodium 40 mg 02/05/25 18:00 02/06/25 17:20 Enoxaparin Sodium 40 Mg/0.4 Ml Syringe SUBCUT 40 mg Q24H STEFANIE Administration Escitalopram Oxalate 10 mg 02/06/25 14:30 02/07/25 08:13 Escitalopram Oxalate 10 Mg Tablet PO 10 mg DAILY STEFANIE Administration Gabapentin 100 mg 02/06/25 14:30 02/06/25 15:33 Gabapentin 100 Mg Capsule PO Not Given DAILY [facility] Gadobutrol 7.5 ml 02/06/25 18:41 02/06/25 18:42 Gadobutrol 7.5 Ml Vial IVPUSH 02/06/25 18:42 6 ml ONCE ONE Administration Insulin Human Lispro 0 unit 02/05/25 21:00 02/07/25 11:23 Insulin Lispro 100 Unit/Ml 3 Ml Vial SUBCUT Not Given QIDACHS [facility] Protocol Iohexol 100 ml 02/05/25 18:13 02/05/25 18:13 Iohexol 350 Mg/Ml 100 Ml Infus..Btl IV 02/05/25 18:14 70 ml ONCE ONE Administration Losartan Potassium 100 mg 02/06/25 14:30 02/07/25 08:13 Losartan Potassium 50 Mg Tablet PO 100 mg DAILY [facility] Administration Protocol Omeprazole 20 mg 02/07/25 06:30 02/07/25 05:27 Omeprazole 20 Mg Capsule. PO 20 mg DAILY@0630 [facility] Administration Sodium Chloride 3 ml 02/06/25 00:00 02/07/25 08:16 0.9 % Sodium Chloride Flush 3 Ml Syringe IVFLUSH Not Given QSHIFT [facility] Medical Decision Making Medical Decision Making [facility] Narrative: [employer] Machine Tender services were utilized for the full ER visit for this patient. Upon my initial assessment of this patient, she is well-appearing, answering all questions appropriately. She has a nonfocal, reassuring neurological examination. Reports that she was sent to the ED after having a brain MRI this morning. She was seen by Neurology outpatient, she can not recall the name or the street that the neurology visit was on. She tells me that she went there because she had a headache 3 months ago that was very severe, lasted about 10 minutes and then spontaneously resolved. Has not had any headaches over the past several months, denies any symptoms over the past several weeks. No dizziness or lightheadedness, numbness or tingling in any of the extremities. She reports that she told her PCP about the headache, who scheduled a neurology referral. When she saw Neurology today, an MRI of the brain was performed. This MRI, per the outpatient record does reveal evidence of a subacute stroke. Given symptoms for 3 months ago, this does not correlate with a subacute stroke, I would expect this to be more chronic in nature. With concern for possibly underlying brain swelling, she will need additional management and inpatient admission for additional workup. To my understanding she is not on Plavix or aspirin. She was instructed to come to the ED by the Neurology Department. Denies any additional symptoms at this time. Reassuring EKG, nonischemic. Lab work was overall reassuring as well. I did consider discharging the patient home however the location of the stroke on MRI of the brain as well as presentation today does not correlate, with concern she may be having ?silent strokes admission is warranted. Patient is agreeable to admission plan. [id number]-- signed out to hospitalist, bed request placed Differential Diagnosis Differential Diagnoses: The differential diagnosis associated with the presentation includes Subacute stroke, acute stroke, hemorrhagic versus ischemic stroke, brain swelling, electrolyte abnormalities Admission/Observation Consideration of admission/observation: Escalation of care including admission/observation considered (Indicated given subacute stroke) Consult Healthcare Provider Management of the patient was discussed with: Hospitalist Lab Data [facility] Lab Attestation statement: I reviewed the patient's lab results. (Overall reassuring) 02/06/25 09:01 02/06/25 09:01 Labs: Lab Results 02/05/25 02/05/25 02/06/25 Range/Units 15:57 21:19 02:43 WBC 8.1 (4.8-10.8) X10*3/uL RBC 4.95 (4.20-5.50) X10*6/uL Hgb 11.2 L (12.0-16.0) g/dl Hct 36.0 L (37.0-47.0) % MCV 72.7 L (80.0-98.0) fL MCH 22.6 L (27.0-33.0) pg MCHC 31.1 (31.0-35.0) g/dl RDW 13.5 (11.0-16.0) % Plt Count 207 (160-400) X10*3/uL MPV 11.1 (9.4-12.3) fL Immature Gran % (Auto) 0.5 H (0.0-0.4) % Neut % (Auto) 77.2 H (45-73) % Lymph % (Auto) 13.9 L (20-40) % Republic % (Auto) 6.9 (2-11) % Eos % (Auto) 0.9 (0-4) % Baso % (Auto) 0.6 (0-2) % Lymph # (Auto) 1.1 L (1.2-4.9) X10*3/uL [place] # (Auto) 0.6 (0.1-1.2) X10*3/uL Eos # (Auto) 0.1 (0.0-0.4) X10*3/uL Baso # (Auto) 0.1 (0.0-0.2) X10*3/uL Abs Immat Gran (auto) 0.04 H (0.00-0.03) X10*3/uL Absolute Neuts (auto) 6.2 (2.0-8.3) x10*3/uL Absolute Nucleated RBC 0.000 (0.0-0.012) X10*3/uL Nucleated RBC % (auto) 0.0 (0.0-0.2) /100WBC PT 13.1 (11.2-13.5) SEC INR 1.1 (0.9-1.1) APTT 29.3 (26.7-34.1) SEC Sodium 144 (135-145) mmol/L Potassium 3.6 (3.3-5.1) mmol/L Chloride 108 (96-108) mmol/L Carbon Dioxide 29 (22-29) mmol/L Anion Gap 11 L (12-20) BUN 28 H (9-16) mg/dL Creatinine 0.95 (0.5-1.4) mg/dL Estim Creat Clear Calc 47.5 Estimated GFR 58 POC Glucose 125 H 226 H (60-115) mg/dL Random Glucose 171 H (60-115) mg/dL Calcium 9.6 (8.4-10.2) mg/dL Total Bilirubin 0.3 (0.0-1.0) mg/dL AST 36 H (5-31) U/L ALT 33 H (0-31) U/L Alkaline Phosphatase 55 (39-117) U/L Troponin I High Sens < 2.7 (<3.5-17.0) ng/L Total Protein 7.5 (6.5-8.0) g/dL Albumin 4.6 (3.5-5.0) g/dL Triglycerides 82 (<150) mg/dL Cholesterol 112 (<200) mg/dL LDL Cholesterol, Calc 46 (<100) mg/dL HDL Cholesterol 50 (>40) mg/dL 02/06/25 02/06/25 02/06/25 Range/Units 07:05 09:01 11:47 WBC 6.1 (4.8-10.8) X10*3/uL RBC 5.06 (4.20-5.50) X10*6/uL Hgb 11.3 L (12.0-16.0) g/dl Hct 36.5 L (37.0-47.0) % MCV 72.1 L (80.0-98.0) fL MCH 22.3 L (27.0-33.0) pg MCHC 31.0 (31.0-35.0) g/dl RDW 13.6 (11.0-16.0) % Plt Count 204 (160-400) X10*3/uL MPV 10.9 (9.4-12.3) fL Immature Gran % (Auto) (0.0-0.4) % Neut % (Auto) (45-73) % Lymph % (Auto) (20-40) % Republic % (Auto) (2-11) % Eos % (Auto) (0-4) % Baso % (Auto) (0-2) % Lymph # (Auto) (1.2-4.9) X10*3/uL [place] # (Auto) (0.1-1.2) X10*3/uL Eos # (Auto) (0.0-0.4) X10*3/uL Baso # (Auto) (0.0-0.2) X10*3/uL Abs Immat Gran (auto) (0.00-0.03) X10*3/uL Absolute Neuts (auto) (2.0-8.3) x10*3/uL Absolute Nucleated RBC 0.000 (0.0-0.012) X10*3/uL Nucleated RBC % (auto) 0.0 (0.0-0.2) /100WBC PT (11.2-13.5) SEC INR (0.9-1.1) APTT (26.7-34.1) SEC Sodium 142 (135-145) mmol/L Potassium 4.0 (3.3-5.1) mmol/L Chloride 103 (96-108) mmol/L Carbon Dioxide 30 H (22-29) mmol/L Anion Gap 13 (12-20) BUN 22 H (9-16) mg/dL Creatinine 0.88 (0.5-1.4) mg/dL Estim Creat Clear Calc 51.3 Estimated GFR > 60 POC Glucose 141 H 153 H (60-115) mg/dL Random Glucose 231 H (60-115) mg/dL Calcium 9.5 (8.4-10.2) mg/dL Total Bilirubin (0.0-1.0) mg/dL AST (5-31) U/L ALT (0-31) U/L Alkaline Phosphatase (39-117) U/L Troponin I High Sens (<3.5-17.0) ng/L Total Protein (6.5-8.0) g/dL Albumin (3.5-5.0) g/dL Triglycerides (<150) mg/dL Cholesterol (<200) mg/dL LDL Cholesterol, Calc (<100) mg/dL HDL Cholesterol (>40) mg/dL 02/06/25 02/06/25 02/07/25 Range/Units 16:08 19:24 07:34 WBC (4.8-10.8) X10*3/uL RBC (4.20-5.50) X10*6/uL Hgb (12.0-16.0) g/dl Hct (37.0-47.0) % MCV (80.0-98.0) fL MCH (27.0-33.0) pg MCHC (31.0-35.0) g/dl RDW (11.0-16.0) % Plt Count (160-400) X10*3/uL MPV (9.4-12.3) fL Immature Gran % (Auto) (0.0-0.4) % Neut % (Auto) (45-73) % Lymph % (Auto) (20-40) % Republic % (Auto) (2-11) % Eos % (Auto) (0-4) % Baso % (Auto) (0-2) % Lymph # (Auto) (1.2-4.9) X10*3/uL [place] # (Auto) (0.1-1.2) X10*3/uL Eos # (Auto) (0.0-0.4) X10*3/uL Baso # (Auto) (0.0-0.2) X10*3/uL Abs Immat Gran (auto) (0.00-0.03) X10*3/uL Absolute Neuts (auto) (2.0-8.3) x10*3/uL Absolute Nucleated RBC (0.0-0.012) X10*3/uL Nucleated RBC % (auto) (0.0-0.2) /100WBC PT (11.2-13.5) SEC INR (0.9-1.1) APTT (26.7-34.1) SEC Sodium (135-145) mmol/L Potassium (3.3-5.1) mmol/L Chloride (96-108) mmol/L Carbon Dioxide (22-29) mmol/L Anion Gap (12-20) BUN (9-16) mg/dL Creatinine (0.5-1.4) mg/dL Estim Creat Clear Calc Estimated GFR POC Glucose 186 H 140 H 176 H (60-115) mg/dL Random Glucose (60-115) mg/dL Calcium (8.4-10.2) mg/dL Total Bilirubin (0.0-1.0) mg/dL AST (5-31) U/L ALT (0-31) U/L Alkaline Phosphatase (39-117) U/L Troponin I High Sens (<3.5-17.0) ng/L Total Protein (6.5-8.0) g/dL Albumin (3.5-5.0) g/dL Triglycerides (<150) mg/dL Cholesterol (<200) mg/dL LDL Cholesterol, Calc (<100) mg/dL HDL Cholesterol (>40) mg/dL Independent Interpretation I performed an independent interpretation of an: EKG, Plain X-Ray and MRI Interpretation: Rate: 67 Rhythm: NSR Rico:63/-30/90 Normal P waves. Normal KHANH. Normal QRS complex. ST T wave : The depressions, elevations qTC: 450 prior studies: Similar The study has been interpreted contemporaneously by me. I have reviewed the patient's imaging and agree with the radiologist's findings. Radiology Impression Discussion of test interpretation with radiology: I have reviewed the radiologist's reading. Radiologist Impression: Outpatient Brain MRI: MR/MR head/brain wo con IMPRESSION: Concerning subacute nonhemorrhagic ischemia/infarct, right cerebellar tonsil. Low-lying cerebellar tonsils. CXR: FINDINGS: No acute abnormality is noted involving the heart, lungs, mediastinum, bony thorax or soft tissues. Independent Historian None External Record Review External record reviewed: Outpatient record and Prior outpatient radiology (Brain MRI) Chronic Conditions Patient?s care impacted by: Diabetes and Hypertension Social Determinants Patient?s care significantly limited by Social Determinants of Health including: Other Social Determinant of Health (Language barrier, traffic incident management manager service was utilized) Discharge Plan Discharge Clinical Impression: Stroke Qualifiers: CVA mechanism: unspecified Qualified Code(s): I63.9 - Cerebral infarction, unspecified Patient Disposition: Admitted As Inpatient Interventions: Admission Worksheet (ED) Last Done: 02/06/25 01:25 Discharge Date/Time: 02/06/25 02:31
[2025-02-05 16:01] LABS: MANUAL DIFF FLAG NO
[2025-02-05 16:03] LABS: Hematocrit 36.0 % (37.0-47.0); Hemoglobin 11.2 g/dl (12.0-16.0); Imm Gran Abs Auto 0.04 X10*3/uL (0.00-0.03); Imm Gran Pct Auto 0.5 % (0.0-0.4); Lymphocytes Absolute Auto 1.1 X10*3/uL (1.2-4.9); Mean Corpuscular HGB Conc 31.1 g/dl (31.0-35.0); Mean Corpuscular Hemoglobin 22.6 pg (27.0-33.0); Mean Corpuscular Volume 72.7 fL (80.0-98.0); NRBC Abs Auto 0.000 X10*3/uL (0.0-0.012); NRBC Pct Auto 0.0 /100WBC (0.0-0.2); Platelet Count 207 X10*3/uL (160-400); Red Blood Count 4.95 X10*6/uL (4.20-5.50); White Blood Count 8.1 X10*3/uL (4.8-10.8)
[2025-02-05 16:15] LABS: Alanine Aminotransferase 33 U/L (0-31); Albumin Level 4.6 g/dL (3.5-5.0); Alkaline Phosphatase 55 U/L (39-117); Anion Gap 11 (12-20); Aspartate Amino Transferase 36 U/L (5-31); Blood Urea Nitrogen 28 mg/dL (9-16); Calcium 9.6 mg/dL (8.4-10.2); Carbon Dioxide 29 mmol/L (22-29); Chloride 108 mmol/L (96-108); Creatinine Clr Calc Pharmacy 47.5; Estimated Glomerular Filt Rate 58; INTERNATIONAL NORM RATIO 1.1 (0.9-1.1); Partial Thromboplastin Time 29.3 SEC (26.7-34.1); Potassium 3.6 mmol/L (3.3-5.1); Prothrombin Time 13.1 SEC (11.2-13.5); Sodium 144 mmol/L (135-145); Total Protein 7.5 g/dL (6.5-8.0)
[2025-02-05 16:24] LABS: Troponin-I High Sensitivity < 2.7 ng/L (<3.5-17.0)
--- NOTE | 2025-02-05 16:27 | PC.NURSE ---
pt is alert and oriented, skin appropriate for ethnicity, respirations even and unlabored, ls clear, pt reports that three months ago had a really bad headache that came on suddenly, all nuero intact, speech is clear, no facial droop, hand grasp strong and equal, moving all extremities, no drift noticed, denies chest pain and sob
[2025-02-05 16:42] VITALS: BP 146/53; PULSE 62; RESP 18; TEMP 36.4; O2SAT 96
--- NOTE | 2025-02-05 17:49 | PM.IMHP ---
History of Present Illness Date of Service: 02/05/25 Attending physician on admission: Anais Jane Chief Complaint: abnormal MRI This is a 69-year-old female with a history of diabetes, hypertension who was sent to the emergency department for abnormal MRI. History was obtained with the assistance of a healthcare interpreter. Patient was seen by Neurology on December 24 not that time she reported previous history of severe headache. An outpatient MRI was ordered which was obtained today. The MRI showed concern for subacute nonhemorrhagic ischemia/infarct in the right cerebellar tonsil. The patient was called and requested to come to the emergency department for admission. Patient denies any headache since the one she experienced in December. She denies any difficulty with balance or unsteady gait, vision changes, dizziness, upper or lower extremity weakness, difficulty swallowing or any other changes from her baseline. Patient will be admitted for further workup to determine etiology of stroke. Review of Systems Review of Systems: Yes all other systems are reviewed and are negative Constitutional: Constitutional: Denies chills and Denies fever(s) ENT: Denies dizziness Cardiovascular: Cardiovascular: Denies chest pain, Denies palpitations and Denies dyspnea Respiratory: Respiratory: Denies cough and Denies dyspnea Gastrointestinal: Gastrointestinal: Denies abdominal pain Neurologic: Denies dizziness Endocrine: Endocrine: Denies palpitations [facility] Medical History T2DM (type 2 diabetes mellitus) Hyperparathyroidism Multinodular thyroid Goiter Vitamin D deficiency Anemia Right hand pain Diabetes type 2, uncontrolled Hyperlipidemia LDL goal <100 Osteoporosis Chronic kidney disease, stage 2 (mild) Long-term use of aspirin therapy GERD (gastroesophageal reflux disease) Dyslipidemia 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 Mother Asthma Hypertension Chronic mental illness Diabetes Mental health disorder Family/Other Chronic mental illness Mental health disorder Surgical History History of colonoscopy History of tubal ligation Social History Household Members: None Housing: Apartment Alcohol intake: never Patient Tobacco Use Status: Never used Tobacco Smoked in Last 30 Days: No e-Cigarette/Vaping Use: Never Used Second Hand Smoke Exposure: No Use of substances other than those prescribed or required for medical reasons: No Advance Directives: No Advance Directives Information Provided: Yes service: No Current occupational status: disabled Sexual orientation: Straight/Heterosexual Gender identity: Female Cognitive needs: No Hearing needs: No Vision needs: Yes Meds Allergies Allergy/AdvReac Type Severity Reaction Status Date / Time gabapentin Allergy Intermediate pruritus Verified 02/05/25 15:41 metformin Allergy Intermediate stomach Verified 02/05/25 15:41 upset metoprolol Allergy Intermediate upset Verified 02/05/25 15:41 stomach tizanidine Allergy Intermediate leg edema Verified 02/05/25 15:41 Active Medications: Current Medications Acetaminophen (Acetaminophen 325 Mg Tablet) 650 mg PO Q6H PRN PRN Reason: Pain, Mild 1-3,fever,headache Calcium Carbonate (Calcium Carbonate 750 Mg Tab.Chew) 750 mg PO Q4H PRN PRN Reason: Heartburn Magnesium Hydroxide (Milk Of Magnesia 30 Ml Oral.Susp) 30 ml PO DAILY PRN PRN Reason: Constipation Melatonin (Melatonin 3 Mg Tablet) 6 mg PO BEDTIME PRN PRN Reason: Insomnia Home Medications ?Medication ?Instructions ?Recorded ?Confirmed ?Last Taken ?Type citalopram 20 mg tablet 20 mg PO DAILY 01/21/20 01/29/25 Unknown History gabapentin 100 mg capsule 100 mg PO DAILY 08/09/23 01/29/25 Unknown History insulin glargine 100 unit/mL (3 25 unit subcut QPM 10/30/24 01/29/25 Unknown History mL) subcutaneous pen (Lantus Solostar U-100 Insulin) citalopram 20 mg tablet 20 mg PO DAILY 12/23/24 01/29/25 Unknown History Physical Exam Vital Signs and Narrative: Vital Signs: Last Vital Signs Temp 97.6 F 02/05/25 16:42 Pulse 62 02/05/25 16:42 Resp 18 02/05/25 16:42 BP 146/53 H 02/05/25 16:42 Pulse Ox 96 02/05/25 16:42 O2 Del Method Room Air 02/05/25 16:42 BMI result Body Mass Index 22.9 Const: General: cooperative, comfortable, no acute distress, alert and awake Nutritional Appearance: average body habitus Orientation/consciousness: patient oriented x3 Resp: Effort & Inspection: normal respiratory effort, able to speak in complete sentences, no respiratory distress and no use of accessory muscles Cardio: Rate: regular rate GI: Inspection: No distended Palpation (GI): Soft to palpation and nontender Neuro: Other: Tongue midline, face symmetrical, strength equal bilaterally General: patient oriented x3, moves all extremities and CN's II-XI intact bilaterally Results Labs 02/05/25 15:57 02/05/25 15:57 Labs: Laboratory Results - last 24 hr 02/05/25 15:57 MCV 72.7 L MCH 22.6 L MCHC 31.1 RDW 13.5 Plt Count 207 MPV 11.1 Immature Gran % (Auto) 0.5 H Neut % (Auto) 77.2 H Lymph % (Auto) 13.9 L Mcnairy % (Auto) 6.9 Eos % (Auto) 0.9 Baso % (Auto) 0.6 Lymph # (Auto) 1.1 L Mcnairy # (Auto) 0.6 Eos # (Auto) 0.1 Baso # (Auto) 0.1 Abs Immat Gran (auto) 0.04 H Absolute Neuts (auto) 6.2 Absolute Nucleated RBC 0.000 Nucleated RBC % (auto) 0.0 PT 13.1 INR 1.1 APTT 29.3 Anion Gap 11 L Estim Creat Clear Calc 47.5 Estimated GFR 58 Random Glucose 171 H Calcium 9.6 Total Bilirubin 0.3 AST 36 H ALT 33 H Alkaline Phosphatase 55 Troponin I High Sens < 2.7 Total Protein 7.5 Albumin 4.6 Imaging Radiologist's Impressions: Impressions Chest X-Ray 02/05/25 16:24 IMPRESSION: No acute disease. Electronically signed by: Sudhir Batres MD 02/05/2025 04:35 PM [facility] [place] Assessment and Plan (1) Stroke: Qualifiers: CVA mechanism: unspecified Qualified Code(s): I63.9 - Cerebral infarction, unspecified Status: Acute Plan This is a 69-year-old female with history of diabetes, hypertension, hyperlipidemia who presents to the emergency department after outpatient MRI showed subacute stroke Subacute stroke As patient is asymptomatic unclear timing of onset Multiple risk factors including diabetes, hypertension, hyperlipidemia Check lipid profile HbA1c from earlier this month 7.1 Check head/neck CTA echo Neurology consult No PT/OT evaluation required at this time as patient has no obvious deficits present Continue ASA, start high dose statin T2DM SSI, POCs, ADA diet continue dose adjusted lantus when med rec completed med rec pending at the time of admission dvt ppx - lovenox Quality Stroke Does the patient have a stroke diagnosis?: Yes Reason for No Anti-thrombotic by Day Two: N/A - Med Ordered VTE Prior VTE?: No VTE Risk Level:: Medical - moderate - high VTE Device Contraindication: Treatment Not Indicated VTE Drug Contraindication: N/A - Med Ordered
[2025-02-05 18:02] LABS: Cholesterol 112 mg/dL (<200); HDL Cholesterol 50 mg/dL (>40); Triglycerides 82 mg/dL (<150)
[2025-02-05] MEDS: iohexoL 350 MG/ML 100 ML INFUS..BTL IV (18:13)
[2025-02-05 19:15] VITALS: BP 157/59; PULSE 61; RESP 15; TEMP 37; O2SAT 100
--- NOTE | 2025-02-05 19:55 | PHA.MEDREC ---
Pharmacy Consult ? Medication Reconciliation Pharmacy has completed the medication reconciliation. Spoke to patient to confirm medication list. Patient confirmed she is still taking citalopram 20 mg daily, lantus 20 units at bedtime and humalog tidwm per sliding scale. Last galicia of medications was this morning 02/05/25
[2025-02-05 21:23] LABS: Glucose, Whole Blood 125 mg/dL (60-115)
[2025-02-05 22:20] VITALS: BP 137/41; PULSE 57; RESP 14; TEMP 36.8; O2SAT 95
[2025-02-06] VITALS (7 sets, daily range): BP systolic 135–178; BP diastolic 53–75; PULSE 53–65; RESP 12–18; TEMP 36.4–37.1; O2SAT 94–98; BMI 22.9
[2025-02-06 02:47] LABS: Glucose, Whole Blood 226 mg/dL (60-115)
[2025-02-06 07:38] LABS: Glucose, Whole Blood 141 mg/dL (60-115)
[2025-02-06] MEDS: Aspirin Enteric Coated 81 MG TABLET.DR PO (08:02)
[2025-02-06] MEDS: 0.9 % Sodium Chloride Flush 3 ML SYRINGE IVFLUSH ×3 (08:07→19:49)
[2025-02-06 09:09] LABS: Hematocrit 36.5 % (37.0-47.0); Hemoglobin 11.3 g/dl (12.0-16.0); Mean Corpuscular HGB Conc 31.0 g/dl (31.0-35.0); Mean Corpuscular Hemoglobin 22.3 pg (27.0-33.0); Mean Corpuscular Volume 72.1 fL (80.0-98.0); NRBC Abs Auto 0.000 X10*3/uL (0.0-0.012); NRBC Pct Auto 0.0 /100WBC (0.0-0.2); Platelet Count 204 X10*3/uL (160-400); Red Blood Count 5.06 X10*6/uL (4.20-5.50); White Blood Count 6.1 X10*3/uL (4.8-10.8)
[2025-02-06 09:21] LABS: Anion Gap 13 (12-20); Blood Urea Nitrogen 22 mg/dL (9-16); Calcium 9.5 mg/dL (8.4-10.2); Carbon Dioxide 30 mmol/L (22-29); Chloride 103 mmol/L (96-108); Creatinine Clr Calc Pharmacy 51.3; Estimated Glomerular Filt Rate > 60; Potassium 4.0 mmol/L (3.3-5.1); Sodium 142 mmol/L (135-145)
--- NOTE | 2025-02-06 11:01 | P.CNNE_ITS ---
History of Present Illness Data of Consult Service Date: 02/06/25 Primary Care Provider: Elissa Salas MD HPI Reason for consult: Abnormal brain MRI 69 years old woman who was seen in Neurology Clinic for headache. She reported an episode of a headache suddenly appearing in lasting for about 15 minutes, 10/10 in intensity. Examination did not reveal any focal neurological finding and she was scheduled for an outpatient MRI of brain, which was done and a finding was detected after which she was referred to emergency room for possibility of stroke. She was not having that headache this point. There was no visual symptom. 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 Mother Asthma Hypertension Chronic mental illness Diabetes Mental health disorder Family/Other Chronic mental illness Mental health disorder Surgical History Surgical History History of colonoscopy History of tubal ligation Social History Social History Household Members: None Housing: House Do you presently have visiting nurse or other home services: No Alcohol intake: never Patient Tobacco Use Status: Never used Tobacco e-Cigarette/Vaping Use: Never Used Second Hand Smoke Exposure: No service: No Current occupational status: disabled Sexual orientation: Straight/Heterosexual Gender identity: Female Cognitive needs: No Hearing needs: No Vision needs: Yes Meds Allergies Allergy/AdvReac Type Severity Reaction Status Date / Time gabapentin Allergy Intermediate pruritus Verified 02/05/25 15:41 metformin Allergy Intermediate stomach Verified 02/05/25 15:41 upset metoprolol Allergy Intermediate upset Verified 02/05/25 15:41 stomach tizanidine Allergy Intermediate leg edema Verified 02/05/25 15:41 Active Medications: Current Medications Acetaminophen (Acetaminophen 325 Mg Tablet) 650 mg PO Q6H PRN PRN Reason: Pain, Mild 1-3,fever,headache Aspirin (Aspirin Enteric Coated 81 Mg Tablet.Dr) 81 mg PO DAILY [facility] Last Admin: 02/06/25 08:02 Dose: 81 mg Atorvastatin Calcium (Atorvastatin Calcium 80 Mg Tablet) 80 mg PO BEDTIME [facility] Last Admin: 02/05/25 21:15 Dose: 80 mg Calcium Carbonate (Calcium Carbonate 750 Mg Tab.Chew) 750 mg PO Q4H PRN PRN Reason: Heartburn Dextrose (Dextrose 50 % 25 Gm/50 Ml Syringe) 25 gm IVPUSH Q15M PRN; Protocol PRN Reason: per Hypoglycemia Standing Ord. Enoxaparin Sodium (Enoxaparin Sodium 40 Mg/0.4 Ml Syringe) 40 mg SUBCUT Q24H [facility] Last Admin: 02/05/25 18:30 Dose: 40 mg Glucose (Glucose Gel 15 Gm Gel..Gram.) 15 gm PO Q15M PRN; Protocol PRN Reason: per Hypoglycemia Standing Ord. Insulin Human Lispro (Insulin Lispro 100 Unit/Ml 3 Ml Vial) 0 unit SUBCUT QIDACHS [facility]; Protocol Last Admin: 02/06/25 07:40 Dose: Not Given Magnesium Hydroxide (Milk Of Magnesia 30 Ml Oral.Susp) 30 ml PO DAILY PRN PRN Reason: Constipation Melatonin (Melatonin 3 Mg Tablet) 6 mg PO BEDTIME PRN PRN Reason: Insomnia Sodium Chloride (0.9 % Sodium Chloride Flush 3 Ml Syringe) 3 ml IVFLUSH QSHIFT [facility] Last Admin: 02/06/25 08:07 Dose: 3 ml Home Medications ?Medication ?Instructions ?Recorded ?Confirmed ?Last Taken ?Type gabapentin 100 mg capsule 100 mg PO DAILY 08/09/2302/05/25 History insulin glargine 100 unit/mL (3 20 unit subcut BEDTIME 10/30/24 02/05/25 02/04/25 History mL) subcutaneous pen (Lantus Solostar U-100 Insulin) citalopram 20 mg tablet 20 mg PO DAILY 12/23/2401/1702/05/25 History insulin lispro 100 unit/mL 1 sliding scale dose subcut TIDWM 02/05/25 02/05/25 02/05/25 History subcutaneous pen (Humalog KwikPen (U-100) Insulin) Physical Exam 2 Vital Signs: Vital Signs: Last Vital Signs Temp 98.0 F 02/06/25 07:07 Pulse 53 02/06/25 07:07 Resp 16 02/06/25 07:07 BP 159/71 H 02/06/25 07:07 Pulse Ox 98 02/06/25 07:07 O2 Del Method Room Air 02/06/25 07:07 BMI result Body Mass Index 22.9 Neuro: Other: Mental Status: Alert and oriented to person, place, and time. Normal attention. Normal spontaneous speech, fluency, and comprehension. Cranial Nerves: CN II: Visual santos full to confrontation, visual acuity intact. CN III, IV, : Pupils equal, round, reactive to light and accommodation. Extraocular movements are normal. CN V: Facial sensation is normal. CN VII: Facial movements symmetrical. CN VIII: Hearing intact to bedside conversation is normal. CN IX, X: Palate elevates symmetrically. CN XI: Shoulder shrug and head turn symmetrical. CN XII: Tongue midline without atrophy or fasciculations. Extrapyramidal: Full facial expressions and blinking. No rigidity. Movements are appropriate with no tremor or abnormality. Speech: Normal; no dysarthria or tremor. Results Labs 02/06/25 09:01 02/06/25 09:01 Labs: Short CBC 02/05/25 02/06/25 Range/Units 15:57 09:01 WBC 8.1 6.1 (4.8-10.8) X10*3/uL Hgb 11.2 L 11.3 L (12.0-16.0) g/dl Hct 36.0 L 36.5 L (37.0-47.0) % Plt Count 207 204 (160-400) X10*3/uL BMP 02/05/25 02/06/25 15:57 09:01 Sodium 144 142 Potassium 3.6 4.0 Chloride 108 103 Carbon Dioxide 29 30 H BUN 28 H 22 H Creatinine 0.95 0.88 Calcium 9.6 9.5 Liver Function 02/05/25 Range/Units 15:57 Total Bilirubin 0.3 (0.0-1.0) mg/dL AST 36 H (5-31) U/L ALT 33 H (0-31) U/L Alkaline Phosphatase 55 (39-117) U/L Albumin 4.6 (3.5-5.0) g/dL [address] [address] Magnetic Resonance Report Signed Patient: Lizbeth Owens MR#: [id number] : 1955 Acct:[id number] Age/Sex: 69 / F ADM Date: 02/05/25 Loc: HO.MRI Attending Dr: Kathy GORDON Ordering Physician: Kathy Walton Date of Service: 02/05/25 Procedure(s): MR head/brain wo con Accession Number(s): [id number] cc: Kathy Walton; Physician,Unknown ~ Reason for Exam: R51.9 - Headache, unspecified EXAMINATION: MR BRAIN WITHOUT CONTRAST CLINICAL INFORMATION: R 51.9. COMPARISON: June 20, 2010 is not available on PACS. TECHNIQUE: MRI of the brain was obtained using routine sequences without contrast. FINDINGS: There is a focal subtle restricted diffusion the right cerebellar tonsil without susceptibility. There is a 3 mm descensus of the cerebellar tonsils below foramen magnum. No acute intracranial hemorrhage, mass effect, midline shift hydrocephalus or herniation. Bilateral diffuse scattered subcortical and deep white matter hyperintense T2 FLAIR signal foci. Flow-void signal within the main cerebral vessels is normal. Murrell-white matter differentiation is normal. Prominence of the extra-axial CSF spaces cerebral sulci and ventricles likely central volume loss. Sellar/suprasellar region is normal. Polypoid mucosal thickening, maxillary sinuses. MR/MR head/brain wo con IMPRESSION: Concerning subacute nonhemorrhagic ischemia/infarct, right cerebellar tonsil. Low-lying cerebellar tonsils. [address] [address] [address] Scan Report Signed Patient: Lizbeth Owens MR#: [id number] : 1955 Acct:[id number] Age/Sex: 69 / F ADM Date: 02/05/25 [place] [facility]: Anais Jane MD Ordering Physician: Yue Navarrete Date of Service: 02/05/25 Procedure(s): CT angio head neck Accession Number(s): [id number] cc: Yue Navarrete; Elissa Kolb MD~ Report Number: [id number]: Total DLP = 1251.00 mGy-cm Reason for Exam: stroke protocol CLINICAL HISTORY: stroke protocol CT head without contrast CT angiography head and neck with contrast. 3D Postprocessing. COMPARISON: None provided. FINDINGS: HEAD CT: No intra-axial mass, midline shift, hydrocephalus, or acute hemorrhage. No significant atrophy-like change or white matter disease. The visualized paranasal sinuses and mastoid air cells are normal. The orbits are unremarkable. There is no acute fracture. HEAD AND NECK CTA: Aortic arch and cervical great vessels are patent. Minimal calcified plaque present at the carotid bulbs bilaterally without significant stenosis. Dominant left vertebral artery. Intracranial arteries are patent. Small amount of calcified plaque present along the intracranial vertebral arteries bilaterally without significant stenosis. Calcified plaque present along the cavernous portions of the intracranial internal carotid arteries bilaterally without significant stenosis. No aneurysm, dissection, hemodynamically significant stenoses, or occlusion. No abnormal intracranial enhancement. The visualized thyroid gland is unremarkable. No cervical mass or fluid collection. Visualized lung apices are clear. Mild mucosal thickening present within the maxillary sinuses. No acute fracture. Mild spondylosis. No acute fracture. IMPRESSION: 1. No acute intracranial findings. 2. Patent head and neck CTA. Assessment and Plan (1) Brain lesion: Status: Acute 69 years old woman who reported suffering from sudden severe headache lasting for few minutes. MRI of brain was done as an outpatient that revealed a possible right medial cerebellar area of restricted diffusion, which was not clearly visible on FLAIR. CTA of brain and neck did not reveal any vascular disease. Cerebral ventricles were somewhat small for her age. As far as this cerebellar lesion is concerned, it needed further evaluation and I recommend MRI of brain with contrast to rule out an infiltrating or inflammatory lesion. I also recommend outpatient ophthalmology evaluation to rule out this could edema because of relatively small ventricles. High intracranial pressure might be 1 reason for the type of headache she had. If papilledema is confirmed, lumbar puncture should be performed to check her spinal fluid pressure. (2) Acute headache: Qualifiers: Headache type: unspecified Intractability: not intractable Qualified Code(s): R51.9 - Headache, unspecified Status: Acute Procedures Date of Service Date of Service: 02/06/25
[2025-02-06 11:56] LABS: Glucose, Whole Blood 153 mg/dL (60-115)
--- NOTE | 2025-02-06 15:23 | P.PNIM_ITS ---
Subjective Subjective Date of Service: 02/06/25 Interval History: No new complaints or issues today. Patient is asymptomatic. No residual deficits Review of Systems Review of Systems: Yes all other systems are reviewed and are negative Physical Exam 2 Exam: Exam: General: A&O x3, oriented to time place person and situation, comfortable, no pain Cardiac: S1, S2 auscultated with no S3/4, no MRG. Well perfused. Respiratory: Normal breath sounds auscultated throughout all lung zones, without wheezing, rales. Normal rate. GI/ : No abdominal pain on palpation, no masses or distentions. MSK: Normal ambulation without pain at bony prominences or musculature Neurological: Normal neurological examination on overview, without obvious CN II-XII abnormalities. Strength 5/5 upper and lower extremities bilaterally, normal sensation, normal coordination, normal balance Vital Signs: Vital Signs: Last Vital Signs Temp 98.6 F 02/06/25 11:45 Pulse 56 02/06/25 11:45 Resp 16 02/06/25 11:45 BP 178/75 H 02/06/25 11:45 Pulse Ox 94 02/06/25 11:45 O2 Del Method Room Air 02/06/25 11:45 BMI result Body Mass Index 22.9 Objective Data Active Medications Acetaminophen (Acetaminophen 325 Mg Tablet) 650 mg PO Q6H PRN PRN Reason: Pain, Mild 1-3,fever,headache Amlodipine Besylate (Amlodipine Besylate 10 Mg Tablet) 10 mg PO DAILY [facility]; Protocol Aspirin (Aspirin Enteric Coated 81 Mg Tablet.) 81 mg PO DAILY [facility] Last Admin: 02/06/25 08:02 Dose: 81 mg Documented By: EMMA Atorvastatin Calcium (Atorvastatin Calcium 80 Mg Tablet) 80 mg PO BEDTIME [facility] Last Admin: 02/05/25 21:15 Dose: 80 mg Documented By: AVERY Calcium Carbonate (Calcium Carbonate 750 Mg Tab.Chew) 750 mg PO Q4H PRN PRN Reason: Heartburn Dextrose (Dextrose 50 % 25 Gm/50 Ml Syringe) 25 gm IVPUSH Q15M PRN; Protocol PRN Reason: per Hypoglycemia Standing Ord. Enoxaparin Sodium (Enoxaparin Sodium 40 Mg/0.4 Ml Syringe) 40 mg SUBCUT Q24H [facility] Last Admin: 02/05/25 18:30 Dose: 40 mg Documented By: AVERY Escitalopram Oxalate (Escitalopram Oxalate 10 Mg Tablet) 10 mg PO DAILY [facility] Gabapentin (Gabapentin 100 Mg Capsule) 100 mg PO DAILY [facility] Glucose (Glucose Gel 15 Gm Gel..Gram.) 15 gm PO Q15M PRN; Protocol PRN Reason: per Hypoglycemia Standing Ord. Insulin Human Lispro (Insulin Lispro 100 Unit/Ml 3 Ml Vial) 0 unit SUBCUT QIDACHS [facility]; Protocol Last Admin: 02/06/25 12:46 Dose: 2 unit Documented By: EMMA Losartan Potassium (Losartan Potassium 50 Mg Tablet) 100 mg PO DAILY [facility]; Protocol Magnesium Hydroxide (Milk Of Magnesia 30 Ml Oral.Susp) 30 ml PO DAILY PRN PRN Reason: Constipation Melatonin (Melatonin 3 Mg Tablet) 6 mg PO BEDTIME PRN PRN Reason: Insomnia Omeprazole (Omeprazole 20 Mg Capsule.Dr) 20 mg PO DAILY@0630 [facility] Sodium Chloride (0.9 % Sodium Chloride Flush 3 Ml Syringe) 3 ml IVFLUSH QSHIFT [facility] Last Admin: 02/06/25 08:07 Dose: 3 ml Documented By: EMMA Labs 02/06/25 09:01 02/06/25 09:01 Labs: Laboratory Results - last 24 hr 02/05/25 02/05/25 02/06/25 15:57 21:19 02:43 MCV 72.7 L MCH 22.6 L MCHC 31.1 RDW 13.5 Plt Count 207 MPV 11.1 Immature Gran % (Auto) 0.5 H Neut % (Auto) 77.2 H Lymph % (Auto) 13.9 L [place] % (Auto) 6.9 Eos % (Auto) 0.9 Baso % (Auto) 0.6 Lymph # (Auto) 1.1 L [place] # (Auto) 0.6 Eos # (Auto) 0.1 Baso # (Auto) 0.1 Abs Immat Gran (auto) 0.04 H Absolute Neuts (auto) 6.2 Absolute Nucleated RBC 0.000 Nucleated RBC % (auto) 0.0 PT 13.1 INR 1.1 APTT 29.3 Anion Gap 11 L Estim Creat Clear Calc 47.5 Estimated GFR 58 POC Glucose 125 H 226 H Random Glucose 171 H Calcium 9.6 Total Bilirubin 0.3 AST 36 H ALT 33 H Alkaline Phosphatase 55 Troponin I High Sens < 2.7 Total Protein 7.5 Albumin 4.6 Triglycerides 82 Cholesterol 112 LDL Cholesterol, Calc 46 HDL Cholesterol 50 02/06/25 02/06/25 02/06/25 07:05 09:01 11:47 MCV 72.1 L MCH 22.3 L MCHC 31.0 RDW 13.6 Plt Count 204 MPV 10.9 Immature Gran % (Auto) Neut % (Auto) Lymph % (Auto) [place] % (Auto) Eos % (Auto) Baso % (Auto) Lymph # (Auto) [place] # (Auto) Eos # (Auto) Baso # (Auto) Abs Immat Gran (auto) Absolute Neuts (auto) Absolute Nucleated RBC 0.000 Nucleated RBC % (auto) 0.0 PT INR APTT Anion Gap 13 Estim Creat Clear Calc 51.3 Estimated GFR > 60 POC Glucose 141 H 153 H Random Glucose 231 H Calcium 9.5 Total Bilirubin AST ALT Alkaline Phosphatase Troponin I High Sens Total Protein Albumin Triglycerides Cholesterol LDL Cholesterol, Calc HDL Cholesterol Assessment and Plan (1) Essential hypertension: Status: Acute (2) Palpitations: Status: Acute (3) Varicose veins of right lower extremity with inflammation: Status: Acute (4) Hyperlipidemia LDL goal <100: Status: Acute (5) Dyslipidemia: Status: Acute (6) Mild major depression: Status: Acute (7) Type 2 diabetes mellitus with diabetic nephropathy, with long-term current use of insulin: Status: Acute (8) Multinodular thyroid: Status: Acute (9) GERD (gastroesophageal reflux disease): Status: Acute (10) Chronic kidney disease, stage 2 (mild): Status: Acute (11) Stroke: Status: Acute (12) Sudden onset of severe headache: Status: Acute (13) Brain lesion: Status: Acute Plan 69-year-old female with history of diabetes, hypertension, hyperlipidemia who presents to the emergency department after outpatient MRI showed subacute stroke, admitted for similar issue, pending workup for possible inflammatory/infiltrative lesion. Subacute stroke As patient is asymptomatic unclear timing of onset Multiple risk factors including diabetes, hypertension, hyperlipidemia Check lipid profile HbA1c from earlier this month 7.1 Check head/neck CTA - performed, revealing patent carotid arteries and vertebral artery echo - pending Neurology consult - recommendations greatly appreciated, recommending follow up with MRI brain with contrast to evaluate for possible infiltrative/inflammatory lesion No PT/OT evaluation required at this time as patient has no obvious deficits present PLAN - ECHO pending - aspirin 81 mg OD p.o. - atorvastatin 80 mg OD p.o. - neurological checks - MRI brain with contrast to evaluate for possible infiltrative/inflammatory lesion T2DM SSI, POCs, ADA diet continue dose adjusted lantus when med rec completed HTN Restarted amlodipine 10 mg OD p.o. Restart losartan 100 mg OD p.o. Hydrochlorothiazide on hold - resume tomorrow HLD Continue atorvastatin 80 mg OD p.o. MDD Escitalopram 10 mg OD p.o. [employer] - VTE: Enoxaparin 40 mg SQ - CODE STATUS: Full code - DIET: Cardiac Total time managing care of this patient today: 45 minutes. Quality Stroke Does the patient have a stroke diagnosis?: Yes Reason for No Anti-thrombotic by Day Two: N/A - Med Ordered VTE Prior VTE?: No VTE Risk Level:: Medical - moderate - high VTE Device Contraindication: Treatment Not Indicated VTE Drug Contraindication: N/A - Med Ordered
[2025-02-06 16:20] LABS: Glucose, Whole Blood 186 mg/dL (60-115)
[2025-02-06 19:32] LABS: Glucose, Whole Blood 140 mg/dL (60-115)
[2025-02-07] VITALS: BP 149/67; PULSE 60; RESP 18; TEMP 36.4; O2SAT 96
[2025-02-07 03:16] VITALS: BP 151/67; PULSE 62; RESP 18; TEMP 36.3; O2SAT 95
[2025-02-07 07:43] LABS: Glucose, Whole Blood 176 mg/dL (60-115)
[2025-02-07 08:00] VITALS: BP 151/66; PULSE 58; RESP 18; TEMP 36.6; O2SAT 96
[2025-02-07] MEDS: Aspirin Enteric Coated 81 MG TABLET.DR PO (08:13)
--- NOTE | 2025-02-07 10:39 | P.DS_ITS ---
DS: Providers Provider Date of Service: 02/07/25 Date of admission: 02/07/25 08:52 Date of discharge: 02/07/25 Primary care physician: Elissa Salas MD Consults: 02/05/25 17:32 Consult to Neurology Routine Consulting Provider: Vero Vieira Reason for consultation: sent in for MRI showing subacute stroke Has provider been notified: No DS: Diagnosis Discharge Diagnosis (1) Stroke: Status: Acute (2) Essential hypertension: Status: Acute (3) Palpitations: Status: Acute (4) Varicose veins of right lower extremity with inflammation: Status: Acute (5) Hyperlipidemia LDL goal <100: Status: Acute (6) Dyslipidemia: Status: Acute (7) Mild major depression: Status: Acute (8) Type 2 diabetes mellitus with diabetic nephropathy, with long-term current use of insulin: Status: Acute (9) Multinodular thyroid: Status: Acute (10) GERD (gastroesophageal reflux disease): Status: Acute (11) Chronic kidney disease, stage 2 (mild): Status: Acute (12) Sudden onset of severe headache: Status: Acute (13) Brain lesion: Status: Acute DS: Summary Hospital Course Hospital Course: From the admission H&P: Chief Complaint: abnormal MRI This is a 69-year-old female with a history of diabetes, hypertension who was sent to the emergency department for abnormal MRI. History was obtained with the assistance of a inspection and testing supervisor. Patient was seen by Neurology on December 24 not that time she reported previous history of severe headache. An outpatient MRI was ordered which was obtained today. The MRI showed concern for subacute nonhemorrhagic ischemia/infarct in the right cerebellar tonsil. The patient was called and requested to come to the emergency department for admission. Patient denies any headache since the one she experienced in December. She denies any difficulty with balance or unsteady gait, vision changes, dizziness, upper or lower extremity weakness, difficulty swallowing or any other changes from her baseline. Patient will be admitted for further workup to determine etiology of stroke. Hospital Course: 69-year-old female hospitalized from 02/05/2025 after presenting with abnormal MRI which showed subacute nonhemorrhagic ischemic/infarct of the right cerebellar tonsil. Patient was evaluated by Neurology and underwent MRI with contrast to evaluate for possible infiltrative/inflammatory lesion. MRI with contrast was negative. Neurology also recommended outpatient ophthalmology evaluation. As part of the workup, a 2D echo was ordered and has not been completed yet hence the patient was recommended to continue ongoing hospitalization, however patient was keen on discharge and opted for outpatient follow up for further workup. Ophthalmology referral and 2D echo has been ordered. Time Attestation Discharge Coordination Time (in mins): 40 Quality: Safe Use of Opioids Does Pt have an Active Cancer Diagnosis on the Problem List?: No Quality: Stroke Does the patient have a stroke diagnosis?: Yes Reason for No Anti-thrombotic at DC: N/A - Med Ordered Reason for No Anticoagulant at DC: Not indicated Reason Not Initiating IV-Tpa: Not indicated Reason for No Anti-thrombotic by Day Two: N/A - Med Ordered Reason for No Statin at DC: N/A - Med Ordered Physical Exam Vital Signs: Vital Signs: Last Vital Signs Temp 97.9 F 02/07/25 08:00 Pulse 58 02/07/25 08:00 Resp 18 02/07/25 08:00 BP 151/66 H 02/07/25 08:00 Pulse Ox 96 02/07/25 08:00 O2 Del Method Room Air 02/07/25 08:00 BMI result Body Mass Index 22.9 DS: Data Data Completed and Pending Labs on day of discharge: Laboratory Results - last 24 hr 02/06/25 02/06/25 02/06/25 11:47 16:08 19:24 POC Glucose 153 H 186 H 140 H 02/07/25 07:34 POC Glucose 176 H Discharge Plan Discharge Anticipated Discharge Date/Time: 02/07/25 10:19 Patient Disposition: Home, Self-Care Discharge Diagnosis: Subacute stroke Referrals: ophtalmology [Other] - 1 Week Zen Myles [Physician, Ophthalmology] - 1 Week Elissa Kolb MD [Primary Care Provider, Internal Medicine] - 1 Week Discharge Medications: Continued omeprazole 20 mg capsule,delayed release(DR/EC) 20 mg PO QAM 90 Days Qty: 90 3RF (DME) lancets [OneTouch Delica Plus Lancet] 33 gauge misc See Rx Instructions .ROUTE .MEDSUPPLY Qty: 100 6RF Rx Instructions: As directed (DME) pen needle, diabetic 32 gauge x 5/32 needle See Rx Instructions subcut .MEDSUPPLY Qty: 100 11RF Rx Instructions: Use 1 pen needle three times a day (DME) blood-glucose meter [OneTouch Verio Flex meter] [facility] See Rx Instructions .ROUTE .MEDSUPPLY Qty: 1 0RF Rx Instructions: As directed (DME) OneTouch Verio test strips Strip See Rx Instructions .ROUTE .MEDSUPPLY Qty: 125 11RF Rx Instructions: Use 1 test strip four times a day cholecalciferol (vitamin D3) 50 mcg (2,000 unit) capsule 50 mcg PO DAILY Qty: 30 4RF losartan 100 mg tablet 100 mg PO DAILY 90 Days Qty: 90 3RF aspirin 81 mg tablet,delayed release (DR/EC) 81 mg PO DAILY 90 Days Qty: 90 1RF (DME) FreeStyle Pau 3 Sensor Device See Rx Instructions .ROUTE .MEDSUPPLY Qty: 2 11RF Rx Instructions: Apply every 14 days As directed to monitor blood glucose calcium citrate 250 mg calcium tablet 500 mg PO BID Qty: 120 0RF insulin lispro [Humalog KwikPen Insulin] 100 unit/mL insulin pen 1 sliding scale dose subcut TIDWM Rx Instructions: Inject per sliding scale TID with breakfast, lunch and supper. inject 4 units for bs 80-150, 6vunits for bs 151-200, 8 units for bs 201-250, 12 units for bs 251-300, 10 units for bs >300 gabapentin 100 mg capsule 100 mg PO DAILY (DME) FreeStyle Pau 3 [place] Misc See Rx Instructions .ROUTE .MEDSUPPLY Qty: 1 0RF Rx Instructions: As directed insulin glargine [Lantus Solostar U-100 Insulin] 100 unit/mL (3 mL) insulin pen 20 unit subcut BEDTIME amlodipine 10 mg tablet 10 mg PO DAILY 90 Days Qty: 90 1RF hydrochlorothiazide 25 mg tablet 25 mg PO DAILY 90 Days Qty: 90 1RF citalopram 20 mg tablet 20 mg PO DAILY Changed rosuvastatin 10 mg tablet 20 mg PO DAILY 90 Days Qty: 90 3RF Discharge Orders: Discharge Order (Routine); Ordered 02/07/25 Ordered By: Jian Estevez Diet: Advance to usual diet Activity on Discharge: As tolerated Stand Alone Forms: Patient Portal Discharge page Print Language: Ethiopian Other Ambulatory Orders: [place] echo transthoracic complete (Routine) Timeframe: 1 Week Facility: [facility] - Location: Cardiology Ordered By: Jian Estevez Care Plan Goals: Follow up with PCP Follow up with opthalmology Check 2d Echo Health Concerns: Stroke Plan of Treatment: Take your medications for DM, HTN, cholesterol follow up with your primary care doctor Check a 2d echo (ultrasound of your heart) Assessment: See discharge summary Discharge Date/Time: 02/07/25 12:33
[2025-02-07 11:19] LABS: Glucose, Whole Blood 133 mg/dL (60-115)
[2025-02-07 11:53] VITALS: BP 154/67; PULSE 59; RESP 16; TEMP 36.2; O2SAT 99
--- NOTE | 2025-02-07 13:11 | MHC.CM.PN ---
PT LIVES ALONE, SHE IS INDEPENDENT WITH CARE COPY OF HCP ON FILE PCP: ANDREW CARRILLO OBSERVATION NOTICE DELIVERED 02/06/25 IMM DELIVERED 02/07/25 PT DISCHARGED HOME TODAY WITH NO SERVICES VIA PRIVATE TRANSPORT
== END 2025-02-07 12:33 | disposition home or self-care (01) | DRG 66 ==
LOC: HO.ED 17:31 → HO.EDOVER 17:33 → HO.IMC 02-06 01:20
PROVIDERS: Hospitalist; Physician Assistant; Admitting Provider Physician Assistant Medical; Emergency Provider Emergency Medicine; PCP Internal Medicine; Visit Provider Family Medicine
DX: I63.9 Cerebral infarction, unspecified (principal); E11.9 Type 2 diabetes mellitus without complications; I10 Essential (primary) hypertension; R29.700 NIHSS score 0; F32.9 Major depressive disorder, single episode, unspecified; Z79.4 Long term (current) use of insulin; Z79.82 Long term (current) use of aspirin; Z79.899 Other long term (current) drug therapy
CPT/HCPCS: 36415; 70496; 70498; 70551; 70552; 71045; 80048; 80053; 80061; 82947; 84484; 85025; 85027; 85610; 85730; 93005; 99222; 99285; A9585; J1650; Q9967

== ENCOUNTER → 2025-02-05 15:40 | Outpatient (BNV) | payer OTHER, SELFPAY | PROVIDERS: Admitting Provider Physician Assistant Medical; Emergency Provider Emergency Medicine; PCP Internal Medicine; Visit Provider Internal Medicine | DX: I51.7 Cardiomegaly (principal) | CPT/HCPCS: 93010 ==

== ENCOUNTER 2025-02-05 17:30 | Outpatient (BNV) | payer OTHER, SELFPAY | END 2025-02-06 18:27 | PROVIDERS: Admitting Provider Physician Assistant Medical; Emergency Provider Emergency Medicine; PCP Internal Medicine; Visit Provider Student in an Organized Health Care Education/Training Program | DX: Z03.89 Encounter for observation for other suspected diseases and conditions ruled out (principal) | CPT/HCPCS: 70552 ==

== ENCOUNTER → 2025-02-05 17:30 | Outpatient (BNV) | payer OTHER, SELFPAY | PROVIDERS: Admitting Provider Physician Assistant Medical; Emergency Provider Emergency Medicine; PCP Internal Medicine; Visit Provider Psychiatry & Neurology Neurology | DX: G93.9 Disorder of brain, unspecified (principal); R51.9 Headache, unspecified | CPT/HCPCS: 99222 ==

== ENCOUNTER → 2025-02-05 17:30 | Outpatient (BNV) | payer OTHER, SELFPAY | PROVIDERS: Admitting Provider Physician Assistant Medical; Emergency Provider Emergency Medicine; PCP Internal Medicine; Visit Provider Physician Assistant Medical | DX: I63.9 Cerebral infarction, unspecified (principal) | CPT/HCPCS: 99223; 99233 ==

== ENCOUNTER 2025-02-09 07:56 | Outpatient (REF) | payer OTHER, SELFPAY ==
--- NOTE | ~2025-02-09 | CT_ITS ---
EXAMINATION: CT ANGIOGRAM HEAD AND NECK CLINICAL INFORMATION: Headache, unspecified. COMPARISON: CTA head and neck 02/05/2025. MRI brain 02/05/2025 and 02/06/2025. TECHNIQUE: Noncontrast axial imaging of the head was performed. This was followed by test bolus sequences and head and neck intravenous bolus administration 70 mL of Omnipaque 350. Helical imaging was performed in the axial plane from the aortic arch to the skull vertex. A [address] head was also obtained. The data was processed at the tomography technologist's workstation for generation of MIP sequences. Angled MIPs and volume rendered reformatted images were also generated at an offline 3D workstation. Stenoses are assessed in accordance with NASCET criteria unless otherwise indicated. This CT examination was performed using dose optimization techniques as appropriate, variously including the following: *Automated exposure control *Adjustment of mA and/or kV according to patient size (this includes techniques or standardized protocols for targeted exams where dose is matched to indication/reason for exam; i.e. extremities or head) *Use of iterative reconstruction technique FINDINGS: NONCONTRAST HEAD CT: There is no evidence of intracranial hemorrhage or extra-axial fluid collection. There is no mass effect, or edema. No CT evidence of acute territorial infarct. In particular, no evidence of evolving right cerebellar vermis infarct is noted. Ventricles, sulci, and cisterns are normal in size and configuration for patient age. No hydrocephalus. Mildly prominent extra-axial spaces in the posterior fossa again noted. No midline shift. No significant white matter abnormalities. Globes and orbital contents image normally. No extracranial soft tissue abnormalities. Mild mucosal thickening in both maxillary sinuses right greater than left. Remainder of the paranasal sinuses are well pneumatized. The mastoid air cells, and tympanic cavities are normally aerated. No suspicious bony abnormalities. NECK CTA: -AORTIC ARCH: Normal in caliber. Mild atheromatous calcification. 2-vessel branching pattern. -GREAT VESSEL ORIGINS: Widely patent. No stenosis. -RIGHT COMMON CAROTID ARTERY: Normal in course and caliber to the level of the bifurcation. -CERVICAL RIGHT INTERNAL CAROTID ARTERY: Trace carotid bulb calcification. Normal opacification without focal stenosis or occlusion. -LEFT COMMON CAROTID ARTERY: Normal in course and caliber to the level of the bifurcation. -CERVICAL LEFT INTERNAL CAROTID ARTERY: Trace carotid bulb calcification. Normal opacification without focal stenosis or occlusion. -CERVICAL RIGHT VERTEBRAL ARTERY: Nondominant. Normal origin. Normal in course and caliber into the skull base. -CERVICAL LEFT VERTEBRAL ARTERY: Dominant. Normal origin. Normal in course and caliber into the skull base. OTHER, SOFT TISSUES: -No lymphadenopathy or mass. No abnormal fluid collection or soft tissue swelling. -Normal thyroid. -Imaged superior mediastinal structures normal. -Imaged lung apices demonstrate minimal pleural parenchymal scarring. CTA OF THE BRAIN: -INTRACRANIAL INTERNAL CAROTID ARTERIES: Mild calcific atherosclerotic disease of the intracranial internal carotid arteries without occlusion or flow-limiting stenosis. No aneurysm. Ophthalmic artery origins are patent. -RIGHT ANTERIOR CEREBRAL ARTERY: Normal A1 segment. Normal arborization of the distal segments. -LEFT ANTERIOR CEREBRAL ARTERY: Normal A1 segment. Normal arborization of the distal segments. -ANTERIOR COMMUNICATING ARTERY: Normal. -RIGHT MIDDLE CEREBRAL ARTERY: Normal M1 segment of the MCA without focal stenosis or occlusion. Normal bifurcation. Normal arborization of the distal segments. -LEFT MIDDLE CEREBRAL ARTERY: Normal M1 segment of the MCA without focal stenosis or occlusion. Normal bifurcation. Normal arborization of the distal segments. -RIGHT VERTEBRAL ARTERY V4: Nondominant. Normal in course and caliber. Normal PICA branch. -LEFT VERTEBRAL ARTERY V4: Dominant. Moderate V4 segment focal calcification results in mild stenosis (series 15, image 190). Normal PICA branch. -BASILAR ARTERY: Normal without focal stenosis or occlusion. Normal appearance of the proximal superior cerebellar arteries. Normal basilar tip. -RIGHT POSTERIOR CEREBRAL ARTERY: Normal P1 segment. Normal opacification of the distal VOICER segments. -LEFT POSTERIOR CEREBRAL ARTERY: Normal P1 segment. Normal opacification of the distal VOICER segments. -POSTERIOR COMMUNICATING ARTERIES: Not well seen. Normal opacification of the superior sagittal, straight, transverse, and sigmoid sinuses. No venous thrombosis. CT/CT angio head neck IMPRESSION: NON-CONTRAST HEAD CT: 1. No intracranial hemorrhage or mass effect. No CT evidence of acute territorial infarct. In particular, no evidence of evolving right cerebellar vermis infarct is noted. The finding on the MRI from 02/05/2025 may have been artifactual. CTA NECK: 1. Minimal atheromatous disease of the carotid bulbs bilaterally. No significant stenosis, occlusion, dissection, or aneurysm of the major cervical arterial vasculature present. CTA HEAD: 1. No significant stenosis, occlusion, dissection, or aneurysm of the major intracranial arterial vasculature. 2. Major cortical and dural venous sinuses are patent. Electronically signed by: Jose Harden MD 02/09/2025 09:53 AM [facility]
--- OUTSIDE RECORDS SUMMARY | 2025-02-09 08:08 | XMS_ITS | Encounter Summary ---
Author Organization [facility], Address [address] [place] [address] Phone Care Team Providers Care Sales Vendor Name Role Phone Elissa Kolb MD Primary Care Provider [phone] Encounter Details Date Type Department Care Team ([facility] Contact Info) Description 08/14/2023 Documentation Only [facility] [address] [place] [address] [place] [address] [place] [phone] Social History Tobacco Use Types Packs/Day [...] Visit [facility] [address] [place] [address] Emery Moran MD [address] [place] [address] [place] [address] documented as of this encounter Visit Diagnoses Not on filedocumented in this encounter Care Teams Sales Vendor Relationship Specialty Start Date End Date Elissa Kolb MD [address] [place], [place] PCP - General Internal Medicine 04/02/24 documented as of this encounter
--- OUTSIDE RECORDS SUMMARY | 2025-02-09 08:09 | XMS_ITS | Encounter Summary ---
Author Organization [facility], Address [address] [place] [address] Phone Care Team Providers Care Mathematics Improvement Teacher Name Role Phone Elissa Kolb MD Primary Care Provider [phone] Encounter Details Date Type Department Care Team (Late st Contact Info) Description 11/26/2022 Documentation Only [facility], [facility] [address] [place] [address] Conrado Kaur MD [address] [place] [address] [facility] [place] [id number] Social History Tobacco Use Types Packs/Day Years [...] Visit [facility], [address] [place] [place] [phone] Emery Moran MD [address] [place] [address] [place] [phone] documented as of this encounter Visit Diagnoses Not on filedocumented in this encounter Care Teams Mathematics Improvement Teacher Relationship Specialty Start Date End Date Elissa Kolb MD [address] [place], [place] PCP - General Internal Medicine 04/02/24 documented as of this encounter
--- OUTSIDE RECORDS SUMMARY | 2025-02-09 08:09 | XMS_ITS | Encounter Summary ---
Author Organization [facility], Address [address] [place] [address] Phone Care Team Providers Care Ccu Nurse Name Role Phone Elissa Kolb MD Primary Care Provider [phone] Encounter Details Date Type Department Care Team (Late Contact Info) Description 01/29/2022 Documentation Only [facility] [address] [place] [address] Claudia Moon PA [address] [place] [address] Social History Tobacco Use Types [...] Visit [facility] [address] [place] [address] Emery Moran MD [address] [place] [address] documented as of this encounter Visit Diagnoses Not on filedocumented in this encounter Care Teams Ccu Nurse Relationship Specialty Start Date End Date Elissa Kolb MD [address] [place], [place] PCP - General Internal Medicine 04/02/24 documented as of this encounter
--- OUTSIDE RECORDS SUMMARY | 2025-02-09 08:09 | XMS_ITS | Clinical Summary ---
Author Organization [address] [place] [address] Dr Franco Address [address] [place] [address] [place] [address] Phone Care Team Providers Care Cut Off Saw Operator Metal Name Role Phone Elissa Salas MD Primary Care Provider [phone] Allergies No known active allergies Medications silver [...] to complete this topic Insurance MEDICAID - [place] [facility] [employer] Care Teams Cut Off Saw Operator Metal Relationship Specialty Start Date End Date Elissa Salas MD [address] [facility] , [address] [facility] D[facility]A: [facility] SUSIE Arboleda PCP - General 01/02/24
--- OUTSIDE RECORDS SUMMARY | 2025-02-09 08:09 | XMS_ITS | Encounter Summary ---
Author Organization [facility], Address [address] [place] [address] Phone Care Team Providers Care Junior Analyst Name Role Phone Elissa Kolb MD Primary Care Provider [phone] Encounter Details Date Type Department Care Team (Late Contact Info) Description 06/24/2023 Orders Only [facility] [address] [place] [address] Claudia Moon PA [address] [place] [address] [place] [address] Stage 3a chronic kidney disease [...] Visit [facility] [address] [place] [address] Emery Moran MD [address] [place] [address] [place] [address] documented as of this encounter Visit Diagnoses Diagnosis Stage 3a chronic kidney disease (HCC) Essential (primary) hypertension Type 2 diabetes mellitus without complication (HCC) documented in this encounter Care Teams Junior Analyst Relationship Specialty Start Date End Date Elissa Kolb MD [address] [place], [place] PCP - General Internal Medicine 04/02/24 documented as of this encounter
--- OUTSIDE RECORDS SUMMARY | 2025-02-09 08:09 | XMS_ITS | Encounter Summary ---
Author Organization [facility] [place], Address [address] [place] [address] Phone Care Team Providers Care Education And Training Coordinator Name Role Phone Elissa Kolb MD Primary Care Provider [phone] Encounter Details Date Type Department Care Team ([facility] Contact Info) Description 07/28/2024 Documentation Only [facility] [address] [place] [address] [place] [address] [place] [address] Social History Tobacco Use Types Packs/Day [...] Visit [facility] [address] [place] [address] Emery Moran MD [address] [place] [address] [place] [address] documented as of this encounter Visit Diagnoses Not on filedocumented in this encounter Care Teams Education And Training Coordinator Relationship Specialty Start Date End Date Elissa Kolb MD [address] [place], [place] PCP - General Internal Medicine 04/02/24 documented as of this encounter
--- OUTSIDE RECORDS SUMMARY | 2025-02-09 08:09 | XMS_ITS | Encounter Summary ---
Author Organization [facility] [place], Address [address] [place] [address] Phone Care Team Providers Care Pulp Drier Name Role Phone Elissa Kolb MD Primary Care Provider [phone] Encounter Details Date Type Department Care Team (Late st Contact Info) Description 03/26/2022 Documentation Only [facility] [place], [address] [place] [address] Claudia Moon PA [address] [place] [address] Social History Tobacco Use Types [...] Visit [facility] [address] [place] [phone] Emery Moran MD [address] [place] [address] [place] [phone] documented as of this encounter Visit Diagnoses Not on filedocumented in this encounter Care Teams Pulp Drier Relationship Specialty Start Date End Date Elissa Kolb MD [address] PCP - General Internal Medicine 04/02/24 documented as of this encounter
--- OUTSIDE RECORDS SUMMARY | 2025-02-09 08:09 | XMS_ITS | Clinical Summary ---
Author Organization [facility] [place], Address [address] [place] [address] [place] [address] Phone Care Team Providers Care Accounts Receivable Collector Name Role Phone Elissa Kolb MD Primary Care Provider [phone] Allergies No known active allergies Medications amLODIPine [...] [facility] [address] [place] [address] Emery Moran MD Renal disorder due to type 2 diabetes mellitus <Unspecified DM Medication; Other diabetic kidney complication> (HCC) (Primary Dx) 12/01/2024 1:30 PM EDT Office Visit [facility] [address] [place] [address] Emery Moran MD Stage 3a chronic kidney [...] Visit [facility] [place], [address] [place] [phone] Emery Moran MD [address] [place] [address] [place] [phone] Health Maintenance Due Date Last Done Comments [...] patient's age to complete this topic Insurance [employer] Care Teams Accounts Receivable Collector Relationship Specialty Start Date End Date [place] Maritza, Elissa, MD [address] [place], [place] PCP - General Internal Medicine 04/02/24
[2025-02-09] MEDS: iohexoL 350 MG/ML 100 ML INFUS..BTL IV (09:13)
== END 2025-02-09 07:57 | disposition home or self-care (01) ==
LOC: HO.CT 07:56
PROVIDERS: PCP Internal Medicine; Visit Provider Nurse Practitioner Family
DX: I10 Essential (primary) hypertension (principal); R51.9 Headache, unspecified; E78.5 Hyperlipidemia, unspecified; E11.21 Type 2 diabetes mellitus with diabetic nephropathy; Z79.4 Long term (current) use of insulin
CPT/HCPCS: 70496; 70498; Q9967

== ENCOUNTER → 2025-02-09 07:59 | Outpatient (BNV) | payer OTHER, SELFPAY | PROVIDERS: PCP Internal Medicine; Visit Provider Radiology Diagnostic Radiology | DX: R51.9 Headache, unspecified (principal) | CPT/HCPCS: 70496; 70498 ==

== ENCOUNTER 2025-02-19 09:38 | Outpatient (AMB) | payer OTHER, SELFPAY ==
--- NOTE | 2025-02-19 09:44 | A.OFFPC_ITS ---
Vital Signs 02/19/25 09:46 Height 5 ft 1 in Weight 134 lb 4 oz BMI 25.4 BP 110/70 Blood Pressure Location Lt brachial Position Sitting Pulse 67 Pulse Source Pulse Oximeter Temp 97.3 F Temp Source Temporal Artery Scan Pulse Oximetry (%) 100 Oxygen Delivery Method Room Air Intake Visit Reasons: [facility] 02/07 acute stroke Intake Note: Patient is here for hospital discharge and TCM follow up. Patient was discharged [place] [facility] [place]. [employer] Required: Yes [employer] Language: Source Water Protection Specialist Name: John [id number] Information Interpreted: non-clinical & clinical Pantograph Machine Operator: Not Required per policy Accompanied by: Self / Same As Patient Allergies gabapentin Allergy (Intermediate, Verified 02/19/25 09:46) pruritus metformin Allergy (Intermediate, Verified 02/19/25 09:46) stomach upset metoprolol Allergy (Intermediate, Verified 02/19/25 09:46) upset stomach tizanidine Allergy (Intermediate, Verified 02/19/25 09:46) leg edema Medication List - Last Reconciled 02/19/25 by Marlen Pate, JOBY amlodipine 10 mg PO DAILY 90 days aspirin 81 mg PO DAILY 90 days blood sugar diagnostic ([email or web address] Verio test strips) Use 1 test strip four times a day blood-glucose meter ([email or web address] Verio Flex Meter) As directed blood-glucose sensor (PixableStyle Pau 3 Sensor device) Apply every 14 days As directed to monitor blood glucose blood-glucose,forestry crew chief,cont (FreeStyle Pau 3 [place]) As directed calcium citrate 500 mg (2 x 250 mg calcium) PO BID cholecalciferol (vitamin D3) 50 mcg PO DAILY citalopram 20 mg PO DAILY gabapentin 100 mg PO DAILY hydrochlorothiazide 25 mg PO DAILY 90 days insulin glargine (Lantus Solostar U-100 Insulin) 20 units subcut BEDTIME insulin lispro (Humalog KwikPen (U-100) Insulin) 1 sliding scale dose subcut TIDWM lancets (tomoguidesuch Delica Plus Lancet) As directed losartan 100 mg PO DAILY 90 days omeprazole 20 mg PO QAM 90 days pen needle, diabetic Use 1 pen needle three times a day rosuvastatin 20 mg (2 x 10 mg) PO DAILY 90 days Tobacco use date assessed: 02/19/25 Fall risk assessment: No Falls in past year Last assessed Fall Risk: 02/19/25 Dental Screening Dental Screen Date: 12/24/24 [facility] TCM TCM Information Date of Discharge 02/07/25 Discharged From [facility] Interactive Contact Date (Reference documentation from this date) 02/08/25 [facility] Comments History of Present Illness Details 69 y/o Female Patient who presents today for a Transitional Care Management (TCM) visit following recent hospitalization at [facility] [place] 02/05[place]02/[place] for evaluation of abnormal MRI findings. 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 She was advised to go to the ED for admission. During hospitalization, a 2D echo and Ophthalmology referral were placed for outpatient follow-up. Patient opted for discharge home. She has a scheduled Ophthalmology appointment with Dr. Zen Myles in March. She also completed the CTA Brain ordered by Neurology but has not yet received any results. Next Neurology follow-up is scheduled for 06/2025. Today, patient denies headaches, nausea, vomiting, dizziness, shortness of breath, chest pain, vision changes, focal weakness, or other neurologic complaints. 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, with long-term current use of insulin Palpitations Varicose veins of right lower extremity with inflammation T2DM (type 2 diabetes mellitus) Hyperparathyroidism Multinodular thyroid Goiter Vitamin D deficiency Anemia Right hand pain Diabetes type 2, uncontrolled Hyperlipidemia LDL goal <100 Osteoporosis Chronic kidney disease, stage 2 (mild) Long-term use of aspirin therapy GERD (gastroesophageal reflux disease) Dyslipidemia Essential hypertension rn ortho (current) use of insulin Screening for osteoporosis Well woman exam Depression with anxiety Fibromyalgia Surgical History History of colonoscopy History of tubal ligation Family History Father No problems noted. Mother Asthma Hypertension Chronic mental illness Diabetes Mental health disorder Family/Other Chronic mental illness Mental health disorder Social History Household Members: None Housing: House Do you presently have visiting nurse or other home services: No Alcohol intake: never Patient Tobacco Use Status: Never used Tobacco e-Cigarette/Vaping Use: Never Used Second Hand Smoke Exposure: No service: No Current occupational status: disabled Sexual orientation: Straight/Heterosexual Gender identity: Female Cognitive needs: No Hearing needs: No Vision needs: Yes Female Reproductive History Menstrual Age of Menarche: 12 Questionnaire Thrive Questionnaire Date Thrive assessed: 08/17/24 I am a: Patient What is your living situation today?: I have a steady place to live Within the past 12 months, did the food you bought not last and you didn't have the money to get more?: Never true Within the past 12 months, did you worry whether your food would run out before you got money to buy more?: Never true Do you have trouble paying for medicines?: No Do you have trouble getting transportation to medical appointments?: No Do you have trouble paying your heating and electricity bill?: No Do you have trouble taking care of your child, family member or friend?: No Do you have trouble with day-to-day activities such as bathing, preparing meals, shopping, managing finances, etc.?: No Are you currently unemployed and looking for a job?: No Are you interested in more education?: No Please select the resources that you would like help with: None Currently or been in a relationship where the following occur: I choose not to answer THRIVE Score: 0 TENISHA-7 AMB Questionnaire TENISHA-7 Date TENISHA - 7 assessed: 08/17/24 Source: Developed by Drs. Arnulfo Ray, Marjorie Holbrook, Brannon Dallas and colleagues, with an educational lorena from [employer]. Review of Systems Const All systems reviewed & are unremarkable except as noted in HPI and below Physical exam (Primary Care) Vital Signs: Last Vital Signs Temp 97.3 F 02/19/25 09:46 Pulse 67 02/19/25 09:46 BP 110/70 02/19/25 09:46 Pulse Ox 100 02/19/25 09:46 Oxygen Delivery Method Room Air 02/19/25 09:46 BMI result Body Mass Index 25.4 Tobacco/Smoking Status: Tobacco use Status Tobacco use date assessed 02/19/25 02/19/25 09:54 Patient Tobacco Use Status Never used Tobacco 02/19/25 09:54 e-Cigarette/Vaping Use Never Used 02/19/25 09:54 Thrive Assessment: Date of Thrive Assessment Date Thrive assessed 08/17/24 02/19/25 09:54 Currently or been in a relationship where the following occur: I choose not to answer Const General: no acute distress Nutritional Appearance: well nourished Orientation/consciousness: patient oriented x3 Limitations: language barrier HENMT Head: Yes normocephalic Resp Effort & Inspection: normal respiratory effort Auscultation: clear to auscultation bilaterally Cardio Heart sounds: S1 normal heart sound present and S2 normal heart sound present Neuro Other: CN II?XII grossly intact. No facial droop. Strength 5/5 in all extremities. Sensation intact. No gait abnormalities. No dysmetria. 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 s/p hospitalization. Clinically stable today without new Neurologic deficits. CTA brain completed; results pending. Follow up with Ophthalmology in March as scheduled. Neurology follow-up already arranged for June 2025. Will Have Patient contact Radiology/Neurology office to obtain CTA Brain results. Educated patient on strict return precautions: sudden severe headache, vision changes, dizziness, weakness, slurred speech, imbalance, chest pain, or any stroke-like symptoms ? advised to call 911 or go to ED immediately.
[2025-02-19 09:46] VITALS: BP 110/70; PULSE 67; TEMP 36.3; O2SAT 100; BMI 25.4
== END 2025-02-19 10:36 | disposition home or self-care (01) ==
LOC: HO.HMCH 09:39
PROVIDERS: PCP Internal Medicine; Visit Provider Nurse Practitioner Family
DX: I63.9 Cerebral infarction, unspecified (principal)

== ENCOUNTER → 2025-02-19 09:38 | Outpatient (BNVA) | payer OTHER, SELFPAY | PROVIDERS: PCP Internal Medicine; Visit Provider Nurse Practitioner Family | DX: I63.89 Other cerebral infarction (principal) | CPT/HCPCS: 99495 ==